=== PATIENT | male | born 1955 | race Caucasian/White ===

== ENCOUNTER → 2016-04-10 | Outpatient (CLI) | payer BC ==
[~2016-04-10] MED LIST: ASP81CT PO; ATN25T; ATN50T PO; ATOR20TA66 PO; B-12 PO; BTH25T1 PO; CEFD300C3 PO; CITA10SO PO; CITA20TA4 PO; CITA20TA7 PO; CYAN10007 PO; CYCL10TA45 PO; CYCL10TA9 PO; DXZS4T PO; ESCT10T PO; HCT25T PO; HYDR-3812 PO; HYDR25TA4 PO; KETO75CA PO; LEVO500T2 PO; LEVO500T80 PO; LISI20TA PO; LISI40TA PO; LOSA50TA36 PO; LOSA50TA6 PO; LSRT50T PO; METR500T PO; METR500T21 PO; MGX400T; MGX400T PO; MOVE FREE PO; MTF500T; MTF500T PO; MULT1TAB63; MULT1TAB63 PO; NAPR220T76 PO; NYST1000 PO; OMEP-10 PO; OMG1KC PO; OXYC-471 PO; PHEN-826 PO; PRD20T PO; PRILOSEC PO; SIMV40TA4 PO; TADA2.5T PO; TEST75GE3 TD; TRAM50TA2 PO; VARD20TA30 PO; [UNRECOGNIZED DRUG - OTHER]
--- OUTSIDE RECORDS SUMMARY | 2016-04-10 12:42 | XMS REPORT | Continuity of Care Document ---
Author Author [facility] Organization [facility] Address Unknown Phone Unavailable Care Team Providers Care Elevator Conductor Name Role Phone [facility] PCP Insurance Providers Payer Name Policy Number Subscriber Name Relationship [facility] [id number] Karey Niño Jr 20 Self / Same As Patient Advance Directives Directive Response Recorded Date/Time Advance Directives Yes 07/17/14 10:56pm Health Care Power of Online Retailer No 07/17/14 10:56pm Organ Donor No 07/17/14 10:56pm Resuscitation Status Full Code 07/17/14 10:56pm Problems No known problems or medical conditions. Medications Medication Dose Route Sig Days/Qty Instructions Order Date Discontinued Date Status Aspirin 81 Mg PO DAILY 10/31/06 Active Escitalopram Oxalate 10 Mg PO BEDTIME 10/31/06 10/05/12 Discontinued Fish Oil 1,200 Mg PO TWICE A DAY 10/31/06 Active Atenolol 50 Mg PO DAILY 03/02/07 10/04/12 Discontinued Metformin HCl (Glucophage) 500 Mg PO TWICE A DAY 03/02/07 10/06/12 Discontinued Multivitamins 1 Tab PO DAILY 03/02/07 Active [Prilosec] 20 Mg PO DAILY 03/02/07 10/05/12 Discontinued [B-12] 1,000 Mg PO DAILY 06/13/10 10/05/12 Discontinued Lisinopril 40 Mg PO DAILY 10/05/12 10/05/12 Discontinued [Simuatin] 40 Mg BEDTIME 10/05/12 10/05/12 Discontinued Citalopram Hydrobromide 20 Mg PO DAILY 10/05/12 10/05/12 Discontinued Testosterone 2 Appful TD DAILY APPLY 2 PUMPS TO EACH SHOULDER EVERY MORNING 10/05/12 07/17/14 Discontinued [Move free] 1 Tab PO TWICE A DAY 10/05/12 07/17/14 Discontinued Omeprazole 20 Mg PO DAILY PRN 10/05/12 07/17/14 Discontinued Cyanocobalamin 1,000 Mcg PO DAILY 10/05/12 07/17/14 Discontinued Lisinopril 40 Mg PO DAILY TAKES 2 (20MG) TABLETS DAILY 10/05/12 Discontinued Simvastatin 40 Mg PO BEDTIME 10/05/12 Active Citalopram Hydrobromide 10 Mg PO BEDTIME 10/05/12 Active Cyclobenzaprine Hcl 10 Mg PO Q8 h PRN spasm PRN 14 Qty 10/06/12 Discontinued Naproxen Sodium 220 Mg PO TWICE A DAY PRN NEEDED FOR PAIN 10/25/12 07/17/14 Discontinued Cyclobenzaprine Hcl 10 Mg PO EVERY 8HRS PRN 10/25/12 07/17/14 Discontinued Losartan Potassium 50 Mg PO DAILY 30 Qty 10/25/12 07/17/14 Discontinued Losartan Potassium 50 Mg PO TWICE A DAY 07/17/14 Active Hydrochlorothiazide 25 Mg PO DAILY 07/17/14 Active Tramadol Hcl 50 Mg PO NEEDED PRN PAIN 07/17/14 Active Vardenafil Hcl 20 Mg PO NEEDED 07/17/14 Active Ketoprofen 1 Each PO EVERY 8HRS PRN knee pain 30 Qty 07/18/14 Active Social History Social History Problem Response Recorded Date/Time Alcohol Use Occasionally Uses 07/17/2014 10:56pm Recreational Drug Use No 07/17/2014 10:56pm Recent Foreign Travel No 10/24/2012 10:30pm Recent Infectious Disease Exposure No 10/24/2012 10:30pm Hospitalization with Isolation Denies 10/25/2012 4:31pm Smoking Status Never a Smoker 07/17/2014 10:56pm Query Response Start Date Stop Date Smoking Status Never a Smoker Hospital Discharge Instructions No hospital discharge instructions. Plan of Care No plan of care. Functional Status No functional status results. Allergies, Adverse Reactions, Alerts Allergen Type Severity Reaction Status Last Updated Penicillins ([id number]) Allergy Mild Active 11/01/06 Immunizations Name Given Type Date of Pneumonia Vaccine 10/06/12 Historical Date of Influenza Vaccine 12/07/11 Historical Hepatitis A No Historical Hepatitis B No Historical Tetanus Booster (TDap) More than 5yrs Historical Vital Signs Acute Vital Signs Vital Response Date/Time Temperature (Fahrenheit) 98.6 degrees F (97.6 - 99.5) Temperature (Calculated Celsius) 37.56483 degrees C (36.4 - 37.5) Temperature Source Temporal Pulse Rate (adult) 84 bpm (60 - 90) Respiratory Rate 18 bpm (12 - 24) O2 Sat by Pulse Oximetry 99 % (88 - 100) Blood Pressure 140/86 mm Hg Pain Pain Intensity 10 Height (Feet) 6 feet Height (Inches) 0 inches Height (Calculated Centimeters) 182.627801 cm Weight (Pounds) 205 pounds Weight (Calculated Kilograms) 92.899693 kilograms Calculated BMI 27.80 Results Laboratory Results Test Name Result Units Flags Reference Collection Date/Time Result Date/ Time Comments White Blood Count 7.3 10^3/uL 4.3-11.0 07/17/2014 11:45pm 07/17/2014 11 :53pm Red Blood Count 4.09 10^6/uL L 4.35-5.85 07/17/2014 11:45pm 07/17/2014 11 :53pm Hemoglobin 14.5 G/DL 13.3-17.7 07/17/2014 11:45pm 07/17/2014 11:53pm Hematocrit 41 % 40-54 07/17/2014 11:45pm 07/17/2014 11:53pm Mean Corpuscular Volume 100 FL H 80-99 07/17/2014 11:45pm 07/17/2014 11: 53pm Mean Corpuscular Hemoglobin 36 PG H 25-34 07/17/2014 11:45pm 07/17/2014 11:53pm Mean Corpuscular Hemoglobin Concent 36 G/DL 32-36 07/17/2014 11:45pm 11:53pm Red Cell Distribution Width 12.8 % 10.0-14.5 07/17/2014 11:45pm 2014 11:53pm Platelet Count 236 10^3/uL 130-400 07/17/2014 11:45pm 07/17/2014 11: 53pm Mean Platelet Volume 9.4 FL 7.4-10.4 07/17/2014 11:45pm 07/17/2014 11: 53pm Neutrophils (%) (Auto) 60 % 42-75 07/17/2014 11:45pm 07/17/2014 11: 53pm Lymphocytes (%) (Auto) 28 % 12-44 07/17/2014 11:45pm 07/17/2014 11: 53pm Monocytes (%) (Auto) 10 % 0-12 07/17/2014 11:45pm 07/17/2014 11:53pm Eosinophils (%) (Auto) 2 % 0-10 07/17/2014 11:45pm 07/17/2014 11:53pm Basophils (%) (Auto) 1 % 0-10 07/17/2014 11:45pm 07/17/2014 11:53pm Neutrophils # (Auto) 4.3 X 10^3 1.8-7.8 07/17/2014 11:45pm 07/17/2014 11:53pm Lymphocytes # (Auto) 2.0 X 10^3 1.0-4.0 07/17/2014 11:45pm 07/17/2014 11:53pm Monocytes # (Auto) 0.7 X 10^3 0.0-1.0 07/17/2014 11:45pm 07/17/2014 11: 53pm Eosinophils # (Auto) 0.2 10^3/uL 0.0-0.3 07/17/2014 11:45pm 07/17/2014 11:53pm Basophils # (Auto) 0.1 10^3/uL 0.0-0.1 07/17/2014 11:45pm 07/17/2014 11 :53pm Erythrocyte Sedimentation Rate 8 MM/HR 0-30 07/17/2014 11:45pm 2014 12:18am Sodium Level 137 MMOL/L 135-145 07/17/2014 11:45pm 07/18/2014 12:18am Potassium Level 3.9 MMOL/L 3.6-5.0 07/17/2014 11:45pm 07/18/2014 12: 18am Chloride Level 103 MMOL/L 98-107 07/17/2014 11:45pm 07/18/2014 12:18am Carbon Dioxide Level 20 MMOL/L L 21-32 07/17/2014 11:45pm 07/18/2014 12: 18am Blood Urea Nitrogen 18 MG/DL 7-18 07/17/2014 11:07/18/2014 12: 18am Creatinine 0.90 MG/DL 0.60-1.30 07/17/2014 11:45pm 07/18/2014 12:18am BUN/Creatinine Ratio 20 07/17/2014 11:45pm 07/18/2014 12:18am Estimat Glomerular Filtration Rate > 60 07/17/2014 11:452014 12:18am GFR INTERPRETIVE DATA UNITS FOR ESTIMATED GFR (eGFR): mL/min/1.73 M2 REFERENCE RANGE FOR ESTIMATED GFR (eGFR) eGFR NORMAL eGFR >60 MODERATELY DECREASED eGFR 30-59 SEVERLY DECREASED eGFR 15-29 KIDNEY FAILURE <15 (OR DIALYSIS) Glucose Level 93 MG/DL 70-105 07/17/2014 11:45pm 07/18/2014 12:18am Calcium Level 9.2 MG/DL 8.5-10.1 07/17/2014 11:4507/18/2014 12:18am Total Bilirubin 0.6 MG/DL 0.1-1.0 07/17/2014 11:45pm 07/18/2014 12: 18am Alkaline Phosphatase 36 U/L L 40-136 07/17/2014 11:45pm 07/18/2014 12: 18am Aspartate Amino Transf (AST/SGOT) 15 U/L 5-34 07/17/2014 11:45pm 2014 12:18am Alanine Aminotransferase (ALT/SGPT) 16 U/L 0-55 07/17/2014 11:45 12:18am Total Protein 7.3 G/DL 6.4-8.2 07/17/2014 11:4507/18/2014 12:18am Albumin 4.2 G/DL 3.2-4.5 07/17/2014 11:4507/18/2014 12:18am C-Reactive Protein High Sensitivity 0.02 MG/DL 0.00-0.50 07/17/2014 11: 45pm 07/18/2014 12:18am Procedures No known history of procedures. Encounters Encounter Location Date/Time Departed Emergency Room Via [facility] 07/17/14 10:33pm Recent Diagnosis
== END ==
LOC: LAB 12:38
PROVIDERS: ATTEND Emergency Medicine
DX: R22.0 Localized swelling, mass and lump, head (principal)
CPT/HCPCS: 87205; 87798

== ENCOUNTER 2017-03-03 10:20 | Emergency (ER) | payer BC ==
[~2017-03-03] VITALS: Ht 182.9 cm; Wt 100.7 kg
[~2017-03-03 10:20] MED LIST changes: +ACHD5005 PO; -HYDR-3812 PO
[2017-03-03] MEDS ORDERED: LACTATED RINGERS 1,000 ML IV ONE (10:30)
[2017-03-03 10:37] LABS: BASOPHILS # (AUTO) 0.1 10^3/uL (0.0-0.1); BASOPHILS % (AUTO) 1 % (0-10); EOSINOPHILS # (AUTO) 0.3 10^3/uL (0.0-0.3); EOSINOPHILS % (AUTO) 4 % (0-10); HEMATOCRIT 40 % (40-54); HEMOGLOBIN 14.3 G/DL (13.3-17.7); LYMPHOCYTES # (AUTO) 2.5 X 10^3 (1.0-4.0); LYMPHOCYTES % (AUTO) 42 % (12-44); MEAN CORPUSCULAR HEMOGLOBIN 35 PG (25-34); MEAN CORPUSCULAR HGB CONC 36 G/DL (32-36); MEAN CORPUSCULAR VOLUME 97 FL (80-99); MEAN PLATELET VOLUME 9.5 FL (7.4-10.4); MONOCYTES # (AUTO) 0.6 X 10^3 (0.0-1.0); MONOCYTES % (AUTO) 10 % (0-12); NEUTROPHILS # (AUTO) 2.5 X 10^3 (1.8-7.8); NEUTROPHILS % (AUTO) 42 % (42-75); PLATELET COUNT 235 10^3/uL (130-400); RED BLOOD COUNT 4.15 10^6/uL (4.35-5.85); RED CELL DISTRIBUTION WIDTH 12.9 % (10.0-14.5)
[2017-03-03 10:48] LABS: INR 0.9 (0.8-1.4); PROTHROMBIN TIME PATIENT 12.5 SEC (12.2-14.7)
--- NOTE | 2017-03-03 10:50 | Diagnostic Imaging Report ---
INDICATION: Altered level of consciousness and weakness. FINDINGS: The lungs are clear. The heart and vessels normal. There is no effusion or pneumothorax. IMPRESSION: No acute appearing abnormality. Dictated by: Dictated on workstation # [id number]
--- NOTE | 2017-03-03 10:53 | Diagnostic Imaging Report ---
PROCEDURE: CT head without contrast. TECHNIQUE: Multiple contiguous axial images were obtained through the brain without the use of intravenous contrast. INDICATION: Weakness, lethargy and dizziness. Exam compared to 10/04/2012. There is no intracranial hemorrhage. No sulcal effacement. No convincing evidence for cortical edema. Periventricular white matter disease likely small vessel sequelae stable. There is focal hypodensity left paramedian rosa seen best on image 12 of about 5-6 mm. This is probably an old pontine lacunar infarct however its precise acuity is unclear. No convincing evidence for an acute abnormality. No mass or mass effect. IMPRESSION: No hemorrhage or cortical edema. No hydrocephalus. 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 Chronic appearing periventricular white matter disease, no definite acute finding. Dictated by: Dictated on workstation # [id number]
[2017-03-03 10:54] LABS: ALANINE AMINOTRANSFERASE 18 U/L (0-55); ALKALINE PHOSPHATASE 47 U/L (40-136); BILIRUBIN,TOTAL 0.9 MG/DL (0.1-1.0); BUN/CREATININE RATIO 17; CALCIUM 8.8 MG/DL (8.5-10.1); CARBON DIOXIDE 23 MMOL/L (21-32); CHLORIDE 103 MMOL/L (98-107); GFR ESTIMATED > 60; GLUCOSE 111 MG/DL (70-105); MAGNESIUM 1.9 MG/DL (1.8-2.4); POTASSIUM 3.4 MMOL/L (3.6-5.0); SODIUM 139 MMOL/L (135-145)
--- NOTE | 2017-03-03 11:05 | ED General ---
General Chief Complaint: General Problems/Pain Stated Complaint: LETHARGIC Nursing Triage Note: ARRIVED VIA EMS FROM WORK. STATES HE WAS GOING IN AND OUT OF CONCIOUSNESS AT WORK. STATES WHEN HE WOKE UP THIS AM HE FELT LIKE HE WAS COMING DOWN WITH THE FLU AND HAS HAD GENEARLIZED WEAKNESS SINCE. Nursing Sepsis Screen: No Definite Risk Source of Information: Patient, EMS History of Present Illness Time Seen by Provider: 10:19 Initial Comments PT ARRIVES VIA EMS FROM WORK PT WITH ALTERED MENTAL STATUS--WAS "GOING IN AND OUT OF CONSCIOUSNESS" AT WORK EMS REPORT THAT PT WAS ESSENTIALLY UNRESPONSIVE AT THE SCENE, BUT MENTATION HAS IMPROVED SOME ENROUTE--PT NOW AWAKE AND TALKING BUT HAS GENERALIZED WEAKNESS EMS GAVE DUONEB ENROUTE FOR SOME SCATTERED RHONCHI ON THEIR EXAM--O2 SATS 99% ON ROOM AIR AT SCENE. ACCUCHECK 144 BY EMS PT STATES HIS WHOLE BODY FEELS VERY HEAVY AND CAN'T LIFT HIS ARMS OR LEGS, AND BOTH OF HIS LEGS FEEL TINGLY NO HEADACHE C/O BLURRY VISION NO CHEST PAIN OR SHORTNESS OF BREATH NO PAIN ANYWHERE NO NAUSEA/VOMITING NO COUGH OR FEVER PT STATES WHEN HE GOT UP THIS MORNING HE "DIDN'T FEEL QUITE RIGHT" AND "THOUGHT HE MIGHT BE GETTING THE FLU" --BUT HAS NO SPECIFIC SYMPTOMS. HAS BEEN AT WORK SINCE 0645 THIS AM. PCP: DR. ZAMARRIPA Allergies and Home Medications Allergies Coded Allergies: ciprofloxacin (Unverified Allergy, Mild, 10/02/15) Penicillins (Verified Adverse Reaction, Mild, UNCOORDINATED, 05/20/15) Home Medications Aspirin 81 Mg Tablet, 81 MG PO DAILY, (Reported) Atorvastatin Calcium 20 Mg Tablet, 20 MG PO HS, (Reported) Cefdinir 300 Mg Capsule, 300 MG PO BID, #10 Prescribed by: LUIS ANTONIO MADERA on 10/05/15 1327 Citalopram Hydrobromide 20 Mg Tablet, 10 MG PO Q48H, (Reported) TAKES 1/2 (20MG) TABLET Hydrochlorothiazide 25 Mg Tablet, 25 MG PO DAILY, (Reported) Losartan Potassium 50 Mg Tablet, 50 MG PO BID, (Reported) Phenazopyridine HCl 100 Mg Tablet, 200 MG PO Q8HR for 3 Days Prescribed by: LUIS ANTONIO MADERA on 10/05/15 1327 Constitutional: see HPI, No chills, No diaphoresis, No fever, malaise, weakness EENTM: blurred vision Respiratory: see HPI, No cough, No short of breath, No wheezing Cardiovascular: No chest pain, No edema, No palpitations, other (NEAR-SYNCOPE) Gastrointestinal: no symptoms reported, No abdominal pain, No nausea, No vomiting Genitourinary: no symptoms reported Musculoskeletal: see HPI, No back pain, No joint pain, No muscle pain, No muscle cramps, No neck pain Skin: no symptoms reported, No rash Psychiatric/Neurological: See HPI, Denies Headache, Paresthesia, Tingling, Weakness (GENERALIZED) Hematologic/Lymphatic: No Symptoms Reported Immunological/Allergic: no symptoms reported Past Psxdfvn-Bsieyw-Orqzpa Hx Patient Social History Alcohol Use: Regular Use (DRINKS DAILY--"2 OR 3" MIXED DRINKS EVERY DAY-- [place]) Alcohol Beverage of Choice: [place] Recreational Drug Use: No Smoking Status: Never a Smoker Recent Foreign Travel: No Contact w/Someone Who Travel: No Recent Infectious Disease Expo: No Recent Hopitalizations: Yes Immunizations Up To Date Tetanus Booster (TDap): More than 5yrs PED Vaccines UTD: No Date of Pneumonia Vaccine: Oct 06, 2012 Date of Influenza Vaccine: May 12, 2015 Seasonal Allergies Seasonal Allergies: Yes Surgeries History of Surgeries: Yes (BICEP SURGERY;URETHRA ENLARGEMENT;L KNEE;L SHOULDER; R SHOULDER X3, TURP) Surgeries: Abdominal, Orthopedic, Transurethral Resection Respiratory History of Respiratory Disorde: Yes Respiratory Disorders: Pneumonia Currently Using CPAP: No Currently Using BIPAP: No Cardiovascular History of Cardiac Disorders: Yes Cardiac Disorders: High Cholesterol, Hypertension Neurological History of Neurological Disord: No Reproductive System Hx Reproductive Disorders: No Genitourinary History of Genitourinary Disor: Yes Genitourinary Disorders: Benign Prostatic Hyperpl, Bladder Infection, Neurogenic Bladder Gastrointestinal History of Gastrointestinal Di: Yes Gastrointestinal Disorders: Gastroesophageal Reflux, Diverticulosis, Polyps Musculoskeletal History of Musculoskeletal Dis: Yes (MULTIPLE ORTHOPEDIC SURGERGIES) Endocrine History of Endocrine Disorders: No HEENT Loss of Vision: Denies Hearing Impairment: Hard of Hearing Cancer History of Cancer: No Psychosocial History of Psychiatric Problem: No Integumentary History of Skin or Integumenta: No Blood Transfusions History of Blood Disorders: No Adverse Reaction to a Blood Tr: No Family Medical History Family Medial History: Patient reports no known family medical history. Physical Exam Vital Signs Vital Sign - Last 12Hours 03/03/17 10:20 Temp 98.2 Pulse 72 Resp 18 B/P (MAP) 151/102 (118) Pulse Ox 97 Capillary Refill : Less Than 3 Seconds General Appearance: Other (ON ARRIVAL, PT APPEARS VERY LETHARGIC BUT AWAKE-- REQUIRES FULL ASSISTANCE TO TRANSFER FROM EMS CART TO ER CART. ) HEENT: PERRL/EOMI, Pharynx Normal Neck: Full Range of Motion, Normal Inspection, Non Tender, Supple, No Carotid Bruit, No JVD Respiratory: Normal Breath Sounds, No Accessory Muscle Use, No Respiratory Distress Cardiovascular: Regular Rate, Rhythm, No Edema, No JVD, No Murmur, Normal Peripheral Pulses Gastrointestinal: Normal Bowel Sounds, No Organomegaly, No Pulsatile Mass, Non Tender, Soft Back: No CVA Tenderness Extremity: Normal Capillary Refill, Normal Inspection, Normal Range of Motion, Non Tender, No Calf Tenderness, No Pedal Edema Neurologic/Psychiatric: No Aphasia, Other (MENTATION NOTED ABOVE. PT WITH GENERALIZED WEAKNESS, BUT CAN HOLD BOTH ARMS AND BOTH LEGS UP A FEW INCHES OFF THE BED AND NO DRIFT. NO APPARENT CONFUSION. ) Skin: Normal Color, Warm/Dry Focused Exam Evaluation Lactate Level Laboratory Tests 03/03/17 10:50: Lactic Acid Level 1.79 Lactic Acid Level Progress/Results/Core Measures Suspected Sepsis Recent Fever Within 48 Hours: No Infection Criteria Present: None New/Unexplained Altered Menta: No Sepsis Screen: No Definite Risk Sepsis Diagnosis: SIRS Temperature:98.2 Pulse: 72 Respiratory Rate: 18 Laboratory Tests 03/03/17 10:20: White Blood Count 6.0 Blood Pressure 151 /102 Mean: 118 Laboratory Tests 03/03/17 10:50: Lactic Acid Level 1.79 Laboratory Tests 03/03/17 10:20: Creatinine 1.10, INR Comment 0.9, Platelet Count 235, Total Bilirubin 0.9 Results/Orders Lab Results Laboratory Tests Test 03/03/17 10:20 03/03/17 10:50 03/03/17 12:00 Range/Units White Blood Count 6.0 4.3-11.0 10^3/uL Red Blood Count 4.15 L 4.35-5.85 10^6/uL Hemoglobin 14.3 13.3-17.7 G/DL Hematocrit 40 40-54 % Mean Corpuscular Volume 97 80-99 FL Mean Corpuscular Hemoglobin 35 H 25-34 PG Mean Corpuscular Hemoglobin Concent 36 32-36 G/DL Red Cell Distribution Width 12.9 10.0-14.5 % Platelet Count 235 130-400 10^3/uL Mean Platelet Volume 9.5 7.4-10.4 FL Neutrophils (%) (Auto) 42 42-75 % Lymphocytes (%) (Auto) 42 12-44 % Monocytes (%) (Auto) 10 0-12 % Eosinophils (%) (Auto) 4 0-10 % Basophils (%) (Auto) 1 0-10 % Neutrophils # (Auto) 2.5 1.8-7.8 X 10^3 Lymphocytes # (Auto) 2.5 1.0-4.0 X 10^3 Monocytes # (Auto) 0.6 0.0-1.0 X 10^3 Eosinophils # (Auto) 0.3 0.0-0.3 10^3/uL Basophils # (Auto) 0.1 0.0-0.1 10^3/uL Prothrombin Time 12.5 12.2-14.7 SEC INR Comment 0.9 0.8-1.4 Activated Partial Thromboplast Time 26 24-35 SEC Sodium Level 139 135-145 MMOL/L Potassium Level 3.4 L 3.6-5.0 MMOL/L Chloride Level 103 98-107 MMOL/L Carbon Dioxide Level 23 21-32 MMOL/L Anion Gap 13 5-14 MMOL/L Blood Urea Nitrogen 19 H 7-18 MG/DL Creatinine 1.10 0.60-1.30 MG/DL Estimat Glomerular Filtration Rate > 60 BUN/Creatinine Ratio 17 Glucose Level 111 H 70-105 MG/DL Calcium Level 8.8 8.5-10.1 MG/DL Magnesium Level 1.9 1.8-2.4 MG/DL Total Bilirubin 0.9 0.1-1.0 MG/DL Aspartate Amino Transf (AST/SGOT) 17 5-34 U/L Alanine Aminotransferase (ALT/SGPT) 18 0-55 U/L Alkaline Phosphatase 47 40-136 U/L Troponin I < 0.30 <0.30 NG/ML Total Protein 7.0 6.4-8.2 GM/DL Albumin 4.0 3.2-4.5 GM/DL TSH [place] Testing 0.93 0.35-4.94 UIU/ML Serum Alcohol < 10 <10 MG/DL Lactic Acid Level 1.79 0.50-2.00 MMOL/L Urine Color YELLOW Urine Clarity CLEAR Urine pH 5 5-9 Urine Specific [place] 1.010 L 1.016-1.022 Urine Protein NEGATIVE NEGATIVE Urine Glucose (UA) NEGATIVE NEGATIVE Urine Ketones NEGATIVE NEGATIVE Urine Nitrite NEGATIVE NEGATIVE Urine Bilirubin NEGATIVE NEGATIVE Urine Urobilinogen NORMAL NORMAL MG/DL Urine Leukocyte Esterase NEGATIVE NEGATIVE Urine RBC (Auto) NEGATIVE NEGATIVE Urine RBC RARE /HPF Urine WBC RARE /HPF Urine Squamous Epithelial Cells 5-10 /HPF Urine Crystals NONE /LPF Urine Bacteria NEGATIVE /HPF Urine Casts NONE /LPF Urine Mucus SMALL H /LPF Urine Culture Indicated NO Urine Opiates Screen NEGATIVE NEGATIVE Urine Oxycodone Screen NEGATIVE NEGATIVE Urine Methadone Screen NEGATIVE NEGATIVE Urine Propoxyphene Screen NEGATIVE NEGATIVE Urine Barbiturates Screen NEGATIVE NEGATIVE Ur Tricyclic Antidepressants Screen NEGATIVE NEGATIVE Urine Phencyclidine Screen NEGATIVE NEGATIVE Urine Amphetamines Screen NEGATIVE NEGATIVE Urine Methamphetamines Screen POSITIVE H NEGATIVE Urine Benzodiazepines Screen NEGATIVE NEGATIVE Urine Cocaine Screen NEGATIVE NEGATIVE Urine Cannabinoids Screen NEGATIVE NEGATIVE Micro Results Microbiology 03/03/17 Influenza Types A,B Antigen (LAYLA) - Final, Complete My Orders Orders - CORIN DONOVAN DO Saline Lock/Iv-Start (03/03/17 10:30) Ekg Tracing (03/03/17 10:30) Monitor-Rhythm Ecg Trace Only (03/03/17 10:30) Ct Head Wo (03/03/17 10:30) Alcohol (03/03/17 10:30) Cbc With Automated Diff (03/03/17 10:30) Comprehensive Metabolic Panel (03/03/17 10:30) Drug Screen Stat (Urine) (03/03/17 10:30) Lactic Acid Analyzer (03/03/17 10:30) Magnesium (03/03/17 10:30) Protime With Inr (03/03/17 10:30) Partial Thromboplastin Time (03/03/17 10:30) Thyroid Analyzer (03/03/17 10:30) Troponin I (03/03/17 10:30) Ua Culture If Indicated (03/03/17 10:30) Blood Culture (03/03/17 10:30) Influenza A And B Antigens (03/03/17 10:30) Chest 1 View, Ap/Pa Only (03/03/17 10:30) Saline Lock/Iv-Start (03/03/17 10:30) Lactated Ringers (Lr 1000 Ml Iv Solution (03/03/17 10:30) Ct Angio Abdomen/Pelv W (03/03/17 12:36) Ct Angio Head/Neck (03/03/17 12:36) Iohexol Injection (Omnipaque 350 Mg/Ml 1 (03/03/17 12:45) Ns (Ivpb) (Sodium Chloride 0.9% Ivpb Bag (03/03/17 12:45) Medications Given in ED Current Medications Medications Dose Ordered Sig/Mikey Route Start Time Stop Time Status Last Admin Dose Admin Iohexol 175 ml ONCE ONCE IV 03/03/17 12:45 03/03/17 12:46 DC 03/03/17 12:56 150 ML Lactated Ringer's 1,000 ml @ 0 mls/hr Q0M ONCE IV 03/03/17 10:30 03/03/17 10:32 DC 03/03/17 11:10 1,000 MLS/HR Sodium Chloride 100 ml ONCE ONCE IV 03/03/17 12:45 03/03/17 12:46 DC 03/03/17 12:56 100 ML Vital Signs/I&O Vital Sign - Last 12Hours 03/03/17 03/03/17 10:20 14:34 Temp 98.2 Pulse 72 84 Resp 18 18 B/P (MAP) 151/102 (118) Pulse Ox 97 99 Capillary Refill : Less Than 3 Seconds Blood Pressure Mean: 118 Progress Note : Progress Note SHORTLY AFTER ARRIVAL, VITALS ARE BEING TAKEN AND GETTING CONNECTED TO MONITOR, PT APPEARED TO QUICKLY BECOME MORE ALERT, AGITATED, ANXIOUS, VERY DRAMATIC AND NOW MOVING ALL EXTREMITIES WITHOUT DIFFICULTY-FLAILING ARMS AND LEGS AT TIMES. EASILY DISTRACTED/DIFFICULT TO KEEP ON SUBJECT PT STATES HE HAS NO RECOLLECTION OF EVENTS AT WORK ARRIVES A SHORT TIME LATER, AND PT NOW C/O RIGHT SIDE OF FACE FEELING "TIGHT" AND "MAYBE A LITTLE TINGLY" AND HIS EYE IS TWITCHING. NO VISION CHANGES. PT WITH CONTINUOUS BLINKING/SQUINTING OF RIGHT EYE AND MOVEMENTS/ CONTORTIONS OF RIGHT SIDE OF FACE AND CONSTANT MOUTH AND TONGUE MOVEMENTS AND SOMEWHAT BIZARRE BEHAVIOR, AND ANXIOUS INSISTS ON CT TO CHECK FOR ANEURYSMS PT'S FATHER OF AAA OR THORACIC ANEURYSM PT ALL SYMPTOMS RESOLVED AT DISMISSAL PT AND COMFORTABLE WITH PT GOING HOME. REVIEWED RESULTS OF ALL TESTS, INCLUDING UDS + FOR METHAMPHETAMINES, ACCURACY OF TEST AND THAT PT'S SYMPTOMS COULD BE RELATED TO METHAMPHETAMINE. PT DENIES USING METH OR ANY DRUGS, AND THINKS SOMEONE MUST HAVE PUT SOMETHING IN HIS COFFEE AT WORK ECG Initial ECG Impression Time: 10:54 Initial ECG Rate: 70 Initial ECG Rhythm: Normal Sinus Initial ECG Impression: Normal Initial ECG Comparisson: Unchanged Diagnostic Imaging Comments CXR--NO ACUTE PROCESS CT HEAD--NO ACUTE PROCESS, CHRONIC APPEARING MICROVASCULAR CHANGES, CHRONIC APPEARING LEFT LACUNAR INFARCT PER RADIOLOGIST REPORTS @ 1104 Reviewed: Reviewed by Me Departure Communication (Admissions) Progress Notes 1230--SPOKE WITH DR. SALAZAR-ADVISES CT OR MR ANGIOGRAM OF HEAD, AND WILL CALL HER BACK, PT DOES NOT MEET ADMISSION CRITERIA AT THIS POINT 1405--SPOKE WITH DR. ZAMARRIPA, HE AGREES WITH PLAN OF CARE AND AGREES THAT PT DOES NOT MEET ADMIT CRITERIA. HE WILL SEE IN FOLLOW UP Impression Impression: Primary Impression: Generalized weakness Additional Impressions: Altered mental status UDS POSITIVE FOR METHAMPHETAMINES Disposition: HOME, SELF-CARE Condition: Improved Departure-Patient Inst. Referrals: DREA ZAMARRIPA DO (PCP/Family) Primary Care Physician Patient Instructions: Altered Mental Status (DC) Add. Discharge Instructions: FOLLOW UP WITH DR. ZAMARRIPA THIS WEEK FOR FURTHER CARE All discharge instructions reviewed with patient and/or family. Voiced understanding. CORIN DONOVAN DO Mar 03, 2017 11:05
[2017-03-03 11:18] LABS: TSH (THYROID ANALYZER) 0.93 UIU/ML (0.35-4.94)
[2017-03-03 12:10] LABS: BILIRUBIN,URINE NEGATIVE (NEGATIVE); CLARITY,URINE CLEAR; COLOR,URINE YELLOW; GLUCOSE, URINE (UA) NEGATIVE (NEGATIVE); KETONES,URINE NEGATIVE (NEGATIVE); LEUKOCYTE ESTERASE ,URINE NEGATIVE (NEGATIVE); NITRITE,URINE NEGATIVE (NEGATIVE); PH,URINE 5 (5-9); PROTEIN,URINE NEGATIVE (NEGATIVE); UROBILINOGEN,URINE NORMAL (NORMAL)
[2017-03-03 12:27] LABS: AMPHETAMINE SCREEN, URINE NEGATIVE (NEGATIVE); BARBITURATE SCREEN URINE NEGATIVE (NEGATIVE); BENZODIAZEPINES SCREEN URINE NEGATIVE (NEGATIVE); CANNABINOID SCREEN, URINE NEGATIVE (NEGATIVE); COCAINE SCREEN URINE NEGATIVE (NEGATIVE); METHADONE STAT NEGATIVE (NEGATIVE); METHAMPHETAMINE SCREEN URINE S POSITIVE (NEGATIVE); OPIATE SCREEN URINE NEGATIVE (NEGATIVE); OXYCODONE STAT NEGATIVE (NEGATIVE); PROPOXYPHENE STAT NEGATIVE (NEGATIVE); TRICYCLIC ANTIDEPRESSANTS SCRE NEGATIVE (NEGATIVE)
[2017-03-03 12:32] LABS: RBC,URINE RARE /HPF
[2017-03-03 12:33] LABS: BACTERIA,URINE NEGATIVE /HPF; WBC,URINE RARE /HPF
[2017-03-03] MEDS ORDERED: NS 100 ML (IVPB) BAG IV ONE (12:45)
[2017-03-03] MEDS ORDERED: IOHEXOL 350 MG/ML 150 ML (OMNIPAQUE 350) VIAL IV ONE (12:45)
--- NOTE | 2017-03-03 13:39 | Diagnostic Imaging Report ---
CT ANGIO ABDOMEN/PELV W TECHNIQUE: Postcontrast angiographic imaging of the abdomen and pelvis was performed. MIP reformates were created and submitted for interpretation. INDICATION: 62-year-old male with strong family history of abdominal aortic aneurysm. Back pain. COMPARISON: CT abdomen and pelvis from 10/04/2015. FINDINGS: Normal caliber abdominal aorta without dissection or rupture. The celiac, superior mesenteric, bilateral renal and inferior mesenteric arteries are all widely patent. Bilateral common and external iliac arteries are patent. A small amount of atherosclerotic plaquing is present within the abdominal aorta. Lung bases are clear. No pericardial or pleural effusion. Borderline cardiomegaly is unchanged. No free intraperitoneal air or fluid. Diffuse hypoattenuation of liver suggests hepatic steatosis. No focal enhancing hepatic lesion. The gallbladder, spleen, and pancreas are normal. No adrenal mass. Kidneys enhance normally without mass lesions. Ureters are normal. Large exophytic diverticulum along the left posterolateral aspect of the urinary bladder has a narrow neck defect and is unchanged. No abdominal or pelvic lymphadenopathy. No concerning focal osseous lesions. IMPRESSION: 1. No abdominal aortic aneurysm or acute aortic syndrome. 2. 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 Dictated by: Dictated on workstation # [id number]
--- NOTE | 2017-03-03 13:44 | Diagnostic Imaging Report ---
PROCEDURE: CT angiography of the head and CT angiography of the neck with and without contrast. TECHNIQUE: Contiguous noncontrast images were obtained from the skull base through the vertex. After intravenous contrast administration, helical CT angiography of the neck was performed. Source data was reformatted into multiple MIP projections. Delayed post contrast acquisition was also obtained. INDICATION: Syncope, weakness in arms and legs. COMPARISON: CT of the head from the same day. FINDINGS: There is marked streak artifact in the lower neck and chest. The bilateral common carotid arteries are patent. There is mild atherosclerosis at the carotid bulbs, right more than left, without significant stenosis. The internal carotid arteries demonstrate no focal stenosis as well. The anterior cerebral arteries are patent. The middle cerebral arteries appear patent. The anterior communicating artery is faintly seen but appears patent. The posterior communicating arteries are not well seen. The posterior cerebral arteries appear normal. The superior cerebellar arteries are unremarkable. The basilar artery is mildly diminutive but no focal stenosis is seen. The right vertebral artery is dominant. No focal stenosis or aneurysm is seen. No enhancing lesions are seen in the brain. There is generalized volume loss. No acute hemorrhage or CT evidence of acute territorial ischemia is seen. The hypoattenuating focus in the left rosa is less conspicuous on these images. There is a fluid level in the left maxillary sinus with postsurgical changes in the maxillary sinuses. No masses or fluid collections are seen in the soft tissues of the neck. The lung apices are clear. IMPRESSION: 1. Mild atherosclerosis in the carotid bulbs with no significant stenosis, aneurysm, or dissection seen in the bilateral carotid and vertebral arteries. 2. No intracranial stenosis, aneurysm, or thrombus. Dictated by: Dictated on workstation # [id number]
[2017-03-03 14:34] VITALS: BP 174/102
--- OUTSIDE RECORDS SUMMARY | 2017-03-04 18:42 | XMS REPORT | Continuity of Care Document ---
Author Author [facility] Organization [facility] Address Unknown Phone Unavailable Allergies Active Description Code Type Severity Reaction Onset Reported/Identified Relationship to Patient Clinical Status Yes Penicillins [id number] Drug Allergy Mild N/A 11/01/2006 Yes Penicillins [id number] Drug Allergy Mild UNCOORDINATED 05/20/2015 Yes ciprofloxacin [id number] Drug Allergy Mild N/A 10/02/2015 Medications There is no data. Problems Date Dx Coded Attending Type Code Diagnosis Diagnosed By 10/06/2012 SKYLER NEWBERRY, GENEVA Cochran Ot 272.4 10/06/2012 SKYLER NEWBERRY, GENEVA Cochran Ot 311 10/06/2012 SKYLER NEWBERRY, GENEVA Sammie Ot 401.9 10/06/2012 SKYLER NEWBERRY, GENEVA Cochran Ot 530.81 10/06/2012 SKYLER NEWBERRY, GENEVA Sammie Ot 584.9 10/06/2012 SKYLER NEWBERRY, GENEVA Cochran Ot 728.87 10/25/2012 HEIDI NEWBERRY, JIMMIE Gama Ot 272.4 10/25/2012 HEIDI NEWBERRY, JIMMIE Gama Ot 305.00 10/25/2012 HEIDI NEWBERRY, JIMMIE Gama Ot 311 10/25/2012 HEIDI NEWBERRY, JIMMIE Gama Ot 401.9 10/25/2012 HEIDI NEWBERRY, JIMMIE Gama Ot 530.81 10/25/2012 HEIDI NEWBERRY, JIMMIE Gama Ot 607.84 10/25/2012 HEIDI NEWBERRY, JIMMIE Gama Ot 780.93 10/25/2012 HEIDI NEWBERRY, JIMMIE Gama Ot 786.09 10/25/2012 HEIDI NEWBERRY, JIMMIE Gama Ot 786.2 07/18/2014 DREA DINERO DO Ot 715.96 07/18/2014 DREA DINERO DO Ot 719.46 12/19/2014 NEW SIMS Ot M51.16 05/07/2015 CHYNA NEWBERRY, GLEN T Ot K57.32 05/07/2015 CHYNA NEWBERRY, GLEN T Ot N32.3 05/08/2015 CHYNA NEWBERRY, GLEN T Ot K57.32 05/08/2015 CHYNA NEWBERRY, GLEN T Ot N32.3 05/12/2015 TRISTAN NEWBERRY, MARTA M Ot E78.0 05/12/2015 TRISTAN NEWBERRY, MARTA M Ot I10 05/12/2015 TRISTAN NEWBERRY, MARTA M Ot K21.9 05/12/2015 TRISTAN NEWBERRY, MARTA M Ot K57.32 05/12/2015 TRISTAN NEWBERRY, MARTA M Ot N31.9 05/12/2015 TRISTAN NEWBERRY, MARTA M Ot Z23 05/17/2015 TRISTAN NEWBERRY, MARTA M Ot K57.30 05/17/2015 TRISTAN NEWBERRY, MARTA M Ot Z01.818 05/17/2015 TRISTAN NEWBERRY, MARTA M Ot Z12.11 05/17/2015 TRISTAN NEWBERRY, MARTA M Ot K57.30 05/17/2015 TRISTAN NEWBERRY, MARTA M Ot Z01.818 05/17/2015 TRISTAN NEWBERRY, MARTA M Ot Z12.11 05/20/2015 TRISTAN NEWBERRY, MARTA Gama Ot K57.90 DVRTCLOS OF INTEST, PART UNSP, W/O PERF 05/20/2015 TRISTAN NEWBERRY, MARTA Gama Ot Z09 ENCNTR FOR F/U EXAM AFT TRTMT FOR COND O 05/20/2015 TRISTAN NEWBERRY, MARTA Gama Ot Z12.11 ENCOUNTER FOR SCREENING FOR MALIGNANT NE 05/21/2015 TRISTAN NEWBERRY, MARTA Gama Ot K57.90 05/21/2015 TRISTAN NEWBERRY, MARTA Gama Ot Z09 05/21/2015 TRISTAN NEWBERRY, MARTA Gama Ot Z12.11 10/04/2015 REAL DOIRMAI Ot E78.5 HYPERLIPIDEMIA, UNSPECIFIED 10/04/2015 IRMA NOBLE DOI Ot E87.6 HYPOKALEMIA 10/04/2015 REAL ALVAREZ BRONWYN Ot I10 ESSENTIAL (PRIMARY) HYPERTENSION 10/04/2015 IRMA NOBLE DOI Ot K21.9 GASTRO-ESOPHAGEAL REFLUX DISEASE WITHOUT 10/04/2015 IRMA NOBLE DOI Ot N32.3 DIVERTICULUM OF BLADDER 10/05/2015 BRONWYN NOBLE DO Ot E78.5 HYPERLIPIDEMIA, UNSPECIFIED 10/05/2015 BRONWYN NOBLE DO Ot E87.6 HYPOKALEMIA 10/05/2015 BRONWYN NOBLE DO Ot I10 ESSENTIAL (PRIMARY) HYPERTENSION 10/05/2015 BRONWYN NOBLE DO Ot K21.9 GASTRO-ESOPHAGEAL REFLUX DISEASE WITHOUT 10/05/2015 BRONWYN NOBLE DO Ot K59.00 CONSTIPATION, UNSPECIFIED 10/05/2015 BRONWYN NOBLE DO Ot N32.3 DIVERTICULUM OF BLADDER 10/05/2015 BRONWYN NOBLE DO Ot N32.89 OTHER SPECIFIED DISORDERS OF BLADDER 10/15/2015 DREA ZAMARRIPA DO Ot R10.30 LOWER ABDOMINAL PAIN, UNSPECIFIED 11/12/2015 DREA ZAMARRIPA DO Ot R10.30 LOWER ABDOMINAL PAIN, UNSPECIFIED 04/10/2016 DREA ZAMARRIPA DO Ot R10.30 LOWER ABDOMINAL PAIN, UNSPECIFIED 05/07/2016 EULA NEWBERRY, MAYNOR Butcher Ot R22.0 LOCALIZED SWELLING, MASS AND LUMP, HEAD Procedures Code Description Performed By Performed On [id number] INSPECTION OF BLADDER, ENDO 10/04/2015 Results Test Result Range Complete blood count (CBC) with automated white blood cell (WBC) differential - 10/02/15 16:00 Blood leukocytes automated count (number/volume) 6.3 10*3/uL 4.3-11.0 Blood erythrocytes automated count (number/volume) 4.34 10*6/uL 4.35-5.85 Venous blood hemoglobin measurement (mass/volume) 14.9 g/dL 13.3-17.7 Blood hematocrit (volume fraction) 43 % 40-54 Automated erythrocyte mean corpuscular volume 98 [foz_us] 80-99 Automated erythrocyte mean corpuscular hemoglobin (mass per erythrocyte) 34 pg 25-34 Automated erythrocyte mean corpuscular hemoglobin concentration measurement ( mass/volume) 35 g/dL 32-36 Automated erythrocyte distribution width ratio 12.9 % 10.0-14.5 Automated blood platelet count (count/volume) 255 10*3/uL 130-400 Automated blood platelet mean volume measurement 9.4 [foz_us] 7.4-10.4 Automated blood neutrophils/100 leukocytes 41 % 42-75 Automated blood lymphocytes/100 leukocytes 38 % 12-44 Blood monocytes/100 leukocytes 12 % 0-12 Automated blood eosinophils/100 leukocytes 9 % 0-10 Automated blood basophils/100 leukocytes 1 % 0-10 Blood neutrophils automated count (number/volume) 2.6 10*3 1.8-7.8 Blood lymphocytes automated count (number/volume) 2.4 10*3 1.0-4.0 Blood monocytes automated count (number/volume) 0.7 10*3 0.0-1.0 Automated eosinophil count 0.5 10*3/uL 0.0-0.3 Automated blood basophil count (count/volume) 0.1 10*3/uL 0.0-0.1 Erythrocyte sedimentation rate by westergren method - 10/02/15 16:00 Erythrocyte sedimentation rate by westergren method 18 mm 0-30 Comprehensive metabolic panel - 10/02/15 16:00 Serum or plasma sodium measurement (moles/volume) 139 mmol/L 135-145 Serum or plasma potassium measurement (moles/volume) 3.6 mmol/L 3.6-5.0 Serum or plasma chloride measurement (moles/volume) 104 mmol/L 98-107 Carbon dioxide 25 mmol/L 21-32 Serum or plasma anion gap determination (moles/volume) 10 mmol/L 5-14 Serum or plasma urea nitrogen measurement (mass/volume) 20 mg/dL 7-18 Serum or plasma creatinine measurement (mass/volume) 1.11 mg/dL 0.60-1.30 Serum or plasma urea nitrogen/creatinine mass ratio 18 NRG Serum or plasma creatinine measurement with calculation of estimated glomerular filtration rate > NRG Serum or plasma glucose measurement (mass/volume) 101 mg/dL 70-105 Serum or plasma calcium measurement (mass/volume) 9.2 mg/dL 8.5-10.1 Serum or plasma total bilirubin measurement (mass/volume) 0.6 mg/dL 0.1-1.0 Serum or plasma alkaline phosphatase measurement (enzymatic activity/volume) 52 U/L 40-136 Serum or plasma aspartate aminotransferase measurement (enzymatic activity/ volume) 15 U/L 5-34 Serum or plasma alanine aminotransferase measurement (enzymatic activity/volume ) 21 U/L 0-55 Serum or plasma protein measurement (mass/volume) 7.3 g/dL 6.4-8.2 Serum or plasma albumin measurement (mass/volume) 4.3 g/dL 3.2-4.5 Bacterial blood culture - 10/02/15 20:40 Bacterial blood culture NG NR Complete blood count (CBC) with automated white blood cell (WBC) differential - 10/02/15 20:50 Blood leukocytes automated count (number/volume) 5.9 10*3/uL 4.3-11.0 Blood erythrocytes automated count (number/volume) 4.11 10*6/uL 4.35-5.85 Venous blood hemoglobin measurement (mass/volume) 14.1 g/dL 13.3-17.7 Blood hematocrit (volume fraction) 40 % 40-54 Automated erythrocyte mean corpuscular volume 97 [foz_us] 80-99 Automated erythrocyte mean corpuscular hemoglobin (mass per erythrocyte) 34 pg 25-34 Automated erythrocyte mean corpuscular hemoglobin concentration measurement ( mass/volume) 35 g/dL 32-36 Automated erythrocyte distribution width ratio 12.7 % 10.0-14.5 Automated blood platelet count (count/volume) 252 10*3/uL 130-400 Automated blood platelet mean volume measurement 9.7 [foz_us] 7.4-10.4 Automated blood neutrophils/100 leukocytes 41 % 42-75 Automated blood lymphocytes/100 leukocytes 38 % 12-44 Blood monocytes/100 leukocytes 12 % 0-12 Automated blood eosinophils/100 leukocytes 7 % 0-10 Automated blood basophils/100 leukocytes 1 % 0-10 Blood neutrophils automated count (number/volume) 2.4 10*3 1.8-7.8 Blood lymphocytes automated count (number/volume) 2.2 10*3 1.0-4.0 Blood monocytes automated count (number/volume) 0.7 10*3 0.0-1.0 Automated eosinophil count 0.4 10*3/uL 0.0-0.3 Automated blood basophil count (count/volume) 0.1 10*3/uL 0.0-0.1 Blood lactic acid measurement (moles/volume) - 10/02/15 20:50 Blood lactic acid measurement (moles/volume) 2.0 mmol/L 0.5-2.0 Comprehensive metabolic panel - 10/02/15 20:50 Serum or plasma sodium measurement (moles/volume) 137 mmol/L 135-145 Serum or plasma potassium measurement (moles/volume) 3.5 mmol/L 3.6-5.0 Serum or plasma chloride measurement (moles/volume) 103 mmol/L 98-107 Carbon dioxide 20 mmol/L 21-32 Serum or plasma anion gap determination (moles/volume) 14 mmol/L 5-14 Serum or plasma urea nitrogen measurement (mass/volume) 19 mg/dL 7-18 Serum or plasma creatinine measurement (mass/volume) 1.09 mg/dL 0.60-1.30 Serum or plasma urea nitrogen/creatinine mass ratio 17 NRG Serum or plasma creatinine measurement with calculation of estimated glomerular filtration rate > NRG Serum or plasma glucose measurement (mass/volume) 94 mg/dL 70-105 Serum or plasma calcium measurement (mass/volume) 8.9 mg/dL 8.5-10.1 Serum or plasma total bilirubin measurement (mass/volume) 0.6 mg/dL 0.1-1.0 Serum or plasma alkaline phosphatase measurement (enzymatic activity/volume) 46 U/L 40-136 Serum or plasma aspartate aminotransferase measurement (enzymatic activity/ volume) 18 U/L 5-34 Serum or plasma alanine aminotransferase measurement (enzymatic activity/volume ) 23 U/L 0-55 Serum or plasma protein measurement (mass/volume) 6.8 g/dL 6.4-8.2 Serum or plasma albumin measurement (mass/volume) 4.1 g/dL 3.2-4.5 Bacterial blood culture - 10/02/15 20:50 Bacterial blood culture NG NRG Complete urinalysis with reflex to culture - 10/02/15 21:00 Urine color determination YELLOW NRG Urine clarity determination CLEAR NRG Urine pH measurement by test strip 5 5-9 Specific gravity of urine by test strip 1.020 1.016- 1.022 Urine protein assay by test strip, semi-quantitative NEGATIVE NEGATIVE Urine glucose detection by automated test strip NEGATIVE NEGATIVE Erythrocytes detection in urine sediment by light microscopy NEGATIVE NEGATIVE Urine ketones detection by automated test strip NEGATIVE NEGATIVE Urine nitrite detection by test strip NEGATIVE NEGATIVE Urine total bilirubin detection by test strip NEGATIVE NEGATIVE Urine urobilinogen measurement by automated test strip (mass/volume) NORMAL NORMAL Urine leukocyte esterase detection by dipstick NEGATIVE NEGATIVE Automated urine sediment erythrocyte count by microscopy (number/high power field) NONE NRG Automated urine sediment leukocyte count by microscopy (number/high power field ) RARE NRG Bacteria detection in urine sediment by light microscopy NONE NRG Crystals detection in urine sediment by light microscopy NONE NRG Casts detection in urine sediment by light microscopy NONE NRG Mucus detection in urine sediment by light microscopy NEGATIVE NRG Complete urinalysis with reflex to culture NO NRG Complete blood count (CBC) with automated white blood cell (WBC) differential - 10/03/15 06:11 Blood leukocytes automated count (number/volume) 5.8 10*3/uL 4.3-11.0 Blood erythrocytes automated count (number/volume) 3.93 10*6/uL 4.35-5.85 Venous blood hemoglobin measurement (mass/volume) 13.4 g/dL 13.3-17.7 Blood hematocrit (volume fraction) 39 % 40-54 Automated erythrocyte mean corpuscular volume 99 [foz_us] 80-99 Automated erythrocyte mean corpuscular hemoglobin (mass per erythrocyte) 34 pg 25-34 Automated erythrocyte mean corpuscular hemoglobin concentration measurement ( mass/volume) 35 g/dL 32-36 Automated erythrocyte distribution width ratio 12.9 % 10.0-14.5 Automated blood platelet count (count/volume) 232 10*3/uL 130-400 Automated blood platelet mean volume measurement 9.4 [foz_us] 7.4-10.4 Automated blood neutrophils/100 leukocytes 40 % 42-75 Automated blood lymphocytes/100 leukocytes 39 % 12-44 Blood monocytes/100 leukocytes 12 % 0-12 Automated blood eosinophils/100 leukocytes 7 % 0-10 Automated blood basophils/100 leukocytes 1 % 0-10 Blood neutrophils automated count (number/volume) 2.4 10*3 1.8-7.8 Blood lymphocytes automated count (number/volume) 2.3 10*3 1.0-4.0 Blood monocytes automated count (number/volume) 0.7 10*3 0.0-1.0 Automated eosinophil count 0.4 10*3/uL 0.0-0.3 Automated blood basophil count (count/volume) 0.1 10*3/uL 0.0-0.1 Whole blood basic metabolic panel - 10/03/15 06:11 Serum or plasma sodium measurement (moles/volume) 137 mmol/L 135-145 Serum or plasma potassium measurement (moles/volume) 3.6 mmol/L 3.6-5.0 Serum or plasma chloride measurement (moles/volume) 103 mmol/L 98-107 Carbon dioxide 25 mmol/L 21-32 Serum or plasma anion gap determination (moles/volume) 9 mmol/L 5-14 Serum or plasma urea nitrogen measurement (mass/volume) 24 mg/dL 7-18 Serum or plasma creatinine measurement (mass/volume) 1.01 mg/dL 0.60-1.30 Serum or plasma urea nitrogen/creatinine mass ratio 24 NRG Serum or plasma creatinine measurement with calculation of estimated glomerular filtration rate > NRG Serum or plasma glucose measurement (mass/volume) 94 mg/dL 70-105 Serum or plasma calcium measurement (mass/volume) 8.8 mg/dL 8.5-10.1 Complete blood count (CBC) with automated white blood cell (WBC) differential - 10/05/15 05:36 Blood leukocytes automated count (number/volume) 8.4 10*3/uL 4.3-11.0 Blood erythrocytes automated count (number/volume) 3.77 10*6/uL 4.35-5.85 Venous blood hemoglobin measurement (mass/volume) 12.9 g/dL 13.3-17.7 Blood hematocrit (volume fraction) 37 % 40-54 Automated erythrocyte mean corpuscular volume 99 [foz_us] 80-99 Automated erythrocyte mean corpuscular hemoglobin (mass per erythrocyte) 34 pg 25-34 Automated erythrocyte mean corpuscular hemoglobin concentration measurement ( mass/volume) 35 g/dL 32-36 Automated erythrocyte distribution width ratio 12.5 % 10.0-14.5 Automated blood platelet count (count/volume) 215 10*3/uL 130-400 Automated blood platelet mean volume measurement 9.5 [foz_us] 7.4-10.4 Automated blood neutrophils/100 leukocytes 72 % 42-75 Automated blood lymphocytes/100 leukocytes 15 % 12-44 Blood monocytes/100 leukocytes 8 % 0-12 Automated blood eosinophils/100 leukocytes 5 % 0-10 Automated blood basophils/100 leukocytes 1 % 0-10 Blood neutrophils automated count (number/volume) 6.1 10*3 1.8-7.8 Blood lymphocytes automated count (number/volume) 1.2 10*3 1.0-4.0 Blood monocytes automated count (number/volume) 0.7 10*3 0.0-1.0 Automated eosinophil count 0.4 10*3/uL 0.0-0.3 Automated blood basophil count (count/volume) 0.1 10*3/uL 0.0-0.1 Comprehensive metabolic panel - 10/05/15 05:36 Serum or plasma sodium measurement (moles/volume) 139 mmol/L 135-145 Serum or plasma potassium measurement (moles/volume) 3.9 mmol/L 3.6-5.0 Serum or plasma chloride measurement (moles/volume) 105 mmol/L 98-107 Carbon dioxide 24 mmol/L 21-32 Serum or plasma anion gap determination (moles/volume) 10 mmol/L 5-14 Serum or plasma urea nitrogen measurement (mass/volume) 17 mg/dL 7-18 Serum or plasma creatinine measurement (mass/volume) 0.96 mg/dL 0.60-1.30 Serum or plasma urea nitrogen/creatinine mass ratio 18 NRG Serum or plasma creatinine measurement with calculation of estimated glomerular filtration rate > NRG Serum or plasma glucose measurement (mass/volume) 100 mg/dL 70-105 Serum or plasma calcium measurement (mass/volume) 8.5 mg/dL 8.5-10.1 Serum or plasma total bilirubin measurement (mass/volume) 0.8 mg/dL 0.1-1.0 Serum or plasma alkaline phosphatase measurement (enzymatic activity/volume) 43 U/L 40-136 Serum or plasma aspartate aminotransferase measurement (enzymatic activity/ volume) 16 U/L 5-34 Serum or plasma alanine aminotransferase measurement (enzymatic activity/volume ) 18 U/L 0-55 Serum or plasma protein measurement (mass/volume) 5.9 g/dL 6.4-8.2 Serum or plasma albumin measurement (mass/volume) 3.6 g/dL 3.2-4.5 Gram stain microscopy - 04/10/16 12:50 Gram stain microscopy [facility] Bacteria identified - 04/10/16 12:50 Complete blood count (CBC) with automated white blood cell (WBC) differential - 03/03/17 10:20 Blood leukocytes automated count (number/volume) 6.0 10*3/uL 4.3-11.0 Blood erythrocytes automated count (number/volume) 4.15 10*6/uL 4.35-5.85 Venous blood hemoglobin measurement (mass/volume) 14.3 g/dL 13.3-17.7 Blood hematocrit (volume fraction) 40 % 40-54 Automated erythrocyte mean corpuscular volume 97 [foz_us] 80-99 Automated erythrocyte mean corpuscular hemoglobin (mass per erythrocyte) 35 pg 25-34 Automated erythrocyte mean corpuscular hemoglobin concentration measurement ( mass/volume) 36 g/dL 32-36 Automated erythrocyte distribution width ratio 12.9 % 10.0-14.5 Automated blood platelet count (count/volume) 235 10*3/uL 130-400 Automated blood platelet mean volume measurement 9.5 [foz_us] 7.4-10.4 Automated blood neutrophils/100 leukocytes 42 % 42-75 Automated blood lymphocytes/100 leukocytes 42 % 12-44 Blood monocytes/100 leukocytes 10 % 0-12 Automated blood eosinophils/100 leukocytes 4 % 0-10 Automated blood basophils/100 leukocytes 1 % 0-10 Blood neutrophils automated count (number/volume) 2.5 10*3 1.8-7.8 Blood lymphocytes automated count (number/volume) 2.5 10*3 1.0-4.0 Blood monocytes automated count (number/volume) 0.6 10*3 0.0-1.0 Automated eosinophil count 0.3 10*3/uL 0.0-0.3 Automated blood basophil count (count/volume) 0.1 10*3/uL 0.0-0.1 PT panel in platelet poor plasma by coagulation assay - 03/03/17 10:20 Prothrombin time (PT) in platelet poor plasma by coagulation assay 12.5 s 12.2-14.7 INR in platelet poor plasma or blood by coagulation assay 0.9 0.8-1.4 Activated partial thromboplastin time (aPTT) in platelet poor plasma bycoagulation assay - 03/03/17 10:20 Activated partial thromboplastin time (aPTT) in platelet poor plasma bycoagulation assay 26 s 24-35 Comprehensive metabolic panel - 03/03/17 10:20 Serum or plasma sodium measurement (moles/volume) 139 mmol/L 135-145 Serum or plasma potassium measurement (moles/volume) 3.4 mmol/L 3.6-5.0 Serum or plasma chloride measurement (moles/volume) 103 mmol/L 98-107 Carbon dioxide 23 mmol/L 21-32 Serum or plasma anion gap determination (moles/volume) 13 mmol/L 5-14 Serum or plasma urea nitrogen measurement (mass/volume) 19 mg/dL 7-18 Serum or plasma creatinine measurement (mass/volume) 1.10 mg/dL 0.60-1.30 Serum or plasma urea nitrogen/creatinine mass ratio 17 NRG Serum or plasma creatinine measurement with calculation of estimated glomerular filtration rate > NRG Serum or plasma glucose measurement (mass/volume) 111 mg/dL 70-105 Serum or plasma calcium measurement (mass/volume) 8.8 mg/dL 8.5-10.1 Serum or plasma total bilirubin measurement (mass/volume) 0.9 mg/dL 0.1-1.0 Serum or plasma alkaline phosphatase measurement (enzymatic activity/volume) 47 U/L 40-136 Serum or plasma aspartate aminotransferase measurement (enzymatic activity/ volume) 17 U/L 5-34 Serum or plasma alanine aminotransferase measurement (enzymatic activity/volume ) 18 U/L 0-55 Serum or plasma protein measurement (mass/volume) 7.0 g/dL 6.4-8.2 Serum or plasma albumin measurement (mass/volume) 4.0 g/dL 3.2-4.5 Magnesium - 03/03/17 10:20 Magnesium 1.9 mg/dL 1.8-2.4 Influenza virus A and B antigen detection - 03/03/17 10:20 FLU RESULT NEGATIVE FOR INFLUENZA A AND B ANTIGENS BY [facility] Serum or plasma troponin i.cardiac measurement (mass/volume) - 03/03/17 10:20 Serum or plasma troponin i.cardiac measurement (mass/volume) < ng/ mL <0.30 Serum or plasma thyrotropin measurement by detection limit <=0.05 miu/l (units/ volume) - 03/03/17 10:20 Serum or plasma thyrotropin measurement by detection limit <=0.05 miu/l (units/ volume) 0.93 u[iU]/mL 0.35-4.94 Serum or plasma ethanol measurement (mass/volume) - 03/03/17 10:20 Serum or plasma ethanol measurement (mass/volume) < mg/dL <10 Blood lactic acid measurement (moles/volume) - 03/03/17 10:50 Blood lactic acid measurement (moles/volume) 1.79 mmol/L 0.50-2.00 Bacterial blood culture - 03/03/17 10:50 FREE TEXT EXTERNAL SEE COMMENT NR QUANTITY OF GROWTH Isolated [facility] [place] Bacterial blood culture [id number] [facility] Bacterial blood culture - 03/03/17 11:01 Bacterial blood culture NG NRG Urine drug screening test - 03/03/17 12:00 Urine phencyclidine detection by screening method NEGATIVE NEGATIVE Urine benzodiazepines detection by screening method NEGATIVE NEGATIVE Urine cocaine detection NEGATIVE NEGATIVE Urine amphetamines detection by screening method NEGATIVE NEGATIVE Urine methamphetamine detection by screening method POSITIVE NEGATIVE Urine cannabinoids detection by screening method NEGATIVE NEGATIVE Urine opiates detection by screening method NEGATIVE NEGATIVE Urine barbiturates detection NEGATIVE NEGATIVE Screening urine tricyclic antidepressants detection NEGATIVE NEGATIVE Urine methadone detection by screening method NEGATIVE NEGATIVE Urine oxycodone detection NEGATIVE NEGATIVE Urine propoxyphene detection NEGATIVE NEGATIVE Complete urinalysis with reflex to culture - 03/03/17 12:00 Urine color determination YELLOW NRG Urine clarity determination CLEAR NRG Urine pH measurement by test strip 5 5-9 Specific gravity of urine by test strip 1.010 1.016- 1.022 Urine protein assay by test strip, semi-quantitative NEGATIVE NEGATIVE Urine glucose detection by automated test strip NEGATIVE NEGATIVE Erythrocytes detection in urine sediment by light microscopy NEGATIVE NEGATIVE Urine ketones detection by automated test strip NEGATIVE NEGATIVE Urine nitrite detection by test strip NEGATIVE NEGATIVE Urine total bilirubin detection by test strip NEGATIVE NEGATIVE Urine urobilinogen measurement by automated test strip (mass/volume) NORMAL NORMAL Urine leukocyte esterase detection by dipstick NEGATIVE NEGATIVE Automated urine sediment erythrocyte count by microscopy (number/high power field) RARE NRG Automated urine sediment leukocyte count by microscopy (number/high power field ) RARE NRG Bacteria detection in urine sediment by light microscopy NEGATIVE NRG Squamous epithelial cells detection in urine sediment by light microscopy 5-10 NRG Crystals detection in urine sediment by light microscopy NONE NRG Casts detection in urine sediment by light microscopy NONE NRG Mucus detection in urine sediment by light microscopy SMALL NRG Complete urinalysis with reflex to culture NO NRG Encounters ACCT No. Visit Date/Time Discharge Status Pt. Type Provider Facility Loc./Unit Complaint [id number] 04/10/2016 12:38:00 04/10/2016 23:59:59 CLS Outpatient MAYNOR FORDE MD [facility] LAB SALIVARY GL[place] SWELLING [id number] 10/03/2015 00:40:00 10/05/2015 14:22:00 DIS Inpatient BRONWYN NOBLE DO [facility] 4TH INTRACTABLE BLADDER PAIN; BLADDER DIVERTICULUM [id number] 10/02/2015 15:45:00 10/02/2015 23:59:59 CLS Outpatient DREA ZAMARRIPA DO [facility] RAD ABD PAIN,HEMATURIA, FEVER [id number] 05/20/2015 08:54:00 05/20/2015 12:10:00 DIS Outpatient TRISTAN NEWBERRY, MARTA Gama [facility] [id number] 05/16/2015 06:06:00 05/16/2015 15:12:00 DIS Outpatient TRISTAN NEWBERRY, MARTA Gama [facility] PREOP [id number] 05/09/2015 05:30:00 05/12/2015 12:12:00 DIS Inpatient TRISTAN NEWBERRY, MARTA Gama [facility] [address] [id number] 05/07/2015 08:47:00 05/07/2015 11:28:00 DIS Emergency CHYNA NEWBERRY, GLEN Breen [facility] ER [id number] 12/19/2014 14:43:00 12/19/2014 17:09:00 DIS Emergency NEW SIMS [facility] ER [id number] 07/17/2014 22:33:00 07/18/2014 01:36:00 DIS Emergency DREA DINERO DO [facility] ER [id number] 10/24/2012 21:30:00 10/25/2012 15:35:00 DIS Inpatient JIMMIE GORDON MD [facility] [address] [id number] 10/04/2012 22:21:00 10/06/2012 12:45:00 DIS Inpatient SKYLER NEWBERRY, GENEVA Cochran [facility] ICU [id number] 03/03/2017 10:21:00 ACT Emergency CORIN DONOVAN DO [facility] ER LETHARGIC [id number] 07/18/2014 01:37:00 Document Registration
== END 2017-03-03 14:34 | disposition home or self-care (01) ==
LOC: EDUNIT# 10:20 → ER 10:21
DX: R53.1 Weakness (principal); R41.82 Altered mental status, unspecified; F15.10 Other stimulant abuse, uncomplicated; E78.00 Pure hypercholesterolemia, unspecified; I10 Essential (primary) hypertension; N40.0 Benign prostatic hyperplasia without lower urinary tract symptoms; K21.9 Gastro-esophageal reflux disease without esophagitis; Z86.010 Personal history of colon polyps; Z87.19 Personal history of other diseases of the digestive system; Z79.82 Long term (current) use of aspirin; Z98.890 Other specified postprocedural states; Z87.01 Personal history of pneumonia (recurrent)
CPT/HCPCS: 36415; 70450; 70496; 70498; 71045; 74174; 80053; 80306; 80320; 81000; 83605; 83735; 84443; 84484; 85025; 85610; 85730; 87040; 87804; 93005; 93041; 96360

== ENCOUNTER 2017-03-23 13:17 | Emergency (ER) | payer BC ==
[~2017-03-23] VITALS: Ht 182.9 cm; Wt 99.8 kg
[2017-03-23] MEDS ORDERED: AMMONIA INHALATION 0.33 ML AMP ONE (13:21)
--- OUTSIDE RECORDS SUMMARY | 2017-03-23 13:24 | XMS REPORT | Continuity of Care Document ---
Author Author [facility] Organization [facility] Address Unknown Phone Unavailable Allergies Active Description Code Type Severity Reaction Onset Reported/Identified Relationship to Patient Clinical Status Yes Penicillins [id number] Drug Allergy Mild N/A 11/01/2006 Yes Penicillins [id number] Drug Allergy Mild UNCOORDINATED 05/20/2015 Yes ciprofloxacin [id number] Drug Allergy Mild N/A 10/02/2015 Medications There [...] DOI Ot N32.3 DIVERTICULUM OF BLADDER 10/05/2015 NOBLE DO, BRONWYN Ot E78.5 HYPERLIPIDEMIA, UNSPECIFIED 10/05/2015 NOBLE DO, BRONWYN Ot E87.6 HYPOKALEMIA 10/05/2015 NOBLE DO, BRONWYN Ot I10 ESSENTIAL (PRIMARY) HYPERTENSION 10/05/2015 NOBLE DO, BRONWYN Ot K21.9 GASTRO-ESOPHAGEAL REFLUX DISEASE WITHOUT 10/05/2015 NOBLE DO, BRONWYN Ot K59.00 CONSTIPATION, UNSPECIFIED 10/05/2015 NOBLE DO, BRONWYN Ot N32.3 DIVERTICULUM OF BLADDER 10/05/2015 NOBLE DO, BRONWYN Ot N32.89 OTHER SPECIFIED DISORDERS OF BLADDER 10/15/2015 ZAMARRIPADREA KNOX DO Ot R10.30 LOWER ABDOMINAL PAIN, UNSPECIFIED 11/12/2015 ZAMARRIPADREA KNOX DO Ot R10.30 LOWER ABDOMINAL PAIN, UNSPECIFIED 04/10/2016 ZAMARRIPADREA KNOX DO Ot R10.30 LOWER ABDOMINAL PAIN, UNSPECIFIED 05/07/2016 EULA NEWBERRY, MAYNOR Butcher Ot R22.0 LOCALIZED SWELLING, MASS AND LUMP, HEAD 03/05/2017 VENUS ALVAREZ CORIN K Ot E78.00 PURE HYPERCHOLESTEROLEMIA, UNSPECIFIED 03/05/2017 VENUS ALVAREZ CORIN K Ot F15.10 OTHER STIMULANT ABUSE, UNCOMPLICATED 03/05/2017 VENUS ALVAREZ CORIN K Ot H57.8 OTHER SPECIFIED DISORDERS OF EYE AND ADN 03/05/2017 VENUS ALVAREZ CORIN K Ot I10 ESSENTIAL (PRIMARY) HYPERTENSION 03/05/2017 VENUS ALVAREZ CORIN K Ot K21.9 GASTRO-ESOPHAGEAL REFLUX DISEASE WITHOUT 03/05/2017 VENUS DO CORIN K Ot N40.0 BENIGN PROSTATIC HYPERPLASIA WITHOUT LOW 03/05/2017 VENUS ALVAREZ CORIN K Ot R41.82 ALTERED MENTAL STATUS, UNSPECIFIED 03/05/2017 VENUS DO CORIN K Ot R53.1 WEAKNESS 03/05/2017 LIBERTY DONOVAN DOA K Ot 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 03/05/2017 LIBERTY DONOVAN DOA K Ot Z86.010 PERSONAL HISTORY OF COLONIC POLYPS 03/05/2017 LIBERTY DONOVAN DOA K Ot Z87.01 PERSONAL HISTORY OF PNEUMONIA (RECURRENT 03/05/2017 CORIN DONOVAN DO Ot Z87.19 PERSONAL HISTORY OF OTHER DISEASES OF 03/05/2017 CORIN DONOVAN DO Ot Z98.890 OTHER SPECIFIED POSTPROCEDURAL STATES Procedures Code Description Performed By Performed On [id number] INSPECTION OF BLADDER, ENDO 10/04/2015 Results Test [...] - 10/02/15 20:40 Bacterial blood culture NG NRG Complete blood count (CBC) with automated [...] microscopy - 04/10/16 12:50 Gram stain microscopy TNP NRG Bacteria identified - 04/10/16 12:50 Complete blood [...] INFLUENZA A AND B ANTIGENS BY IA NR Serum or plasma troponin i.cardiac measurement (mass/volume) [...] 03/03/17 10:50 FREE TEXT EXTERNAL SEE COMMENT NRG QUANTITY OF GROWTH Isolated NRG Bacterial blood culture [id number] NRG Bacterial blood culture - 03/03/17 11:01 Bacterial [...] Status Pt. Type Provider Facility Loc./Unit Complaint [id number] 03/03/2017 10:21:00 03/03/2017 14:34:00 DIS Outpatient CORIN DONOVAN DO [facility] ER LETHARGIC [id number] 04/10/2016 12:38:00 04/10/2016 23:59:59 CLS Outpatient MAYNOR FORDE MD [facility] LAB SALIVARY GLAND SWELLING [id number] 10/03/2015 00:40:00 10/05/2015 14:22:00 DIS Inpatient BRONWYN NOBLE DO [facility] 4TH INTRACTABLE BLADDER PAIN; BLADDER DIVERTICULUM [id number] 10/02/2015 15:45:00 10/02/2015 23:59:59 CLS Outpatient DREA ZAMARRIPA DO [facility] RAD ABD PAIN,HEMATURIA, FEVER [id number] 05/20/2015 08:54:00 05/20/2015 12:10:00 DIS Outpatient MARTA HUDSON MD [facility] [id number] 05/16/2015 06:06:00 05/16/2015 15:12:00 DIS Outpatient MARTA HUDSON MD [facility] PREOP [id number] 05/09/2015 05:30:00 05/12/2015 12:12:00 DIS Inpatient MARTA HUDSON MD [facility] 4TH [id number] 05/07/2015 08:47:00 05/07/2015 11:28:00 DIS Emergency CHYNA NEWBERRY, GLEN Breen [facility] ER [id number] 12/19/2014 14:43:00 12/19/2014 17:09:00 DIS Emergency NEW SIMS [facility] ER [id number] 07/17/2014 22:33:00 07/18/2014 01:36:00 DIS Emergency DREA DINERO DO [facility] ER [id number] 10/24/2012 21:30:00 10/25/2012 15:35:00 DIS Inpatient HEIDI NEWBERRY, JIMMIE Gama [facility] 4TH [id number] 10/04/2012 22:21:00 10/06/2012 12:45:00 DIS Inpatient SKYLER NEWBERRY, GENEVA Cochran [facility] ICU [id number] 07/18/2014 01:37:00 Document Registration
[2017-03-23 13:34] LABS: BASOPHILS % (AUTO) 1 % (0-10); EOSINOPHILS # (AUTO) 0.3 10^3/uL (0.0-0.3); EOSINOPHILS % (AUTO) 5 % (0-10); HEMATOCRIT 45 % (40-54); HEMOGLOBIN 16.1 G/DL (13.3-17.7); LYMPHOCYTES # (AUTO) 2.1 X 10^3 (1.0-4.0); LYMPHOCYTES % (AUTO) 35 % (12-44); MEAN CORPUSCULAR HEMOGLOBIN 34 PG (25-34); MEAN CORPUSCULAR HGB CONC 36 G/DL (32-36); MEAN CORPUSCULAR VOLUME 95 FL (80-99); MEAN PLATELET VOLUME 9.4 FL (7.4-10.4); MONOCYTES # (AUTO) 0.5 X 10^3 (0.0-1.0); MONOCYTES % (AUTO) 8 % (0-12); NEUTROPHILS # (AUTO) 3.1 X 10^3 (1.8-7.8); NEUTROPHILS % (AUTO) 52 % (42-75); PLATELET COUNT 233 10^3/uL (130-400); RED BLOOD COUNT 4.75 10^6/uL (4.35-5.85); RED CELL DISTRIBUTION WIDTH 12.8 % (10.0-14.5); WHITE BLOOD COUNT 6.1 10^3/uL (4.3-11.0)
--- NOTE | 2017-03-23 13:34 | ED Neurological Problem ---
General Stated Complaint: MULTIPLE SYNCOPAL EPISODES Source: patient, EMS Exam Limitations: no limitations History of Present Illness Date Seen by Provider: Mar 23, 2017 Time Seen by Provider: 13:29 Initial Comments To ER per EMS from Dr. Ying's office where he was out for an ER follow-up visit as he was recently at [facility] emergency room. He was here in the emergency room on March 03 for syncopal episodes with unremarkable exam, did test positive for methamphetamine. He reported at that time that no one likes him at work and he believes that they had placed his food with methamphetamine to get him fired. He was evaluated at [facility] on 03/22/17 for syncope and did not have any findings. He was scheduled to follow-up with cardiology Dr. Garrido from [place] in the outpatient setting and for a Holter monitor. Follow-up the office today, he had 3 syncopal episodes with normal EKG during these episodes. He was able to be awakened by sternal rub each time. However, his oxygen saturation would drop to the low 80% range. Upon arrival to ER he has again multiple syncopal episodes but awakens with sternal rub and when he is otherwise unresponsive, I am able to take his arm up, hold it over his head, and drop it. He awakens before the arm hits his face and does not let it his his face. He also awakens with smelling salts. I asked how things at home were and he states "good". We asked how things at work work and he states "I'm not going to talk about that because we are not getting the police involved so I know when this conversation needs to stop". Timing/Duration: 1 week Severity: moderate Allergies and Home Medications Allergies Coded Allergies: ciprofloxacin (Unverified Allergy, Mild, 10/02/15) Penicillins (Verified Adverse Reaction, Mild, UNCOORDINATED, 05/20/15) Home Medications Alprazolam 0.25 Mg Tablet, 1-2 TAB PO Q8H PRN for ANXIETY, #14 Prescribed by: GEOVANNY SILVERIO on 03/23/17 1638 Aspirin 81 Mg Tablet, 81 MG PO DAILY, (Reported) Atorvastatin Calcium 20 Mg Tablet, 20 MG PO HS, (Reported) Cefdinir 300 Mg Capsule, 300 MG PO BID, #10 Prescribed by: LUIS ANTONIO MADERA on 10/05/15 1327 Citalopram Hydrobromide 20 Mg Tablet, 10 MG PO Q48H, (Reported) TAKES 1/2 (20MG) TABLET Hydrochlorothiazide 25 Mg Tablet, 25 MG PO DAILY, (Reported) Losartan Potassium 50 Mg Tablet, 50 MG PO BID, (Reported) Phenazopyridine HCl 100 Mg Tablet, 200 MG PO Q8HR for 3 Days Prescribed by: LUIS ANTONIO MADERA on 10/05/157 Constitutional: see HPI Eyes: No Symptoms Reported Ears, Nose, Mouth, Throat: no symptoms reported Respiratory: no symptoms reported Cardiovascular: no symptoms reported Genitourinary: no symptoms reported Musculoskeletal: no symptoms reported Skin: no symptoms reported Psychiatric/Neurological: No Symptoms Reported Endocrine: No Symptoms Reported Past Vgbqmnh-Vkgfwn-Jxazyh Hx Patient Social History Alcohol Beverage of Choice: [place] Recent Hopitalizations: Yes Immunizations Up To Date Tetanus Booster (TDap): More than 5yrs PED Vaccines UTD: No Date of Pneumonia Vaccine: Oct 06, 2012 Date of Influenza Vaccine: May 12, 2015 Seasonal Allergies Seasonal Allergies: Yes Surgeries History of Surgeries: Yes (BICEP SURGERY;URETHRA ENLARGEMENT;L KNEE;L SHOULDER; R SHOULDER X3, TURP) Surgeries: Abdominal, Orthopedic, Transurethral Resection Respiratory History of Respiratory Disorde: Yes Respiratory Disorders: Pneumonia Currently Using CPAP: No Currently Using BIPAP: No Cardiovascular History of Cardiac Disorders: Yes Cardiac Disorders: High Cholesterol, Hypertension Neurological History of Neurological Disord: No Reproductive System Hx Reproductive Disorders: No Genitourinary History of Genitourinary Disor: Yes Genitourinary Disorders: Benign Prostatic Hyperpl, Bladder Infection, Neurogenic Bladder Gastrointestinal History of Gastrointestinal Di: Yes Gastrointestinal Disorders: Gastroesophageal Reflux, Diverticulosis, Polyps Musculoskeletal History of Musculoskeletal Dis: Yes (MULTIPLE ORTHOPEDIC SURGERGIES) Endocrine History of Endocrine Disorders: No HEENT Loss of Vision: Denies Hearing Impairment: Hard of Hearing Cancer History of Cancer: No Psychosocial History of Psychiatric Problem: No Integumentary History of Skin or Integumenta: No Blood Transfusions History of Blood Disorders: No Adverse Reaction to a Blood Tr: No Family Medical History Family Medial History: Patient reports no known family medical history. Physical Exam Vital Signs Vital Sign - Last 12Hours 03/23/17 13:25 Pulse 81 Resp 18 B/P (MAP) 140/94 (109) Pulse Ox 98 O2 Delivery Room Air Capillary Refill : General Appearance: WD/WN, no apparent distress HEENT: PERRL/EOMI, normal ENT inspection Neck: non-tender, full range of motion Respiratory: normal breath sounds, no respiratory distress, no accessory muscle use Cardiovascular: regular rate, rhythm, no murmur Gastrointestinal: normal bowel sounds, non tender, soft Extremities: normal range of motion, non-tender Neurologic/Psychiatric: alert, normal mood/affect, oriented x 3 Crainal Nerves: normal hearing, normal speech Skin: normal color, warm/dry Comments He is not incontinent of bowel or bladder during these episodes and as mentioned he awakens immediately with a sternal rub, gas for breath and immediately has GCS of 15 and can resume conversation. He is not postictal. When he has these episodes there is no mild clonus, rather, he is entirely flaccid. Progress/Results/Core Measures Results/Orders Lab Results Laboratory Tests Test 03/23/17 13:25 03/23/17 14:25 Range/Units White Blood Count 6.1 4.3-11.0 10^3/uL Red Blood Count 4.75 4.35-5.85 10^6/uL Hemoglobin 16.1 13.3-17.7 G/DL Hematocrit 45 40-54 % Mean Corpuscular Volume 95 80-99 FL Mean Corpuscular Hemoglobin 34 25-34 PG Mean Corpuscular Hemoglobin Concent 36 32-36 G/DL Red Cell Distribution Width 12.8 10.0-14.5 % Platelet Count 233 130-400 10^3/uL Mean Platelet Volume 9.4 7.4-10.4 FL Neutrophils (%) (Auto) 52 42-75 % Lymphocytes (%) (Auto) 35 12-44 % Monocytes (%) (Auto) 8 0-12 % Eosinophils (%) (Auto) 5 0-10 % Basophils (%) (Auto) 1 0-10 % Neutrophils # (Auto) 3.1 1.8-7.8 X 10^3 Lymphocytes # (Auto) 2.1 1.0-4.0 X 10^3 Monocytes # (Auto) 0.5 0.0-1.0 X 10^3 Eosinophils # (Auto) 0.3 0.0-0.3 10^3/uL Basophils # (Auto) 0.0 0.0-0.1 10^3/uL Sodium Level 138 135-145 MMOL/L Potassium Level 3.6 3.6-5.0 MMOL/L Chloride Level 103 98-107 MMOL/L Carbon Dioxide Level 21 21-32 MMOL/L Anion Gap 14 5-14 MMOL/L Blood Urea Nitrogen 19 H 7-18 MG/DL Creatinine 0.99 0.60-1.30 MG/DL Estimat Glomerular Filtration Rate > 60 BUN/Creatinine Ratio 19 Glucose Level 103 70-105 MG/DL Calcium Level 9.6 8.5-10.1 MG/DL Total Bilirubin 1.3 H 0.1-1.0 MG/DL Aspartate Amino Transf (AST/SGOT) 16 5-34 U/L Alanine Aminotransferase (ALT/SGPT) 19 0-55 U/L Alkaline Phosphatase 57 40-136 U/L Troponin I < 0.30 <0.30 NG/ML Total Protein 7.7 6.4-8.2 GM/DL Albumin 4.4 3.2-4.5 GM/DL Serum Alcohol < 10 <10 MG/DL Urine Color YELLOW Urine Clarity CLEAR Urine pH 6 5-9 Urine Specific [place] 1.010 L 1.016-1.022 Urine Protein NEGATIVE NEGATIVE Urine Glucose (UA) NEGATIVE NEGATIVE Urine Ketones NEGATIVE NEGATIVE Urine Nitrite NEGATIVE NEGATIVE Urine Bilirubin NEGATIVE NEGATIVE Urine Urobilinogen NORMAL NORMAL MG/DL Urine Leukocyte Esterase NEGATIVE NEGATIVE Urine RBC (Auto) NEGATIVE NEGATIVE Urine RBC NONE /HPF Urine WBC 2-5 /HPF Urine Squamous Epithelial Cells 2-5 /HPF Urine Crystals NONE /LPF Urine Bacteria NEGATIVE /HPF Urine Casts NONE /LPF Urine Mucus NEGATIVE /LPF Urine Culture Indicated NO Urine Opiates Screen NEGATIVE NEGATIVE Urine Oxycodone Screen NEGATIVE NEGATIVE Urine Methadone Screen NEGATIVE NEGATIVE Urine Propoxyphene Screen NEGATIVE NEGATIVE Urine Barbiturates Screen NEGATIVE NEGATIVE Ur Tricyclic Antidepressants Screen NEGATIVE NEGATIVE Urine Phencyclidine Screen NEGATIVE NEGATIVE Urine Amphetamines Screen NEGATIVE NEGATIVE Urine Methamphetamines Screen NEGATIVE NEGATIVE Urine Benzodiazepines Screen NEGATIVE NEGATIVE Urine Cocaine Screen NEGATIVE NEGATIVE Urine Cannabinoids Screen NEGATIVE NEGATIVE My Orders Orders - GEOVANNY SILVERIO APRN Alcohol (03/23/17 13:20) Ua Culture If Indicated (03/23/17 13:20) Drug Screen Stat (Urine) (03/23/17 13:20) Cbc With Automated Diff (03/23/17 13:20) Comprehensive Metabolic Panel (03/23/17 13:20) Saline Lock/Iv-Start (03/23/17 13:20) Ekg Tracing (03/23/17 13:20) Troponin I (03/23/17 13:20) Ct Angio Neck W (03/23/17 13:56) Iohexol Injection (Omnipaque 350 Mg/Ml 1 (03/23/17 14:30) Sodium Chloride Flush (Catheter Flush Sy (03/23/17 14:30) Mri Brain W/Wo Contrast (03/23/17 14:59) Gadobutrol Inj (Radiology) (Gadavist Inj (03/23/17 16:00) Ns Iv 1000 Ml (Sodium Chloride 0.9%) (03/23/17 16:15) Ketorolac Injection (Toradol Injection) (03/23/17 16:30) Orphenadrine Injection (Norflex Injectio (03/23/17 16:30) Medications Given in ED Current Medications Medications Dose Ordered Sig/Mikey Route Start Time Stop Time Status Last Admin Dose Admin Ammonia (Aromatic Spirit) 0.33 ml CHROMAom-DigiPath ONCE .ROUTE 03/23/17 13:21 03/23/17 13:23 DC 03/23/17 13:25 0.33 ML Gadobutrol 10 mmol ONCE ONCE IV 03/23/17 16:00 03/23/17 16:04 DC 03/23/17 16:02 10 MMOL Iohexol 70 ml ONCE ONCE IV 03/23/17 14:30 03/23/17 14:31 DC 03/23/17 15:15 70 ML Ketorolac Tromethamine 30 mg ONCE ONCE IVP 03/23/17 16:30 03/23/17 16:31 DC 03/23/17 16:42 30 MG Orphenadrine Citrate 30 mg ONCE ONCE IV 03/23/17 16:30 03/23/17 16:31 DC 03/23/17 16:42 30 MG Sodium Chloride 10 ml NEEDED PRN IV 03/23/17 14:30 03/23/17 17:40 DC 03/23/17 15:15 10 ML Vital Signs/I&O Vital Sign - Last 12Hours 03/23/17 03/23/17 13:25 17:38 Pulse 81 74 Resp 18 18 B/P (MAP) 140/94 (109) Pulse Ox 98 97 O2 Delivery Room Air Room Air Diagnostic Imaging Diagonstic Imaging: CT Comments NAME: KAREY NIÑO [facility] REC#: [id number] PT STATUS: REG ER : 1955 PHYSICIAN: GEOVANNY SILVERIO APRN ADMIT DATE: 03/23/17/ER Draft Date of Exam:03/23/17 CT ANGIO NECK W INDICATION: Recent history of slurred speech and tingling in the arms and hands. CTA NECK: Bolus IV contrast injection shows good opacification of the cervical vessels. 3D MIP imaging shows no evidence of dissection or occlusion. Soft tissues are normal throughout. COMPARISON is made with recent CT angio of the head and neck from 03/03/2017. FINDINGS: There is a three-vessel branching pattern to the aortic arch. Both common carotid arteries are widely patent. There is minimal calcified plaque at the right carotid bifurcation. The right and left internal carotid arteries are patent. The distal internal carotid arteries are not well opacified. No definite stenosis is detected. Both vertebral arteries are patent. The right vertebral artery is dominant. The visualized basilar artery is patent. IMPRESSION: No evidence of carotid artery stenosis. Dictated on workstation # [id number] Dict: 03/23/17 1536 Trans: 03/23/17 1603 [facility] [id number] Interpreted by: OSIRIS AMAYA MD Electronically signed by: NAME: KAREY NIÑO [facility] REC#: [id number] PT STATUS: REG ER : 1955 PHYSICIAN: GEOVANNY SILVERIO APRN ADMIT DATE: 03/23/17/ER Draft Date of Exam:03/23/17 MRI BRAIN W/WO CONTRAST PROCEDURE: MR imaging of the brain with and without contrast. TECHNIQUE: Multiplanar, multisequence MR imaging of the brain was performed with and without contrast. INDICATION: Dizziness. Slurred speech. Bilateral foot numbness. COMPARISON: CT head dated 03/03/2017. FINDINGS: The ventricles and cortical sulci are slightly prominent, compatible with age related volume loss. There are a few scattered areas of abnormal T2 bright signal in the periventricular and subcortical white matter, compatible with early small vessel ischemic change. There is no acute infarction. There is no midline shift or mass effect identified. No intraparenchymal or extraaxial hemorrhage or fluid collection is identified. There is no other focal parenchymal abnormality seen. There is no abnormal enhancement seen after the administration of gadolinium. The midline craniocervical anatomy is unremarkable. The major expected intracranial flow voids are seen. There are no focal calvarial lesions. The visualized paranasal sinuses show mild scattered mucosal thickening. The mastoid air cells are clear. IMPRESSION: 1. No acute intracranial abnormalities. No acute infarction, acute intra-axial hemorrhage, or focal intra-axial mass. 2. Early minimal small vessel ischemic changes in the periventricular and subcortical white matter. Dictated on workstation # [id number] Dict: 03/23/17 1612 Trans: 03/23/17 1617 [facility] [id number] Interpreted by: KETTY COE MD Electronically signed by: Departure Communication (Admissions) Progress Notes 1410-patient has been asymptomatic since his arrived. In speaking with both of them they state they work at [employer]. and patient states this is a very high stress job. Patient does take medication for anxiety and depression and occasionally has panic attacks. states that one of her friends suggested patient might be having a panic attack causing the symptoms. I did discuss with her this and my own inclination that this is a conversion disorder. She agrees with ruling out medical causes of this such as an MRI of the brain but is open to the idea that this may be psychiatric in nature. I will only order an angiogram of the neck (instead of head and neck) because when he was here on 03 of March he had a CT angiogram of the head which showed no abnormalities. I did discuss the case with hospitalist regarding possibility of admission for observation and he feels that would be unnecessary if ER workup is unremarkable. 1632-his labs are unremarkable. I again discussed the case with the patient and his that we have ruled out any organic cause of this that I can think of. Patient states he took one of his 's Xanax last week and did feel some improvement. He is only taking citalopram 10 mg every other day and he states that there has been quite a bit of stress and anxiety at work at [employer] recently. The agrees with this. They are agreeable with discharge to home and increasing his dose of citalopram to 20 mg every day and when necessary dose of Xanax when he feels one of these episodes coming on as he does have some warning that one of these is coming on. I discussed my findings and plan with Dr. Ying and he is in agreement with following up with the patient in the clinic. Impression Impression: Primary Impression: recurrent syncope Additional Impression: Panic disorder [episodic paroxysmal anxiety] Disposition: ADMITTED INPATIENT Condition: Stable Departure-Patient Inst. Decision time for Depature: 16:36 Referrals: DREA YING DO (PCP/Family) Primary Care Physician Patient Instructions: Anxiety, Adult (DC) Add. Discharge Instructions: 1. Make an appointment to follow-up with Dr. Ying either later this week or next week for recheck. I suspect that most of your symptoms are due to anxiety as we have ruled out any other cause of passing out that I can think of. All of your scans including the MRI of her brain with and without contrast are normal. 2. You should increase your dose of citalopram from 10 mg every other day to 20 mg daily. Also, use Xanax on an as-needed basis up to 3 times a day when you feel one of these episodes coming on. Return to the emergency room for any concerns. Scripts Alprazolam (Alprazolam) 0.25 Mg Tablet 1-2 TAB PO Q8H Y for ANXIETY, #14 TAB Prov: GEOVANNY SILVERIO APRN 03/23/17 Work/School Note: Work Release Form Date Seen in the Emergency Department: Mar 25, 2017 Return to Work: Mar 23, 2017 Copy Copies To 1: DREA YING PETER J APRN Mar 23, 2017 13:33
[2017-03-23 13:51] LABS: ALANINE AMINOTRANSFERASE 19 U/L (0-55); ALBUMIN 4.4 GM/DL (3.2-4.5); ALKALINE PHOSPHATASE 57 U/L (40-136); BILIRUBIN,TOTAL 1.3 MG/DL (0.1-1.0); BUN/CREATININE RATIO 19; CALCIUM 9.6 MG/DL (8.5-10.1); CARBON DIOXIDE 21 MMOL/L (21-32); CHLORIDE 103 MMOL/L (98-107); CREATININE SERUM 0.99 MG/DL (0.60-1.30); GFR ESTIMATED > 60; GLUCOSE 103 MG/DL (70-105); POTASSIUM 3.6 MMOL/L (3.6-5.0); SODIUM 138 MMOL/L (135-145); TOTAL PROTEIN 7.7 GM/DL (6.4-8.2)
[2017-03-23] MEDS ORDERED: CATHETER FLUSH 10 ML SYR IV PRN (14:30)
[2017-03-23] MEDS ORDERED: IOHEXOL 350 MG/ML 100 ML (OMNIPAQUE 350) VIAL IV ONE (14:30)
[2017-03-23 14:38] LABS: BILIRUBIN,URINE NEGATIVE (NEGATIVE); CLARITY,URINE CLEAR; COLOR,URINE YELLOW; GLUCOSE, URINE (UA) NEGATIVE (NEGATIVE); KETONES,URINE NEGATIVE (NEGATIVE); LEUKOCYTE ESTERASE ,URINE NEGATIVE (NEGATIVE); NITRITE,URINE NEGATIVE (NEGATIVE); PH,URINE 6 (5-9); PROTEIN,URINE NEGATIVE (NEGATIVE); UROBILINOGEN,URINE NORMAL (NORMAL)
[2017-03-23 14:49] LABS: BACTERIA,URINE NEGATIVE /HPF
[2017-03-23 14:57] LABS: AMPHETAMINE SCREEN, URINE NEGATIVE (NEGATIVE); BARBITURATE SCREEN URINE NEGATIVE (NEGATIVE); BENZODIAZEPINES SCREEN URINE NEGATIVE (NEGATIVE); CANNABINOID SCREEN, URINE NEGATIVE (NEGATIVE); COCAINE SCREEN URINE NEGATIVE (NEGATIVE); METHADONE STAT NEGATIVE (NEGATIVE); METHAMPHETAMINE SCREEN URINE S NEGATIVE (NEGATIVE); OPIATE SCREEN URINE NEGATIVE (NEGATIVE); OXYCODONE STAT NEGATIVE (NEGATIVE); PROPOXYPHENE STAT NEGATIVE (NEGATIVE); TRICYCLIC ANTIDEPRESSANTS SCRE NEGATIVE (NEGATIVE)
[2017-03-23] MEDS ORDERED: GADOBUTROL 10 MMOL/10 ML (GADAVIST) VIAL IV ONE (16:00)
--- NOTE | 2017-03-23 16:04 | Diagnostic Imaging Report ---
INDICATION: Recent history of slurred speech and tingling in the arms and hands. CTA NECK: Bolus IV contrast injection shows good opacification of the cervical vessels. 3D MIP imaging shows no evidence of dissection or occlusion. Soft tissues are normal throughout. COMPARISON is made with recent CT angio of the head and neck from 03/03/2017. FINDINGS: There is a three-vessel branching pattern to the aortic arch. Both common carotid arteries are widely patent. There is minimal calcified plaque at the right carotid bifurcation. The right and left internal carotid arteries are patent. The distal internal carotid arteries are not well opacified. No definite stenosis is detected. Both vertebral arteries are patent. The right vertebral artery is dominant. The visualized basilar artery is patent. IMPRESSION: No evidence of carotid artery stenosis. Dictated by: Dictated on workstation # [id number]
[2017-03-23] MEDS ORDERED: NS IV 1000 ML 1,000 ML IV SCH (16:15)
--- NOTE | 2017-03-23 16:18 | Diagnostic Imaging Report ---
PROCEDURE: MR imaging of the brain with and without contrast. TECHNIQUE: Multiplanar, multisequence MR imaging of the brain was performed with and without contrast. INDICATION: Dizziness. Slurred speech. Bilateral foot numbness. COMPARISON: CT head dated 03/03/2017. FINDINGS: The ventricles and cortical sulci are slightly prominent, compatible with age related volume loss. There are a few scattered areas of abnormal T2 bright signal in the periventricular and subcortical white matter, compatible with early small vessel ischemic change. There is no acute infarction. There is no midline shift or mass effect identified. No intraparenchymal or extraaxial hemorrhage or fluid collection is identified. There is no other focal parenchymal abnormality seen. There is no abnormal enhancement seen after the administration of gadolinium. The midline craniocervical anatomy is unremarkable. The major expected intracranial flow voids are seen. There are no focal calvarial lesions. The visualized paranasal sinuses show mild scattered mucosal thickening. The mastoid air cells are clear. IMPRESSION: 1. No acute intracranial abnormalities. No acute infarction, acute intra-axial hemorrhage, or focal intra-axial mass. 2. Early minimal small vessel ischemic changes in the periventricular and subcortical white matter. Dictated by: Dictated on workstation # [id number]
[2017-03-23] MEDS ORDERED: KETOROLAC 30 MG/ML VIAL IVP ONE (16:30)
[2017-03-23] MEDS ORDERED: ORPHENADRINE 60 MG/2 ML (NORFLEX) AMP IV ONE (16:30)
[2017-03-23] MEDS ORDERED: ALPR0.254 PO (16:38)
[2017-03-23 17:38] VITALS: BP 116/77
== END 2017-03-23 17:40 | disposition other institution (70) ==
LOC: EDUNIT# 13:17 → ER 13:18
DX: F41.0 Panic disorder [episodic paroxysmal anxiety] (principal); R55 Syncope and collapse; E78.00 Pure hypercholesterolemia, unspecified; I10 Essential (primary) hypertension; N40.0 Benign prostatic hyperplasia without lower urinary tract symptoms; K21.9 Gastro-esophageal reflux disease without esophagitis; Z86.010 Personal history of colon polyps; Z87.19 Personal history of other diseases of the digestive system; Z87.448 Personal history of other diseases of urinary system; Z88.0 Allergy status to penicillin; Z88.1 Allergy status to other antibiotic agents; Z79.82 Long term (current) use of aspirin; Z87.01 Personal history of pneumonia (recurrent)
CPT/HCPCS: 36415; 70498; 70553; 80053; 80306; 80320; 81000; 84484; 85025; 96361; 96374

== ENCOUNTER 2017-04-12 05:34 | Outpatient (CLI) | payer BC ==
[~2017-04-12] VITALS: Ht 182.9 cm; Wt 100.9 kg
[~2017-04-12 05:34] MED LIST changes: +ALPR0.254 PO
[2017-04-12] MEDS ORDERED: ASPI-999 PO (13:19)
[2017-04-12] MEDS ORDERED: TRAM50TA2 PO (13:21)
[2017-04-12] MEDS ORDERED: TAMS0.4C2 PO (13:21)
[2017-04-12] MEDS ORDERED: OMEP20TA7 PO (13:21)
[2017-04-12] MEDS ORDERED: FINA5TAB6 PO (13:21)
== END 2017-04-12 13:24 ==
LOC: PREOP 05:34
PROVIDERS: ATTEND Specialist
DX: Z01.818 Encounter for other preprocedural examination (principal); H25.11 Age-related nuclear cataract, right eye

== ENCOUNTER 2017-04-16 06:38 | Day surgery (SDC) | payer BC ==
[~2017-04-16] VITALS: Ht 182.9 cm; Wt 100.9 kg
[~2017-04-16 06:38] MED LIST changes: +ASPI-999 PO; +FINA5TAB6 PO; +OMEP20TA7 PO; +TAMS0.4C2 PO
[2017-04-16 06:40] VITALS: BP 132/79
[2017-04-16] MEDS ORDERED: LIDOCAINE PF 1% 2 ML AMP IR PRN (06:45)
[2017-04-16] MEDS ORDERED: EPINEPHrine INJECTION 1 MG/ML AMP INJ ONE (06:45)
[2017-04-16] MEDS ORDERED: VANCOMYCIN/BSS (COMPOUNDED) 10 MG/ML SYR OP ONE (06:45)
[2017-04-16] MEDS ORDERED: POVIDONE (BETADINE) OPHTH SOLN 5% 30 ML OP ONE (06:45)
[2017-04-16] MEDS ORDERED: TIMOLOL MALEATE 0.5% 5 ML (TIMOPTIC) BTL OU PRN (06:45)
[2017-04-16] MEDS: TETRACAINE 0.5% OPHTH SOLN 4 ML BTL (SINGLE DOSE ONLY) OU PRN ×4 (06:56→07:11)
[2017-04-16] MEDS: CYCLOPENTOLATE 1% (CYCLOGYL) 2 ML DROPS OP SCH ×3 (07:06→07:20)
[2017-04-16] MEDS: PHENYLEPHRINE 10% OPHTH (NEO-SYN) 5 ML BTL OU SCH ×3 (07:06→07:21)
[2017-04-16] MEDS ORDERED: MIDAZOLAM 2 MG/2 ML (VERSED) VIAL ONE (07:22)
--- NOTE | 2017-04-16 08:02 | Ophthalmology Operative Report ---
Cataract removal/placement IOL PREOPERATIVE DIAGNOSIS: Cataract Right Eye POSTOPERATIVE DIAGNOSIS: Cataract Right Eye PROCEDURE: Cataract removal and placement of posterior chamber implant, right eye SURGEON: Ricardo Rajput ANESTHESIA: Topical with sedation COMPLICATIONS: None ESTIMATED BLOOD LOSS: Minimal DESCRIPTION OF PROCEDURE: After proper informed consent was obtained, the patient, a 62 male, was taken to the Operating Room and the right eye was anesthetized with tetracaine. They right eye was then prepped and draped in the usual manner. A wire lid speculum was placed. A paracentesis was made at the left hand position. Preservative free lidocaine was injected into the anterior chamber followed by viscoelastic. A clear corneal incision was made in the temporal position. A capsulorrhexis was preformed and the central nuclear and cortical material were removed. The posterior capsule was polished and an [id number] 22.5 IOL was placed into the capsular bag. The residual viscoelastic was aspirated and balanced saline solution was injected into the anterior chamber. 1.0 ml of Vancomycin (10mg/ 1.0ml) was injected into the anterior chamber. The would was checked and found to be water tight. The patient tolerated the procedure well without complications. RICARDO RAJPUT MD Apr 16, 2017 08:02
--- NOTE | 2017-04-16 08:04 | Anesthesia-General Post-Op ---
MAC Patient Condition Mental Status/LOC: Same as Preop Cardiovascular: Satisfactory Nausea/Vomiting: Absent Respiratory: Satisfactory Pain: Controlled Complications: Absent Post Op Complications Complications None Follow Up Care/Instructions Patient Instructions None needed. Anesthesiology Discharge Order Discharge Order Patient is doing well, no complaints, stable vital signs, no apparent adverse anesthesia problems. No complications reported per nursing. EMILY HODGSON CRNA Apr 16, 2017 08:03
[2017-04-16 08:15] VITALS: BP 135/81
--- NOTE | 2017-04-16 08:34 | Ophthalmology Operative Report ---
Cataract removal/placement IOL PREOPERATIVE DIAGNOSIS: Cataract Right Eye POSTOPERATIVE DIAGNOSIS: Cataract Right Eye PROCEDURE: Cataract removal and placement of posterior chamber implant, right eye SURGEON: Ricardo Rajput ANESTHESIA: Topical with sedation COMPLICATIONS: None ESTIMATED BLOOD LOSS: Minimal DESCRIPTION OF PROCEDURE: After proper informed consent was obtained, the patient, a 62 male, was taken to the Operating Room and the right eye was anesthetized with tetracaine. They right eye was then prepped and draped in the usual manner. A wire lid speculum was placed. A paracentesis was made at the left hand position. Preservative free lidocaine was injected into the anterior chamber followed by viscoelastic. A clear corneal incision was made in the temporal position. A capsulorrhexis was preformed and the central nuclear and cortical material were removed. The posterior capsule was polished and an Bal [id number] 28.0 IOL was placed into the capsular bag. The residual viscoelastic was aspirated and balanced saline solution was injected into the anterior chamber. 1.0 ml of Vancomycin (10mg/ 1.0ml) was injected into the anterior chamber. The would was checked and found to be water tight. The patient tolerated the procedure well without complications. RICARDO RAJPUT MD Apr 16, 2017 08:34
== END 2017-04-16 08:15 | disposition home or self-care (01) ==
LOC: SDC 06:38
PROVIDERS: ATTEND Specialist
DX: H26.9 Unspecified cataract (principal); I10 Essential (primary) hypertension; F32.9 Major depressive disorder, single episode, unspecified; Z79.82 Long term (current) use of aspirin; Z79.899 Other long term (current) drug therapy

== ENCOUNTER 2017-04-23 13:00 | Outpatient (CLI) | payer BC ==
[~2017-04-23] VITALS: Ht 182.9 cm; Wt 100.9 kg
== END 2017-04-23 14:59 ==
LOC: PREOP 13:00
PROVIDERS: ATTEND Specialist
DX: Z01.818 Encounter for other preprocedural examination (principal); H25.89 Other age-related cataract

== ENCOUNTER 2017-04-30 06:35 | Day surgery (SDC) | payer BC ==
[~2017-04-30] VITALS: Ht 182.9 cm; Wt 100.9 kg
[2017-04-30] MEDS ORDERED: POVIDONE (BETADINE) OPHTH SOLN 5% 30 ML OP ONE (07:00)
[2017-04-30] MEDS ORDERED: VANCOMYCIN/BSS (COMPOUNDED) 10 MG/ML SYR OP ONE (07:00)
[2017-04-30] MEDS ORDERED: EPINEPHrine INJECTION 1 MG/ML AMP INJ ONE (07:00)
[2017-04-30] MEDS ORDERED: TIMOLOL MALEATE 0.5% 5 ML (TIMOPTIC) BTL OU PRN (07:00)
[2017-04-30] MEDS ORDERED: LIDOCAINE PF 1% 2 ML AMP IR PRN (07:00)
[2017-04-30 07:05] VITALS: BP 142/76
[2017-04-30] MEDS: TETRACAINE 0.5% OPHTH SOLN 4 ML BTL (SINGLE DOSE ONLY) OU PRN ×4 (07:08→07:32)
[2017-04-30] MEDS: CYCLOPENTOLATE 1% (CYCLOGYL) 2 ML DROPS OP SCH ×3 (07:18→07:32)
[2017-04-30] MEDS: PHENYLEPHRINE 10% OPHTH (NEO-SYN) 5 ML BTL OU SCH ×3 (07:18→07:32)
[2017-04-30] MEDS ORDERED: MIDAZOLAM 2 MG/2 ML (VERSED) VIAL ONE (07:50)
[2017-04-30 08:20] VITALS: BP 143/81
--- NOTE | 2017-04-30 14:57 | Anesthesia-General Post-Op ---
MAC Patient Condition Mental Status/LOC: Same as Preop Cardiovascular: Satisfactory Nausea/Vomiting: Absent Respiratory: Satisfactory Pain: Controlled Complications: Absent Post Op Complications Complications None Follow Up Care/Instructions Patient Instructions None needed. Anesthesiology Discharge Order Discharge Order Patient is doing well, no complaints, stable vital signs, no apparent adverse anesthesia problems. No complications reported per nursing. SANFORD CASH CRNA Apr 30, 2017 14:57
--- OUTSIDE RECORDS SUMMARY | 2017-05-02 03:44 | XMS REPORT | Continuity of Care Document ---
Author Author [facility] Organization [facility] Address Unknown Phone Unavailable Allergies Active Description Code Type Severity Reaction Onset Reported/Identified Relationship to Patient Clinical Status Yes Penicillins [id number] Drug Allergy Mild N/A 11/01/2006 Yes Penicillins [id number] Drug Allergy Mild UNCOORDINATED 05/20/2015 Yes ciprofloxacin [id number] Drug Allergy Mild N/A 10/02/2015 Medications There [...] R22.0 LOCALIZED SWELLING, MASS AND LUMP, HEAD 03/03/2017 VENUS ALVAREZ CORIN K Ot E78.00 PURE HYPERCHOLESTEROLEMIA, UNSPECIFIED 03/03/2017 VENUS DO CORIN K Ot F15.10 OTHER STIMULANT ABUSE, UNCOMPLICATED 03/03/2017 VENUS ALVAREZ CORIN K Ot H57.8 OTHER SPECIFIED DISORDERS OF EYE AND ADN 03/03/2017 VENUS ALVAREZ CORIN K Ot I10 ESSENTIAL (PRIMARY) HYPERTENSION 03/03/2017 VENUS ALVAREZ CORIN K Ot K21.9 GASTRO-ESOPHAGEAL REFLUX DISEASE WITHOUT 03/03/2017 VENUS DO CORIN K Ot N40.0 BENIGN PROSTATIC HYPERPLASIA WITHOUT LOW 03/03/2017 VENUS DO CORIN K Ot R41.82 ALTERED MENTAL STATUS, UNSPECIFIED 03/03/2017 VENUS DO CORIN K Ot R53.1 WEAKNESS 03/03/2017 VENUS ALVAREZ CORIN K Ot Z79.82 SENIOR MOBILE APPLICATION DEVELOPER (CURRENT) USE OF ASPIRIN 03/03/2017 LIBERTY DONOVAN DOA K Ot Z86.010 PERSONAL HISTORY OF COLONIC POLYPS 03/03/2017 LIBERTY DONOVAN DOA K Ot Z87.01 PERSONAL HISTORY OF PNEUMONIA (RECURRENT 03/03/2017 VENUS DO, CORIN K Ot Z87.19 PERSONAL HISTORY OF OTHER DISEASES OF TH 03/03/2017 LIBERTY DONOVAN DOA K Ot Z98.890 OTHER SPECIFIED POSTPROCEDURAL STATES 03/05/2017 LIBERTY DONOVAN DOA K Ot E78.00 PURE HYPERCHOLESTEROLEMIA, UNSPECIFIED 03/05/2017 LIBERTY DONOVAN DOA K Ot F15.10 OTHER STIMULANT ABUSE, UNCOMPLICATED 03/05/2017 LIBERTY DONOVAN DOA K Ot H57.8 OTHER SPECIFIED DISORDERS OF EYE AND ADN 03/05/2017 VENUS ALVAREZ, CORIN K Ot I10 ESSENTIAL (PRIMARY) HYPERTENSION 03/05/2017 VENUS , OCRIN K Ot K21.9 GASTRO-ESOPHAGEAL REFLUX DISEASE WITHOUT 03/05/2017 VENUS , CORIN K Ot N40.0 BENIGN PROSTATIC HYPERPLASIA WITHOUT LOW 03/05/2017 VENUS , CORIN K Ot R41.82 ALTERED MENTAL STATUS, UNSPECIFIED 03/05/2017 LIBERTY DONOVAN DOA K Ot R53.1 WEAKNESS 03/05/2017 VENUS ALVAREZ, CORIN K Ot Z79.82 SKILLED NURSING (CURRENT) USE OF ASPIRIN 03/05/2017 VENUS , CORIN K Ot Z86.010 PERSONAL HISTORY OF COLONIC POLYPS 03/05/2017 VENUS ALVAREZ, CORIN K Ot Z87.01 PERSONAL HISTORY OF PNEUMONIA (RECURRENT 03/05/2017 LIBERTY DONOVAN DOA K Ot Z87.19 PERSONAL HISTORY OF OTHER DISEASES OF TH 03/05/2017 LIBERTY DONOVAN DOA K Ot Z98.890 OTHER SPECIFIED POSTPROCEDURAL STATES 03/23/2017 GEOVANNY SILVERIO APRN Ot E78.00 PURE HYPERCHOLESTEROLEMIA, UNSPECIFIED 03/23/2017 GEOVANNY SILVERIO APRN Ot F41.0 PANIC DISORDER [EPISODIC PAROXYSMAL ANXI 03/23/2017 GEOVANNY SILVERIO APRN Ot I10 ESSENTIAL (PRIMARY) HYPERTENSION 03/23/2017 GEOVANNY SILVERIO APRN Ot K21.9 GASTRO-ESOPHAGEAL REFLUX DISEASE WITHOUT 03/23/2017 GEOVANNY SILVERIO APRN Ot N40.0 BENIGN PROSTATIC HYPERPLASIA WITHOUT LOW 03/23/2017 GEOVANNY SILVERIO APRN Ot R55 SYNCOPE AND COLLAPSE 03/23/2017 GEOVANNY SILVERIO APRN Ot Z79.82 SKILLED NURSING (CURRENT) USE OF ASPIRIN 03/23/2017 GEOVANNY SILVERIO APRN Ot Z86.010 PERSONAL HISTORY OF COLONIC POLYPS 03/23/2017 GEOVANNY SILVERIO BARBER TOOL SHARPENER Ot Z87.01 PERSONAL HISTORY OF PNEUMONIA (RECURRENT 03/23/2017 GEOVANNY SILVERIO BARBER TOOL SHARPENER Ot Z87.19 PERSONAL HISTORY OF OTHER DISEASES OF TH 03/23/2017 GEOVANNY SILVERIO BARBER TOOL SHARPENER Ot Z87.448 PERSONAL HISTORY OF OTHER DISEASES OF UR 03/23/2017 GEOVANNY SILVERIO BARBER TOOL SHARPENER Ot Z88.0 ALLERGY STATUS TO PENICILLIN 03/23/2017 GEOVANNY SILVERIO BARBER TOOL SHARPENER Ot Z88.1 ALLERGY STATUS TO OTHER ANTIBIOTIC AGENT 04/12/2017 SUZY RAJPUT MD Ot H25.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, RIGHT EYE 04/12/2017 SUZY RAJPUT MD Ot Z01.818 ENCOUNTER FOR OTHER PREPROCEDURAL EXAMIN 04/14/2017 SUZY RAJPUT MD Ot H25.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, RIGHT EYE 04/14/2017 SUZY RAJPUT MD Ot Z01.818 ENCOUNTER FOR OTHER PREPROCEDURAL EXAMIN 04/14/2017 DREA ZAMARRIPA DO Ot R10.30 LOWER ABDOMINAL PAIN, UNSPECIFIED 04/14/2017 EULA NEWBERRY, MAYNOR Butcher Ot R22.0 LOCALIZED SWELLING, MASS AND LUMP, HEAD 04/16/2017 SUZY RAJPUT MD Ot F32.9 MAJOR DEPRESSIVE DISORDER, SINGLE EPISOD 04/16/2017 SUZY RAJPUT MD Ot H26.9 UNSPECIFIED CATARACT 04/16/2017 SUZY RAJPUT MD Ot I10 ESSENTIAL (PRIMARY) HYPERTENSION 04/16/2017 SUZY RAJPUT MD Ot Z79.82 SENIOR MOBILE APPLICATION DEVELOPER (CURRENT) USE OF ASPIRIN 04/16/2017 SUZY RAJPUT MD Ot Z79.899 OTHER SENIOR MOBILE APPLICATION DEVELOPER (CURRENT) DRUG THERAPY 04/20/2017 SUZY RAJPUT MD Ot F32.9 MAJOR DEPRESSIVE DISORDER, SINGLE EPISOD 04/20/2017 SUZY RAJPUT MD Ot H26.9 UNSPECIFIED CATARACT 04/20/2017 SUZY RAJPUT MD Ot I10 ESSENTIAL (PRIMARY) HYPERTENSION 04/20/2017 SUZY RAJPUT MD Ot Z79.82 SKILLED NURSING (CURRENT) USE OF ASPIRIN 04/20/2017 SUZY RAJPUT MD Ot Z79.899 OTHER SENIOR MOBILE APPLICATION DEVELOPER (CURRENT) DRUG THERAPY 04/26/2017 SUZY RAJPUT MD Ot 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 04/26/2017 SUZY RAJPUT MD Ot Z01.818 ENCOUNTER FOR OTHER PREPROCEDURAL EXAMIN Procedures Code Description Performed By Performed On [id number] INSPECTION OF BLADDER, ENDO 10/04/2015 Results Test [...] INFLUENZA A AND B ANTIGENS BY IA NRG Serum or plasma troponin i.cardiac measurement (mass/volume) [...] OF GROWTH Isolated NRG Bacterial blood culture [id number] NRG Bacterial blood culture - 03/03/17 11:01 [...] automated white blood cell (WBC) differential - 03/23/17 13:25 Blood leukocytes automated count (number/volume) 6.1 10*3/uL 4.3-11.0 Blood erythrocytes automated count (number/volume) 4.75 10*6/uL 4.35-5.85 Venous blood hemoglobin measurement (mass/volume) 16.1 g/dL 13.3-17.7 Blood hematocrit (volume fraction) 45 % 40-54 Automated erythrocyte mean corpuscular volume 95 [foz_us] 80-99 Automated erythrocyte mean corpuscular hemoglobin (mass per erythrocyte) 34 pg 25-34 Automated erythrocyte mean corpuscular hemoglobin concentration measurement ( mass/volume) 36 g/dL 32-36 Automated erythrocyte distribution width ratio 12.8 % 10.0-14.5 Automated blood platelet count (count/volume) 233 10*3/uL 130-400 Automated blood platelet mean volume measurement 9.4 [foz_us] 7.4-10.4 Automated blood neutrophils/100 leukocytes 52 % 42-75 Automated blood lymphocytes/100 leukocytes 35 % 12-44 Blood monocytes/100 leukocytes 8 % 0-12 Automated blood eosinophils/100 leukocytes 5 % 0-10 Automated blood basophils/100 leukocytes 1 % 0-10 Blood neutrophils automated count (number/volume) 3.1 10*3 1.8-7.8 Blood lymphocytes automated count (number/volume) 2.1 10*3 1.0-4.0 Blood monocytes automated count (number/volume) 0.5 10*3 0.0-1.0 Automated eosinophil count 0.3 10*3/uL 0.0-0.3 Automated blood basophil count (count/volume) 0.0 10*3/uL 0.0-0.1 Comprehensive metabolic panel - 03/23/17 13:25 Serum or plasma sodium measurement (moles/volume) 138 mmol/L 135-145 Serum or plasma potassium measurement (moles/volume) 3.6 mmol/L 3.6-5.0 Serum or plasma chloride measurement (moles/volume) 103 mmol/L 98-107 Carbon dioxide 21 mmol/L 21-32 Serum or plasma anion gap determination (moles/volume) 14 mmol/L 5-14 Serum or plasma urea nitrogen measurement (mass/volume) 19 mg/dL 7-18 Serum or plasma creatinine measurement (mass/volume) 0.99 mg/dL 0.60-1.30 Serum or plasma urea nitrogen/creatinine mass ratio 19 NRG Serum or plasma creatinine measurement with calculation of estimated glomerular filtration rate > NRG Serum or plasma glucose measurement (mass/volume) 103 mg/dL 70-105 Serum or plasma calcium measurement (mass/volume) 9.6 mg/dL 8.5-10.1 Serum or plasma total bilirubin measurement (mass/volume) 1.3 mg/dL 0.1-1.0 Serum or plasma alkaline phosphatase measurement (enzymatic activity/volume) 57 U/L 40-136 Serum or plasma aspartate aminotransferase measurement (enzymatic activity/ volume) 16 U/L 5-34 Serum or plasma alanine aminotransferase measurement (enzymatic activity/volume ) 19 U/L 0-55 Serum or plasma protein measurement (mass/volume) 7.7 g/dL 6.4-8.2 Serum or plasma albumin measurement (mass/volume) 4.4 g/dL 3.2-4.5 Serum or plasma troponin i.cardiac measurement (mass/volume) - 03/23/17 13:25 Serum or plasma troponin i.cardiac measurement (mass/volume) < ng/ mL <0.30 Serum or plasma ethanol measurement (mass/volume) - 03/23/17 13:25 Serum or plasma ethanol measurement (mass/volume) < mg/dL <10 Complete urinalysis with reflex to culture - 03/23/17 14:25 Urine color determination YELLOW NRG Urine clarity determination CLEAR NRG Urine pH measurement by test strip 6 5-9 Specific gravity of urine by test [...] count by microscopy (number/high power field ) [HPF] NRG Bacteria detection in urine sediment by light microscopy NEGATIVE NRG Squamous epithelial cells detection in urine sediment by light microscopy 2-5 NRG Crystals detection in urine sediment by light microscopy NONE NRG Casts detection in urine sediment by light microscopy NONE NRG Mucus detection in urine sediment by light microscopy NEGATIVE NRG Complete urinalysis with reflex to culture NO NRG Urine drug screening test - 03/23/17 14:25 Urine phencyclidine detection by screening method NEGATIVE NEGATIVE Urine benzodiazepines detection by screening method NEGATIVE NEGATIVE Urine cocaine detection NEGATIVE NEGATIVE Urine amphetamines detection by screening method NEGATIVE NEGATIVE Urine methamphetamine detection by screening method NEGATIVE NEGATIVE Urine cannabinoids detection by screening method NEGATIVE NEGATIVE Urine opiates detection by screening method NEGATIVE NEGATIVE Urine barbiturates detection NEGATIVE NEGATIVE Screening urine tricyclic antidepressants detection NEGATIVE NEGATIVE Urine methadone detection by screening method NEGATIVE NEGATIVE Urine oxycodone detection NEGATIVE NEGATIVE Urine propoxyphene detection NEGATIVE NEGATIVE Encounters ACCT No. Visit Date/Time Discharge Status Pt. Type Provider Facility Loc./Unit Complaint [id number] 04/23/2017 13:00:00 04/23/2017 14:59:00 DIS Outpatient SUZY RAJPUT MD [facility] PREOP CATARACT LEFT EYE [id number] 04/16/2017 06:38:00 04/16/2017 08:15:00 DIS Outpatient SUZY RAJPUT MD [facility] SDC CATARACT RIGHT EYE [id number] 04/12/2017 05:34:00 04/12/2017 13:24:00 DIS Outpatient SUZY RAJPUT MD [facility] PREOP CATARACT RIGHT EYE [id number] 03/23/2017 13:18:00 03/23/2017 17:40:00 DIS Emergency GEOVANNY SILVERIO APRN [facility] ER MULTIPLE SYNCOPAL EPISODES [id number] 03/03/2017 10:21:00 03/03/2017 14:34:00 DIS Emergency CORIN DONOVAN DO [facility] ER LETHARGIC [id number] 04/10/2016 12:38:00 04/10/2016 23:59:59 CLS Outpatient MAYNOR FORDE MD [facility] LAB SALIVARY GLAND SWELLING [id number] 10/03/2015 00:40:00 10/05/2015 14:22:00 DIS Inpatient BRONWYN NOBLE DO [facility] 4TH INTRACTABLE BLADDER PAIN; BLADDER DIVERTICULUM [id number] 10/02/2015 15:45:00 10/02/2015 23:59:59 CLS Outpatient DREA ZAMARRIPA DO [facility] RAD ABD PAIN,HEMATURIA, FEVER [id number] 05/20/2015 08:54:00 05/20/2015 12:10:00 DIS Outpatient MARTA HUDSON MD [facility] [id number] 05/16/2015 06:06:00 05/16/2015 15:12:00 DIS Outpatient MARTA HUDSON MD [facility] PREOP [id number] 05/09/2015 05:30:00 05/12/2015 12:12:00 DIS Inpatient MARTA HUDSON MD [facility] 4TH [id number] 05/07/2015 08:47:00 05/07/2015 11:28:00 DIS Emergency GLEN CLEMENTE MD [facility] ER [id number] 12/19/2014 14:43:00 12/19/2014 17:09:00 DIS Emergency NEW SIMS [facility] ER [id number] 07/17/2014 22:33:00 07/18/2014 01:36:00 DIS Emergency DREA DINERO DO [facility] ER [id number] 10/24/2012 21:30:00 10/25/2012 15:35:00 DIS Inpatient HEIDI NEWBERRY, JIMMIE Gama [facility] 4TH [id number] 10/04/2012 22:21:00 10/06/2012 12:45:00 DIS Inpatient SKYLER NEWBERRY, GENEVA Cochran [facility] ICU [id number] 04/30/2017 08:00:00 PEN Preadmit SUZY RAJPUT MD [facility] SDC CATARACT LEFT EYE [id number] 07/18/2014 01:37:00 Document Registration
--- NOTE | 2017-05-14 13:04 | Ophthalmology Operative Report ---
Cataract removal/placement IOL PREOPERATIVE DIAGNOSIS: Cataract Left Eye POSTOPERATIVE DIAGNOSIS: Cataract Left Eye PROCEDURE: Cataract removal and placement of posterior chamber implant, left eye SURGEON: Ricardo Rajput ANESTHESIA: Topical with sedation COMPLICATIONS: None ESTIMATED BLOOD LOSS: Minimal DESCRIPTION OF PROCEDURE: After proper informed consent was obtained, the patient, a 62 male, was taken to the Operating Room and the left eye was anesthetized with tetracaine. They left eye was then prepped and draped in the usual manner. A wire lid speculum was placed. A paracentesis was made at the left hand position. Preservative free lidocaine was injected into the anterior chamber followed by viscoelastic. A clear corneal incision was made in the temporal position. A capsulorrhexis was preformed and the central nuclear and cortical material were removed. The posterior capsule was polished and Bal 22.0 [id number] IOL was placed into the capsular bag. The residual viscoelastic was aspirated and balanced saline solution was injected into the anterior chamber. 1.0 mg of Vancomycin (10mg/ 1.0ml) was injected into the anterior chamber. The wound was checked and found to be water tight. The patient tolerated the procedure well without complications. RICARDO RAJPUT MD May 14, 2017 13:04
== END 2017-04-30 08:25 | disposition home or self-care (01) ==
LOC: SDC 06:35
PROVIDERS: ATTEND Specialist
DX: H25.9 Unspecified age-related cataract (principal); I10 Essential (primary) hypertension; F32.9 Major depressive disorder, single episode, unspecified; M19.91 Primary osteoarthritis, unspecified site; Z72.89 Other problems related to lifestyle; Z79.899 Other long term (current) drug therapy

== ENCOUNTER 2017-12-22 06:03 | Inpatient (IN) | payer BC ==
[~2017-12-22] VITALS: Ht 182.9 cm; Wt 99.5 kg
[~2017-12-22 06:03] MED LIST changes: -CITA20TA7 PO; +CITA20TA9 PO; -LOSA50TA36 PO; +LOSA50TA7 PO; +METR-197 PO; -METR500T21 PO; +SILD20TA14 PO
--- OUTSIDE RECORDS SUMMARY | 2017-12-22 06:11 | XMS REPORT | Continuity of Care Document ---
Author Author [facility] Organization [facility] Address Unknown Phone Unavailable Allergies Active Description Code Type Severity Reaction Onset Reported/Identified Relationship to Patient Clinical Status Yes Penicillins [id number] Drug Allergy Mild N/A 11/01/2006 Yes Penicillins [id number] Drug Allergy Mild UNCOORDINATED 05/20/2015 Yes ciprofloxacin [id number] Drug Allergy Mild N/A 10/02/2015 Medications There [...] K Ot E78.00 PURE HYPERCHOLESTEROLEMIA, UNSPECIFIED 03/03/2017 VNEUS DO CORIN K Ot F15.10 OTHER STIMULANT [...] 03/03/2017 VENUS ALVAREZ CORIN K Ot Z79.82 BUSINESS ANALYTICS INTERN (CURRENT) USE OF ASPIRIN 03/03/2017 LIBERTY DONOVAN [...] I10 ESSENTIAL (PRIMARY) HYPERTENSION 03/05/2017 VENUS , CORIN K Ot K21.9 GASTRO-ESOPHAGEAL REFLUX DISEASE WITHOUT 03/05/2017 VENUS , CORIN K Ot N40.0 BENIGN PROSTATIC HYPERPLASIA WITHOUT LOW 03/05/2017 VENUS , CORIN K Ot R41.82 ALTERED MENTAL STATUS, UNSPECIFIED 03/05/2017 LIBERTY DONOVAN DOA K Ot R53.1 WEAKNESS 03/05/2017 VENUS ALVAREZ, CORIN K Ot Z79.82 MCC (CURRENT) USE OF ASPIRIN 03/05/2017 VENUS , [...] COLLAPSE 03/23/2017 GEOVANNY SILVERIO APRN Ot Z79.82 MCC (CURRENT) USE OF ASPIRIN 03/23/2017 GEOVANNY SILVERIO APRN Ot Z86.010 PERSONAL HISTORY OF COLONIC POLYPS 03/23/2017 GEOVANNY SILVERIO COGNOS BI ADMINISTRATOR Ot Z87.01 PERSONAL HISTORY OF PNEUMONIA (RECURRENT 03/23/2017 GEOVANNY SILVERIO COGNOS BI ADMINISTRATOR Ot Z87.19 PERSONAL HISTORY OF OTHER DISEASES OF TH 03/23/2017 GEOVANNY SILVERIO COGNOS BI ADMINISTRATOR Ot Z87.448 PERSONAL HISTORY OF OTHER DISEASES OF UR 03/23/2017 GEOVANNY SILVERIO COGNOS BI ADMINISTRATOR Ot Z88.0 ALLERGY STATUS TO PENICILLIN 03/23/2017 GEOVANNY SILVERIO COGNOS BI ADMINISTRATOR Ot Z88.1 ALLERGY STATUS TO OTHER ANTIBIOTIC [...] HYPERTENSION 04/16/2017 SUZY RAJPUT MD Ot Z79.82 BUSINESS ANALYTICS INTERN (CURRENT) USE OF ASPIRIN 04/16/2017 SUZY RAJPUT MD Ot Z79.899 OTHER BUSINESS ANALYTICS INTERN (CURRENT) DRUG THERAPY 04/20/2017 SUZY RAJPUT MD Ot F32.9 MAJOR DEPRESSIVE DISORDER, SINGLE EPISOD 04/20/2017 SUZY RAJPUT MD Ot H26.9 UNSPECIFIED CATARACT 04/20/2017 SUZY RAJPUT MD Ot I10 ESSENTIAL (PRIMARY) HYPERTENSION 04/20/2017 SUZY RAJPUT MD Ot Z79.82 MCC (CURRENT) USE OF ASPIRIN 04/20/2017 SUZY RAJPUT MD Ot Z79.899 OTHER BUSINESS ANALYTICS INTERN (CURRENT) DRUG THERAPY 04/26/2017 SUZY RAJPUT MD Ot 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 04/26/2017 SUZY RAJPUT MD Ot Z01.818 ENCOUNTER FOR OTHER PREPROCEDURAL EXAMIN 04/30/2017 SUZY RAJPUT MD Ot F32.9 MAJOR DEPRESSIVE DISORDER, SINGLE EPISOD 04/30/2017 SUZY RAJPUT MD Ot H25.9 UNSPECIFIED AGE-RELATED CATARACT 04/30/2017 SUZY RAJPUT MD Ot I10 ESSENTIAL (PRIMARY) HYPERTENSION 04/30/2017 SUZY RAJPUT MD Ot M19.91 PRIMARY OSTEOARTHRITIS, UNSPECIFIED SITE 04/30/2017 SUZY RAJPUT MD Ot Z72.89 OTHER PROBLEMS RELATED TO LIFESTYLE 04/30/2017 SUZY RAJPUT MD Ot Z79.899 OTHER MCC (CURRENT) DRUG THERAPY 05/18/2017 SUZY RAJPUT MD Ot F32.9 MAJOR DEPRESSIVE DISORDER, SINGLE EPISOD 05/18/2017 SUZY RAJPUT MD Ot H25.9 UNSPECIFIED AGE-RELATED CATARACT 05/18/2017 SUZY RAJPUT MD Ot I10 ESSENTIAL (PRIMARY) HYPERTENSION 05/18/2017 SUZY RAJPUT MD Ot M19.91 PRIMARY OSTEOARTHRITIS, UNSPECIFIED SITE 05/18/2017 SUZY RAJPUT MD Ot Z72.89 OTHER PROBLEMS RELATED TO LIFESTYLE 05/18/2017 SUZY RAJPUT MD Ot Z79.899 OTHER BUSINESS ANALYTICS INTERN (CURRENT) DRUG THERAPY 05/20/2017 SUZY RAJPUT MD Ot F32.9 MAJOR DEPRESSIVE DISORDER, SINGLE EPISOD 05/20/2017 SUZY RAJPUT MD Ot H25.9 UNSPECIFIED AGE-RELATED CATARACT 05/20/2017 SUZY RAJPUT MD Ot I10 ESSENTIAL (PRIMARY) HYPERTENSION 05/20/2017 SUZY RAJPUT MD Ot M19.91 PRIMARY OSTEOARTHRITIS, UNSPECIFIED SITE 05/20/2017 SUZY RAJPUT MD Ot Z72.89 OTHER PROBLEMS RELATED TO LIFESTYLE 05/20/2017 SUZY RAJPUT MD Ot Z79.899 OTHER BUSINESS ANALYTICS INTERN (CURRENT) DRUG THERAPY Procedures Code Description Performed By Performed On [id number] INSPECTION OF BLADDER, ENDO 10/04/2015 Results Test [...] OF GROWTH Isolated NRG Bacterial blood culture [id number] NRG Bacterial blood culture - 03/03/17 11:01 [...] NEGATIVE Urine propoxyphene detection NEGATIVE NEGATIVE Complete blood count (CBC) with automated white blood cell (WBC) differential - 12/20/17 14:15 Blood leukocytes automated count (number/volume) 6.2 10*3/uL 4.3-11.0 Blood erythrocytes automated count (number/volume) 4.52 10*6/uL 4.35-5.85 Venous blood hemoglobin measurement (mass/volume) 15.2 g/dL 13.3-17.7 Blood hematocrit (volume fraction) 44 % 40-54 Automated erythrocyte mean corpuscular volume 97 [foz_us] 80-99 Automated erythrocyte mean corpuscular hemoglobin (mass per erythrocyte) 34 pg 25-34 Automated erythrocyte mean corpuscular hemoglobin concentration measurement ( mass/volume) 35 g/dL 32-36 Automated erythrocyte distribution width ratio 12.5 % 10.0-14.5 Automated blood platelet count (count/volume) 237 10*3/uL 130-400 Automated blood platelet mean volume measurement 9.5 [foz_us] 7.4-10.4 Automated blood neutrophils/100 leukocytes 56 % 42-75 Automated blood lymphocytes/100 leukocytes 26 % 12-44 Blood monocytes/100 leukocytes 10 % 0-12 Automated blood eosinophils/100 leukocytes 7 % 0-10 Automated blood basophils/100 leukocytes 1 % 0-10 Blood neutrophils automated count (number/volume) 3.5 10*3 1.8-7.8 Blood lymphocytes automated count (number/volume) 1.7 10*3 1.0-4.0 Blood monocytes automated count (number/volume) 0.6 10*3 0.0-1.0 Automated eosinophil count 0.4 10*3/uL 0.0-0.3 Automated blood basophil count (count/volume) 0.1 10*3/uL 0.0-0.1 PT panel in platelet poor plasma by coagulation assay - 12/20/17 14:15 Prothrombin time (PT) in platelet poor plasma by coagulation assay 12.1 s 12.2-14.7 INR in platelet poor plasma or blood by coagulation assay 0.9 0.8-1.4 Comprehensive metabolic panel - 12/20/17 14:15 Serum or plasma sodium measurement (moles/volume) 137 mmol/L 135-145 Serum or plasma potassium measurement (moles/volume) 4.1 mmol/L 3.6-5.0 Serum or plasma chloride measurement (moles/volume) 104 mmol/L 98-107 Carbon dioxide 21 mmol/L 21-32 Serum or plasma anion gap determination (moles/volume) 12 mmol/L 5-14 Serum or plasma urea nitrogen [...] plasma aspartate aminotransferase measurement (enzymatic activity/ volume) 19 U/L 5-34 Serum or plasma alanine aminotransferase measurement (enzymatic activity/volume ) 22 U/L 0-55 Serum or plasma protein measurement (mass/volume) 7.7 g/dL 6.4-8.2 Serum or plasma albumin measurement (mass/volume) 4.2 g/dL 3.2-4.5 CALCIUM CORRECTED 9.0 mg/dL 8.5-10.1 Erythrocyte sedimentation rate by westergren method - 12/20/17 14:15 Erythrocyte sedimentation rate by westergren method 6 mm 0-30 Blood type T Indirect antibody screen panel - 12/20/17 14:15 ABO+Rh group ON NRG Transfusion band number TNP NRG Blood group antibody screen NEGATIVE NRG Methicillin resistant Staphylococcus aureus (MRSA) screening culture - 14:15 Methicillin resistant Staphylococcus aureus (MRSA) screening culture NEG NRG Complete urinalysis with reflex to culture - 12/21/17 08:30 Urine color determination YELLOW NRG Urine clarity [...] NORMAL Urine leukocyte esterase detection by dipstick 1+ NEGATIVE Automated urine sediment erythrocyte count by microscopy (number/high power field) NONE NRG Automated urine sediment leukocyte count by microscopy (number/high power field ) [HPF] NRG Bacteria detection in urine sediment by light microscopy FEW NRG Squamous epithelial cells detection in urine [...] Status Pt. Type Provider Facility Loc./Unit Complaint [id number] 04/30/2017 06:35:00 04/30/2017 08:25:00 DIS Outpatient SUZY RAJPUT MD [facility] SDC CATARACT LEFT EYE [id number] 04/23/2017 13:00:00 04/23/2017 14:59:00 DIS Outpatient SUZY RAJPUT MD [facility] PREOP CATARACT LEFT EYE [id number] 04/16/2017 06:38:00 04/16/2017 08:15:00 DIS Outpatient SUZY RAJPUT MD [facility] CATARACT RIGHT EYE [id number] 04/12/2017 05:34:00 04/12/2017 13:24:00 DIS Outpatient SUZY RAJPUT MD [facility] PREOP CATARACT RIGHT EYE [id number] 03/23/2017 13:18:00 03/23/2017 17:40:00 DIS Emergency GEOVANNY SILVERIO APRN [facility] ER MULTIPLE SYNCOPAL EPISODES [id number] 03/03/2017 10:21:00 03/03/2017 14:34:00 DIS Emergency CORIN DONOVAN DO [facility] ER LETHARGIC [id number] 04/10/2016 12:38:00 04/10/2016 23:59:59 CLS Outpatient MAYNOR FORDE MD [facility] LAB SALIVARY GLAND SWELLING [id number] 10/03/2015 00:40:00 10/05/2015 14:22:00 DIS Inpatient BRONWYN NOBLE DO [facility] 4TH INTRACTABLE BLADDER PAIN; BLADDER DIVERTICULUM [id number] 10/02/2015 15:45:00 10/02/2015 23:59:59 CLS Outpatient DREA ZAMARRIPA DO [facility] RAD ABD PAIN,HEMATURIA, FEVER [id number] 05/20/2015 08:54:00 05/20/2015 12:10:00 DIS Outpatient MARTA HUDSON MD [facility] [id number] 05/16/2015 06:06:00 05/16/2015 15:12:00 DIS Outpatient MARTA HUDSON MD [facility] PREOP [id number] 05/09/2015 05:30:00 05/12/2015 12:12:00 DIS Inpatient MARTA HUDSON MD [facility] 4TH [id number] 05/07/2015 08:47:00 05/07/2015 11:28:00 DIS Emergency CHYNA NEWBERRY, GLEN Breen [facility] ER [id number] 12/19/2014 14:43:00 12/19/2014 17:09:00 DIS Emergency NEW SIMS [facility] ER [id number] 07/17/2014 22:33:00 07/18/2014 01:36:00 DIS Emergency DREA DINERO DO [facility] ER [id number] 10/24/2012 21:30:00 10/25/2012 15:35:00 DIS Inpatient HEIDI NEWBERRY, JIMMIE Gama [address] [id number] 10/04/2012 22:21:00 10/06/2012 12:45:00 DIS Inpatient SKYLER NEWBERRY, GENEVA Cochran [facility] ICU [id number] 12/22/2017 08:00:00 PEN Preadmit POONAM CHISHOLM MD OSTEOARTHRITIS LEFT KNEE [id number] 12/20/2017 14:00:00 PEN Preadmit POONAM CHISHOLM MD [facility] PREOP OSTEOARTHRITIS LEFT KNEE [id number] 07/18/2014 01:37:00 Document Registration [email or web address] 07/18/2014 07:00:01 ACT Document Registration
[2017-12-22 06:15] VITALS: BP 126/82
[2017-12-22] MEDS: LACTATED RINGERS 1,000 ML IV PRN ×2 (06:25→07:50)
[2017-12-22] MEDS ORDERED: CEFUROXIME INJECTION 1,500 MG in NS (IVPB) 50 ML IV ONE (06:30)
[2017-12-22] MEDS ORDERED: ROPIVACAINE 5MG/ML 30ML VIAL ONE (06:36)
[2017-12-22] MEDS ORDERED: MIDAZOLAM 2 MG/2 ML (VERSED) VIAL ONE ×2 (06:37→07:21)
[2017-12-22] MEDS ORDERED: FAMOTIDINE 20MG/2ML IV (PEPCID) ONE (07:03)
[2017-12-22] MEDS ORDERED: fentaNYL INJECTION 100 MCG/2 ML AMP ONE ×2 (07:08→08:05)
[2017-12-22] MEDS ORDERED: ONDANSETRON 4 MG/2 ML (SDV) Z0FRAN ONE (07:13)
[2017-12-22] MEDS ORDERED: proPOfol 200 MG/20 ML (DIPRIVAN) VIAL IV ONE ×2 (07:13→07:53)
[2017-12-22] MEDS ORDERED: LIDOCAINE PF 2% 5 ML (XYLOCAINE) VIAL ONE (07:13)
[2017-12-22] MEDS ORDERED: SEVOFLURANE (ULTANE) 15 ML INHAL SOLN ONE ×8 (07:13→09:00)
[2017-12-22] MEDS ORDERED: DEXAMETHASONE 10 MG/ML (DECADRON) 1 ML VIAL ONE (07:13)
--- NOTE | 2017-12-22 07:26 | Progress Note-Pre Operative ---
Pre-Operative Progress Note H&P Reviewed The H&P was reviewed, patient examined and no changes noted. Date Seen by Provider: Dec 22, 2017 Time Seen by Provider: 07:11 Date H&P Reviewed: Dec 22, 2017 Time H&P Reviewed: 07:11 Pre-Operative Diagnosis: left knee primray osteoarthritis POONAM CHISHOLM MD Dec 22, 2017 07:26
--- NOTE | 2017-12-22 07:27 | Progress Note-Post Operative ---
Post-Operative Progess Note Surgeon (s)/Information Security Manager (s) Surgeon POONAM CHISHOLM MD Information Security Manager: Mamadou Son Pre-Operative Diagnosis left knee primray osteoarthritis Post-Operative Diagnosis left knee primary osteoarthritis Procedure & Operative Findings Date of Procedure 12/22/17 Procedure Performed/Findings left total knee arthroplasty Anesthesia Type GETA Estimated Blood Loss Estimated blood loss (mL): minimal Specimens/Packing Specimens Removed none Packing: none POONAM CHISHOLM MD Dec 22, 2017 07:27
[2017-12-22] MEDS ORDERED: OXYC1TAB87 PO (07:29)
[2017-12-22] MEDS ORDERED: ONDANSETRON 4 MG/2 ML (SDV) Z0FRAN IVP PRN ×2 (07:30→09:30)
[2017-12-22] MEDS ORDERED: morphine PCA 100 MG/100 ML BAG IV PRN (07:30)
[2017-12-22] MEDS ORDERED: INTRA-ARTICULAR IU ONE ×5 (07:30)
[2017-12-22] MEDS ORDERED: ACETAMINOPHEN 325 MG TABLET PO PRN (07:30)
[2017-12-22] MEDS ORDERED: FAMOTIDINE 20MG/2ML IV (PEPCID) IV ONE (07:30)
[2017-12-22] MEDS ORDERED: diphenhydrAMINE 50 MG/ML INJ (BENADRYL) IVP PRN (07:30)
--- NOTE | 2017-12-22 07:31 | D/C HH Face to Face Order ---
D/C Face to Face Orders Instructions for Patient [facility] [employer], Patient Instructions/FollowUp: three weeks Physician to follow Patient: three weeks Discharge Diet for Home: Regular Diet Patient Data-Allergies,Ht & Wt Patient Allergies: Coded Allergies: ciprofloxacin (Unverified Allergy, Mild, 12/20/17) Penicillins (Verified Adverse Reaction, Mild, UNCOORDINATED, 12/20/17) Height (Feet): 6 Height (Inches): 0.00 Weight (Pounds): 219 Weight (Ounces): 5.0 Home Health Need/Face to Face Date of Face to Face: Dec 22, 2017 Clinical Findings: Instability, Muscle weakness, Pain with ambulation, Unsteady gait I have seen Pt [id number]: Yes Discharged To: Home Diagnosis/Conditions: left total knee arthroplasty Patient is Homebound due to: Gisele fall risk due to instabilty, Muscle weakness , Pain w/ambulation Homebound Status Due to the above stated illness, injury or surgical procedure (medical condition or diagnosis) and associated clinical findings, the patient is homebound because of his/her inability to leave home except with aid of a supportive device and/or person AND leaving the home requires a considerable and taxing effort or is medically contraindicated. Pt req the following assistanc: Walker Home Health Nursing Orders Home Health Services Order: Physical Therapy-Evaluate & Treat Home Health Infusion Therapy Line Start Date: Dec 22, 2017 Line Start Time: 619 Line Type: Peripheral IV Site Location: Forearm Therapy Orders Therapy Orders: Physical Therapy, PT to assess for OT Therapy Specific Orders: Eval assistive deivces, Teach enviro modifications/ safety, Gait training, Increase strength/endurance, Restore ROM (DC left knee romero and apply steri strips 01/05/18) Certify Stmt I certify that this patient is under my care and that I, a nurse practitioner or a physician; a seed laboratory assistant working with me, had a face to face encounter that - meets the physician face to face encounter requirements with this patient as dated. POONAM CHISHOLM MD Dec 22, 2017 07:31
[2017-12-22] MEDS ORDERED: CEFUROXIME 1.5 GM/NS 50 ML IVPB IV ONE ×2 (07:45)
[2017-12-22] MEDS ORDERED: ROCURONIUM 10 MG/ML 5 ML SYRINGE IV ONE (07:53)
[2017-12-22] MEDS ORDERED: TRANEXAMIC ACID 100 MG/ML 10 ML INJECTION IV ONE (09:00)
[2017-12-22] MEDS ORDERED: HYDROmorphone 2 MG/ML VIAL (DILAUDID) IV ONE (09:30)
[2017-12-22] MEDS ORDERED: MEPERIDINE (DEMEROL) INJ 50 MG/ML IVP ONE (09:30)
[2017-12-22] MEDS ORDERED: PROMETHAZINE INJ 25 MG/ML (PHENERGAN) AMP IVP ONE (09:30)
[2017-12-22] MEDS ORDERED: morphine INJ 10 MG/ML 1ML (SYR OR VIAL) IVP ONE (09:30)
[2017-12-22 11:00] VITALS: BP 120/62
--- NOTE | 2017-12-22 11:02 | Progress Note-Standard ---
Standard Progress Note Progress Notes/Assess & Plan Date Seen by a Provider: Dec 22, 2017 Time Seen by a Provider: 11:00 Progress/Assessment & Plan post op check no complaints radiographs--HW well positioned without fracture LLE-- 2plus DP pulse with brisk cap refill. Intact DF and PF of toes and ankle. sensation intact throughout s/p LTKA mobilize as able POONAM CHISHOLM MD Dec 22, 2017 11:02
--- NOTE | 2017-12-22 11:32 | Diagnostic Imaging Report ---
INDICATION: Postop left knee. TIME OF EXAMINATION: 10:20 AM. FINDINGS: Two views of the left knee demonstrate postop changes of total knee arthroplasty. The prosthetic elements are in good position. No fracture or loosening is seen. Overlying skin romero are noted. IMPRESSION: Satisfactory postop left knee. Dictated by: Dictated on workstation # [id number]
[2017-12-22] MEDS ORDERED: oxyCODONE/APAP 5/325MG (PERCOCET 5) TABLET ONE (11:33)
[2017-12-22] MEDS: oxyCODONE/APAP 5/325MG (PERCOCET 5) TABLET PO PRN ×3 (11:36→21:09)
[2017-12-22] MEDS: NS IV 1000 ML 1,000 ML IV SCH ×2 (11:59→23:28)
--- NOTE | 2017-12-22 13:35 | Consultation-Hospitalist ---
HPI History of Present Illness: HPI/Chief Complaint CC: Left total knee replacement uncomplicated by Dr. Santos POD # 0 HPI: This is a 62-year-old white male clinic patient of Dr. Ying with a past medical history of hypertension and BPH who presented to room 428 after an uncomplicated left total knee replacement. He had failed conservative treatment and was unable to work full-time due to the severity of his left knee pain. He had no complications in the operating room and currently his vitals remained stable. I checked his home medication list and restarted most. Source: patient Exam Limitations: no limitations Date Seen 12/22/17 Attending Physician Matthew Santos MD PCP Jas Ying DO Referring Physician Date of Admission Dec 22, 2017 at 06:03 Home Medications & Allergies Home Medications Reviewed patient Home Medication Reconciliation performed by pharmacy medication reconciliations machine maintenance technician and/or nursing. Patients Allergies have been reviewed. Allergies Allergies Coded Allergies ciprofloxacin (Unverified Allergy, Mild, 12/20/17) Penicillins (Verified Adverse Reaction, Mild, UNCOORDINATED, 12/20/17) Past Xsxwtjg-Bgpeeb-Zilcic Hx Past Med/Social Hx: Reviewed Nursing Past Med/Soc Hx, Reviewed and Corrections made Patient Social History Marrital Status: Employed/Student: employed ([employer]) Alcohol Use: Occasionally Uses Number of Drinks Today: GG Alcohol Beverage of Choice: Whiskey, [place] Recreational Drug Use: No Smoking Status: Never a Smoker 2nd Hand Smoke Exposure: No Physical Abuse Screen: No Sexual Abuse: No Recent Foreign Travel: No Contact w/other who traveled: No Recent Hopitalizations: No Recent Infectious Disease Expo: No Immunizations Up To Date Tetanus Booster (TDap): More than 5yrs Pediatric: No Date of Pneumonia Vaccine: Oct 06, 2012 Date of Influenza Vaccine: May 12, 2015 Seasonal Allergies Seasonal Allergies: Yes Past Medical History Surgeries: Abdominal, Orthopedic, Transurethral Resection Currently Using CPAP: No Currently Using BIPAP: No Cardiac: High Cholesterol, Hypertension Reproductive: No Sexually Transmitted Disease: No HIV/AIDS: No Genitourinary: Benign Prostatic Hyperpl, Bladder Infection, Neurogenic Bladder Gastrointestinal: Gastroesophageal Reflux, Diverticulosis, Polyps Musculoskeletal: Arthritis Loss of Vision: Denies Hearing Impairment: Hard of Hearing Psychosocial: Anxiety, Depression History of Blood Disorders: No Adverse Reaction to Blood Rose: No Family History Patient reports no known family medical history. Review of Systems Constitutional: see HPI EENTM: no symptoms reported Respiratory: no symptoms reported Cardiovascular: no symptoms reported Gastrointestinal: no symptoms reported Genitourinary: no symptoms reported Musculoskeletal: joint pain Skin: no symptoms reported Psychiatric/Neurological: No Symptoms Reported All Other Systems Reviewed Negative Unless Noted: Yes Physical Exam Physical Exam Vital Signs Vital Signs - First Documented 12/22/17 06:15 Temp 97.5 Pulse 86 Resp 16 B/P (MAP) 126/82 (97) Pulse Ox 96 O2 Delivery Room Air Capillary Refill : Height, Weight, BMI Height: 6'0.00" Weight: 219lbs. 5.0oz. 99.349942tz; 29.7 BMI Method:Stated General Appearance: No Apparent Distress, WD/WN Eyes: Bilateral Eye Normal Inspection, Bilateral Eye PERRL HEENT: PERRL/EOMI, TMs Normal, Normal ENT Inspection, Pharynx Normal Neck: Full Range of Motion, Normal Inspection, Non Tender, Supple, Carotid Bruit Respiratory: Chest Non Tender, Lungs Clear, Normal Breath Sounds, No Accessory Muscle Use, No Respiratory Distress Cardiovascular: Regular Rate, Rhythm, No Edema, No Gallop, No JVD, No Murmur, Normal Peripheral Pulses Gastrointestinal: Normal Bowel Sounds, No Organomegaly, No Pulsatile Mass, Non Tender, Soft Back: Normal Inspection, No CVA Tenderness, No Vertebral Tenderness Extremity: Normal Capillary Refill, Normal Inspection, Normal Range of Motion ( Left leg in CPM machine), Non Tender, No Calf Tenderness, No Pedal Edema Neurologic/Psychiatric: Alert, Oriented x3, No Motor/Sensory Deficits, Normal Mood/Affect Skin: Normal Color, Warm/Dry Lymphatic: No Adenopathy Results Results/Procedures Labs Laboratory Tests 12/23/17 05:45 Patient resulted labs reviewed. Assessment/Plan Assessment and Plan Assess & Plan/Chief Complaint Assessment: Status post left total knee replacement uncomplicated Hypertension BPH Neurogenic bladder GERD Plan: Restart most home meds Monitor labs Pain control Monitor blood pressure Diagnosis/Problems Diagnosis/Problems (1) LEFT KNEE OSTEOARTHRITIS Status: Acute (2) BPH (benign prostatic hyperplasia) Status: Chronic Qualifiers: Lower urinary tract symptom presence: symptoms absent Qualified Codes: N40.0 - Benign prostatic hyperplasia without lower urinary tract symptoms (3) Hypertension Status: Chronic Qualifiers: Hypertension type: essential hypertension Qualified Codes: I10 - Essential (primary) hypertension (4) GERD (gastroesophageal reflux disease) Status: Chronic Qualifiers: Esophagitis presence: without esophagitis Qualified Codes: K21.9 - Gastro- esophageal reflux disease without esophagitis BRONWYN NOBLE DO Dec 22, 2017 13:35
[2017-12-22] MEDS ORDERED: ALPRAZolam 0.25 MG (XANAX) TAB PO SCH (13:45)
[2017-12-22] MEDS ORDERED: PANTOPRAZOLE 20 MG TABLET (PROTONIX) PO PRN (14:00)
--- NOTE | 2017-12-22 14:48 | Physical Therapy Evaluation ---
PT Evaluation-General Medical Diagnosis Admission Date Dec 22, 2017 at 06:03 Medical Diagnosis: Total knee replacement Onset Date: Dec 22, 2017 Therapy Diagnosis Therapy Diagnosis: impaired mobility, strength, endurance, ROM Height/Weight Height (Feet): 6 Height (Inches): 0.00 Weight (Pounds): 219 Weight (Ounces): 5.0 Precautions Precautions/Isolations: Fall Prevention, Standard Precautions Weight Bear Status Right Lower Extremity: Right Full Weight Bearing Left Lower Extremity: Left Weight Bearing/Tolerated Referral Physician: Matthew Santos MD Reason for Referral: Evaluation/Treatment Medical History Additional Medical History Surgeries: Abdominal, Orthopedic, Transurethral Resection Currently Using CPAP: No Currently Using BIPAP: No Cardiac: High Cholesterol, Hypertension Reproductive: No Sexually Transmitted Disease: No HIV/AIDS: No Genitourinary: Benign Prostatic Hyperpl, Bladder Infection, Neurogenic Bladder Gastrointestinal: Gastroesophageal Reflux, Diverticulosis, Polyps Musculoskeletal: Arthritis Loss of Vision: Denies Hearing Impairment: Hard of Hearing Psychosocial: Anxiety, Depression History of Blood Disorders: No Adverse Reaction to Blood Rose: No Current History Total knee replacement on 12-22-17. Patient will return to single level home with assistance from a family friend who lives down the [address]. Patient has 4-5 stairs entering home with a railing. Social History Home: Single Level Current Living Status: Other Family Entry Into Home: Stairs With Railing PT Steps Into Home: 4 PT Steps Inside Home: 0 Prior/Core FIM Prior Level of Function Functional [place] Measure 0=Not Assessed/NA 4=Minimal Assistance 1=Total Assistance 5=Supervision or Setup 2=Maximal Assistance 6=Modified [place] 3=Moderate Assistance 7=Complete IndependenceIRFPAI Quality Coding Scale 6 Independent with activity with or without an assistive device 5 Patient requires set up or clean up by helper. Patient completes activity by themselves 4 Supervision or touching assist (CGA). [place] provide cues , steadying assist 3 The helper provides less than half the effort to complete the activity 2 The helper provides more than half the effort to complete the activity 1 Dependent. The helper does all the effort to complete an activity 7 Patient refused to complete or attempt activity 9 The patient did not perform the activity before the current illness or injury 88 Not attempted due to Medical conditions or safety concerns Bed Mobility: 7 Transfers (B,C,W/C) (FIM): 7 Gait: 6 Stairs: 7 Prior Equipment Used: single crutch prior to surgery PT Evaluation-Current Subjective Patient awake in bed when PT arrived. Pt agreed to evaluation. Pain Numeric Pain Scale: 0-No Pain Location: No Pain Reported, Left Location Body Site: Knee Pt/Family Goals to be independent at home Objective Patient Orientation: Normal For Age Attachments: IV ROM/Strength ROM Upper Extremities WNL ROM Lower Extremities left knee flexion 90 degrees, extension +5 Strength Upper Extremities WNL Strength Lower Extremities 4/5 RLE strength Integumentary/Posture Bowel Incontinence: No Bladder Incontinence: No Neuromuscular (Tone, Coordination, Reflexes) NT Sensory Vision: Functional Hearing: Impaired Sensation Right Upper Extremit: Intact Sensation Left Upper Extremity: Intact Sensation Right Lower Extremit: Intact Sensation Left Lower Extremity: Intact Transfers Functional [place] Measure 0=Not Assessed/NA 4=Minimal Assistance 1=Total Assistance 5=Supervision or Setup 2=Maximal Assistance 6=Modified [place] 3=Moderate Assistance 7=Complete [place] Transfers (B, C, W/C) (FIM): 5 Scootin Rollin Supine to/from Sit: 5 Sit to/from Stand: 5 Gait Mode of Locomotion: Walk Anticipated Mode of Locomotion: Walk Gait (FIM): 4 Distance (FIM): 3=150 ft Distance: 150' Gait Level of Assist: 4 Gait Persons Needed: 1 Gait Assistive Device: FWW Balance Sitting Static: Normal Sitting Dynamic: Normal Standing Static: Normal Standing Dynamic: Normal Treatment Supine TKA exercises x10 (AP, QS, HS, SAQ, SLR), CPM donned and fit to his leg and set to -2/70 degrees, polar care on and SCD's. Patient in bed post tx with nurse call, phone, tray, all needs met. Visitor in room. Assessment/Needs Patient was able to ambulate for 150'ft with a FWW requiring CGA. Patient reported that walking felt good and that he was glad to be out of bed. Patient was informed to continue heel slides and SLRs on his own. Rehab Potential: Good PT Associate Account Manager Goals Shelter Goals PT Shelter Goals Time Frame: Dec 29, 2017 Transfers (B,C,W/C) (FIM): 7 Gait (FIM): 6 Gait distance (FIM): 3=150 ft Distance: >200' Gait Level of Assist: 6 Gait Assistive Device: FWW PT Plan Problem List Problem List: Activity Tolerance, Functional Strength, Safety, Balance, Gait, Transfer, Bed Mobility, ROM Treatment/Plan Treatment Plan: Continue Plan of Care Treatment Plan: Bed Mobility, Education, Functional Strength, Gait, Safety, Therapeutic Exercise, Transfers Treatment Duration: Dec 29, 2017 Frequency: 11 times per week Estimated Hrs Per Day: .25 hour per day Patient and/or Family Agrees t: Yes Safety Risks/Education Patient Education: Gait Training, Transfer Techniques, Reviewed Use of Ice, Correct Positioning, Safety Issues Teaching Recipient: Patient Teaching Methods: Demonstration, Discussion Response to Teaching: Reinforcement Needed Discharge Recommendations Plan Patient will perform bed mobility and transfer training, balance and endurance training, functional strengthening, stair training, gait training, and education , to improve functional mobility and independence at home. Therapy D/C Recommendations: Home w/ Family Support Time/GCodes Time In: 1411 Time Out: 1440 Total Billed Treatment Time: 29 Total Billed Treatment 1 visit SOWMYA 15' GT 14' JEANNIE LICONA PT Dec 22, 2017 14:47
[2017-12-22] MEDS ORDERED: FLU QUADRIvalent (5+ YOA) 2018-2019 (AFLURIA) 0.5 ML IM ONE (15:00)
[2017-12-22] MEDS: CEFUROXIME INJECTION 750 MG in NS (IVPB) 50 ML IV SCH ×2 (15:10→23:28)
[2017-12-22] MEDS ORDERED: PATIENT MAY USE OWN MEDS, ALL MC SCH (15:15)
[2017-12-22] MEDS ORDERED: CEFUROXIME INJECTION 750 MG in NS (IVPB) 50 ML IV SCH (15:30)
--- NOTE | 2017-12-22 15:33 | OPERATIVE REPORT ---
DATE OF SERVICE: 12/22/2017 PREOPERATIVE DIAGNOSIS: Left knee primary osteoarthritis. POSTOPERATIVE DIAGNOSIS: Left knee primary osteoarthritis. PROCEDURE PERFORMED: Left total knee arthroplasty. SURGEON: Matthew Santos MD. WINDOWS SOFTWARE DEVELOPER: MANUEL Lynch, who assisted throughout the procedure and closed the incision. ANESTHESIA: General endotracheal plus peripheral nerve block by Adama Stubbs CRNA. TOURNIQUET TIME: 70 minutes at 300 mmHg. ESTIMATED BLOOD LOSS: Minimal. DRAINS: None. COMPLICATIONS: None. POSTOPERATIVE PLAN: Routine protocol. MATERIALS: MicroPort cemented size 6 femur, cemented size 6 tibia with a 10 mm insert and a cemented size 35 patellar button. The patient was transferred to the recovery room in awake and in stable condition. STATEMENT OF MEDICAL NECESSITY: The patient is a 62-year-old gentleman with a longstanding progressive left knee pain and limitations of activities. His pain has progressed to the point where he had to ambulate with a crutch. He has undergone treatment with injections, arthroscopy and physical therapy, but due to functional impairment and failure to improve with conservative measures, the patient elected to proceed with surgical intervention. Radiographs reveal severe medial and patellofemoral arthritis with moderate lateral joint space narrowing. DESCRIPTION OF PROCEDURE: After risks and benefits of the procedure were discussed and questions were answered, then informed consent was signed and placed on chart. The operative site was confirmed appropriately initialed by the surgeon. The patient was then transferred to the operating room and after adequate levels of general endotracheal anesthetic were obtained, a timeout was called confirming the operative site. The left lower extremity was prepped and draped in the usual sterile fashion with the leg elevated and the knee flexed, tourniquet was inflated to 300 mmHg. A standard anterior approach was utilized. Hemostasis was obtained with cautery. A medial parapatellar arthrotomy was performed leaving 1 cm cuff on the patella for later reattachment. A portion of the fat pad was resected. The ACL was resected. A subperiosteal release was performed of the proximal medial tibia being careful to stay on the bony surface. The intramedullary guide was passed into the femur and the distal cutting block was placed. The distal cut was made and the femur was sized to a size 6. The 6 cutting block was placed parallel to the epicondylar axis and cuts were made from posterior to anterior. Subperiosteal release was then carefully performed on the posterior distal femur, being careful to stay on the bony surface. The intramedullary guide was then passed into the tibia and the cutting block was placed and the drop damien transected the mid intermalleolar axis and the cut was made. The six baseplate was positioned and again the drop damien transected the intermalleolar axis. This was then prepared with the drill and keel punch. The femoral trial was placed and the trochlear cut was made. The 10 mm insert was placed and that the patella was prepared using freehand technique by resecting 10 mm off the undersurface. The peg guide was placed and the peg holes were drilled. The 35 trial was placed and the knee was taken through range of motion. Full extension was easily obtained, 130 degrees of flexion with gravity was easily obtained. The patella tracked well. There was no anterior/posterior or medial/lateral laxity in flexion or extension. The trials were removed. The joint was irrigated with pulse lavage. The periarticular block was placed in the posterior capsule, medial and lateral retinaculum and extensor mechanism. The bone ends were irrigated and dried and the tibial baseplate was cemented into position. Excessive cement was removed and superior surface was irrigated and dried and the polyethylene insert was placed. The distal femur was irrigated and dried and the femoral prosthesis was cemented in position. Excessive cement was removed. The knee was brought out into full extension until the cement had cured. The undersurface of the patella was irrigated and dried and the patellar button was cemented in position. Once the cement had cured, the knee was taken through range of motion. Full extension was easily obtained and 130 degrees of flexion with gravity was easily obtained. The patella tracked well. There was no anterior/posterior or medial/lateral laxity in flexion or extension. The joint was further irrigated with pulse lavage. The arthrotomy was closed with #2 Tevdek in [id number] interrupted fashion. The knee was then flexed and the repair was found to be stable. Subcutaneous tissues were irrigated with pulse lavage using a total of 6 liters throughout the procedure. A #0 Vicryl was used for the deep subcutaneous tissue, 2-0 Vicryl for the superficial subcutaneous tissue, romero used on the skin. A soft dressing was applied. The tourniquet was deflated and the patient was transferred to the recovery room awake and stable condition supple. Job ID: [id number] DocumentID: [id number] Dictated Date: 12/22/2017 09:18:38 [place] Date: 12/22/2017 15:32:44 Dictated By: MATTHEW SANTOS MD
[2017-12-22] MEDS: SENNA W/DOCUSATE (SENOKOT S) TABLET PO SCH ×2 (15:47→21:09)
[2017-12-22] MEDS ORDERED: ALPRAZolam 0.25 MG (XANAX) TAB PO PRN (16:00)
[2017-12-22 16:15] VITALS: BP 116/67
[2017-12-22] MEDS ORDERED: OMEPRAZOLE 20 MG (PriLOSEC) CAP NON-FORMULARY PO PRN (16:15)
[2017-12-22] MEDS: TAMSULOSIN 0.4 MG (FLOMAX) CAP PO SCH (18:05)
[2017-12-22] MEDS: FINASTERIDE (PROSCAR) 5 MG TAB PO SCH (18:05)
[2017-12-22] MEDS ORDERED: TAMSULOSIN 0.4 MG (FLOMAX) CAP PO SCH (19:00)
[2017-12-22] MEDS ORDERED: FINASTERIDE (PROSCAR) 5 MG TAB PO SCH (19:00)
[2017-12-22 19:30] VITALS: BP 129/78
[2017-12-22] MEDS ORDERED: NON-FORMULARY MEDICATION 1 EA EA (Losartan Potassium 50 MG) PO SCH (21:00)
[2017-12-22] MEDS ORDERED: LOSARTAN 50 MG (COZAAR) TAB PO SCH (21:00)
[2017-12-22] MEDS: LOSARTAN 50 MG (COZAAR) TAB PO SCH (21:10)
[2017-12-23 00:06] VITALS: BP 113/64
[2017-12-23 04:10] VITALS: BP 112/66
[2017-12-23 06:06] LABS: BASOPHILS % (AUTO) 0 % (0-10); EOSINOPHILS % (AUTO) 0 % (0-10); HEMATOCRIT 38 % (40-54); HEMOGLOBIN 12.9 G/DL (13.3-17.7); LYMPHOCYTES # (AUTO) 0.8 X 10^3 (1.0-4.0); LYMPHOCYTES % (AUTO) 8 % (12-44); MEAN CORPUSCULAR HEMOGLOBIN 34 PG (25-34); MEAN CORPUSCULAR HGB CONC 34 G/DL (32-36); MEAN CORPUSCULAR VOLUME 100 FL (80-99); MEAN PLATELET VOLUME 9.1 FL (7.4-10.4); MONOCYTES # (AUTO) 1.1 X 10^3 (0.0-1.0); MONOCYTES % (AUTO) 10 % (0-12); NEUTROPHILS # (AUTO) 8.9 X 10^3 (1.8-7.8); NEUTROPHILS % (AUTO) 82 % (42-75); PLATELET COUNT 224 10^3/uL (130-400); RED BLOOD COUNT 3.78 10^6/uL (4.35-5.85); RED CELL DISTRIBUTION WIDTH 12.7 % (10.0-14.5); WHITE BLOOD COUNT 10.9 10^3/uL (4.3-11.0)
[2017-12-23 06:24] LABS: ALANINE AMINOTRANSFERASE 19 U/L (0-55); ALBUMIN 3.7 GM/DL (3.2-4.5); ALKALINE PHOSPHATASE 43 U/L (40-136); BILIRUBIN,TOTAL 0.8 MG/DL (0.1-1.0); BUN/CREATININE RATIO 19; CALCIUM 8.1 MG/DL (8.5-10.1); CARBON DIOXIDE 23 MMOL/L (21-32); CHLORIDE 104 MMOL/L (98-107); CREATININE SERUM 1.08 MG/DL (0.60-1.30); GFR ESTIMATED > 60; GLUCOSE 122 MG/DL (70-105); SODIUM 137 MMOL/L (135-145); TOTAL PROTEIN 6.2 GM/DL (6.4-8.2)
[2017-12-23] MEDS: MULTIVIT W/MINERALS TAB (THERAGRAN M) PO SCH (06:30)
--- NOTE | 2017-12-23 07:32 | Anesthesia-General Post-Op ---
General Patient Condition Mental Status/LOC: Same as Preop Cardiovascular: Satisfactory Nausea/Vomiting: Absent Respiratory: Satisfactory Pain: Controlled Complications: Absent Post Op Complications Complications None Follow Up Care/Instructions Patient Instructions None needed. Anesthesia/Patient Condition Patient Condition Patient is doing well, no complaints, stable vital signs, no apparent adverse anesthesia problems. No complications reported per nursing. D/C home per [facility] [place] Criteria: No EMILY HODGSON CRNA Dec 23, 2017 07:32
--- NOTE | 2017-12-23 07:57 | Progress Note-Standard ---
Standard Progress Note Progress Notes/Assess & Plan Date Seen by a Provider: Dec 23, 2017 Time Seen by a Provider: 07:56 Progress/Assessment & Plan post op check no complaints radiographs--HW well positioned without fracture LLE-- 2plus DP pulse with brisk cap refill. Intact DF and PF of toes and ankle. sensation intact throughout s/p LTKA mobilize as able Final Diagnosis pain well controlled currently Vital Signs Date Time Temp Pulse Resp B/P (MAP) Pulse Ox O2 Delivery O2 Flow Rate FiO2 12/23/17 06:00 20 12/23/17 04:10 97.9 79 17 112/66 (81) 97 Room Air 12/23/17 00:06 97.8 84 18 113/64 (80) 95 Room Air 12/22/17 21:00 95 Room Air 12/22/17 19:30 98.1 107 18 129/78 (95) 96 Room Air 12/22/17 18:28 20 12/22/17 16:15 98.3 99 20 116/67 (83) 95 Room Air 12/22/17 11:10 Room Air 12/22/17 11:00 99.0 96 18 120/62 (81) 95 Room Air I & O 12/23/17 07:00 Intake Total 5640 ml Output Total 1450 ml Balance 4190 ml Laboratory Tests Test 12/23/17 05:45 Range/Units White Blood Count 10.9 4.3-11.0 10^3/uL Red Blood Count 3.78 L 4.35-5.85 10^6/uL Hemoglobin 12.9 L 13.3-17.7 G/DL Hematocrit 38 L 40-54 % Mean Corpuscular Volume 100 H 80-99 FL Mean Corpuscular Hemoglobin 34 25-34 PG Mean Corpuscular Hemoglobin Concent 34 32-36 G/DL Red Cell Distribution Width 12.7 10.0-14.5 % Platelet Count 224 130-400 10^3/uL Mean Platelet Volume 9.1 7.4-10.4 FL Neutrophils (%) (Auto) 82 H 42-75 % Lymphocytes (%) (Auto) 8 L 12-44 % Monocytes (%) (Auto) 10 0-12 % Eosinophils (%) (Auto) 0 0-10 % Basophils (%) (Auto) 0 0-10 % Neutrophils # (Auto) 8.9 H 1.8-7.8 X 10^3 Lymphocytes # (Auto) 0.8 L 1.0-4.0 X 10^3 Monocytes # (Auto) 1.1 H 0.0-1.0 X 10^3 Eosinophils # (Auto) 0.0 0.0-0.3 10^3/uL Basophils # (Auto) 0.0 0.0-0.1 10^3/uL Sodium Level 137 135-145 MMOL/L Potassium Level 4.0 3.6-5.0 MMOL/L Chloride Level 104 98-107 MMOL/L Carbon Dioxide Level 23 21-32 MMOL/L Anion Gap 10 5-14 MMOL/L Blood Urea Nitrogen 20 H 7-18 MG/DL Creatinine 1.08 0.60-1.30 MG/DL Estimat Glomerular Filtration Rate > 60 BUN/Creatinine Ratio 19 Glucose Level 122 H 70-105 MG/DL Calcium Level 8.1 L 8.5-10.1 MG/DL Corrected Calcium 8.3 L 8.5-10.1 MG/DL Total Bilirubin 0.8 0.1-1.0 MG/DL Aspartate Amino Transf (AST/SGOT) 13 5-34 U/L Alanine Aminotransferase (ALT/SGPT) 19 0-55 U/L Alkaline Phosphatase 43 40-136 U/L Total Protein 6.2 L 6.4-8.2 GM/DL Albumin 3.7 3.2-4.5 GM/DL LLE--dressing intact. No calf tenderness. NVI distally s/p LTKA doing well PT/OT POONAM CHISHOLM MD Dec 23, 2017 07:57
[2017-12-23 08:00] VITALS: BP 151/73
[2017-12-23] MEDS ORDERED: diphenhydrAMINE 25 MG TAB (BENADRYL) PO PRN (08:30)
[2017-12-23] MEDS ORDERED: ASPIRIN E.C. 81 MG (ECOTRIN) TAB PO SCH (09:00)
[2017-12-23] MEDS: ENOXAPARIN 30 MG/0.3 ML (LOVENOX) SYR SC SCH ×2 (09:03→20:16)
[2017-12-23] MEDS: SENNA W/DOCUSATE (SENOKOT S) TABLET PO SCH ×2 (09:03→18:19)
[2017-12-23] MEDS: oxyCODONE/APAP 5/325MG (PERCOCET 5) TABLET PO PRN ×7 (09:04→22:07)
[2017-12-23] MEDS: LOSARTAN 50 MG (COZAAR) TAB PO SCH ×2 (09:05→18:17)
[2017-12-23] MEDS: ASPIRIN 81 MG CHEW (CHILDREN'S ASA) PO SCH (09:06)
--- NOTE | 2017-12-23 10:09 | Occupational Therapy Eval ---
OT Evaluation-General/PLF Medical Diagnosis Admission Date Dec 22, 2017 at 06:03 Medical Diagnosis: Total knee replacement Onset Date: Dec 22, 2017 Therapy Diagnosis Therapy Diagnosis: decr self care, decr funct mobility Height/Weight Height (Feet): 6 Height (Inches): 0.00 Weight (Pounds): 219 Weight (Ounces): 5.0 Precautions Precautions/Isolations: Standard Precautions Weight Bear Status Weight Bearing Restriction: Weight Bearing/Tolerated Location Restriction: L LE Referral Physician: Matthew Santos MD Referral Reason: Evaluation/Treatment Medical History Pertinent Medical History: Arthritis, GERD, HTN Additional Medical History BPH. Neurogenic bladder. Bladder infection. Diverticulosis. Hard of hearing. Anxiety, depression. Bilat cataract surgery. pt reported R biceps rupture repair , L rotator cuff repair and three surgeries on R rotator cuff Current History Elective total knee Reviewed History: Yes Social History Home: Single Level Current Living Status: Spouse Entry Into Home: Stairs With Railing Steps Into Home: 4 Steps Inside Home: 0 ADL-Prior Level of Function Functional [place] Measure 0=Not Assessed/NA 4=Minimal Assistance 1=Total Assistance 5=Supervision or Setup 2=Maximal Assistance 6=Modified [place] 3=Moderate Assistance 7=Complete [place] ADL PLOF Comments Pt reported that he has been able to manage his basic ADLs except that sometimes he needed help with putting on his socks and shoes due to knee pain. He managed his medications without help. He is employed by [employer] and has many responsibilities and still drives. 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 Pain reported 6/10 in L knee and received meds from nursing. Appearance Alert, cooperative Mental Status/Objective Attachments: IV Current Glasses/Contacts: Yes (readers) Hearing Aids: No Dentures/Partials: No Hand Dominance: Right Upper Extremity ROM Grossly WFL bilat Upper Extremity Strength 5/5 bilat ADL-Treatment ADL-Current Pt walked 150' with FWW and CGA yesterday. Said he has been to the bathroom and didn't have any problems with toilet transfer except needing help managing IV pole. Pt education on modified techniques for ADLs including dressing, use of adapted equipment, with verbal understanding. Functional [place] Measure 0=Not Assessed/NA 4=Minimal Assistance 1=Total Assistance 5=Supervision or Setup 2=Maximal Assistance 6=Modified [place] 3=Moderate Assistance 7=Complete IndependenceIRFPAI Quality Coding Scale 6 Independent with activity with or without an assistive device 5 Patient requires set up or clean up by helper. Patient completes activity by themselves 4 Supervision or touching assist (CGA). [place] provide cues , steadying assist 3 The helper provides less than half the effort to complete the activity 2 The helper provides more than half the effort to complete the activity 1 Dependent. The helper does all the effort to complete an activity 7 Patient refused to complete or attempt activity 9 The patient did not perform the activity before the current illness or injury 88 Not attempted due to Medical conditions or safety concerns Eating (FIM): 7 (no difficulties per pt report) Education OT Patient Education: Modified ADL techniques, Purpose of tx/functional activities, Rehab process, Use of adapted equipment Teaching Recipient: Patient Teaching Methods: Discussion Response to Teaching: Verbalize Understanding OT Director Labor Standards Goals Retirement Goals Time Frame: Dec 25, 2017 Grooming(FIM): 6 Bathing(FIM): 5 Upper Body Dressing(FIM): 5 Lower Body Dressing(FIM): 5 Toileting(FIM): 6 Toilet/Commode Transfer(FIM): 6 Shower Transfer(FIM): 5 Additional Goals: 1-Demonstrate ADL Tasks, 2-Verbalize Understanding, 3- ImproveStrength/[place] 1=Demonstrate adherence to instructed precautions during ADL tasks. 2=Patient will verbalize/demonstrate understanding of assistive devices/ modifications for ADL. 3=Patient will improve strength/tolerance for activity to enable patient to perform ADL's. OT Education/Plan Problem List/Assessment Assessment: Dependent Transfers, Impaired Self-Care Skills Pt would benefit from skilled OT to increase his independence in basic self care to allow him to safely return home with family Discharge Recommendations Plan/Recommendations: Continue POC Treatment Plan/Plan of Care Treatment,Training & Education: Yes Patient would benefit from OT for education, treatment and training to promote independence in ADL's, mobility, safety and/or upper extremity function for ADL' s. Plan of Care: ADL Retraining, Functional Mobility Treatment Duration: Dec 25, 2017 Frequency: 3 times per week Estimated Hrs Per Day: .5 hour per day Agreement: Yes Rehab Potential: Good Time/GCodes Start Time: 08:54 Stop Time: 09:22 Total Time Billed (hr/min): 28 Billed Treatment Time visit, 15 minutes evaluation low intensity, 13 minutes ADL ELLA MARTINEZ OT Dec 23, 2017 10:09
--- NOTE | 2017-12-23 10:10 | Physical Therapy Daily Note ---
PT Daily Note-Current Subjective Patient was awake in bed when PT arrived. Pt agreed to get up and walk for PT. Pain Numeric Pain Scale: 0-No Pain Location: No Pain Reported Mental Status Patient Orientation: Normal For Age Attachments: IV Transfers Functional [place] Measure 0=Not Assessed/NA 4=Minimal Assistance 1=Total Assistance 5=Supervision or Setup 2=Maximal Assistance 6=Modified [place] 3=Moderate Assistance 7=Complete IndependenceIRFPAI Quality Coding Scale 6 Independent with activity with or without an assistive device 5 Patient requires set up or clean up by helper. Patient completes activity by themselves 4 Supervision or touching assist (CGA). [place] provide cues , steadying assist 3 The helper provides less than half the effort to complete the activity 2 The helper provides more than half the effort to complete the activity 1 Dependent. The helper does all the effort to complete an activity 7 Patient refused to complete or attempt activity 9 The patient did not perform the activity before the current illness or injury 88 Not attempted due to Medical conditions or safety concerns Transfers (B, C, W/C) (FIM): 5 Scootin Rollin Supine to/from Sit: 5 Sit to/from Stand: 5 Weight Bearing Right Lower Extremity: Right Full Weight Bearing Left Lower Extremity: Left Weight Bearing/Tolerated Gait Training Gait (FIM): 5 Distance (FIM): 3=150 ft Distance: 200' Gait Level of Assist: 5 Gait Persons Needed: 1 Gait Assistive Device: FWW Exercises Supine Ex: Quad Set, Heel Slides, Short Arc Quads, Straight leg raise Supine Reps: 10 Assessment Current Status: Good Progress Patient was able to perform exercises with minimal discomfort. Patient stated that he has been performing them on his own. Pt was able to ambulate with SBA for 200ft without showing signs of fatigue with a FWW. PT Nursing Home Goals Nursing Home Goals PT Bark Press Operator Goals Time Frame: Dec 29, 2017 Transfers (B,C,W/C) (FIM): 7 Gait (FIM): 6 Gait distance (FIM): 3=150 ft Distance: >200' Gait Level of Assist: 6 Gait Assistive Device: FWW PT Plan Problem List Problem List: Activity Tolerance, Functional Strength, Balance, Gait Treatment/Plan Treatment Plan: Continue Plan of Care Treatment Plan: Bed Mobility, Education, Functional Strength, Gait, Safety, Therapeutic Exercise, Transfers Treatment Duration: Dec 29, 2017 Frequency: 11 times per week Estimated Hrs Per Day: .25 hour per day Patient and/or Family Agrees t: Yes Time/GCodes Time In: 827 Time Out: 851 Total Billed Treatment Time: 24 Total Billed Treatment 1 visit GT 14' EX 10' ELVIA NAJERA PT Dec 23, 2017 10:10
--- NOTE | 2017-12-23 11:24 | Progress Note-Hospitalist ---
Subjective HPI/CC On Admission Date Seen by Provider: Dec 23, 2017 Time Seen by Provider: 10:30 Subjective/Events-last exam Patient doing much better but the pain is an issue Urinating well No chest pain or shortness of breath Using IS No bowel movement yet Review of Systems General: Malaise Musculoskeletal: leg pain Objective Exam Vital Signs Vital Signs Date Time Temp Pulse Resp B/P (MAP) Pulse Ox O2 Delivery O2 Flow Rate FiO2 12/23/17 08:00 96.8 88 22 151/73 (99) 97 Room Air Capillary Refill : General Appearance: No Apparent Distress, WD/WN Respiratory: Chest Non Tender, Lungs Clear, Normal Breath Sounds, No Accessory Muscle Use, No Respiratory Distress Cardiovascular: Regular Rate, Rhythm, No Edema, No Gallop, No JVD, No Murmur, Normal Peripheral Pulses Neurologic/Psychiatric: Alert, Oriented x3, No Motor/Sensory Deficits, Normal Mood/Affect Results/Procedures Lab Laboratory Tests 12/23/17 05:45 Patient resulted labs reviewed. Assessment/Plan Assessment and Plan Assess & Plan/Chief Complaint Assessment: Uncomplicated left total knee replacement by Dr. Santos POD # 1 BPH Hypertension GERD Plan: Monitor labs Pain control DVT prophylaxis per orthopedic protocol Diagnosis/Problems Diagnosis/Problems (1) LEFT KNEE OSTEOARTHRITIS Status: Acute (2) BPH (benign prostatic hyperplasia) Status: Chronic Qualifiers: Lower urinary tract symptom presence: symptoms absent Qualified Codes: N40.0 - Benign prostatic hyperplasia without lower urinary tract symptoms (3) Hypertension Status: Chronic Qualifiers: Hypertension type: essential hypertension Qualified Codes: I10 - Essential (primary) hypertension (4) GERD (gastroesophageal reflux disease) Status: Chronic Qualifiers: Esophagitis presence: without esophagitis Qualified Codes: K21.9 - Gastro- esophageal reflux disease without esophagitis Clinical Quality Measures DVT/VTE Risk/Contraindication: Risk Factor Score Per Nursin RFS Level Per Nursing on Admit: 4+=Very High BRONWYN NOBLE DO Dec 23, 2017 11:24
[2017-12-23 12:00] VITALS: BP 145/67
[2017-12-23] MEDS: NS IV 1000 ML 1,000 ML IV SCH ×2 (12:06→22:08)
--- NOTE | 2017-12-23 14:28 | Physical Therapy Daily Note ---
PT Daily Note-Current Subjective Patient was up in bed and agreed to get up for therapy. Pain Numeric Pain Scale: 0-No Pain Location: No Pain Reported, Left Location Body Site: Knee Mental Status Patient Orientation: Normal For Age Attachments: Polar Pack, IV Transfers Functional [place] Measure 0=Not Assessed/NA 4=Minimal Assistance 1=Total Assistance 5=Supervision or Setup 2=Maximal Assistance 6=Modified [place] 3=Moderate Assistance 7=Complete IndependenceIRFPAI Quality Coding Scale 6 Independent with activity with or without an assistive device 5 Patient requires set up or clean up by helper. Patient completes activity by themselves 4 Supervision or touching assist (CGA). [place] provide cues , steadying assist 3 The helper provides less than half the effort to complete the activity 2 The helper provides more than half the effort to complete the activity 1 Dependent. The helper does all the effort to complete an activity 7 Patient refused to complete or attempt activity 9 The patient did not perform the activity before the current illness or injury 88 Not attempted due to Medical conditions or safety concerns Transfers (B, C, W/C) (FIM): 6 Scootin Rollin Supine to/from Sit: 6 Sit to/from Stand: 6 Weight Bearing Right Lower Extremity: Right Full Weight Bearing Left Lower Extremity: Left Weight Bearing/Tolerated Gait Training Gait (FIM): 6 Distance (FIM): 3=150 ft Distance: >600 Gait Level of Assist: 6 Gait Persons Needed: 1 Gait Assistive Device: FWW Exercises Supine Ex: Ankle pumps, Quad Set, Heel Slides, Short Arc Quads, Straight leg raise Seated Therapy Exercises: Long arc quads, Hamstring Curls Cinthya Tello performed LE exercises in bed and sitting bedside prior to walking. Pt was able to ambulate for >600ft with SBA. Patient reports no fatigue and minimal pain when he is ambulating. PT Custodial Goals [employer] Goals PT [employer] Principal Goals Time Frame: Dec 29, 2017 Transfers (B,C,W/C) (FIM): 7 Gait (FIM): 6 Gait distance (FIM): 3=150 ft Distance: >200' Gait Level of Assist: 6 Gait Assistive Device: FWW PT Plan Problem List Problem List: Activity Tolerance, Functional Strength, Safety, Balance, Gait Treatment/Plan Treatment Plan: Continue Plan of Care Treatment Plan: Bed Mobility, Education, Functional Strength, Gait, Safety, Therapeutic Exercise, Transfers Treatment Duration: Dec 29, 2017 Frequency: 11 times per week Estimated Hrs Per Day: .25 hour per day Patient and/or Family Agrees t: Yes Time/GCodes Time In: 130 Time Out: 153 Total Billed Treatment Time: 23 Total Billed Treatment 1 visit GT 13' EX 10' ELVIA NAJERA PT Dec 23, 2017 14:28
[2017-12-23 15:40] VITALS: BP 137/65
[2017-12-23] MEDS ORDERED: CYCLOBENZAPRINE 10 MG (FLEXERIL) TAB PO PRN (16:00)
[2017-12-23] MEDS ORDERED: MILK OF MAGNESIA 400 MG/5 ML 30 ML UDC PO PRN (16:00)
[2017-12-23] MEDS: TAMSULOSIN 0.4 MG (FLOMAX) CAP PO SCH (18:14)
[2017-12-23] MEDS: FINASTERIDE (PROSCAR) 5 MG TAB PO SCH (18:14)
[2017-12-23 20:20] VITALS: BP 127/61
[2017-12-24 00:16] VITALS: BP 141/71
[2017-12-24] MEDS: oxyCODONE/APAP 5/325MG (PERCOCET 5) TABLET PO PRN ×8 (00:35→17:18)
[2017-12-24 04:05] VITALS: BP 153/71
[2017-12-24] MEDS: MULTIVIT W/MINERALS TAB (THERAGRAN M) PO SCH (06:35)
[2017-12-24 06:49] LABS: BASOPHILS % (AUTO) 0 % (0-10); EOSINOPHILS # (AUTO) 0.1 10^3/uL (0.0-0.3); EOSINOPHILS % (AUTO) 2 % (0-10); HEMATOCRIT 36 % (40-54); HEMOGLOBIN 12.1 G/DL (13.3-17.7); LYMPHOCYTES % (AUTO) 15 % (12-44); MEAN CORPUSCULAR HEMOGLOBIN 33 PG (25-34); MEAN CORPUSCULAR HGB CONC 33 G/DL (32-36); MEAN CORPUSCULAR VOLUME 101 FL (80-99); MEAN PLATELET VOLUME 9.5 FL (7.4-10.4); MONOCYTES # (AUTO) 0.8 X 10^3 (0.0-1.0); MONOCYTES % (AUTO) 12 % (0-12); NEUTROPHILS % (AUTO) 72 % (42-75); PLATELET COUNT 176 10^3/uL (130-400); RED BLOOD COUNT 3.62 10^6/uL (4.35-5.85); RED CELL DISTRIBUTION WIDTH 12.8 % (10.0-14.5)
[2017-12-24 07:11] LABS: ALANINE AMINOTRANSFERASE 14 U/L (0-55); ALBUMIN 3.7 GM/DL (3.2-4.5); ALKALINE PHOSPHATASE 45 U/L (40-136); BILIRUBIN,TOTAL 1.1 MG/DL (0.1-1.0); BUN/CREATININE RATIO 15; CALCIUM 8.3 MG/DL (8.5-10.1); CARBON DIOXIDE 21 MMOL/L (21-32); CHLORIDE 104 MMOL/L (98-107); CREATININE SERUM 0.88 MG/DL (0.60-1.30); GFR ESTIMATED > 60; GLUCOSE 104 MG/DL (70-105); POTASSIUM 3.7 MMOL/L (3.6-5.0); SODIUM 137 MMOL/L (135-145); TOTAL PROTEIN 6.2 GM/DL (6.4-8.2)
--- NOTE | 2017-12-24 07:12 | Progress Note-Standard ---
Standard Progress Note Progress Notes/Assess & Plan Date Seen by a Provider: Dec 24, 2017 Time Seen by a Provider: 07:11 Progress/Assessment & Plan post op check no complaints radiographs--HW well positioned without fracture LLE-- 2plus DP pulse with brisk cap refill. Intact DF and PF of toes and ankle. sensation intact throughout s/p LTKA mobilize as able Final Diagnosis no complaints Vital Signs Date Time Temp Pulse Resp B/P (MAP) Pulse Ox O2 Delivery O2 Flow Rate FiO2 12/24/17 04:05 99.1 94 18 153/71 (98) 97 Room Air 12/24/17 00:16 98.3 87 19 141/71 (94) 96 Room Air 12/23/17 20:20 99.1 80 18 127/61 (83) 97 Room Air 12/23/17 18:00 20 12/23/17 15:40 98.6 83 18 137/65 (89) 97 Room Air 12/23/17 12:00 98.2 79 20 145/67 (93) 98 Room Air 12/23/17 08:00 96.8 88 22 151/73 (99) 97 Room Air I & O 12/24/17 07:00 Intake Total 3060 ml Output Total 1475 ml Balance 1585 ml Laboratory Tests Test 12/24/17 06:10 Range/Units White Blood Count 7.0 4.3-11.0 10^3/uL Red Blood Count 3.62 L 4.35-5.85 10^6/uL Hemoglobin 12.1 L 13.3-17.7 G/DL Hematocrit 36 L 40-54 % Mean Corpuscular Volume 101 H 80-99 FL Mean Corpuscular Hemoglobin 33 25-34 PG Mean Corpuscular Hemoglobin Concent 33 32-36 G/DL Red Cell Distribution Width 12.8 10.0-14.5 % Platelet Count 176 130-400 10^3/uL Mean Platelet Volume 9.5 7.4-10.4 FL Neutrophils (%) (Auto) 72 42-75 % Lymphocytes (%) (Auto) 15 12-44 % Monocytes (%) (Auto) 12 0-12 % Eosinophils (%) (Auto) 2 0-10 % Basophils (%) (Auto) 0 0-10 % Neutrophils # (Auto) 5.0 1.8-7.8 X 10^3 Lymphocytes # (Auto) 1.0 1.0-4.0 X 10^3 Monocytes # (Auto) 0.8 0.0-1.0 X 10^3 Eosinophils # (Auto) 0.1 0.0-0.3 10^3/uL Basophils # (Auto) 0.0 0.0-0.1 10^3/uL Sodium Level 137 135-145 MMOL/L Potassium Level 3.7 3.6-5.0 MMOL/L Chloride Level 104 98-107 MMOL/L Carbon Dioxide Level 21 21-32 MMOL/L Anion Gap 12 5-14 MMOL/L Blood Urea Nitrogen 13 7-18 MG/DL Creatinine 0.88 0.60-1.30 MG/DL Estimat Glomerular Filtration Rate > 60 BUN/Creatinine Ratio 15 Glucose Level 104 70-105 MG/DL Calcium Level 8.3 L 8.5-10.1 MG/DL Corrected Calcium 8.5 8.5-10.1 MG/DL Total Bilirubin 1.1 H 0.1-1.0 MG/DL Aspartate Amino Transf (AST/SGOT) 14 5-34 U/L Alanine Aminotransferase (ALT/SGPT) 14 0-55 U/L Alkaline Phosphatase 45 40-136 U/L Total Protein 6.2 L 6.4-8.2 GM/DL Albumin 3.7 3.2-4.5 GM/DL LLE-incision clean and dry. No calf tenderness. Neg Shannan's s/p LTKA doing well DC home this PM PT/OT today POONAM CHISHOLM MD Dec 24, 2017 07:12
[2017-12-24] MEDS ORDERED: morphine INJ 4 MG/ML 1 ML (VIAL/SYRINGE) IVP PRN (07:15)
[2017-12-24 08:00] VITALS: BP 154/76
[2017-12-24] MEDS: SENNA W/DOCUSATE (SENOKOT S) TABLET PO SCH (08:18)
[2017-12-24] MEDS: ENOXAPARIN 30 MG/0.3 ML (LOVENOX) SYR SC SCH (08:19)
[2017-12-24] MEDS: ASPIRIN 81 MG CHEW (CHILDREN'S ASA) PO SCH (08:20)
[2017-12-24] MEDS: LOSARTAN 50 MG (COZAAR) TAB PO SCH (08:21)
--- NOTE | 2017-12-24 09:41 | Physical Therapy Daily Note ---
PT Daily Note-Current Subjective Patient was awake in bed and reported he was having more pain this morning. Pt agreed to exercise with PT. Pain Numeric Pain Scale: 8 Location: Left Location Body Site: Knee Mental Status Patient Orientation: Normal For Age Transfers Functional [place] Measure 0=Not Assessed/NA 4=Minimal Assistance 1=Total Assistance 5=Supervision or Setup 2=Maximal Assistance 6=Modified [place] 3=Moderate Assistance 7=Complete IndependenceIRFPAI Quality Coding Scale 6 Independent with activity with or without an assistive device 5 Patient requires set up or clean up by helper. Patient completes activity by themselves 4 Supervision or touching assist (CGA). [place] provide cues , steadying assist 3 The helper provides less than half the effort to complete the activity 2 The helper provides more than half the effort to complete the activity 1 Dependent. The helper does all the effort to complete an activity 7 Patient refused to complete or attempt activity 9 The patient did not perform the activity before the current illness or injury 88 Not attempted due to Medical conditions or safety concerns Transfers (B, C, W/C) (FIM): 7 Scootin Rollin Supine to/from Sit: 7 Sit to/from Stand: 7 Weight Bearing Right Lower Extremity: Right Full Weight Bearing Left Lower Extremity: Left Weight Bearing/Tolerated Gait Training Gait (FIM): 6 Distance (FIM): 3=150 ft Distance: >300 Gait Level of Assist: 6 Gait Persons Needed: 1 Gait Assistive Device: FWW Exercises Seated Therapy Exercises: Ankle pumps, Long arc quads, Hip flexion Seated Reps: 10 Assessment Patient reported more pain with activity this morning. Patient able to perform seated exercises and stated that his leg felt stiff. Patient ambulated to stairwell and learned how to ascend and descend stairs with a walker. Physician has ordered D/C and Pt will be going home in PM. PT Custodial Goals [employer] Printer Goals PT Custodial Goals Time Frame: Dec 29, 2017 Transfers (B,C,W/C) (FIM): 7 Gait (FIM): 6 Gait distance (FIM): 3=150 ft Distance: >200' Gait Level of Assist: 6 Gait Assistive Device: FWW PT Plan Treatment/Plan Treatment Plan: Discontinue PT, goals met Treatment Plan: Bed Mobility, Education, Functional Strength, Gait, Safety, Therapeutic Exercise, Transfers Treatment Duration: Dec 29, 2017 Frequency: 11 times per week Estimated Hrs Per Day: .25 hour per day Patient and/or Family Agrees t: Yes Time/GCodes Time In: 840 Time Out: 900 Total Billed Treatment Time: 20 Total Billed Treatment 1 visit FA - 20' ELVIA NAJERA PT Dec 24, 2017 09:41
--- NOTE | 2017-12-24 09:43 | Occupational Ther Daily Note ---
OT Current Status-Daily Note Subjective Pt alert and oriented upon therapist arrival. Pt willing to participate with OT therapy, however he states that he if feeling tired. Pain Numeric Pain Scale: 8 Location Body Site: Knee Mental Status/Objective Patient Orientation: Normal For Age Functional [place] Measure 0=Not Assessed/NA 4=Minimal Assistance 1=Total Assistance 5=Supervision or Setup 2=Maximal Assistance 6=Modified [place] 3=Moderate Assistance 7=Complete [place] Other Treatment Pt participated in bed mobility and unsupported sitting at EOB. Pt required Alley for bed mobility, and maintained unsupported sitting at EOB with Good dynamic sitting balance. The pt participated in BUE ther ex with yellow theraband, 1x20 reps through gross UE planes of motion. Pt presented with weakness and muscle fatigue with ther ex, and required frequent rest breaks. Following treatment session, the pt was assisted to laying supine with Alley, and knee was positioned in neutral, straight line. Call light and ice pack in place. Education OT Patient Education: Transfer techniques Teaching Recipient: Patient Teaching Methods: Discussion Response to Teaching: Verbalize Understanding, Return Demonstration OT Short Term Goals Short Term Goals 1=Demonstrate adherence to instructed precautions during ADL tasks. 2=Patient will verbalize/demonstrate understanding of assistive devices/ modifications for ADL. 3=Patient will improve strength/tolerance for activity to enable patient to perform ADL's. OT Fpc Goals Fpc Goals Time Frame: Dec 25, 2017 Grooming(FIM): 6 Bathing(FIM): 5 Upper Body Dressing(FIM): 5 Lower Body Dressing(FIM): 5 Toileting(FIM): 6 Toilet/Commode Transfer(FIM): 6 Shower Transfer(FIM): 5 Additional Goals: 1-Demonstrate ADL Tasks, 2-Verbalize Understanding, 3- ImproveStrength/[place] 1=Demonstrate adherence to instructed precautions during ADL tasks. 2=Patient will verbalize/demonstrate understanding of assistive devices/ modifications for ADL. 3=Patient will improve strength/tolerance for activity to enable patient to perform ADL's. OT Education/Plan Problem List/Assessment Pt would benefit from skilled OT to increase his independence in basic self care to allow him to safely return home with family Discharge Recommendations Plan/Recommendations: Continue POC Treatment Plan/Plan of Care Patient would benefit from OT for education, treatment and training to promote independence in ADL's, mobility, safety and/or upper extremity function for ADL' s. Plan of Care: ADL Retraining, Functional Mobility Treatment Duration: Dec 25, 2017 Frequency: 3 times per week Estimated Hrs Per Day: .5 hour per day Agreement: Yes Rehab Potential: Good Time/GCodes Start Time: 09:15 Stop Time: 09:42 Total Time Billed (hr/min): 27 Billed Treatment Time TE2 AMINA HEAD OT Dec 24, 2017 09:43
--- NOTE | 2017-12-24 11:38 | Progress Note-Hospitalist ---
BRONWYN NOBLE DO 12/24/17 1138: Subjective HPI/CC On Admission Date Seen by Provider: Dec 24, 2017 Time Seen by Provider: 11:00 CC: Left total knee replacement uncomplicated by Dr. Santos POD # 0 HPI: This is a 62-year-old white male clinic patient of Dr. Ying with a past medical history of hypertension and BPH who presented to room 428 after an uncomplicated left total knee replacement. He had failed conservative treatment and was unable to work full-time due to the severity of his left knee pain. He had no complications in the operating room and currently his vitals remained stable. I checked his home medication list and restarted most. Subjective/Events-last exam Patient doing well Discharge is planned Reviewed labs and meds Objective Exam Vital Signs Vital Signs Date Time Temp Pulse Resp B/P (MAP) Pulse Ox O2 Delivery O2 Flow Rate FiO2 12/24/17 08:30 16 12/24/17 08:00 97.5 86 154/76 (102) 95 Room Air Capillary Refill : General Appearance: No Apparent Distress, WD/WN, Chronically ill Respiratory: Chest Non Tender, Lungs Clear, Normal Breath Sounds, No Accessory Muscle Use, No Respiratory Distress Cardiovascular: Regular Rate, Rhythm, No Edema, No Gallop, No JVD, No Murmur, Normal Peripheral Pulses Results/Procedures Lab Laboratory Tests 12/24/17 06:10 Patient resulted labs reviewed. Assessment/Plan Assessment and Plan Assess & Plan/Chief Complaint Assessment: Status post left total knee replacement uncomplicated Hypertension BPH Neurogenic bladder GERD Plan: MD home Diagnosis/Problems Diagnosis/Problems (1) LEFT KNEE OSTEOARTHRITIS Status: Acute (2) BPH (benign prostatic hyperplasia) Status: Chronic Qualifiers: Lower urinary tract symptom presence: symptoms absent Qualified Codes: N40.0 - Benign prostatic hyperplasia without lower urinary tract symptoms (3) Hypertension Status: Chronic Qualifiers: Hypertension type: essential hypertension Qualified Codes: I10 - Essential (primary) hypertension (4) GERD (gastroesophageal reflux disease) Status: Chronic Qualifiers: Esophagitis presence: without esophagitis Qualified Codes: K21.9 - Gastro- esophageal reflux disease without esophagitis Clinical Quality Measures DVT/VTE Risk/Contraindication: Risk Factor Score Per Nursin RFS Level Per Nursing on Admit: 4+=Very High GLEN JEWELL MED STUDENT 12/24/17 1206: Subjective Subjective/Events-last exam Pt. looks well and claims to be feeling good today He states that his knee is very stiff and painful He reports that his bowels are moving He is eating and using his inspirometer regularly Objective Exam General Appearance: No Apparent Distress, WD/WN Respiratory: Chest Non Tender, Lungs Clear, Normal Breath Sounds, No Accessory Muscle Use, No Respiratory Distress Cardiovascular: Regular Rate, Rhythm, No Edema, No Gallop, No JVD, No Murmur, Normal Peripheral Pulses Neurologic/Psychiatric: Alert, Oriented x3, No Motor/Sensory Deficits, Normal Mood/Affect Skin: Normal Color, Warm/Dry Lymphatic: No Adenopathy Assessment/Plan Assessment and Plan Assess & Plan/Chief Complaint Assessment: 1) Post operative total knee replacement 2) Hypertension 3) GERD Plan: 1) Monitor vitals and labs 2) Pain control BRONWYN NOBLE DO Dec 24, 2017 11:38 GLEN JEWELL MED STUDENT Dec 24, 2017 12:06
[2017-12-24 12:00] VITALS: BP 160/79
[2017-12-24 15:40] VITALS: BP 136/67
[2017-12-24 17:36] VITALS: BP 136/67
--- NOTE | 2017-12-25 00:31 | DISCHARGE SUMMARY ---
DATE OF SERVICE: DIAGNOSES: 1. Left knee primary osteoarthritis. 2. Hypertension. PROCEDURE: Left total knee arthroplasty. SUMMARY: The patient is a 62-year-old gentleman who underwent a left total knee arthroplasty on the day of admission. Postoperatively, he did very well. At the time of discharge, his wound was clean and dry. He had no calf tenderness. Negative Homans sign. He had cleared physical therapy. He was tolerating his diet well and tolerating pain with oral pain medication. CONDITION ON DISCHARGE: Good. DISCHARGE DIET: Regular. FOLLOWUP: In 3 weeks. ACTIVITIES: Weightbearing as tolerated left lower extremity with assistive devices as needed. Job ID: [id number] DocumentID: [id number] Dictated Date: 12/24/2017 07:06:20 Shafting Worker Date: 12/25/2017 00:31:24 Dictated By: POONAM CHISHOLM MD
--- NOTE | 2018-01-04 09:35 | HISTORY AND PHYSICAL ---
DATE OF SERVICE: ADMISSION HISTORY AND PHYSICAL REASON FOR ADMISSION: Left total knee arthroplasty. HISTORY OF PRESENT ILLNESS: The patient is a 62-year-old gentleman with progressively worsening left knee pain, stiffness, swelling and catching. He has previously undergone treatment with arthroscopy as well as multiple injections. He reports he has been unable to ambulate without assistance due to his knee pain. Radiographs reveal severe medial and patellofemoral arthrosis and due to functional impairment and failure to improve with conservative measures, the patient elected to proceed with surgical intervention. The patient will require inpatient admission due to comorbidities, pain management issues, gait abnormalities and weakness. REVIEW OF SYSTEMS: No chest pain, no shortness of breath, no dysuria. PAST MEDICAL HISTORY: Hypertension, depression, hyperlipidemia. PAST SURGICAL HISTORY: Right distal biceps repair, left rotator cuff repair, left knee arthroscopy, right shoulder rotator cuff repair, ureterostomy. FAMILY HISTORY: Significant for hypertension and diabetes. PRIMARY CARE PROVIDER: Dr. Ying. MEDICATIONS: Are: 1. Losartan. 2. Hydrochlorothiazide. 3. Citalopram. 4. Atorvastatin. 5. Aspirin. 6. Fish oil. 7. Finasteride. 8. Tamsulosin. 9. Omeprazole. 10. Sildenafil. 11. Alprazolam. ALLERGIES: PENICILLIN. SOCIAL HISTORY: The patient drinks alcohol socially. Denies tobacco use. PHYSICAL EXAMINATION: GENERAL: The patient is a well-developed and well-nourished, in no acute distress. HEENT: Normocephalic and atraumatic. Pupils are equal, round and reactive to light. Oropharynx is clear. NECK: Supple. No lymphadenopathy. LUNGS: Clear to auscultation bilaterally. HEART: Regular rate and rhythm. ABDOMEN: Soft, nontender and nondistended. EXTREMITIES EXAM: Left knee demonstrates varus alignment. He has a moderate effusion. There is no erythema or warmth. No skin lesions are noted. He ambulates with an antalgic gait. Range of motion is 0/3/125, no varus or valgus laxity. Negative anterior and posterior drawer. He is tender along his medial joint line. He has pain medially with Sofy's as well as patellofemoral crepitus noted. IMPRESSION: Left knee severe osteoarthritis, unresponsive to conservative measures. PLAN: Left total knee arthroplasty. The risks, benefits, options, ramifications and recovery were discussed at length with the patient, he understands and wishes to proceed. Job ID: [id number] DocumentID: [id number] Dictated Date: 01/04/2018 09:21:13 3D Artist Date: 01/04/2018 09:35:17 Dictated By: POONAM CHISHOLM MD
== END 2017-12-24 17:38 | disposition home health service (06) | DRG 470 ==
LOC: 4TH 06:03 → SURG 06:04 → 4TH 11:00
PROVIDERS: ADMIT Orthopaedic Surgery; ATTEND Orthopaedic Surgery
PROC: 0SRD0J9 Replacement of Left Knee Joint with Synthetic Substitute, Cemented, Open Approach (ICD-10-PCS; principal; 2017-12-22 07:29)
DX: M17.12 Unilateral primary osteoarthritis, left knee (principal); I10 Essential (primary) hypertension; N40.0 Benign prostatic hyperplasia without lower urinary tract symptoms; E78.00 Pure hypercholesterolemia, unspecified; J30.2 Other seasonal allergic rhinitis; N31.9 Neuromuscular dysfunction of bladder, unspecified; K21.9 Gastro-esophageal reflux disease without esophagitis; K57.90 Diverticulosis of intestine, part unspecified, without perforation or abscess without bleeding; Z23 Encounter for immunization; F41.9 Anxiety disorder, unspecified; F32.9 Major depressive disorder, single episode, unspecified; Z86.010 Personal history of colon polyps
CPT/HCPCS: 36415; 73560; 80053; 85025; 86850; 86900; 86901; 90471; 90686; 94664

== ENCOUNTER → 2018-01-31 | Outpatient (CLI) | payer BC ==
[~2018-01-31] MED LIST changes: +OXYC1TAB87 PO
--- NOTE | 2018-01-31 11:51 | Diagnostic Imaging Report ---
PROCEDURE: MRI lumbar spine. TECHNIQUE: Multiplanar, multisequence MRI of the lumbar spine was performed without contrast. INDICATION: Bilateral leg pain, knee replacement. COMPARISON: While I have no previous for direct comparison, the study interpreted in correlation with a CT abdomen and pelvis performed 03/03/2017 which also includes multiplanar reconstructions. FINDINGS: Grade 1 retrolisthesis of L4 on L5 is unchanged from prior CT of about 3-4 mm. Remaining levels overlying within normal limits. Lumbar body heights are maintained. No acute or suspicious marrow signal abnormality. The conus appears normal. There is no paravertebral mass, hemorrhage, or fluid collection. T12-L1: This level and disc are normal. L1-L2: There is disc space narrowing, endplate sclerosis, and osteophytes with mild canal stenosis and mild left greater than right foraminal narrowing. L2-L3: Bulging disc material, ligamenta flava thickening, and facet arthrosis conspire to result in a [id number] degree of spinal canal stenosis with mild right greater than left neural foraminal narrowing. L3-L4: Ligamenta flava thickening, facet arthrosis, disc bulge, and endplate osteophytes conspire to result in a relatively mild degree of spinal canal stenosis with mild biforaminal narrowing. L4-L5: Bulging disc material and endplate osteophytes did not result in a significant degree of canal stenosis. There is mild biforaminal narrowing. L5-S1: There is hypertrophic facet arthrosis, disc bulge, and endplate osteophytes. The findings result in at least moderate severity of bilateral foraminal narrowing and at least mild narrowing of the left S1 lateral recess. Spinal canal is not significantly narrowed. Chronic L5 spondylolysis defects noted without listhesis, unchanged. IMPRESSION: Nuno-lumbar degenerative changes and grade 1 degenerative listhesis with multilevel canal, foraminal, and recess stenoses of varying severities, listed level by level above. When the differing modalities taken into account, no appreciable change from prior. Dictated by: Dictated on workstation # [id number]
== END ==
LOC: RAD 09:58
PROVIDERS: ATTEND Nurse Practitioner
DX: M48.061 Spinal stenosis, lumbar region without neurogenic claudication (principal); M99.73 Connective tissue and disc stenosis of intervertebral foramina of lumbar region; M51.26 Other intervertebral disc displacement, lumbar region; M47.816 Spondylosis without myelopathy or radiculopathy, lumbar region; M43.16 Spondylolisthesis, lumbar region
CPT/HCPCS: 72148

== ENCOUNTER 2018-02-16 08:36 | Outpatient (RCR) | payer BC ==
[~2018-02-16 08:36] MED LIST changes: +LOSA50TA63 PO; -LOSA50TA7 PO; +METR-145 PO; -METR-197 PO
== END 2018-03-23 13:29 | disposition home or self-care (01) ==
PROVIDERS: ATTEND Orthopaedic Surgery
DX: Z47.1 Aftercare following joint replacement surgery (principal); Z96.652 Presence of left artificial knee joint; M54.42 Lumbago with sciatica, left side

== ENCOUNTER → 2018-02-24 | Outpatient (CLI) | payer BC ==
[~2018-02-24] MED LIST changes: -LOSA50TA63 PO; +LOSA50TA7 PO; -METR-145 PO; +METR-197 PO
--- NOTE | 2018-02-24 13:17 | Diagnostic Imaging Report ---
EXAMINATION: Bilateral hands. INDICATION: Arthritis. Three views were obtained. There are no prior studies available for comparison. FINDINGS: There is no fracture, dislocation, or acute bony abnormality evident. There is degenerative disease involving both hands. Specifically, there is narrowing of the second and third DIP joints of both hands as well as narrowing of the second and fourth metacarpophalangeal joints of the left hand and second and third metacarpophalangeal joints of the right hand. These findings are probably secondary to osteoarthritis. There is no other significant degenerative disease evident. The radiocarpal joints are fairly well maintained. However, the scapholunate space on the left is widened compared to the right. This appearance does raise the question of an injury to the scapholunate ligament. If further imaging is desired, then MRI would be recommended. There is also a small calcific density in the soft tissues overlying the triangular fibrocartilage on the left. This may be a sequela of prior trauma. The soft tissues are otherwise unremarkable. IMPRESSION: 1. There is no evidence for an acute bony abnormality of either hand. 2. There are degenerative changes involving the hands as described above. These are most likely secondary to osteoarthritis. 3. The widened appearance of the scapholunate space on the left compared to the right does raise the question of an injury to the scapholunate ligament. If further study is desired, then MRI would be recommended. Dictated by: Dictated on workstation # [id number]
== END ==
LOC: RAD 12:46
PROVIDERS: ATTEND Internal Medicine
DX: M19.042 Primary osteoarthritis, left hand (principal); M19.041 Primary osteoarthritis, right hand; M79.9 Soft tissue disorder, unspecified

== ENCOUNTER 2018-12-18 09:46 | Emergency (ER) | payer BC ==
[~2018-12-18] VITALS: Ht 182 cm; Wt 112.0 kg
[~2018-12-18 09:46] MED LIST changes: +LOSA50TA63 PO; -LOSA50TA7 PO; +METR-145 PO; -METR-197 PO
[2018-12-18] MEDS ORDERED: NS IV 1000 ML 1,000 ML IV ONE (09:58)
[2018-12-18] MEDS ORDERED: MECLIZINE 25 MG (ANTIVERT) TAB PO ONE (10:00)
--- NOTE | 2018-12-18 10:07 | ED Neurological Problem ---
General Chief Complaint: Dizziness/Syncope Stated Complaint: WEAK/DIZZY Nursing Triage Note: PT TO ROOM 06 VIA EMS WITH C/O DIZZYNESS STARTING TODAY. Nursing Sepsis Screen: No Definite Risk Source: patient (IAM CERON STUDENT) History of Present Illness Date Seen by Provider: Dec 18, 2018 Time Seen by Provider: 09:45 Initial Comments Patient presents to the ED today with a two hour history of dizziness, weakness, and pressure in his neck and at the base of his skull. He woke up feeling fine, had a cup of coffee, and then had a sudden onset of previously mentioned symptoms. He states that anytime he is standing or moving the dizziness becomes worse and sitting/laying down improves the symptoms, however he states the dizziness is still present. The patient has existing problems with his spine an d has a spinal stimulator. Location Injury Occurred: home Timing/Duration: 1-3 hours Severity: moderate Associated Symptoms: other (dizziness) (IAM CERON STUDENT) Associated Symptoms: No confusion, No fever/chills, No muscle spasms, No slurred speech, No vision changes; other (dizziness) (MAYNOR FORDE MD) Allergies and Home Medications Allergies Coded Allergies: ciprofloxacin (Unverified Allergy, Mild, 12/20/17) Penicillins (Verified Adverse Reaction, Mild, UNCOORDINATED, 12/20/17) Home Medications Alprazolam 0.25 Mg Tablet, 0.25 MG PO PRN, (Reported) Aspirin 81 Mg Tab.chew, 81 MG PO DAILY, (Reported) Atorvastatin Calcium 20 Mg Tablet, 20 MG PO HS, (Reported) Citalopram Hydrobromide 20 Mg Tablet, 20 MG PO DAILY, (Reported) Finasteride 5 Mg Tablet, 5 MG PO DAILY@1900, (Reported) Hydrochlorothiazide 25 Mg Tablet, 25 MG PO DAILY, (Reported) Losartan Potassium 50 Mg Tablet, 50 MG PO BID, (Reported) Omeprazole 20 Mg Tablet.dr, 20 MG PO DAILY PRN for HEARTBURN, (Reported) Oxycodone HCl/Acetaminophen 1 Each Tablet, 1 EACH PO Q4H PRN for PAIN-MODERATE Prescribed by: POONAM CHISHOLM on 12/22/17 0729 Sildenafil Citrate 20 Mg Tablet, 20 MG PO PRN, (Reported) Tamsulosin HCl 0.4 Mg Cap.er.24h, 0.4 MG PO DAILY@1900, (Reported) Patient Home Medication List Home Medication List Reviewed: Yes (MAYNOR FORDE MD) Review of Systems Review of Systems Constitutional: see HPI Eyes: No Symptoms Reported Ears, Nose, Mouth, Throat: no symptoms reported Respiratory: no symptoms reported Cardiovascular: no symptoms reported Gastrointestinal: no symptoms reported Genitourinary: no symptoms reported Musculoskeletal: no symptoms reported Skin: no symptoms reported Psychiatric/Neurological: See HPI Endocrine: No Symptoms Reported Hematologic/Lymphatic: No Symptoms Reported (IAM CERON) Constitutional: No weakness Eyes: Denies Blurred Vision, Denies Decreased Acuity Respiratory: No cough, No short of breath Cardiovascular: No chest pain, No edema Musculoskeletal: back pain (chronic), neck pain (MAYNOR FORDE MD) All Other Systems Reviewed Negative Unless Noted: Yes (MAYNOR FORDE MD) Past Wiqqykq-Jcxjkx-Rorwtx Hx Past Med/Social Hx: Reviewed Nursing Past Med/Soc Hx (MAYNOR FORDE MD) Patient Social History Alcohol Beverage of Choice: Whiskey, [place] 2nd Hand Smoke Exposure: No Recent Foreign Travel: No Contact w/Someone Who Travel: No Recent Infectious Disease Expo: No Recent Hopitalizations: No Physical Abuse: No Sexual Abuse: No Mistreated: No Fear: No (IAM CERON) Immunizations Up To Date Tetanus Booster (TDap): More than 5yrs PED Vaccines UTD: No Date of Pneumonia Vaccine: Oct 06, 2012 Date of Influenza Vaccine: May 12, 2015 (IAM CERON) Seasonal Allergies Seasonal Allergies: Yes (IAM CERON) Past Medical History Surgeries: Yes (BICEP SURGERY;URETHRA ENLARGEMENT;L KNEE;L SHOULDER;R SHOULDER X3, TURP) Abdominal, Orthopedic, Transurethral Resection Respiratory: No Pneumonia Currently Using CPAP: No Currently Using BIPAP: No Cardiac: Yes High Cholesterol, Hypertension Neurological: No Reproductive Disorders: No Sexually Transmitted Disease: No HIV/AIDS: No Genitourinary: Yes Benign Prostatic Hyperpl, Bladder Infection, Neurogenic Bladder Gastrointestinal: Yes Gastroesophageal Reflux, Diverticulosis, Polyps Musculoskeletal: Yes (MULTIPLE ORTHOPEDIC SURGERGIES) Arthritis Endocrine: No HEENT: No Loss of Vision: Denies Hearing Impairment: Hard of Hearing Cancer: No Psychosocial: Yes Anxiety, Depression Integumentary: No Blood Disorders: No Adverse Reaction/Blood Tranf: No (IAM CERON STUDENT) Family Medical History Reviewed Nursing Family Hx (MAYNOR FORDE MD) Patient reports no known family medical history. Physical Exam Vital Signs Vital Signs - First Documented 12/18/18 12/18/18 09:51 10:08 Temp 36.5 Pulse 80 Resp 19 B/P (MAP) 153/89 (110) Pulse Ox 98 O2 Delivery Room Air (MAYNOR FORDE MD) Vital Signs Capillary Refill : Less Than 3 Seconds (IAM CERON STUDENT) Height, Weight, BMI Height: 6'0.00" Weight: 219lbs. 5.0oz. [id number]; 33.00 BMI Method:Stated General Appearance: no apparent distress HEENT: PERRL/EOMI, pharynx normal Respiratory: chest non-tender, lungs clear, normal breath sounds, no respirato ry distress, no accessory muscle use Cardiovascular: normal peripheral pulses, regular rate, rhythm, no edema, no gallop, no JVD, no murmur Peripheral Pulses: 2+ Dorsalis Pedis (R), 2+ Left Dors-Pedis (L), 2+ Radial Pulses (R), 2+ Radial Pulses (L) Gastrointestinal: normal bowel sounds, non tender, soft, no organomegaly, no pulsatile mass Back: normal inspection, no CVA tenderness, no vertebral tenderness Extremities: non-tender, no pedal edema, no calf tenderness Neurologic/Psychiatric: alert, normal mood/affect, oriented x 3 [place] Nerves: normal hearing, normal speech, PERRL Coordination/Gait: normal finger to nose Motor/Sensory: no motor deficit, no sensory deficit, no pronator drift Skin: normal color, warm/dry Lymphatic: no adenopathy (IAM CERON STUDENT) General Appearance: WD/WN, mild distress (dizziness) HEENT: PERRL/EOMI, pharynx normal Neck: full range of motion, supple Respiratory: lungs clear, normal breath sounds Cardiovascular: normal peripheral pulses, regular rate, rhythm, no murmur Gastrointestinal: non tender, soft Back: normal inspection, no CVA tenderness, no vertebral tenderness Extremities: normal range of motion, non-tender, no pedal edema, no calf tenderness Neurologic/Psychiatric: alert, normal mood/affect, oriented x 3 [place] Nerves: normal hearing, normal speech, PERRL Coordination/Gait: normal finger to nose Motor/Sensory: no motor deficit, no sensory deficit, no pronator drift Skin: normal color, warm/dry (MAYNOR FORDE MD) Progress/Results/Core Measures Results/Orders Lab Results Laboratory Tests Test 12/18/18 10:11 12/18/18 10:18 12/18/18 10:30 12/18/18 11:14 Range/Units Glucometer 128 H 70-110 MG/DL White Blood Count 4.4 4.3-11.0 10^3/uL Red Blood Count 4.14 L 4.35-5.85 10^6/uL Hemoglobin 14.1 13.3-17.7 G/DL Hematocrit 41 40-54 % Mean Corpuscular Volume 98 80-99 FL Mean Corpuscular Hemoglobin 34 25-34 PG Mean Corpuscular Hemoglobin Concent 35 32-36 G/DL Red Cell Distribution Width 12.8 10.0-14.5 % Platelet Count 260 130-400 10^3/uL Mean Platelet Volume 10.0 7.4-10.4 FL Neutrophils (%) (Auto) 48 42-75 % Lymphocytes (%) (Auto) 32 12-44 % Monocytes (%) (Auto) 12 0-12 % Eosinophils (%) (Auto) 7 0-10 % Basophils (%) (Auto) 2 0-10 % Neutrophils # (Auto) 2.1 1.8-7.8 X 10^3 Lymphocytes # (Auto) 1.4 1.0-4.0 X 10^3 Monocytes # (Auto) 0.5 0.0-1.0 X 10^3 Eosinophils # (Auto) 0.3 0.0-0.3 10^3/uL Basophils # (Auto) 0.1 0.0-0.1 10^3/uL Prothrombin Time 12.8 12.2-14.7 SEC INR Comment 0.9 0.8-1.4 Activated Partial Thromboplast Time 26 24-35 SEC D-Dimer 0.50 H 0.00-0.49 UG/ML Sodium Level 137 135-145 MMOL/L Potassium Level 3.6 3.6-5.0 MMOL/L Chloride Level 103 98-107 MMOL/L Carbon Dioxide Level 21 21-32 MMOL/L Anion Gap 13 5-14 MMOL/L Blood Urea Nitrogen 12 7-18 MG/DL Creatinine 0.97 0.60-1.30 MG/DL Estimat Glomerular Filtration Rate > 60 BUN/Creatinine Ratio 12 Glucose Level 132 H 70-105 MG/DL Calcium Level 8.7 8.5-10.1 MG/DL Corrected Calcium 8.9 8.5-10.1 MG/DL Total Bilirubin 0.7 0.1-1.0 MG/DL Aspartate Amino Transf (AST/SGOT) 28 5-34 U/L Alanine Aminotransferase (ALT/SGPT) 40 0-55 U/L Alkaline Phosphatase 47 40-136 U/L Troponin I < 0.028 <0.028 NG/ML Total Protein 6.5 6.4-8.2 GM/DL Albumin 3.8 3.2-4.5 GM/DL Urine Color YELLOW Urine Clarity CLEAR Urine pH 5 5-9 Urine Specific [place] 1.015 L 1.016-1.022 Urine Protein NEGATIVE NEGATIVE Urine Glucose (UA) NEGATIVE NEGATIVE Urine Ketones NEGATIVE NEGATIVE Urine Nitrite NEGATIVE NEGATIVE Urine Bilirubin NEGATIVE NEGATIVE Urine Urobilinogen NORMAL NORMAL MG/DL Urine Leukocyte Esterase NEGATIVE NEGATIVE Urine RBC (Auto) NEGATIVE NEGATIVE Urine RBC NONE /HPF Urine WBC RARE /HPF Urine Squamous Epithelial Cells RARE /HPF Urine Crystals NONE /LPF Urine Bacteria TRACE /HPF Urine Casts NONE /LPF Urine Mucus NEGATIVE /LPF Urine Culture Indicated NO (MAYNOR FORDE MD) My Orders Orders - MAYNOR FORDE MD Cbc With Automated Diff (12/18/18:58) Protime With Inr (12/18/18:58) Partial Thromboplastin Time (12/18/18 09:58) Comprehensive Metabolic Panel (12/18/18 09:58) Fibrin Degradation Products (12/18/18:58) Troponin I (12/18/18:58) Ua Culture If Indicated (12/18/18 09:58) Chest 1 View, Ap/Pa Only (12/18/18 09:58) Ekg Tracing (12/18/18 09:58) Nothing By Mouth (12/18/18 Lunch) Accucheck Stat ONCE (12/18/18:58) Ed Iv/Invasive Line Start (12/18/18 09:58) Ed Iv/Invasive Line Start (12/18/18 09:58) Vital Signs Stroke Patient Q15M (12/18/18 09:58) O2 (12/18/18 09:58) Intake & Output 06,14,22 (12/18/18 09:58) Monitor-Rhythm Ecg Trace Only (12/18/18 09:58) Dysphagia Screening Tool (12/18/18 09:58) Lipid Panel (12/19/18 06:00) Ct Angio Head/Neck (12/18/18 09:58) Ed Iv/Invasive Line Start (12/18/18 09:58) Ns Iv 1000 Ml (Sodium Chloride 0.9%) (12/18/18 09:58) Meclizine Tablet (Antivert Tablet) (12/18/18 10:00) Iohexol Injection (Omnipaque 350 Mg/Ml 1 (12/18/18 11:15) Received Contrast (Hold Metformin- Contr (12/18/18 11:15) Sodium Chloride Flush (Catheter Flush Sy (12/18/18 11:15) Ns (Ivpb) (Sodium Chloride 0.9% Ivpb Bag (12/18/18 11:15) Ketorolac Injection (Toradol Injection) (12/18/18 12:55) Dexamethasone Injection (Decadron Inject (12/18/18 13:00) (MAYNOR FORDE MD) Medications Given in ED Current Medications Medications Dose Ordered Sig/Mikey Route Start Time Stop Time Status Last Admin Dose Admin Dexamethasone Sodium Phosphate 10 mg ONCE ONCE IV 12/18/18 13:00 12/18/18 13:01 DC 12/18/18 13:04 10 MG Iohexol 100 ml ONCE ONCE IV 12/18/18 11:15 12/18/18 11:16 DC 12/18/18 11:54 75 ML Meclizine HCl 25 mg ONCE ONCE PO 12/18/18 10:00 12/18/18 10:01 DC 12/18/18 10:33 25 MG Sodium Chloride 10 ml NEEDED PRN IV 12/18/18 11:15 12/18/18 11:54 10 ML Sodium Chloride 100 ml ONCE ONCE IV 12/18/18 11:15 12/18/18 11:16 DC 12/18/18 11:54 80 ML Sodium Chloride 1,000 ml @ 0 mls/hr Q0M ONCE IV 12/18/18 09:58 12/18/18 10:01 DC 12/18/18 10:33 999 MLS/HR (MAYNOR FORDE MD) Vital Signs/I&O 12/18/18 12/18/18 09:51 10:08 Temp 36.5 Pulse 80 76 Resp 19 17 B/P (MAP) 153/89 (110) 153/89 Pulse Ox 98 O2 Delivery Room Air (MAYNOR FORDE MD) Blood Pressure Mean: 110 Progress Progress Note : Progress Note I have seen and evaluated patient and agree with above except as indicated. Have directed the plan of care. Patient is here with acute onset dizziness after waking up normal this morning. Describes pressure in the back of his head at the base of the skull as well. Does have history of significant spinal problems with lack of disc space and has had implanted spinal stimulator. Denies recent injury, falls, long car rides or plane trips. Denies shortness of breath. Exam as above. Plan is to do stroke protocol workup including CT angiogram of the head and neck to evaluate for posterior circulation stroke. Normal saline 1 L bolus. Meclizine 25 mg by mouth after dysphagia screen. Stroke scale 0. No indication of TPA at this point although still evaluating posterior circulation. Monitor patient. 1255: CT angiogram is negative. Patient is actually doing better after meclizine. No concerns for posterior circulation stroke currently. We will give Toradol 30 mg IV and Decadron 10 mg IV and evaluate for improvement. He is able to sit up and transfer without significant dizziness now. Headache continues. Monitor patient. 1415: Overall completely resolved now. He has been able to walk without difficulty and states he feels great. Discharged home with return precautions. Patient family verbalized understanding instructions and agreement with plan. (MAYNOR FORDE MD) Initial ECG Impression Date: Dec 18, 2018 Initial ECG Impression Time: 09:59 Initial ECG Rate: 74 Initial ECG Comparisson: Unchanged Comment Sinus rhythm with normal axis. No evidence of ST elevation DC. Similar to previous of 12/20/17. Interpreted by me. (MAYNOR FORDE MD) Diagnostic Imaging Diagonstic Imaging: Xray Plain Films/CT/US/NM/MRI: chest Comments NAME: KAREY NIÑO JR MED REC#: [id number] PT STATUS: REG ER : 1955 PHYSICIAN: MAYNOR FORDE MD ADMIT DATE: 12/18/18/ER Signed Date of Exam: 12/18/18 CHEST 1 VIEW, AP/PA ONLY INDICATION: Dizziness starting today. EXAMINATION: Chest 12/18/2018 COMPARISON: 03/03/2017 FINDINGS: The heart is prominent. The pulmonary vasculature is unremarkable. The lungs are clear. No infiltrates or effusions. No pneumothorax. Linear density along the nonmidline of the chest, likely a stimulator device in the thoracic region. IMPRESSION: 1. Chronic findings. No acute process. Dictated by: Dictated on workstation # [id number] Dict: 12/18/18 1050 Trans: 12/18/18 1118 Interpreted by: RIC DUMONT MD Electronically signed by: RIC DUMONT MD 12/18/18 1118 Diagonstic Imaging: CT Plain Films/CT/US/NM/MRI: head, other Comments NAME: KAREY NIÑO [facility] REC#: [id number] PT STATUS: REG ER : 1955 PHYSICIAN: MAYNOR FORDE MD ADMIT DATE: 12/18/18/ER Draft Date of Exam:12/18/18 CT ANGIO HEAD/NECK PROCEDURE: CT angiography of the head and CT angiography of the neck with and without contrast. TECHNIQUE: Contiguous noncontrast images were obtained from the skull base through the vertex. After intravenous contrast administration, helical CT angiography of the neck was performed. Source data was reformatted into 3D MIP projections. Delayed post contrast acquisition was also obtained. Auto Exposure Controls were utilized during the CT exam to meet ALARA standards for radiation dose reduction. INDICATION: Dizziness. COMPARISON: CTA neck from 03/23/2017. FINDINGS: NONCONTRAST HEAD: No hyperdense hemorrhage or space-occupying mass. No hydrocephalus or midline shift. Jaffe-white matter differentiation is well-preserved. Paranasal sinuses and mastoid air cells are clear. No skull fracture. CTA HEAD: The basilar artery is predominantly supplied by the right vertebral artery, unchanged since prior exam. The intracranial segment of the left vertebral artery remains diminutive but patent, also unchanged. Basilar artery is widely patent. No saccular aneurysm at the tip of the basilar artery. Posterior cerebral arteries are patent. Due to small size, the superior cerebellar, posterior inferior cerebellar and anterior inferior cerebral arteries are poorly assessed on this exam. The distal internal carotid arteries remain patent. Bilateral middle cerebral arteries are patent within the M1, M2 and proximal M3 divisions. The bilateral anterior cerebral arteries are patent. No pathologic enhancement on delayed phase images. CTA NECK: Two-vessel branching pattern of the aortic arch with a common origin of the right innominate and left common carotid arteries. Both common carotid arteries are widely patent throughout the neck. There is no significant stenosis of the internal carotid arteries per NASCET criteria. Cervical segments of the bilateral vertebral arteries are patent. The right vertebral artery is dominant. However, both vertebral arteries opacify throughout the neck without areas of occlusion or high-grade stenosis. Lung apices are clear. No cervical lymphadenopathy. IMPRESSION: 1. No intracranial large vessel occlusion. 2. Hypoplastic left vertebral artery remains patent. Vertebrobasilar system is stable in appearance since CTA neck of 03/23/2017. 3. No intracranial hemorrhage or features of territorial infarct. 4. No significant stenosis in the internal carotid arteries on either side. Dictated on workstation # [id number] Dict: 12/18/18 1210 Trans: 12/18/18 1221 [facility] [id number] Interpreted by: KRISHNA BRADLEY MD Electronically signed by: (MAYNOR FORDE MD) Departure Impression Primary Impression: Headache Qualified Codes: R51 - Headache Additional Impression: Dizziness Disposition: 01 HOME, SELF-CARE Condition: Improved Departure-Patient Inst. Decision time for Depature: 13:11 (MAYNOR FORDE MD) Referrals: DREA ZAMARRIPA DO (PCP/Family) Primary Care Physician Patient Instructions: Vertigo (a Type of Dizziness) (DC), Headache, Adult (DC) Add. Discharge Instructions: All discharge instructions reviewed with patient and/or family. Voiced understanding. You may take meclizine 25 mg 1 tablet every 8 hours as needed for dizziness. Drink plenty of fluids and eat a normal diet. Continue home meds as previously prescribed. Follow-up with your DrAdam in one to 2 days for recheck. Return for worse pain, vomiting, fever, weakness, breathing problems, increasing headache or other concerns as needed. Copy Copies To 1: DREA ZAMARRIPA BRODIE PA STUDENT Dec 18, 2018 10:06 MAYNOR FORDE MD Dec 18, 2018 10:26
[2018-12-18 10:08] VITALS: BP 153/89
[2018-12-18 10:22] LABS: BASOPHILS # (AUTO) 0.1 10^3/uL (0.0-0.1); BASOPHILS % (AUTO) 2 % (0-10); EOSINOPHILS # (AUTO) 0.3 10^3/uL (0.0-0.3); EOSINOPHILS % (AUTO) 7 % (0-10); HEMATOCRIT 41 % (40-54); HEMOGLOBIN 14.1 G/DL (13.3-17.7); LYMPHOCYTES # (AUTO) 1.4 X 10^3 (1.0-4.0); LYMPHOCYTES % (AUTO) 32 % (12-44); MEAN CORPUSCULAR HEMOGLOBIN 34 PG (25-34); MEAN CORPUSCULAR HGB CONC 35 G/DL (32-36); MEAN CORPUSCULAR VOLUME 98 FL (80-99); MONOCYTES # (AUTO) 0.5 X 10^3 (0.0-1.0); MONOCYTES % (AUTO) 12 % (0-12); NEUTROPHILS # (AUTO) 2.1 X 10^3 (1.8-7.8); NEUTROPHILS % (AUTO) 48 % (42-75); PLATELET COUNT 260 10^3/uL (130-400); RED CELL DISTRIBUTION WIDTH 12.8 % (10.0-14.5); WHITE BLOOD COUNT 4.4 10^3/uL (4.3-11.0)
--- NOTE | 2018-12-18 10:55 | Diagnostic Imaging Report ---
INDICATION: Dizziness starting today. EXAMINATION: Chest 12/18/2018 COMPARISON: 03/03/2017 FINDINGS: The heart is prominent. The pulmonary vasculature is unremarkable. The lungs are clear. No infiltrates or effusions. No pneumothorax. Linear density along the nonmidline of the chest, likely a stimulator device in the thoracic region. IMPRESSION: 1. Chronic findings. No acute process. Dictated by: Dictated on workstation # [id number]
[2018-12-18 11:00] LABS: ALANINE AMINOTRANSFERASE 40 U/L (0-55); ALBUMIN 3.8 GM/DL (3.2-4.5); ALKALINE PHOSPHATASE 47 U/L (40-136); BILIRUBIN,TOTAL 0.7 MG/DL (0.1-1.0); BUN/CREATININE RATIO 12; CALCIUM 8.7 MG/DL (8.5-10.1); CARBON DIOXIDE 21 MMOL/L (21-32); CHLORIDE 103 MMOL/L (98-107); CREATININE SERUM 0.97 MG/DL (0.60-1.30); GFR ESTIMATED > 60; GLUCOSE 132 MG/DL (70-105); POTASSIUM 3.6 MMOL/L (3.6-5.0); SODIUM 137 MMOL/L (135-145); TOTAL PROTEIN 6.5 GM/DL (6.4-8.2)
--- NOTE | 2018-12-18 11:01 | NUR ---
PT RESTING IN BED. PT STATES HE CONTINUES TO FEEL DIZZY IF HE MOVES HIS HEAD TOO FAST OR SITS UP TO QUICKLY.
[2018-12-18 11:04] LABS: FIBRIN DEGRADATION PRODUCTS 0.5 UG/ML (0.00-0.49); INR 0.9 (0.8-1.4); PROTHROMBIN TIME PATIENT 12.8 SEC (12.2-14.7)
[2018-12-18] MEDS ORDERED: NS 100 ML (IVPB) BAG IV ONE (11:15)
[2018-12-18] MEDS ORDERED: IOHEXOL 350 MG/ML 100 ML (OMNIPAQUE 350) VIAL IV ONE (11:15)
[2018-12-18] MEDS ORDERED: HOLD METFORMIN - RECEIVED CONTRAST 20 ML VIAL IV SCH (11:15)
[2018-12-18] MEDS ORDERED: CATHETER FLUSH 10 ML SYR IV PRN (11:15)
[2018-12-18 11:36] LABS: BILIRUBIN,URINE NEGATIVE (NEGATIVE); CLARITY,URINE CLEAR; COLOR,URINE YELLOW; GLUCOSE, URINE (UA) NEGATIVE (NEGATIVE); KETONES,URINE NEGATIVE (NEGATIVE); LEUKOCYTE ESTERASE ,URINE NEGATIVE (NEGATIVE); NITRITE,URINE NEGATIVE (NEGATIVE); PH,URINE 5 (5-9); PROTEIN,URINE NEGATIVE (NEGATIVE)
[2018-12-18 11:59] LABS: BACTERIA,URINE TRACE /HPF; SQUAMOUS EPITHELIAL CELL,UR RARE /HPF; WBC,URINE RARE /HPF
--- NOTE | 2018-12-18 12:11 | NUR ---
PT RESTING IN BED. PT STATES THERE IS NOTHING HE NEEDS AT THIS TIME. PT GIVEN CALL LIGHT AND INSTRUCTED TO USE IT IF HE NEEDS ANYTHING.
--- NOTE | 2018-12-18 12:23 | Diagnostic Imaging Report ---
PROCEDURE: CT angiography of the head and CT angiography of the neck with and without contrast. TECHNIQUE: Contiguous noncontrast images were obtained from the skull base through the vertex. After intravenous contrast administration, helical CT angiography of the neck was performed. Source data was reformatted into 3D MIP projections. Delayed post contrast acquisition was also obtained. Auto Exposure Controls were utilized during the CT exam to meet ALARA standards for radiation dose reduction. INDICATION: Dizziness. COMPARISON: CTA neck from 03/23/2017. FINDINGS: NONCONTRAST HEAD: No hyperdense hemorrhage or space-occupying mass. No hydrocephalus or midline shift. Jaffe-white matter differentiation is well-preserved. Paranasal sinuses and mastoid air cells are clear. No skull fracture. CTA HEAD: The basilar artery is predominantly supplied by the right vertebral artery, unchanged since prior exam. The intracranial segment of the left vertebral artery remains diminutive but patent, also unchanged. Basilar artery is widely patent. No saccular aneurysm at the tip of the basilar artery. Posterior cerebral arteries are patent. Due to small size, the superior cerebellar, posterior inferior cerebellar and anterior inferior cerebral arteries are poorly assessed on this exam. The distal internal carotid arteries remain patent. Bilateral middle cerebral arteries are patent within the M1, M2 and proximal M3 divisions. The bilateral anterior cerebral arteries are patent. No pathologic enhancement on delayed phase images. CTA NECK: Two-vessel branching pattern of the aortic arch with a common origin of the right innominate and left common carotid arteries. Both common carotid arteries are widely patent throughout the neck. There is no significant stenosis of the internal carotid arteries per NASCET criteria. Cervical segments of the bilateral vertebral arteries are patent. The right vertebral artery is dominant. However, both vertebral arteries opacify throughout the neck without areas of occlusion or high-grade stenosis. Lung apices are clear. No cervical lymphadenopathy. IMPRESSION: 1. No intracranial large vessel occlusion. 2. Hypoplastic left vertebral artery remains patent. Vertebrobasilar system is stable in appearance since CTA neck of 03/23/2017. 3. No intracranial hemorrhage or features of territorial infarct. 4. No significant stenosis in the internal carotid arteries on either side. Dictated by: Dictated on workstation # [id number]
[2018-12-18] MEDS ORDERED: KETOROLAC 30 MG/ML VIAL IVP STA (12:55)
[2018-12-18] MEDS ORDERED: DEXAMETHASONE 10 MG/ML (DECADRON) 1 ML VIAL IV ONE (13:00)
--- NOTE | 2018-12-18 13:47 | NUR ---
Pt reports symptoms have completely resolved at this time. Walked pt up and down [place]. Pt tolerated movement well. Pt reports being ready to go home.
[2018-12-18 14:25] VITALS: BP 137/88
== END 2018-12-18 14:25 | disposition home or self-care (01) ==
LOC: EDUNIT# 09:46 → ER 09:47
DX: R51 Headache (principal); R42 Dizziness and giddiness; I10 Essential (primary) hypertension; E78.00 Pure hypercholesterolemia, unspecified; K21.9 Gastro-esophageal reflux disease without esophagitis; F41.9 Anxiety disorder, unspecified; F32.9 Major depressive disorder, single episode, unspecified; Z88.1 Allergy status to other antibiotic agents; Z88.0 Allergy status to penicillin; Z79.82 Long term (current) use of aspirin
CPT/HCPCS: 36415; 70496; 70498; 71045; 80053; 81000; 82962; 84484; 85025; 85379; 85610; 85730; 93005; 93041; 96361; 96374; 96375

== ENCOUNTER 2019-03-16 05:40 | Outpatient (CLI) | payer BC ==
[~2019-03-16] VITALS: Ht 182 cm; Wt 114.0 kg
[~2019-03-16 05:40] MED LIST changes: +TRM50T PO
[2019-03-16] MEDS ORDERED: TMSL.4C PO (10:57)
== END 2019-03-16 11:01 | disposition home or self-care (01) ==
LOC: PREOP 05:40
PROVIDERS: ATTEND Internal Medicine
DX: Z01.818 Encounter for other preprocedural examination (principal)

== ENCOUNTER → 2019-04-21 | Outpatient (CLI) | payer BC ==
[~2019-04-21] MED LIST changes: +TMSL.4C PO
--- NOTE | 2019-04-21 09:11 | Diagnostic Imaging Report ---
PROCEDURE: US Gallbladder. TECHNIQUE: Multiple real-time grayscale images were obtained over the right upper quadrant in various projections. INDICATION: Gastroesophageal reflux disease. FINDINGS: The liver is enlarged at 19 cm. No discrete liver mass is detected. The portal vein is patent and shows normal direction of flow. Gallbladder is without stones or sludge. No wall thickening or biliary ductal dilatation is seen. Pancreas is obscured by bowel gas. Aorta appears nonaneurysmal. IVC is patent. Right kidney is without calculi or hydronephrosis. There is no ascites. IMPRESSION: 1. Hepatomegaly. 2. No evidence of cholelithiasis or acute cholecystitis. Dictated by: Dictated on workstation # [id number]
== END ==
LOC: RAD 08:00
PROVIDERS: ATTEND Internal Medicine
DX: K21.9 Gastro-esophageal reflux disease without esophagitis (principal); R16.0 Hepatomegaly, not elsewhere classified
CPT/HCPCS: 76705

== ENCOUNTER → 2019-05-04 | Outpatient (CLI) | payer BC ==
[~2019-05-04] MED LIST changes: +CATHETER FLUSH 10 ML SYR IV PRN; +POTASSIUM CL 10 MEQ/50 ML IVPB (PRE-MIX) IV SCH
--- NOTE | 2019-05-04 12:32 | Diagnostic Imaging Report ---
INDICATION: Gastroesophageal reflux disease. TECHNIQUE: Patient was administered 5.4 mCi technetium 99m Choletec intravenously and imaging over the abdomen was performed. At 60 minutes, patient ingested 1 can of Ensure and the gallbladder ejection fraction was calculated. FINDINGS: There is homogeneous uptake of activity by the liver with prompt excretion of activity into the gallbladder and common duct. There is normal passage of activity into the small bowel. Gallbladder ejection fraction is low at 20%. Normal values are 33% or greater. IMPRESSION: 1. Patent cystic duct and common bile duct. 2. Low gallbladder ejection fraction of 20%. Dictated by: Dictated on workstation # [id number]
== END ==
LOC: CARD 09:45
PROVIDERS: ATTEND Internal Medicine
DX: K21.9 Gastro-esophageal reflux disease without esophagitis (principal)
CPT/HCPCS: 78227

== ENCOUNTER 2019-08-01 09:58 | Emergency (ER) | payer BC, OTHER ==
[~2019-08-01] VITALS: Ht 182 cm; Wt 110.0 kg
[~2019-08-01 09:58] MED LIST changes: -CATHETER FLUSH 10 ML SYR IV PRN; -POTASSIUM CL 10 MEQ/50 ML IVPB (PRE-MIX) IV SCH
--- NOTE | 2019-08-01 10:48 | ED Cardiac General ---
History of Present Illness General Chief Complaint: Chest Pain Stated Complaint: SOA;COUGH;CHEST TIGHTNESS;DIARRHEA Nursing Triage Note: Pt reports headache, CP, SOA, and cough x3 days. Pt reports SOA is increasing today. CP is worse when taking a deep breath. Pt is scheduled to have stress test on Wednesday (08/06). Source: patient Exam Limitations: no limitations History of Present Illness Date Seen by Provider: Aug 01, 2019 Time Seen by Provider: 10:45 Initial Comments to ER with reports of chest pain, shortness of breath especially on exertion, nonproductive cough for 3 days. Chest pain is worse with taking a deep breath. He also has headache, pain at the base of the left thumb. He states that he is retired and not around anybody however he did go to [employer] to buy a shovel last week Timing/Duration: changing over time Severity: moderate Activities at Onset: activity Prior CP/Workup: no prior chest pain Modifying Factors: improves with rest [facility]: No ASA po [facility] DIRECTOR: No Associated Systoms: Chest Pain, Cough; No Fever/Chills; Headaches, Malaise Allergies and Home Medications Allergies Coded Allergies: ciprofloxacin (Unverified Allergy, Mild, 12/20/17) Penicillins (Verified Adverse Reaction, Mild, UNCOORDINATED, 12/20/17) Home Medications Alprazolam 0.25 Mg Tablet, 0.25 MG PO PRN, (Reported) Atorvastatin Calcium 20 Mg Tablet, 20 MG PO HS, (Reported) Citalopram Hydrobromide 20 Mg Tablet, 20 MG PO DAILY, (Reported) Finasteride 5 Mg Tablet, 5 MG PO DAILY@1900, (Reported) Hydrochlorothiazide 25 Mg Tablet, 25 MG PO DAILY, (Reported) Losartan Potassium 50 Mg Tablet, 50 MG PO BID, (Reported) Omeprazole 20 Mg Tablet.dr, 20 MG PO DAILY PRN for HEARTBURN, (Reported) Sildenafil Citrate 20 Mg Tablet, 20 MG PO PRN, (Reported) Tamsulosin HCl 0.4 Mg Cap, 0.4 MG PO HS, (Reported) Patient Home Medication List Home Medication List Reviewed: Yes Review of Systems Review of Systems Constitutional: see HPI, malaise EENTM: No Symptoms Reported Respiratory: See HPI, Cough, Shortness of Air, SOA With Exertion Cardiovascular: See HPI, Chest Pain, Palpitations Gastrointestinal: No Symptoms Reported, Diarrhea Genitourinary: No Symptoms Reported Musculoskeletal: no symptoms reported Skin: no symptoms reported Psychiatric/Neurological: No Symptoms Reported Endocrine: No Symptoms Reported Hematologic/Lymphatic: No Symptoms Reported Past Jjihixw-Bpgffy-Igxkiw Hx Patient Social History Alcohol Use: Denies Use Number of Drinks Today: GG Alcohol Beverage of Choice: Whiskey Recreational Drug Use: No Smoking Status: Never a Smoker 2nd Hand Smoke Exposure: No Recent Foreign Travel: No Contact w/Someone Who Travel: No Recent Infectious Disease Expo: No Recent Hopitalizations: No Immunizations Up To Date Tetanus Booster (TDap): More than 5yrs PED Vaccines UTD: No Date of Pneumonia Vaccine: Oct 06, 2012 Date of Influenza Vaccine: Nov 28, 2018 Seasonal Allergies Seasonal Allergies: Yes Past Medical History Surgeries: Yes (BICEP SURGERY;MEATOTAMY;L KNEE;L SHOULDER;R SHOULDER X3, TURP) Abdominal, Eye Surgery, Gallbladder, Orthopedic, Transurethral Resection Respiratory: No Pneumonia Currently Using CPAP: No Currently Using BIPAP: No Cardiac: Yes High Cholesterol, Hypertension Neurological: Yes (SPINAL STIMULATOR PLACE 10/2018) Reproductive Disorders: No Sexually Transmitted Disease: No HIV/AIDS: No Genitourinary: Yes Benign Prostatic Hyperpl Gastrointestinal: Yes Gastroesophageal Reflux, Diverticulosis, Polyps Musculoskeletal: Yes (MULTIPLE ORTHOPEDIC SURGERGIES) Degenerate Disk Disease, Arthritis Endocrine: No HEENT: Yes (READING GLASSES) Cataract Loss of Vision: Denies Hearing Impairment: Denies Cancer: No Psychosocial: Yes Anxiety, Depression Integumentary: No Blood Disorders: No Adverse Reaction/Blood Tranf: No (N/A) Family Medical History Patient reports no known family medical history. Physical Exam Vital Signs Vital Signs - First Documented Capillary Refill : Less Than 3 Seconds Height, Weight, BMI Height: 6'0.00" Weight: 219lbs. 5.0oz. 99.937849my; 33.00 BMI Method:Stated General Appearance: No Apparent Distress, WD/WN, Other (oxygen 98% room air, vitals all normal) HEENT: PERRL/EOMI, TMs Normal Neck: Full Range of Motion, Normal Inspection Respiratory: Normal Breath Sounds, No Accessory Muscle Use, No Respiratory Distress; No Wheezing Cardiovascular: Regular Rate, Rhythm, Normal Peripheral Pulses Gastrointestinal: Non Tender, Soft Extremity: Normal Capillary Refill, Normal Inspection Neurologic/Psychiatric: Alert, Oriented x3 Skin: Normal Color, Warm/Dry Progress/Results/Core Measures Results/Orders Lab Results Laboratory Tests Test 08/01/19 10:26 08/01/19 10:53 Range/Units White Blood Count 5.7 4.3-11.0 10^3/uL Red Blood Count 4.40 4.35-5.85 10^6/uL Hemoglobin 15.0 13.3-17.7 G/DL Hematocrit 44 40-54 % Mean Corpuscular Volume 99 80-99 FL Mean Corpuscular Hemoglobin 34 25-34 PG Mean Corpuscular Hemoglobin Concent 34 32-36 G/DL Red Cell Distribution Width 13.2 10.0-14.5 % Platelet Count 216 130-400 10^3/uL Mean Platelet Volume 9.9 7.4-10.4 FL Neutrophils (%) (Auto) 50 42-75 % Lymphocytes (%) (Auto) 35 12-44 % Monocytes (%) (Auto) 9 0-12 % Eosinophils (%) (Auto) 5 0-10 % Basophils (%) (Auto) 1 0-10 % Neutrophils # (Auto) 2.9 1.8-7.8 X 10^3 Lymphocytes # (Auto) 2.0 1.0-4.0 X 10^3 Monocytes # (Auto) 0.5 0.0-1.0 X 10^3 Eosinophils # (Auto) 0.3 0.0-0.3 10^3/uL Basophils # (Auto) 0.0 0.0-0.1 10^3/uL Prothrombin Time 12.6 12.2-14.7 SEC INR Comment 0.9 0.8-1.4 Activated Partial Thromboplast Time 28 24-35 SEC D-Dimer 0.27 0.00-0.49 UG/ML Sodium Level 137 135-145 MMOL/L Potassium Level 4.2 3.6-5.0 MMOL/L Chloride Level 103 98-107 MMOL/L Carbon Dioxide Level 22 21-32 MMOL/L Anion Gap 12 5-14 MMOL/L Blood Urea Nitrogen 18 7-18 MG/DL Creatinine 1.07 0.60-1.30 MG/DL Estimat Glomerular Filtration Rate > 60 BUN/Creatinine Ratio 17 Glucose Level 117 H 70-105 MG/DL Calcium Level 8.9 8.5-10.1 MG/DL Corrected Calcium 8.7 8.5-10.1 MG/DL Magnesium Level 1.7 1.6-2.4 MG/DL Total Bilirubin 0.8 0.1-1.0 MG/DL Aspartate Amino Transf (AST/SGOT) 28 5-34 U/L Alanine Aminotransferase (ALT/SGPT) 38 0-55 U/L Alkaline Phosphatase 48 40-136 U/L Myoglobin 27.2 10.0-92.0 NG/ML Troponin I < 0.028 <0.028 NG/ML C-Reactive Protein High Sensitivity 0.22 0.00-0.50 MG/DL B-Type Natriuretic Peptide 62.9 <100.0 PG/ML Total Protein 7.3 6.4-8.2 GM/DL Albumin 4.2 3.2-4.5 GM/DL Procalcitonin 0.09 <0.10 NG/ML My Orders Orders - GEOVANNY SILVERIO APRN Cbc With Automated Diff (08/01/19 10:43) Magnesium (08/01/19 10:43) Chest 1 View, Ap/Pa Only (08/01/19 10:43) Ekg Tracing (08/01/19 10:43) Comprehensive Metabolic Panel (08/01/19 10:43) Myoglobin Serum (08/01/19 10:43) Protime With Inr (08/01/19 10:43) Partial Thromboplastin Time (08/01/19 10:43) O2 (08/01/19 10:43) Monitor-Rhythm Ecg Trace Only (08/01/19 10:43) Lipid Panel (08/02/19 06:00) Ed Iv/Invasive Line Start (08/01/19 10:43) BNP (08/01/19 10:43) Fibrin Degradation Products (08/01/19 10:43) Troponin I (08/01/19 10:43) Procalcitonin (Pct) (08/01/19 10:43) Hs C Reactive Protein (08/01/19 10:43) Coronavirus Sars-Cov-2 So 2018 (08/01/19 10:48) Vital Signs/I&O 08/01/19 08/01/19 10:10 10:10 Temp 36.9 Pulse 80 Resp 16 B/P (MAP) 146/96 (113) Pulse Ox 97 O2 Delivery Room Air Room Air Blood Pressure Mean: 113 Departure Communication (Admissions) 1153-spoke with Dr. Gunter, agrees that outpatient follow-upis appropriate Impression Primary Impression: COVID PUI Additional Impression: Dyspnea on exertion Disposition: 01 HOME, SELF-CARE Condition: Stable Departure-Patient Inst. Decision time for Depature: 11:53 Referrals: DREA YING DO (PCP/Family) Primary Care Physician Patient Instructions: Chest Pain (DC) Add. Discharge Instructions: 1. Keep your appointment for the stress test. The COVID results should be back within the next 24 hours. your results were faxed to Dr. Ying. All discharge instructions reviewed with patient and/or family. Voiced understanding. Copy Copies To 1: DREA YING PETER J LYFT DRIVER Aug 01, 2019 10:48
[2019-08-01 11:06] LABS: BASOPHILS % (AUTO) 1 % (0-10); EOSINOPHILS # (AUTO) 0.3 10^3/uL (0.0-0.3); EOSINOPHILS % (AUTO) 5 % (0-10); HEMATOCRIT 44 % (40-54); LYMPHOCYTES % (AUTO) 35 % (12-44); MEAN CORPUSCULAR HEMOGLOBIN 34 PG (25-34); MEAN CORPUSCULAR HGB CONC 34 G/DL (32-36); MEAN CORPUSCULAR VOLUME 99 FL (80-99); MEAN PLATELET VOLUME 9.9 FL (7.4-10.4); MONOCYTES # (AUTO) 0.5 X 10^3 (0.0-1.0); MONOCYTES % (AUTO) 9 % (0-12); NEUTROPHILS # (AUTO) 2.9 X 10^3 (1.8-7.8); NEUTROPHILS % (AUTO) 50 % (42-75); PLATELET COUNT 216 10^3/uL (130-400); RED CELL DISTRIBUTION WIDTH 13.2 % (10.0-14.5); WHITE BLOOD COUNT 5.7 10^3/uL (4.3-11.0)
[2019-08-01 11:23] LABS: ALBUMIN 4.2 GM/DL (3.2-4.5); CHLORIDE 103 MMOL/L (98-107); POTASSIUM 4.2 MMOL/L (3.6-5.0); SODIUM 137 MMOL/L (135-145)
[2019-08-01 11:24] LABS: CALCIUM 8.9 MG/DL (8.5-10.1)
[2019-08-01 11:25] LABS: GLUCOSE 117 MG/DL (70-105); TOTAL PROTEIN 7.3 GM/DL (6.4-8.2)
[2019-08-01 11:26] LABS: CARBON DIOXIDE 22 MMOL/L (21-32)
[2019-08-01 11:27] LABS: BILIRUBIN,TOTAL 0.8 MG/DL (0.1-1.0)
[2019-08-01 11:29] LABS: ALKALINE PHOSPHATASE 48 U/L (40-136); CREATININE SERUM 1.07 MG/DL (0.60-1.30); GFR ESTIMATED > 60
[2019-08-01 11:30] LABS: BUN/CREATININE RATIO 17
[2019-08-01 11:31] LABS: MAGNESIUM 1.7 MG/DL (1.6-2.4)
[2019-08-01 11:32] LABS: ALANINE AMINOTRANSFERASE 38 U/L (0-55)
[2019-08-01 11:39] LABS: INR 0.9 (0.8-1.4); PROTHROMBIN TIME PATIENT 12.6 SEC (12.2-14.7)
[2019-08-01 12:06] VITALS: BP 132/75
--- NOTE | 2019-08-01 12:16 | Diagnostic Imaging Report ---
INDICATION: Shortness of air, cough COMPARISON: 12/18/2018 TECHNIQUE: Single radiograph chest dated 08/01/2019. FINDINGS: The cardiac silhouette is at upper limits of normal in size. This is stable from the prior exam. No significant pulmonary vascular congestion. The lungs are clear of focal pulmonary opacity. No pleural effusion. No pneumothorax. Stimulator leads are seen extending overlying the lower thoracic spinal canal. No acute osseous abnormality. IMPRESSION: Similar-appearing examination demonstrating borderline cardiomegaly without superimposed acute cardiopulmonary abnormality. Dictated by: Dictated on workstation # [id number]
== END 2019-08-01 12:06 | disposition home or self-care (01) ==
LOC: EDUNIT# 09:58 → ER 09:59
DX: R06.09 Other forms of dyspnea (principal); I10 Essential (primary) hypertension; E78.00 Pure hypercholesterolemia, unspecified; K21.9 Gastro-esophageal reflux disease without esophagitis; F41.9 Anxiety disorder, unspecified; F32.9 Major depressive disorder, single episode, unspecified; Z20.828 Contact with and (suspected) exposure to other viral communicable diseases; Z88.0 Allergy status to penicillin; Z88.1 Allergy status to other antibiotic agents
CPT/HCPCS: 36415; 71045; 80053; 82607; 83735; 83874; 83880; 84145; 84484; 85025; 85379; 85610; 85730; 86141; 87635; 93041

== ENCOUNTER → 2019-08-07 | Outpatient (CLI) | payer BC, OTHER ==
[~2019-08-07] VITALS: Ht 183 cm; Wt 111.0 kg
[~2019-08-07] MED LIST changes: +REGADENOSON 0.4 MG/5 ML SYR (LEXISCAN) IV ONE
[2019-08-07] MEDS: CATHETER FLUSH 10 ML SYR IV PRN ×2 (07:15→08:10)
[2019-08-07 08:07] VITALS: BP 148/80
--- NOTE | 2019-08-09 14:55 | Cardiology Stress Test Report ---
Stress Test Report Type of NM Stress Test: Test Type: LEXISCAN 0.4MG/5ML Date of Procedure/Referring: Date of Procedure: Aug 07, 2019 PCP Jas Ying DO Admitting Physician Jas Ying DO Indications: Shortness of breath Baseline Heart Rate: 71 Baseline Blood Pressure: Blood Pressure Systolic: 148 Blood Pressure Diastolic: 80 Baseline EKG: Baseline EKG: sinus rhythm Summary & Conclusion: Summary: The patient was brought to the stress lab after informed consent was taken. Stress test was performed according to the Lexiscan protocol. 0.4 mg of IV Lexiscan was given. Please review Dr. Ying's note for the stress test. 10.59 mCi of Myoview were given for rest imaging and 32.3 mCi of Myoview given for stress imaging. Transient ischemic dilatation score 0.88, EF 67 percent. Normal wall motion. Normal myocardial perfusion imaging during rest and stress. Conclusion: Normal LV function with no wall motion abnormalities. Normal myocardial perfusion imaging during rest and stress. Lanette MILLIGAN MD Aug 09, 2019 14:55
== END ==
LOC: CARD 06:52
PROVIDERS: ATTEND Internal Medicine
DX: R06.00 Dyspnea, unspecified (principal)
CPT/HCPCS: 78452; 93017; A9502

== ENCOUNTER → 2019-08-28 | Outpatient (CLI) | payer OTHER ==
[~2019-08-28] MED LIST changes: -REGADENOSON 0.4 MG/5 ML SYR (LEXISCAN) IV ONE
== END ==
LOC: CARD 12:51
PROVIDERS: ATTEND Internal Medicine
DX: I35.1 Nonrheumatic aortic (valve) insufficiency (principal); I51.7 Cardiomegaly
CPT/HCPCS: 93306

== ENCOUNTER 2019-09-24 12:38 | Emergency (ER) | payer OTHER ==
[~2019-09-24] VITALS: Ht 182.9 cm; Wt 113.4 kg
[2019-09-24] MEDS ORDERED: TETANUS,DIPTH,PERTUSS P/F (BOOSTRIX) 0.5 ML VIAL IM ONE ×2 (12:43→13:00)
--- OUTSIDE RECORDS SUMMARY | 2019-09-24 12:46 | XMS REPORT ---
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 Active 65776 006 Problem Altered mental status 780.97 Active 219326905 Problem Pain in joint, shoulder region 719.41 Active 628771626 Problem Complete rupture of rotator cuff 727.61 Active 256856019 Problem Acute upper respiratory infections of unspecified site 465.9 Active 88229027 Problem Other testicular hypofunction 257.2 Active 703555607 Problem Pain in joint, lower leg 719.46 Activ e 138481025 Problem Osteoarthritis of right knee 715.96 A ctive 222038041 Problem Unspecified myalgia and myositis 729.1 Active 853437847 Problem Acute sinusitis, unspecified 461.9 A ctive 83451192 Problem Essential hypertension, benign 401.1 Active 9478967 Problem Other and unspecified hyperlipidemia 272.4 Active 04769115 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 73194362 ALLERGIES No Information ENCOUNTERS Encounter Location Date Diagnosis [facility] [address] [facility] [id number] [address] [place] [phone] Aug, [facility] [address] [facility] [id number] [address] [place] [phone] Jul, Osteoarthritis of right knee 715.96 [facility] [address] [facility] [id number] [address] [place] [phone] Jul, [facility] [address] [facility] [id number] [address] [place] [phone] June, Osteoarthritis of right knee 715.96 [facility] [address] [id number] [address] [place] [phone] June, Osteoarthritis of right knee 715.96 [facility] [address] [id number] [address] [place] [phone] May, [facility] [address] [id number] [address] [place] [phone] May, [facility] [address] [id number] [address] [place] [phone] Mar, [facility] [address] [id number] [address] [place] [phone] Mar, [facility] [address] [id number] [address] [place] [phone] Mar, [facility] [address] [id number] [address] [place] [phone] Mar, [facility] [address] [id number] [address] [place] [phone] Feb, [facility] [address] [id number] [address] [place] [phone] Feb, [facility] [address] [id number] [address] [place] [phone] Jan, [facility] [address] [id number] [address] [place] [phone] Jan, [facility] [address] [id number] [address] [place] [phone] Oct, [facility] [address] [id number] [address] [place] [phone] Sep, [facility] [address] [id number] [address] [place] [phone] Sep, [facility] [address] [id number] [address] [place] [phone] Aug, [facility] [address] [id number] [address] [place] [address], [place] [address] Aug, [facility] [address] [id number] [address] [place] [address], [place] [address] June, [facility] [address] [id number] [address] [place] [address], [place] [address] June, [facility] [address] [id number] [address] [place] [address], [place] [address] June, [facility] [address] [id number] [address] [place] [address], [place] [address] June, [facility] [address] [id number] [address] [place] [address], [place] [address] May, [facility] [address] [id number] [address] [place] [address], [place] [address] May, [facility] [address] [id number] [address] [place] [address], [place] [address] May, [facility] [address] [id number] [address] [place] [address], [place] [address] May, [facility] [address] [id number] [address] [place] [address], [place] [address] Apr, [facility] [address] [id number] [address] [place] [address], [place] [address] Apr, [facility] [address] [id number] [address] [place] [address], [place] [address] Mar, [facility] [address] [id number] [address] [place] [address], [place] [address] Mar, [facility] [address] [id number] [address] [place] [address], [place] [address] Feb, [facility] [address] [id number] [address] [place] [address], [place] [address] Feb, [facility] [address] [id number] [address] [place] [phone] Feb, [facility] [address] [id number] [address] [place] [address], [place] [address] Feb, [facility] [address] [id number] [address] [place] [address], [place] [address] Jan, [facility] [address] [id number] [address] [place] [address], [place] [address] Jan, [facility] [address] [id number] [address] [place] [address], [place] [address] Jan, [facility] [address] [id number] [address] [place] [address], [place] [address] Jan, [facility] [address] [id number] [address] [place] [address], [place] [address] Jan, [facility] [address] [id number] [address] [place] [address], [place] [address] Jan, [facility] [address] [id number] [address] [place] [address], [place] [address] Jan, [facility] [address] [id number] [address] [place] [address], [place] [address] Jan, [facility] [address] [id number] [address] [place] [address], [place] [address] Dec, [facility] [address] [id number] [address] [place] [address], [place] [address] Dec, [facility] [address] [id number] [address] [place] [address], [place] [address] Dec, [facility] [address] [id number] [address] [place] [address], [place] [address] Dec, [facility] [address] [id number] [address] [place] [address], [place] [address] Dec, [facility] [address] [id number] [address] [place] [address], [place] [address] Dec, [facility] [address] [id number] [address] [place] [address], [place] [address] Dec, [facility] [address] [id number] [address] [place] [address], [place] [address] Dec, [facility] [address] [id number] [address] [place] [address], [place] [address] Dec, [facility] [address] [id number] [address] [place] [address], [place] [address] Nov, [facility] [address] [id number] [address] [place] [address], [place] [address] Nov, [facility] [address] [id number] [address] [place] [address], [place] [address] Nov, [facility] [address] [id number] [address] [place] [address], [place] [address] Nov, [facility] [address] [id number] [address] [place] [address], [place] [address] Nov, [facility] [address] [id number] [address] [place] [address], [place] [address] Nov, [facility] [address] [id number] [address] [place] [address], [place] [address] Nov, [facility] [address] [id number] [address] [place] [address], [place] [address] Oct, [facility] [address] [id number] [address] [place] [address], [place] [address] Oct, [facility] [address] [id number] [address] [place] [address], [place] [address] Oct, [facility] [address] [id number] [address] [place] [address], [place] [address] Sep, [facility] [address] [id number] [address] [place] [address], [place] [address] Sep, [facility] [address] [id number] [address] [place] [address], [place] [address] Sep, [facility] [address] [id number] [address] [place] [address], [place] [address] Sep, [facility] [address] [id number] [address] [place] [address], [place] [address] Sep, [facility] [address] [id number] [address] [place] [address], [place] [address] Sep, [facility] [address] [id number] [address] [place] [address], [place] [address] Sep, [facility] [address] [id number] [address] [place] [address], [place] [address] Sep, [facility] [address] [id number] [address] [place] [address], [place] [address] Sep, [facility] [address] [id number] [address] [place] [address], [place] [address] Sep, [facility] [address] [id number] [address] [place] [address], [place] [address] Aug, [facility] [address] [id number] [address] [place] [address], [place] [address] Aug, [facility] [address] [id number] [address] [place] [address], [place] [address] Aug, [facility] [address] [id number] [address] [place] [address], [place] [address] Jul, [facility] [address] [id number] [address] [place] [address], [place] [address] June, [facility] [address] [id number] [address] [place] [address], [place] [address] May, [facility] [address] [id number] [address] [place] [address], [place] [address] May, [facility] [address] [id number] [address] [place] [address], [place] [address] Apr, [facility] [address] [id number] [address] [place] [phone] 07 Apr, 2012 [facility] [address] [facility] [id number] [address] [place] [phone] Apr, [facility] [address] [facility] [id number] [address] [place] [phone] Mar, [facility] [address] [facility] [id number] [address] [place] [phone] 14 Mar, 2012 [facility] [address] [facility] [id number] [address] [place] [phone] Mar, [facility] [address] [facility] [id number] [address] [place] [phone] 05 Mar, 2012 [facility] [address] [facility] [id number] [address] [place] [phone] 04 Mar, 2012 [facility] [address] [place] [id number] [address] [place] [phone] Mar, IMMUNIZATIONS No Known Immunizations SOCIAL HISTORY Never Assessed REASON FOR VISIT PLAN OF CARE VITAL SIGNS MEDICATIONS Unknown Medications RESULTS No Results PROCEDURES Procedure Date Ordered Result Body Site COMPLETE CBC W/AUTO DIFF WBC Sep 30, 2012 ASSAY OF TESTOSTERONE Sep 30, 2012 ASSAY OF PSA, TOTAL Sep 30, 2012 VENIPUNCT, ROUTINE* Sep 30, 2012 INSTRUCTIONS MEDICATIONS ADMINISTERED No Known Medications
--- OUTSIDE RECORDS SUMMARY | 2019-09-24 12:46 | XMS REPORT ---
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 Active 47513 006 Problem Altered mental status 780.97 Active 798348977 Problem Pain in joint, shoulder region 719.41 Active 713131781 Problem Complete rupture of rotator cuff 727.61 Active 264513513 Problem Acute upper respiratory infections of unspecified site 465.9 Active 25731425 Problem Other testicular hypofunction 257.2 Active 823630640 Problem Pain in joint, lower leg 719.46 Activ e 769802182 Problem Osteoarthritis of right knee 715.96 A ctive 992079426 Problem Unspecified myalgia and myositis 729.1 Active 492213700 Problem Acute sinusitis, unspecified 461.9 A ctive 71913946 Problem Essential hypertension, benign 401.1 Active 5926307 Problem Other and unspecified hyperlipidemia 272.4 Active 63186051 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 08736093 ALLERGIES No Information ENCOUNTERS Encounter Location Date Diagnosis [facility] [address] [facility] [id number] [address] [place] [address] Aug, [facility] [address] [facility] [id number] [address] [place] [address] Jul, Osteoarthritis of right knee 715.96 [facility] [address] [facility] [id number] [address] [place] [address] Jul, [facility] [address] [id number] [address] [place] [address] June, Osteoarthritis of right knee 715.96 [facility] [address] [id number] [address] [place] [address] June, Osteoarthritis of right knee 715.96 [facility] [address] [id number] [address] [place] [address] May, [facility] [address] [id number] [address] [place] [address] May, [facility] [address] [id number] [address] [place] [address] Mar, [facility] [address] [id number] [address] [place] [address] Mar, [facility] [address] [id number] [address] [place] [address] Mar, [facility] [address] [id number] [address] [place] [address] Mar, [facility] [address] [id number] [address] [place] [phone] Feb, [facility] [address] [id number] [address] [place] [phone] Feb, [facility] [address] [id number] [address] [place] [address] Jan, [facility] [address] [id number] [address] [place] [address] Jan, [facility] [address] [id number] [address] [place] [address] Oct, [facility] [address] [id number] [address] [place] [address] Sep, [facility] [address] [id number] [address] [place] [phone] Sep, [facility] [address] [id number] [address] [place] [address], [place] [address] Aug, [facility] [address] [id number] [address] [place] [address], [place] [address] Aug, [facility] [address] [id number] [address] [place] [address], [place] [address] June, [facility] [address] [id number] [address] [place] [address], [place] [address] June, [facility] [address] [id number] [address] [place] [address], [place] [address] June, [facility] [address] [id number] [address] [place] [address], [place] [address] June, [facility] [address] [id number] [address] [place] [address], [place] [address] May, [facility] [address] [id number] [address] [place] [address], [place] [address] May, [facility] [address] [id number] [address] [place] [address], [place] [address] May, [facility] [address] [id number] [address] [place] [address], [place] [address] May, [facility] [address] [id number] [address] [place] [address], [place] [address] Apr, [facility] [address] [id number] [address] [place] [address], [place] [address] Apr, [facility] [address] [id number] [address] [place] [address], [place] [address] Mar, [facility] [address] [id number] [address] [place] [address], [place] [address] Mar, [facility] [address] [id number] [address] [place] [address], [place] [address] Feb, [facility] [address] [id number] [address] [place] [address], [place] [address] Feb, [facility] [address] [id number] [address] [place] [address], [place] [address] Feb, [facility] [address] [id number] [address] [place] [address], [place] [address] Feb, [facility] [address] [id number] [address] [place] [address], [place] [address] Jan, [facility] [address] [id number] [address] [place] [address], [place] [address] Jan, [facility] [address] [id number] [address] [place] [address], [place] [address] Jan, [facility] [address] [id number] [address] [place] [address], [place] [address] Jan, [facility] [address] [id number] [address] [place] [address], [place] [address] Jan, [facility] [address] [id number] [address] [place] [address], [place] [address] Jan, [facility] [address] [id number] [address] [place] [address], [place] [address] Jan, [facility] [address] [id number] [address] [place] [address], [place] [address] Jan, [facility] [address] [id number] [address] [place] [address] Dec, [facility] [address] [id number] [address] [place] [address] Dec, [facility] [address] [id number] [address] [place] [address], [place] [address] Dec, [facility] [address] [id number] [address] [place] [address], [place] [address] Dec, [facility] [address] [id number] [address] [place] [address], [place] [address] Dec, [facility] [address] [id number] [address] [place] [address] Dec, [facility] [address] [id number] [address] [place] [address], [place] [address] Dec, [facility] [address] [id number] [address] [place] [address] Dec, [facility] [address] [id number] [address] [place] [address], [place] [address] Dec, [facility] [address] [id number] [address] [place] [address], [place] [address] Nov, [facility] [address] [id number] [address] [place] [address], [place] [address] Nov, [facility] [address] [id number] [address] [place] [address], [place] [address] Nov, [facility] [address] [id number] [address] [place] [address] Nov, [facility] [address] [id number] [address] [place] [address], [place] [address] Nov, [facility] [address] [id number] [address] [place] [address], [place] [address] Nov, [facility] [address] [id number] [address] [place] [address] Nov, [facility] [address] [id number] [address] [place] [address], [place] [address] Oct, [facility] [address] [id number] [address] [place] [address] Oct, [facility] [address] [id number] [address] [place] [address] Oct, [facility] [address] [id number] [address] [place] [address] Sep, [facility] [address] [id number] [address] [place] [address] Sep, [facility] [address] [id number] [address] [place] [address], [place] [address] 18 Sep, 2012 [facility] [address] [id number] [address] [place] [address], [place] [address] Sep, [facility] [address] [id number] [address] [place] [address], [place] [address] Sep, [facility] [address] [id number] [address] [place] [address], [place] [address] Sep, [facility] [address] [id number] [address] [place] [address], [place] [address] Sep, [facility] [address] [id number] [address] [place] [address], [place] [address] Sep, [facility] [address] [id number] [address] [place] [address], [place] [address] Sep, [facility] [address] [id number] [address] [place] [address], [place] [address] Sep, [facility] [address] [id number] [address] [place] [address], [place] [address] Aug, [facility] [address] [id number] [address] [place] [address], [place] [address] Aug, [facility] [address] [id number] [address] [place] [address], [place] [address] Aug, [facility] [address] [id number] [address] [place] [address], [place] [address] Jul, [facility] [address] [id number] [address] [place] [address], [place] [address] June, [facility] [address] [id number] [address] [place] [address], [place] [address] 17 May, 2012 [facility] [address] [id number] [address] [place] [address], [place] [address] May, [facility] [address] [id number] [address] [place] [address] [address] Apr, [facility] [address] [facility] [id number] [address] [place] [address] Apr, [facility] [address] [facility] [id number] [address] [place] [address] Apr, [facility] [address] [facility] [id number] [address] [place] [address] Mar, [facility] [address] [facility] [id number] [address] [place] [address] Mar, [facility] [address] [facility] [id number] [address] [place] [address] Mar, [facility] [address] [facility] [id number] [address] [place] [id number] 05 Mar, 2012 [facility] [address] [facility] [id number] [address] [place] [address] Mar, [facility] [address] [facility] [id number] [address] [place] [address] Mar, IMMUNIZATIONS No Known Immunizations SOCIAL HISTORY Never Assessed REASON FOR VISIT PLAN OF CARE VITAL SIGNS MEDICATIONS Unknown Medications RESULTS No Results PROCEDURES No Known procedures INSTRUCTIONS MEDICATIONS ADMINISTERED No Known Medications
--- OUTSIDE RECORDS SUMMARY | 2019-09-24 12:46 | XMS REPORT ---
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 Active 09066 006 Problem Altered mental status 780.97 Active 467709084 Problem Pain in joint, shoulder region 719.41 Active 385633636 Problem Complete rupture of rotator cuff 727.61 Active 891192865 Problem Acute upper respiratory infections of unspecified site 465.9 Active 86151418 Problem Other testicular hypofunction 257.2 Active 262544073 Problem Pain in joint, lower leg 719.46 Activ e 970309357 Problem Osteoarthritis of right knee 715.96 A ctive 807318225 Problem Unspecified myalgia and myositis 729.1 Active 034691952 Problem Acute sinusitis, unspecified 461.9 A ctive 04995923 Problem Essential hypertension, benign 401.1 Active 4990714 Problem Other and unspecified hyperlipidemia 272.4 Active 91778593 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 [id number] [address] [place] [address] Aug, [facility] [place] [address] [facility] [id number] [address] [place] [address] Jul, Osteoarthritis of right knee 715.96 [facility] [place] [address] [facility] [id number] [address] [place] [address] Jul, [facility] [place] [address] [facility] [id number] [address] [place] [address] June, Osteoarthritis of right knee 715.96 [facility] [address] [id number] [address] [place] [address] June, Osteoarthritis of right knee 715.96 [facility] [address] [id number] [address] [place] [address] May, [facility] [address] [id number] [address] [place] [address] May, [facility] [address] [id number] [address] [place] [address] Mar, [facility] [address] [id number] [address] [place] [address] Mar, [facility] [address] [id number] [address] [place] [address] Mar, [facility] [address] [id number] [address] [place] [address] Mar, [facility] [address] [id number] [address] [place] [address] Feb, [facility] [address] [id number] [address] [place] [address] Feb, [facility] [address] [id number] [address] [place] [address] Jan, [facility] [address] [id number] [address] [place] [address] Jan, [facility] [address] [id number] [address] [place] [address] Oct, [facility] [address] [id number] [address] [place] [address] Sep, [facility] [address] [id number] [address] [place] [address] Sep, [facility] [address] [id number] [address] [place] [address] Aug, [facility] [address] [id number] [address] [place] [address], [place] [address] Aug, [facility] [address] [id number] [address] [place] [address], [place] [address] June, [facility] [address] [id number] [address] [place] [address], [place] [address] June, [facility] [address] [id number] [address] [place] [address], [place] [address] June, [facility] [address] [id number] [address] [place] [address], [place] [address] June, [facility] [address] [id number] [address] [place] [address], [place] [address] May, [facility] [address] [id number] [address] [place] [address], [place] [address] May, [facility] [address] [id number] [address] [place] [address], [place] [address] May, [facility] [address] [id number] [address] [place] [address], [place] [address] May, [facility] [address] [id number] [address] [place] [address], [place] [address] Apr, [facility] [address] [id number] [address] [place] [address], [place] [address] Apr, [facility] [address] [id number] [address] [place] [address], [place] [address] Mar, [facility] [address] [id number] [address] [place] [address], [place] [address] Mar, [facility] [address] [id number] [address] [place] [address], [place] [address] Feb, [facility] [address] [id number] [address] [place] [address], [place] [address] Feb, [facility] [address] [id number] [address] [place] [address] Feb, [facility] [address] [id number] [address] [place] [address], [place] [address] Feb, [facility] [address] [id number] [address] [place] [address], [place] [address] Jan, [facility] [address] [id number] [address] [place] [address], [place] [address] Jan, [facility] [address] [id number] [address] [place] [address], [place] [address] Jan, [facility] [address] [id number] [address] [place] [address], [place] [address] Jan, [facility] [address] [id number] [address] [place] [address], [place] [address] Jan, [facility] [address] [id number] [address] [place] [address], [place] [address] Jan, [facility] [address] [id number] [address] [place] [address], [place] [address] Jan, [facility] [address] [id number] [address] [place] [address], [place] [address] Jan, [facility] [address] [id number] [address] [place] [address], [place] [address] Dec, [facility] [address] [id number] [address] [place] [address], [place] [address] Dec, [facility] [address] [id number] [address] [place] [address], [place] [address] Dec, [facility] [address] [id number] [address] [place] [address], [place] [address] Dec, [facility] [address] [id number] [address] [place] [address], [place] [address] Dec, [facility] [address] [id number] [address] [place] [address], [place] [address] Dec, [facility] [address] [id number] [address] [place] [address], [place] [address] Dec, [facility] [address] [id number] [address] [place] [address], [place] [address] Dec, [facility] [address] [id number] [address] [place] [address], [place] [address] Dec, [facility] [address] [id number] [address] [place] [address], [place] [address] Nov, [facility] [address] [id number] [address] [place] [address], [place] [address] Nov, [facility] [address] [id number] [address] [place] [address], [place] [address] Nov, [facility] [address] [id number] [address] [place] [address], [place] [address] Nov, [facility] [address] [id number] [address] [place] [address], [place] [address] Nov, [facility] [address] [id number] [address] [place] [address], [place] [address] Nov, [facility] [address] [id number] [address] [place] [address], [place] [address] Nov, [facility] [address] [id number] [address] [place] [address], [place] [address] Oct, [facility] [address] [id number] [address] [place] [address], [place] [address] Oct, [facility] [address] [id number] [address] [place] [address], [place] [address] Oct, [facility] [address] [id number] [address] [place] [address], [place] [address] Sep, [facility] [address] [id number] [address] [place] [address], [place] [address] Sep, [facility] [address] [id number] [address] [place] [address], [place] [address] Sep, [facility] [address] [id number] [address] [place] [address], [place] [address] Sep, [facility] [address] [id number] [address] [place] [address], [place] [address] Sep, [facility] [address] [id number] [address] [place] [address], [place] [address] Sep, [facility] [address] [id number] [address] [place] [address], [place] [address] Sep, [facility] [address] [id number] [address] [place] [address], [place] [address] Sep, [facility] [address] [id number] [address] [place] [address], [place] [address] Sep, [facility] [address] [id number] [address] [place] [address], [place] [address] Sep, [facility] [address] [id number] [address] [place] [address], [place] [address] Aug, [facility] [address] [id number] [address] [place] [address], [place] [address] Aug, [facility] [address] [id number] [address] [place] [address], [place] [address] Aug, [facility] [address] [id number] [address] [place] [address], [place] [address] Jul, [facility] [address] [id number] [address] [place] [address], [place] [address] June, [facility] [address] [id number] [address] [place] [address], [place] [address] May, [facility] [address] [id number] [address] [place] [address], [place] [address] May, [facility] [address] [id number] [address] [place] [address], [place] [address] Apr, [facility] [address] [id number] [address] [place] [address] Apr, [facility] [place] [address] [facility] [id number] [address] [place] [address] Apr, [facility] [place] [address] [facility] [id number] [address] [place] [address] Mar, [facility] [place] [address] [facility] [id number] [address] [place] [address] Mar, [facility] [place] [address] [facility] [id number] [address] [place] [id number] Mar, [facility] [place] [address] [facility] [id number] [address] [place] [id number] 05 Mar, 2012 [facility] [place] [address] [facility] [id number] [address] [place] [id number] 04 Mar, 2012 [facility] [place] [address] [facility] [id number] [address] [place] [address] Mar, IMMUNIZATIONS No Known Immunizations SOCIAL HISTORY Never Assessed REASON FOR VISIT PLAN OF CARE VITAL SIGNS MEDICATIONS Unknown Medications RESULTS No Results PROCEDURES No Known procedures INSTRUCTIONS MEDICATIONS ADMINISTERED No Known Medications
--- OUTSIDE RECORDS SUMMARY | 2019-09-24 12:46 | XMS REPORT ---
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 Active 57423 006 Problem Altered mental status 780.97 Active 477267814 Problem Pain in joint, shoulder region 719.41 Active 382085517 Problem Complete rupture of rotator cuff 727.61 Active 417202930 Problem Acute upper respiratory infections of unspecified site 465.9 Active 47771725 Problem Other testicular hypofunction 257.2 Active 423675421 Problem Pain in joint, lower leg 719.46 Activ e 600308858 Problem Osteoarthritis of right knee 715.96 A ctive 089904676 Problem Unspecified myalgia and myositis 729.1 Active 345570760 Problem Acute sinusitis, unspecified 461.9 A ctive 89585320 Problem Essential hypertension, benign 401.1 Active 9704867 Problem Other and unspecified hyperlipidemia 272.4 Active 89761027 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 48606338 ALLERGIES No Information ENCOUNTERS Encounter Location Date Diagnosis [facility] [address] [facility] [id number] [address] [place] [address] Aug, [facility] [address] [facility] [id number] [address] [place] [address] Jul, Osteoarthritis of right knee 715.96 [facility] [address] [facility] [id number] [address] [place] [address] Jul, [facility] [address] [facility] [id number] [address] [place] [address] June, Osteoarthritis of right knee 715.96 [facility] [address] [id number] [address] [place] [address] June, Osteoarthritis of right knee 715.96 [facility] [address] [id number] [address] [place] [address] May, [facility] [address] [id number] [address] [place] [address] May, [facility] [address] [id number] [address] [place] [address] Mar, [facility] [address] [id number] [address] [place] [address] Mar, [facility] [address] [id number] [address] [place] [address] Mar, [facility] [address] [id number] [address] [place] [address] Mar, [facility] [address] [id number] [address] [place] [address] Feb, [facility] [address] [id number] [address] [place] [address] Feb, [facility] [address] [id number] [address] [place] [address] Jan, [facility] [address] [id number] [address] [place] [address] Jan, [facility] [address] [id number] [address] [place] [address] Oct, [facility] [address] [id number] [address] [place] [address] Sep, [facility] [address] [id number] [address] [place] [address] Sep, [facility] [address] [id number] [address] [place] [address] Aug, [facility] [address] [id number] [address] [place] [address], [place] [address] Aug, [facility] [address] [id number] [address] [place] [address], [place] [address] June, [facility] [address] [id number] [address] [place] [address], [place] [address] June, [facility] [address] [id number] [address] [place] [address], [place] [address] June, [facility] [address] [id number] [address] [place] [address], [place] [address] June, [facility] [address] [id number] [address] [place] [address], [place] [address] May, [facility] [address] [id number] [address] [place] [address], [place] [address] May, [facility] [address] [id number] [address] [place] [address], [place] [address] May, [facility] [address] [id number] [address] [place] [address], [place] [address] May, [facility] [address] [id number] [address] [place] [address], [place] [address] Apr, [facility] [address] [id number] [address] [place] [address], [place] [address] Apr, [facility] [address] [id number] [address] [place] [address], [place] [address] Mar, [facility] [address] [id number] [address] [place] [address], [place] [address] Mar, [facility] [address] [id number] [address] [place] [address], [place] [address] Feb, [facility] [address] [id number] [address] [place] [address], [place] [address] Feb, [facility] [address] [id number] [address] [place] [address] Feb, [facility] [address] [id number] [address] [place] [address], [place] [address] Feb, [facility] [address] [id number] [address] [place] [address], [place] [address] Jan, [facility] [address] [id number] [address] [place] [address], [place] [address] Jan, [facility] [address] [id number] [address] [place] [address], [place] [address] Jan, [facility] [address] [id number] [address] [place] [address], [place] [address] Jan, [facility] [address] [id number] [address] [place] [address], [place] [address] Jan, [facility] [address] [id number] [address] [place] [address], [place] [address] Jan, [facility] [address] [id number] [address] [place] [address], [place] [address] Jan, [facility] [address] [id number] [address] [place] [address], [place] [address] Jan, [facility] [address] [id number] [address] [place] [address], [place] [address] Dec, [facility] [address] [id number] [address] [place] [address], [place] [address] Dec, [facility] [address] [id number] [address] [place] [address], [place] [address] Dec, [facility] [address] [id number] [address] [place] [address], [place] [address] Dec, [facility] [address] [id number] [address] [place] [address], [place] [address] Dec, [facility] [address] [id number] [address] [place] [address], [place] [address] Dec, [facility] [address] [id number] [address] [place] [address], [place] [address] Dec, [facility] [address] [id number] [address] [place] [address], [place] [address] Dec, [facility] [address] [id number] [address] [place] [address], [place] [address] Dec, [facility] [address] [id number] [address] [place] [address], [place] [address] Nov, [facility] [address] [id number] [address] [place] [address], [place] [address] Nov, [facility] [address] [id number] [address] [place] [address], [place] [address] Nov, [facility] [address] [id number] [address] [place] [address], [place] [address] Nov, [facility] [address] [id number] [address] [place] [address], [place] [address] Nov, [facility] [address] [id number] [address] [place] [address], [place] [address] Nov, [facility] [address] [id number] [address] [place] [address], [place] [address] Nov, [facility] [address] [id number] [address] [place] [address], [place] [address] Oct, [facility] [address] [id number] [address] [place] [address], [place] [address] Oct, [facility] [address] [id number] [address] [place] [address], [place] [address] Oct, [facility] [address] [id number] [address] [place] [address], [place] [address] Sep, [facility] [address] [id number] [address] [place] [address], [place] [address] Sep, [facility] [address] [id number] [address] [place] [address], [place] [address] Sep, [facility] [address] [id number] [address] [place] [address], [place] [address] Sep, [facility] [address] [id number] [address] [place] [address], [place] [address] Sep, [facility] [address] [id number] [address] [place] [address], [place] [address] Sep, [facility] [address] [id number] [address] [place] [address], [place] [address] Sep, [facility] [address] [id number] [address] [place] [address], [place] [address] Sep, [facility] [address] [id number] [address] [place] [address], [place] [address] Sep, [facility] [address] [id number] [address] [place] [address], [place] [address] Sep, [facility] [address] [id number] [address] [place] [address], [place] [address] Aug, [facility] [address] [id number] [address] [place] [address], [place] [address] Aug, [facility] [address] [id number] [address] [place] [address], [place] [address] Aug, [facility] [address] [id number] [address] [place] [address], [place] [address] Jul, [facility] [address] [id number] [address] [place] [address], [place] [address] June, [facility] [address] [id number] [address] [place] [address], [place] [address] May, [facility] [address] [id number] [address] [place] [address], [place] [address] May, [facility] [address] [id number] [address] [place] [address], [place] [address] Apr, [facility] [address] [id number] [address] [place] [address] Apr, [facility] [address] [facility] [id number] [address] [place] [address] Apr, [facility] [address] [facility] [id number] [address] [place] [address] Mar, [facility] [address] [facility] [id number] [address] [place] [address] Mar, [facility] [address] [facility] [id number] [address] [place] [address] Mar, [facility] [address] [facility] [id number] [address] [place] [address] 05 Mar, 2012 [facility] [address] [facility] [id number] [address] [place] [address] 04 Mar, 2012 [facility] [address] [facility] [id number] [address] [place] [address] Mar, IMMUNIZATIONS No Known Immunizations SOCIAL HISTORY Never Assessed REASON FOR VISIT PLAN OF CARE VITAL SIGNS MEDICATIONS Unknown Medications RESULTS No Results PROCEDURES No Known procedures INSTRUCTIONS MEDICATIONS ADMINISTERED No Known Medications
--- OUTSIDE RECORDS SUMMARY | 2019-09-24 12:46 | XMS REPORT ---
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 Active 15764 006 Problem Altered mental status 780.97 Active 950204691 Problem Pain in joint, shoulder region 719.41 Active 469002692 Problem Complete rupture of rotator cuff 727.61 Active 281433172 Problem Acute upper respiratory infections of unspecified site 465.9 Active 39212916 Problem Other testicular hypofunction 257.2 Active 178900221 Problem Pain in joint, lower leg 719.46 Activ e 446850098 Problem Osteoarthritis of right knee 715.96 A ctive 412455061 Problem Unspecified myalgia and myositis 729.1 Active 037451788 Problem Acute sinusitis, unspecified 461.9 A ctive 79910391 Problem Essential hypertension, benign 401.1 Active 6777478 Problem Other and unspecified hyperlipidemia 272.4 Active 14635771 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 42299170 ALLERGIES No Information ENCOUNTERS Encounter Location Date Diagnosis [facility] [address] [id number] [address] [place] [address] Aug, [facility] [address] [id number] [address] [place] [address] Jul, Osteoarthritis of right knee 715.96 [facility] [address] [id number] [address] [place] [address] Jul, [facility] [address] [id number] [address] [place] [address] June, Osteoarthritis of right knee 715.96 [facility] [address] [id number] [address] [place] [address] June, Osteoarthritis of right knee 715.96 [facility] [address] [id number] [address] [place] [address] May, [facility] [address] [id number] [address] [place] [address] May, [facility] [address] [id number] [address] [place] [address] Mar, [facility] [address] [id number] [address] [place] [address] Mar, [facility] [address] [id number] [address] [place] [address] Mar, [facility] [address] [id number] [address] [place] [address] Mar, [facility] [address] [id number] [address] [place] [address] Feb, [facility] [address] [id number] [address] [place] [address] Feb, [facility] [address] [id number] [address] [place] [address] Jan, [facility] [address] [id number] [address] [place] [address] Jan, [facility] [address] [id number] [address] [place] [address] Oct, [facility] [address] [id number] [address] [place] [address] Sep, [facility] [address] [id number] [address] [place] [address] Sep, [facility] [address] [id number] [address] [place] [address] Aug, [facility] [address] [id number] [address] [place] [address], [place] [address] Aug, [facility] [address] [id number] [address] [place] [address], [place] [address] June, [facility] [address] [id number] [address] [place] [address], [place] [address] June, [facility] [address] [id number] [address] [place] [address], [place] [address] June, [facility] [address] [id number] [address] [place] [address], [place] [address] June, [facility] [address] [id number] [address] [place] [address], [place] [address] May, [facility] [address] [id number] [address] [place] [address], [place] [address] May, [facility] [address] [id number] [address] [place] [address], [place] [address] May, [facility] [address] [id number] [address] [place] [address], [place] [address] May, [facility] [address] [id number] [address] [place] [address], [place] [address] Apr, [facility] [address] [id number] [address] [place] [address], [place] [address] Apr, [facility] [address] [id number] [address] [place] [address], [place] [address] Mar, [facility] [address] [id number] [address] [place] [address], [place] [address] Mar, [facility] [address] [id number] [address] [place] [address], [place] [address] Feb, [facility] [address] [id number] [address] [place] [address], [place] [address] Feb, [facility] [address] [id number] [address] [place] [address] Feb, [facility] [address] [id number] [address] [place] [address], [place] [address] Feb, [facility] [address] [id number] [address] [place] [address], [place] [address] Jan, [facility] [address] [id number] [address] [place] [address], [place] [address] Jan, [facility] [address] [id number] [address] [place] [address], [place] [address] Jan, [facility] [address] [id number] [address] [place] [address], [place] [address] Jan, [facility] [address] [id number] [address] [place] [address], [place] [address] Jan, [facility] [address] [id number] [address] [place] [address], [place] [address] Jan, [facility] [address] [id number] [address] [place] [address], [place] [address] Jan, [facility] [address] [id number] [address] [place] [address], [place] [address] Jan, [facility] [address] [id number] [address] [place] [address], [place] [address] Dec, [facility] [address] [id number] [address] [place] [address], [place] [address] Dec, [facility] [address] [id number] [address] [place] [address], [place] [address] Dec, [facility] [address] [id number] [address] [place] [address], [place] [address] Dec, [facility] [address] [id number] [address] [place] [address], [place] [address] Dec, [facility] [address] [id number] [address] [place] [address], [place] [address] Dec, [facility] [address] [id number] [address] [place] [address], [place] [address] Dec, [facility] [address] [id number] [address] [place] [address], [place] [address] Dec, [facility] [address] [id number] [address] [place] [address], [place] [address] Dec, [facility] [address] [id number] [address] [place] [address], [place] [address] Nov, [facility] [address] [id number] [address] [place] [address], [place] [address] Nov, [facility] [address] [id number] [address] [place] [address], [place] [address] Nov, [facility] [address] [id number] [address] [place] [address], [place] [address] Nov, [facility] [address] [id number] [address] [place] [address], [place] [address] Nov, [facility] [address] [id number] [address] [place] [address], [place] [address] Nov, [facility] [address] [id number] [address] [place] [address], [place] [address] Nov, [facility] [address] [id number] [address] [place] [address], [place] [address] Oct, [facility] [address] [id number] [address] [place] [address], [place] [address] Oct, [facility] [address] [id number] [address] [place] [address], [place] [address] Oct, [facility] [address] [id number] [address] [place] [address], [place] [address] Sep, [facility] [address] [id number] [address] [place] [address], [place] [address] Sep, [facility] [address] [id number] [address] [place] [address], [place] [address] Sep, [facility] [address] [id number] [address] [place] [address], [place] [address] Sep, [facility] [address] [id number] [address] [place] [address], [place] [address] Sep, [facility] [address] [id number] [address] [place] [address], [place] [address] Sep, [facility] [address] [id number] [address] [place] [address], [place] [address] Sep, [facility] [address] [id number] [address] [place] [address], [place] [address] Sep, [facility] [address] [id number] [address] [place] [address], [place] [address] Sep, [facility] [address] [id number] [address] [place] [address], [place] [address] Sep, [facility] [address] [id number] [address] [place] [address], [place] [address] Aug, [facility] [address] [id number] [address] [place] [address], [place] [address] Aug, [facility] [address] [id number] [address] [place] [address], [place] [address] Aug, [facility] [address] [id number] [address] [place] [address], [place] [address] Jul, [facility] [address] [id number] [address] [place] [address], [place] [address] June, [facility] [address] [id number] [address] [place] [address], [place] [address] May, [facility] [address] [id number] [address] [place] [address], [place] [address] May, [facility] [address] [id number] [address] [place] [address], [place] [address] Apr, [facility] [address] [id number] [address] [place] [address] Apr, [facility] [address] [id number] [address] [place] [address] Apr, [facility] [address] [id number] [address] [place] [address] Mar, [facility] [address] [id number] [address] [place] [address] Mar, [facility] [address] [id number] [address] [place] [address] Mar, [facility] [address] [id number] [address] [place] [address] 05 Mar, 2012 [facility] [address] [id number] [address] [place] [address] 04 Mar, 2012 [facility] [address] [id number] [address] [place] [address] Mar, IMMUNIZATIONS No Known Immunizations SOCIAL HISTORY Never Assessed REASON FOR VISIT PLAN OF CARE VITAL SIGNS MEDICATIONS Unknown Medications RESULTS No Results PROCEDURES No Known procedures INSTRUCTIONS MEDICATIONS ADMINISTERED No Known Medications
--- OUTSIDE RECORDS SUMMARY | 2019-09-24 12:46 | XMS REPORT ---
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 Active 95651 006 Problem Altered mental status 780.97 Active 567386744 Problem Pain in joint, shoulder region 719.41 Active 016635864 Problem Complete rupture of rotator cuff 727.61 Active 054329667 Problem Acute upper respiratory infections of unspecified site 465.9 Active 66891882 Problem Other testicular hypofunction 257.2 Active 343611073 Problem Pain in joint, lower leg 719.46 Activ e 605393983 Problem Osteoarthritis of right knee 715.96 A ctive 874825320 Problem Unspecified myalgia and myositis 729.1 Active 560352460 Problem Acute sinusitis, unspecified 461.9 A ctive 48491130 Problem Essential hypertension, benign 401.1 Active 4259237 Problem Other and unspecified hyperlipidemia 272.4 Active 33218264 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 76610070 ALLERGIES No Information ENCOUNTERS Encounter Location Date Diagnosis [facility] [address] [facility] [id number] [address] [place] [phone] Aug, [facility] [address] [facility] [id number] [address] [place] [address] Jul, Osteoarthritis of right knee 715.96 [facility] [address] [facility] [id number] [address] [place] [address] Jul, [facility] [address] [id number] [address] [place] [address] June, Osteoarthritis of right knee 715.96 [facility] [address] [id number] [address] [place] [address] June, Osteoarthritis of right knee 715.96 [facility] [address] [id number] [address] [place] [address] May, [facility] [address] [id number] [address] [place] [address] May, [facility] [address] [id number] [address] [place] [address] Mar, [facility] [address] [id number] [address] [place] [address] Mar, [facility] [address] [id number] [address] [place] [address] Mar, [facility] [address] [id number] [address] [place] [address] Mar, [facility] [address] [id number] [address] [place] [phone] Feb, [facility] [address] [id number] [address] [place] [address] Feb, [facility] [address] [id number] [address] [place] [address] Jan, [facility] [address] [id number] [address] [place] [phone] Jan, [facility] [address] [id number] [address] [place] [id number] Oct, [facility] [address] [id number] [address] [place] [address] Sep, [facility] [address] [id number] [address] [place] [address] Sep, [facility] [address] [id number] [address] [place] [address], [place] [address] Aug, [facility] [address] [id number] [address] [place] [address], [place] [address] Aug, [facility] [address] [id number] [address] [place] [address], [place] [address] June, [facility] [address] [id number] [address] [place] [address], [place] [address] June, [facility] [address] [id number] [address] [place] [address], [place] [address] June, [facility] [address] [id number] [address] [place] [address], [place] [address] June, [facility] [address] [id number] [address] [place] [address], [place] [address] May, [facility] [address] [id number] [address] [place] [address], [place] [address] May, [facility] [address] [id number] [address] [place] [address], [place] [address] May, [facility] [address] [id number] [address] [place] [address], [place] [address] May, [facility] [address] [id number] [address] [place] [address], [place] [address] Apr, [facility] [address] [id number] [address] [place] [address], [place] [address] Apr, [facility] [address] [id number] [address] [place] [address], [place] [address] Mar, [facility] [address] [id number] [address] [place] [address], [place] [address] Mar, [facility] [address] [id number] [address] [place] [address], [place] [address] Feb, [facility] [address] [id number] [address] [place] [address], [place] [address] Feb, [facility] [address] [id number] [address] [place] [address], [place] [address] Feb, [facility] [address] [id number] [address] [place] [address], [place] [address] Feb, [facility] [address] [id number] [address] [place] [address], [place] [address] Jan, [facility] [address] [id number] [address] [place] [address], [place] [address] Jan, [facility] [address] [id number] [address] [place] [address], [place] [address] Jan, [facility] [address] [id number] [address] [place] [address], [place] [address] Jan, [facility] [address] [id number] [address] [place] [address], [place] [address] Jan, [facility] [address] [id number] [address] [place] [address], [place] [address] Jan, [facility] [address] [id number] [address] [place] [address], [place] [address] Jan, [facility] [address] [id number] [address] [place] [address], [place] [address] Jan, [facility] [address] [id number] [address] [place] [address] Dec, [facility] [address] [id number] [address] [place] [address] Dec, [facility] [address] [id number] [address] [place] [address], [place] [address] Dec, [facility] [address] [id number] [address] [place] [address], [place] [address] Dec, [facility] [address] [id number] [address] [place] [address], [place] [address] Dec, [facility] [address] [id number] [address] [place] [address] Dec, [facility] [address] [id number] [address] [place] [address], [place] [address] Dec, [facility] [address] [id number] [address] [place] [address] Dec, [facility] [address] [id number] [address] [place] [address], [place] [address] Dec, [facility] [address] [id number] [address] [place] [address], [place] [address] Nov, [facility] [address] [id number] [address] [place] [address], [place] [address] Nov, [facility] [address] [id number] [address] [place] [address], [place] [address] Nov, [facility] [address] [id number] [address] [place] [address] Nov, [facility] [address] [id number] [address] [place] [address], [place] [address] Nov, [facility] [address] [id number] [address] [place] [address], [place] [address] Nov, [facility] [address] [id number] [address] [place] [address] Nov, [facility] [address] [id number] [address] [place] [address], [place] [address] Oct, [facility] [address] [id number] [address] [place] [address] Oct, [facility] [address] [id number] [address] [place] [address] Oct, [facility] [address] [id number] [address] [place] [address] Sep, [facility] [address] [id number] [address] [place] [address] Sep, [facility] [address] [id number] [address] [place] [address], [place] [address] 18 Sep, 2012 [facility] [address] [id number] [address] [place] [address], [place] [address] Sep, [facility] [address] [id number] [address] [place] [address], [place] [address] Sep, [facility] [address] [id number] [address] [place] [address], [place] [address] Sep, [facility] [address] [id number] [address] [place] [address], [place] [address] Sep, [facility] [address] [id number] [address] [place] [address], [place] [address] Sep, [facility] [address] [id number] [address] [place] [address], [place] [address] Sep, [facility] [address] [id number] [address] [place] [address], [place] [address] Sep, [facility] [address] [id number] [address] [place] [address], [place] [address] Aug, [facility] [address] [id number] [address] [place] [address], [place] [address] Aug, [facility] [address] [id number] [address] [place] [address], [place] [address] Aug, [facility] [address] [id number] [address] [place] [address], [place] [address] Jul, [facility] [address] [id number] [address] [place] [address], [place] [address] June, [facility] [address] [id number] [address] [place] [address], [place] [address] 17 May, 2012 [facility] [address] [id number] [address] [place] [address], [place] [address] May, [facility] [address] [id number] [address] [place] [address] [address] 07 Apr, 2012 [facility] [address] [facility] [id number] [address] [place] [address] 07 Apr, 2012 [facility] [address] [facility] [id number] [address] [place] [address] Apr, [facility] [address] [facility] [id number] [address] [place] [address] Mar, [facility] [address] [facility] [id number] [address] [place] [address] 14 Mar, 2012 [facility] [address] [facility] [id number] [address] [place] [address] Mar, [facility] [address] [facility] [id number] [address] [place] [id number] 05 Mar, 2012 [facility] [address] [facility] [id number] [address] [place] [address] Mar, [facility] [address] [facility] [id number] [address] [place] [address] Mar, IMMUNIZATIONS No Known Immunizations SOCIAL HISTORY Never Assessed REASON FOR VISIT PLAN OF CARE VITAL SIGNS Height 72 in 2013-01-17 Weight 232.3 lbs 2013-01-17 Temperature 97.1 degrees Fahrenheit 2013-01-17 Heart Rate 90 bpm 2013-01-17 Respiratory Rate 18 2013-01-17 Blood pressure systolic 144 mmHg 2013-01-17 Blood pressure diastolic 90 mmHg 2013-01-17 MEDICATIONS Unknown Medications RESULTS No Results PROCEDURES No Known procedures INSTRUCTIONS MEDICATIONS ADMINISTERED No Known Medications
--- OUTSIDE RECORDS SUMMARY | 2019-09-24 12:46 | XMS REPORT ---
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 Active 09923 006 Problem Altered mental status 780.97 Active 468292913 Problem Pain in joint, shoulder region 719.41 Active 574237722 Problem Complete rupture of rotator cuff 727.61 Active 751180949 Problem Acute upper respiratory infections of unspecified site 465.9 Active 60484686 Problem Other testicular hypofunction 257.2 Active 406633906 Problem Pain in joint, lower leg 719.46 Activ e 622809364 Problem Osteoarthritis of right knee 715.96 A ctive 632178250 Problem Unspecified myalgia and myositis 729.1 Active 118867494 Problem Acute sinusitis, unspecified 461.9 A ctive 89940086 Problem Essential hypertension, benign 401.1 Active 4044556 Problem Other and unspecified hyperlipidemia 272.4 Active 22306201 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 74829599 ALLERGIES No Information ENCOUNTERS Encounter Location Date Diagnosis [facility] [address] [facility] [place] [id number] [address] [place] [phone] Aug, [facility] [address] [facility] [place] [id number] [address] [place] [address] Jul, Osteoarthritis of right knee 715.96 [facility] [address] [facility] [place] [id number] [address] [place] [address] Jul, [facility] [address] [facility] [place] [id number] [address] [place] [address] June, Osteoarthritis of right knee 715.96 [facility] [address] [id number] [address] [place] [address] June, Osteoarthritis of right knee 715.96 [facility] [address] [id number] [address] [place] [address] May, [facility] [address] [id number] [address] [place] [address] May, [facility] [address] [id number] [address] [place] [address] Mar, [facility] [address] [id number] [address] [place] [phone] Mar, [facility] [address] [id number] [address] [place] [address] Mar, [facility] [address] [id number] [address] [place] [phone] Mar, [facility] [address] [id number] [address] [place] [phone] Feb, [facility] [address] [id number] [address] [place] [address] Feb, [facility] [address] [id number] [address] [place] [address] Jan, [facility] [address] [id number] [address] [place] [phone] Jan, [facility] [address] [id number] [address] [place] [phone] Oct, [facility] [address] [id number] [address] [place] [phone] Sep, [facility] [address] [id number] [address] [place] [address] Sep, [facility] [address] [id number] [address] [place] [phone] Aug, [facility] [address] [id number] [address] [place] [address], [place] [address] Aug, [facility] [address] [id number] [address] [place] [address], [place] [address] June, [facility] [address] [id number] [address] [place] [address], [place] [address] June, [facility] [address] [id number] [address] [place] [address], [place] [address] June, [facility] [address] [id number] [address] [place] [address], [place] [address] June, [facility] [address] [id number] [address] [place] [address], [place] [address] May, [facility] [address] [id number] [address] [place] [address], [place] [address] May, [facility] [address] [id number] [address] [place] [address], [place] [address] May, [facility] [address] [id number] [address] [place] [address], [place] [address] May, [facility] [address] [id number] [address] [place] [address], [place] [address] Apr, [facility] [address] [id number] [address] [place] [address], [place] [address] Apr, [facility] [address] [id number] [address] [place] [address], [place] [address] Mar, [facility] [address] [id number] [address] [place] [address], [place] [address] Mar, [facility] [address] [id number] [address] [place] [address], [place] [address] Feb, [facility] [address] [id number] [address] [place] [address], [place] [address] Feb, [facility] [address] [id number] [address] [place] [address] Feb, [facility] [address] [id number] [address] [place] [address], [place] [address] Feb, [facility] [address] [id number] [address] [place] [address], [place] [address] Jan, [facility] [address] [id number] [address] [place] [address], [place] [address] Jan, [facility] [address] [id number] [address] [place] [address], [place] [address] Jan, [facility] [address] [id number] [address] [place] [address], [place] [address] Jan, [facility] [address] [id number] [address] [place] [address], [place] [address] Jan, [facility] [address] [id number] [address] [place] [address], [place] [address] Jan, [facility] [address] [id number] [address] [place] [address], [place] [address] Jan, [facility] [address] [id number] [address] [place] [address], [place] [address] Jan, [facility] [address] [id number] [address] [place] [address], [place] [address] Dec, [facility] [address] [id number] [address] [place] [address], [place] [address] Dec, [facility] [address] [id number] [address] [place] [address], [place] [address] Dec, [facility] [address] [id number] [address] [place] [address], [place] [address] Dec, [facility] [address] [id number] [address] [place] [address], [place] [address] Dec, [facility] [address] [id number] [address] [place] [address], [place] [address] Dec, [facility] [address] [id number] [address] [place] [address], [place] [address] Dec, [facility] [address] [id number] [address] [place] [address], [place] [address] Dec, [facility] [address] [id number] [address] [place] [address], [place] [address] Dec, [facility] [address] [id number] [address] [place] [address], [place] [address] Nov, [facility] [address] [id number] [address] [place] [address], [place] [address] Nov, [facility] [address] [id number] [address] [place] [address], [place] [address] Nov, [facility] [address] [id number] [address] [place] [address], [place] [address] Nov, [facility] [address] [id number] [address] [place] [address], [place] [address] Nov, [facility] [address] [id number] [address] [place] [address], [place] [address] Nov, [facility] [address] [id number] [address] [place] [address], [place] [address] Nov, [facility] [address] [id number] [address] [place] [address], [place] [address] Oct, [facility] [address] [id number] [address] [place] [address], [place] [address] Oct, [facility] [address] [id number] [address] [place] [address], [place] [address] Oct, [facility] [address] [id number] [address] [place] [address], [place] [address] Sep, [facility] [address] [id number] [address] [place] [address], [place] [address] Sep, [facility] [address] [id number] [address] [place] [address], [place] [address] Sep, [facility] [address] [id number] [address] [place] [address], [place] [address] Sep, [facility] [address] [id number] [address] [place] [address], [place] [address] Sep, [facility] [address] [id number] [address] [place] [address], [place] [address] Sep, [facility] [address] [id number] [address] [place] [address], [place] [address] Sep, [facility] [address] [id number] [address] [place] [address], [place] [address] Sep, [facility] [address] [id number] [address] [place] [address], [place] [address] Sep, [facility] [address] [id number] [address] [place] [address], [place] [address] Sep, [facility] [address] [id number] [address] [place] [address], [place] [address] Aug, [facility] [address] [id number] [address] [place] [address], [place] [address] Aug, [facility] [address] [id number] [address] [place] [address], [place] [address] Aug, [facility] [address] [id number] [address] [place] [address], [place] [address] Jul, [facility] [address] [id number] [address] [place] [address], [place] [address] June, [facility] [address] [id number] [address] [place] [address], [place] [address] May, [facility] [address] [id number] [address] [place] [address], [place] [address] May, [facility] [address] [id number] [address] [place] [address], [place] [address] Apr, [facility] [address] [id number] [address] [place] [address] 07 Apr, 2012 [facility] [address] [facility] [place] [id number] [address] [place] [address] Apr, [facility] [address] [facility] [place] [id number] [address] [place] [address] Mar, [facility] [address] [facility] [place] [id number] [address] [place] [address] 14 Mar, 2012 [facility] [address] [facility] [place] [id number] [address] [place] [address] Mar, [facility] [address] [facility] [place] [id number] [address] [place] [id number] 05 Mar, 2012 [facility] [address] [facility] [place] [id number] [address] [place] [address] Mar, [facility] [address] [facility] [place] [id number] [address] [place] [address] Mar, IMMUNIZATIONS No Known Immunizations SOCIAL HISTORY Never Assessed REASON FOR VISIT PLAN OF CARE VITAL SIGNS Height 72 in 2012-12-21 Weight 228 lbs 2012-12-21 Temperature 98.1 degrees Fahrenheit 2012-12-21 Heart Rate 94 bpm 2012-12-21 Respiratory Rate 18 2012-12-21 Blood pressure systolic 138 mmHg 2012-12-21 Blood pressure diastolic 76 mmHg 2012-12-21 MEDICATIONS Unknown Medications RESULTS No Results PROCEDURES No Known procedures INSTRUCTIONS MEDICATIONS ADMINISTERED No Known Medications
--- OUTSIDE RECORDS SUMMARY | 2019-09-24 12:46 | XMS REPORT ---
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 Active 44573 006 Problem Altered mental status 780.97 Active 522218470 Problem Pain in joint, shoulder region 719.41 Active 689899225 Problem Complete rupture of rotator cuff 727.61 Active 061093459 Problem Acute upper respiratory infections of unspecified site 465.9 Active 48846638 Problem Other testicular hypofunction 257.2 Active 460265693 Problem Pain in joint, lower leg 719.46 Activ e 151485652 Problem Osteoarthritis of right knee 715.96 A ctive 310780430 Problem Unspecified myalgia and myositis 729.1 Active 680287566 Problem Acute sinusitis, unspecified 461.9 A ctive 86151114 Problem Essential hypertension, benign 401.1 Active 8233992 Problem Other and unspecified hyperlipidemia 272.4 Active 16329147 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 [address] [facility] [id number] [address] [place] [address] Aug, [facility] [address] [facility] [id number] [address] [place] [address] Jul, Osteoarthritis of right knee 715.96 [facility] [address] [facility] [id number] [address] [place] [address] Jul, [facility] [address] [facility] [id number] [address] [place] [address] June, Osteoarthritis of right knee 715.96 [facility] [address] [id number] [address] [place] [address] June, Osteoarthritis of right knee 715.96 [facility] [address] [id number] [address] [place] [address] May, [facility] [address] [id number] [address] [place] [address] May, [facility] [address] [id number] [address] [place] [address] Mar, [facility] [address] [id number] [address] [place] [address] Mar, [facility] [address] [id number] [address] [place] [address] Mar, [facility] [address] [id number] [address] [place] [address] Mar, [facility] [address] [id number] [address] [place] [address] Feb, [facility] [address] [id number] [address] [place] [address] Feb, [facility] [address] [id number] [address] [place] [address] Jan, [facility] [address] [id number] [address] [place] [address] Jan, [facility] [address] [id number] [address] [place] [address] Oct, [facility] [address] [id number] [address] [place] [address] Sep, [facility] [address] [id number] [address] [place] [address] Sep, [facility] [address] [id number] [address] [place] [address] Aug, [facility] [address] [id number] [address] [place] [address], [place] [address] Aug, [facility] [address] [id number] [address] [place] [address], [place] [address] June, [facility] [address] [id number] [address] [place] [address], [place] [address] June, [facility] [address] [id number] [address] [place] [address], [place] [address] June, [facility] [address] [id number] [address] [place] [address], [place] [address] June, [facility] [address] [id number] [address] [place] [address], [place] [address] May, [facility] [address] [id number] [address] [place] [address], [place] [address] May, [facility] [address] [id number] [address] [place] [address], [place] [address] May, [facility] [address] [id number] [address] [place] [address], [place] [address] May, [facility] [address] [id number] [address] [place] [address], [place] [address] Apr, [facility] [address] [id number] [address] [place] [address], [place] [address] Apr, [facility] [address] [id number] [address] [place] [address], [place] [address] Mar, [facility] [address] [id number] [address] [place] [address], [place] [address] Mar, [facility] [address] [id number] [address] [place] [address], [place] [address] Feb, [facility] [address] [id number] [address] [place] [address], [place] [address] Feb, [facility] [address] [id number] [address] [place] [address] Feb, [facility] [address] [id number] [address] [place] [address], [place] [address] Feb, [facility] [address] [id number] [address] [place] [address], [place] [address] Jan, [facility] [address] [id number] [address] [place] [address], [place] [address] Jan, [facility] [address] [id number] [address] [place] [address], [place] [address] Jan, [facility] [address] [id number] [address] [place] [address], [place] [address] Jan, [facility] [address] [id number] [address] [place] [address], [place] [address] Jan, [facility] [address] [id number] [address] [place] [address], [place] [address] Jan, [facility] [address] [id number] [address] [place] [address], [place] [address] Jan, [facility] [address] [id number] [address] [place] [address], [place] [address] Jan, [facility] [address] [id number] [address] [place] [address], [place] [address] Dec, [facility] [address] [id number] [address] [place] [address], [place] [address] Dec, [facility] [address] [id number] [address] [place] [address], [place] [address] Dec, [facility] [address] [id number] [address] [place] [address], [place] [address] Dec, [facility] [address] [id number] [address] [place] [address], [place] [address] Dec, [facility] [address] [id number] [address] [place] [address], [place] [address] Dec, [facility] [address] [id number] [address] [place] [address], [place] [address] Dec, [facility] [address] [id number] [address] [place] [address], [place] [address] Dec, [facility] [address] [id number] [address] [place] [address], [place] [address] Dec, [facility] [address] [id number] [address] [place] [address], [place] [address] Nov, [facility] [address] [id number] [address] [place] [address], [place] [address] Nov, [facility] [address] [id number] [address] [place] [address], [place] [address] Nov, [facility] [address] [id number] [address] [place] [address], [place] [address] Nov, [facility] [address] [id number] [address] [place] [address], [place] [address] Nov, [facility] [address] [id number] [address] [place] [address], [place] [address] Nov, [facility] [address] [id number] [address] [place] [address], [place] [address] Nov, [facility] [address] [id number] [address] [place] [address], [place] [address] Oct, [facility] [address] [id number] [address] [place] [address], [place] [address] Oct, [facility] [address] [id number] [address] [place] [address], [place] [address] Oct, [facility] [address] [id number] [address] [place] [address], [place] [address] Sep, [facility] [address] [id number] [address] [place] [address], [place] [address] Sep, [facility] [address] [id number] [address] [place] [address], [place] [address] Sep, [facility] [address] [id number] [address] [place] [address], [place] [address] Sep, [facility] [address] [id number] [address] [place] [address], [place] [address] Sep, [facility] [address] [id number] [address] [place] [address], [place] [address] Sep, [facility] [address] [id number] [address] [place] [address], [place] [address] Sep, [facility] [address] [id number] [address] [place] [address], [place] [address] Sep, [facility] [address] [id number] [address] [place] [address], [place] [address] Sep, [facility] [address] [id number] [address] [place] [address], [place] [address] Sep, [facility] [address] [id number] [address] [place] [address], [place] [address] Aug, [facility] [address] [id number] [address] [place] [address], [place] [address] Aug, [facility] [address] [id number] [address] [place] [address], [place] [address] Aug, [facility] [address] [id number] [address] [place] [address], [place] [address] Jul, [facility] [address] [id number] [address] [place] [address], [place] [address] June, [facility] [address] [id number] [address] [place] [address], [place] [address] May, [facility] [address] [id number] [address] [place] [address], [place] [address] May, [facility] [address] [id number] [address] [place] [address], [place] [address] Apr, [facility] [address] [id number] [address] [place] [address] Apr, [facility] [address] [facility] [id number] [address] [place] [address] Apr, [facility] [address] [facility] [id number] [address] [place] [address] Mar, [facility] [address] [facility] [id number] [address] [place] [address] Mar, [facility] [address] [facility] [id number] [address] [place] [address] Mar, [facility] [address] [facility] [id number] [address] [place] [address] 05 Mar, 2012 [facility] [address] [facility] [id number] [address] [place] [address] 04 Mar, 2012 [facility] [address] [facility] [id number] [address] [place] [address] Mar, IMMUNIZATIONS No Known Immunizations SOCIAL HISTORY Never Assessed REASON FOR VISIT PLAN OF CARE VITAL SIGNS MEDICATIONS Unknown Medications RESULTS No Results PROCEDURES No Known procedures INSTRUCTIONS MEDICATIONS ADMINISTERED No Known Medications
--- OUTSIDE RECORDS SUMMARY | 2019-09-24 12:46 | XMS REPORT ---
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 Active 71882 006 Problem Altered mental status 780.97 Active 449790208 Problem Pain in joint, shoulder region 719.41 Active 731179131 Problem Complete rupture of rotator cuff 727.61 Active 488123900 Problem Acute upper respiratory infections of unspecified site 465.9 Active 46689815 Problem Other testicular hypofunction 257.2 Active 992888772 Problem Pain in joint, lower leg 719.46 Activ e 939489111 Problem Osteoarthritis of right knee 715.96 A ctive 423536240 Problem Unspecified myalgia and myositis 729.1 Active 767441941 Problem Acute sinusitis, unspecified 461.9 A ctive 98447640 Problem Essential hypertension, benign 401.1 Active 2745505 Problem Other and unspecified hyperlipidemia 272.4 Active 26187436 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 96096990 ALLERGIES No Information ENCOUNTERS Encounter Location Date Diagnosis [facility] [address] [facility] [id number] [address] [place] [id number] Aug, [facility] [address] [facility] [id number] [address] [place] [phone] Jul, Osteoarthritis of right knee 715.96 [facility] [address] [facility] [id number] [address] [place] [id number] Jul, [facility] [address] [id number] [address] [place] [id number] June, Osteoarthritis of right knee 715.96 [facility] [address] [id number] [address] [place] [id number] June, Osteoarthritis of right knee 715.96 [facility] [address] [id number] [address] [place] [id number] May, [facility] [address] [id number] [address] [place] [phone] May, [facility] [address] [id number] [address] [place] [phone] Mar, [facility] [address] [id number] [address] [place] [phone] Mar, [facility] [address] [id number] [address] [place] [phone] Mar, [facility] [address] [id number] [address] [place] [phone] Mar, [facility] [address] [id number] [address] [place] [phone] Feb, [facility] [address] [id number] [address] [place] [phone] Feb, [facility] [address] [id number] [address] [place] [phone] Jan, [facility] [address] [id number] [address] [place] [phone] Jan, [facility] [address] [id number] [address] [place] [phone] Oct, [facility] [address] [id number] [address] [place] [phone] Sep, [facility] [address] [id number] [address] [place] [phone] Sep, [facility] [address] [id number] [address] [place] [address], [place] [address] Aug, [facility] [address] [id number] [address] [place] [address], [place] [id number] Aug, [facility] [address] [id number] [address] [place] [address], [place] [address] June, [facility] [address] [id number] [address] [place] [address], [place] [address] June, [facility] [address] [id number] [address] [place] [address], [place] [address] June, [facility] [address] [id number] [address] [place] [address], [place] [id number] June, [facility] [address] [id number] [address] [place] [address], [place] [address] May, [facility] [address] [id number] [address] [place] [address], [place] [address] May, [facility] [address] [id number] [address] [place] [address], [place] [address] May, [facility] [address] [id number] [address] [place] [address], [place] [address] May, [facility] [address] [id number] [address] [place] [address], [place] [address] Apr, [facility] [address] [id number] [address] [place] [address], [place] [address] Apr, [facility] [address] [id number] [address] [place] [address], [place] [id number] Mar, [facility] [address] [id number] [address] [place] [address], [place] [address] Mar, [facility] [address] [id number] [address] [place] [address], [place] [address] Feb, [facility] [address] [id number] [address] [place] [address], [place] [address] Feb, [facility] [address] [id number] [address] [place] [address], [place] [address] Feb, [facility] [address] [id number] [address] [place] [address], [place] [address] Feb, [facility] [address] [id number] [address] [place] [address], [place] [address] Jan, [facility] [address] [id number] [address] [place] [address], [place] [address] Jan, [facility] [address] [id number] [address] [place] [address], [place] [phone] Jan, [facility] [address] [id number] [address] [place] [address], [place] [address] Jan, [facility] [address] [id number] [address] [place] [address], [place] [address] Jan, [facility] [address] [id number] [address] [place] [address], [place] [address] Jan, [facility] [address] [id number] [address] [place] [address], [place] [address] Jan, [facility] [address] [id number] [address] [place] [address], [place] [address] Jan, [facility] [address] [id number] [address] [place] [phone] Dec, [facility] [address] [id number] [address] [place] [phone] Dec, [facility] [address] [id number] [address] [place] [address], [place] [address] Dec, [facility] [address] [id number] [address] [place] [address], [place] [address] Dec, [facility] [address] [id number] [address] [place] [address], [place] [address] Dec, [facility] [address] [id number] [address] [place] [phone] Dec, [facility] [address] [id number] [address] [place] [address], [place] [address] Dec, [facility] [address] [id number] [address] [place] [phone] Dec, [facility] [address] [id number] [address] [place] [address], [place] [address] Dec, [facility] [address] [id number] [address] [place] [address], [place] [address] Nov, [facility] [address] [id number] [address] [place] [address], [place] [address] Nov, [facility] [address] [id number] [address] [place] [address], [place] [address] Nov, [facility] [address] [id number] [address] [place] [phone] Nov, [facility] [address] [id number] [address] [place] [address], [place] [address] Nov, [facility] [address] [id number] [address] [place] [address], [place] [address] Nov, [facility] [address] [id number] [address] [place] [phone] Nov, [facility] [address] [id number] [address] [place] [address], [place] [address] Oct, [facility] [address] [id number] [address] [place] [phone] Oct, [facility] [address] [id number] [address] [place] [phone] Oct, [facility] [address] [id number] [address] [place] [phone] Sep, [facility] [address] [id number] [address] [place] [phone] Sep, [facility] [address] [id number] [address] [place] [address], [place] [id number] 18 Sep, 2012 [facility] [address] [id number] [address] [place] [address], [place] [address] Sep, [facility] [address] [id number] [address] [place] [address], [place] [address] Sep, [facility] [address] [id number] [address] [place] [address], [place] [address] Sep, [facility] [address] [id number] [address] [place] [address], [place] [address] Sep, [facility] [address] [id number] [address] [place] [address], [place] [address] Sep, [facility] [address] [id number] [address] [place] [address], [place] [address] Sep, [facility] [address] [id number] [address] [place] [address], [place] [address] Sep, [facility] [address] [id number] [address] [place] [address], [place] [address] Aug, [facility] [address] [id number] [address] [place] [address], [place] [address] Aug, [facility] [address] [id number] [address] [place] [address], [place] [address] Aug, [facility] [address] [id number] [address] [place] [address], [place] [address] Jul, [facility] [address] [id number] [address] [place] [address], [place] [address] June, [facility] [address] [id number] [address] [place] [address], [place] [address] 17 May, 2012 [facility] [address] [id number] [address] [place] [address], [place] [address] May, [facility] [address] [id number] [address] [place] [address] [address] Apr, [facility] [address] [facility] [id number] [address] [place] [place] [phone] Apr, [facility] [address] [facility] [id number] [address] [place] [phone] Apr, [facility] [address] [facility] [id number] [address] [place] [phone] Mar, [facility] [address] [facility] [id number] [address] [place] [id number] Mar, [facility] [address] [facility] [id number] [address] [place] [phone] Mar, [facility] [address] [facility] [id number] [address] [place] [phone] 05 Mar, 2012 [facility] [address] [facility] [id number] [address] [place] [id number] Mar, [facility] [address] [facility] [id number] [address] [place] [phone] Mar, IMMUNIZATIONS No Known Immunizations SOCIAL HISTORY Never Assessed REASON FOR VISIT PLAN OF CARE VITAL SIGNS MEDICATIONS Unknown Medications RESULTS No Results PROCEDURES Procedure Date Ordered Result Body Site X-RAY EXAM OF KNEE, 1 OR 2 Jan 20, 2013 INSTRUCTIONS MEDICATIONS ADMINISTERED No Known Medications
--- OUTSIDE RECORDS SUMMARY | 2019-09-24 12:47 | XMS REPORT ---
Author Author Omer ISAAC Organization 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 Active 92544 006 Problem Altered mental status 780.97 Active 074488078 Problem Pain in joint, shoulder region 719.41 Active 012155090 Problem Complete rupture of rotator cuff 727.61 Active 331790370 Problem Acute upper respiratory infections of unspecified site 465.9 Active 32481409 Problem Other testicular hypofunction 257.2 Active 750186642 Problem Pain in joint, lower leg 719.46 Activ e 309461199 Problem Osteoarthritis of right knee 715.96 A ctive 235596736 Problem Unspecified myalgia and myositis 729.1 Active 797292746 Problem Acute sinusitis, unspecified 461.9 A ctive 28043167 Problem Essential hypertension, benign 401.1 Active 5865438 Problem Other and unspecified hyperlipidemia 272.4 Active 68996583 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 [address] [facility] [id number] [address] [place] [phone] Aug, [facility] [address] [facility] [id number] [address] [place] [id number] Jul, Osteoarthritis of right knee 715.96 [facility] [address] [facility] [id number] [address] [place] [id number] Jul, [facility] [address] [id number] [address] [place] [phone] June, Osteoarthritis of right knee 715.96 [facility] [address] [id number] [address] [place] [phone] June, Osteoarthritis of right knee 715.96 [facility] [address] [id number] [address] [place] [phone] May, [facility] [address] [id number] [address] [place] [phone] May, [facility] [address] [id number] [address] [place] [phone] Mar, [facility] [address] [id number] [address] [place] [phone] Mar, [facility] [address] [id number] [address] [place] [phone] Mar, [facility] [address] [id number] [address] [place] [phone] Mar, [facility] [address] [id number] [address] [place] [phone] Feb, [facility] [address] [id number] [address] [place] [phone] Feb, [facility] [address] [id number] [address] [place] [phone] Jan, [facility] [address] [id number] [address] [place] [phone] Jan, [facility] [address] [id number] [address] [place] [phone] Oct, [facility] [address] [id number] [address] [place] [phone] Sep, [facility] [address] [id number] [address] [place] [phone] Sep, [facility] [address] [id number] [address] [place] [address], [place] [address] Aug, [facility] [address] [id number] [address] [place] [address], [place] [address] Aug, [facility] [address] [id number] [address] [place] [address], [place] [address] June, [facility] [address] [id number] [address] [place] [address], [place] [address] June, [facility] [address] [id number] [address] [place] [address], [place] [address] June, [facility] [address] [id number] [address] [place] [address], [place] [address] June, [facility] [address] [id number] [address] [place] [address], [place] [address] May, [facility] [address] [id number] [address] [place] [address], [place] [address] May, [facility] [address] [id number] [address] [place] [address], [place] [address] May, [facility] [address] [id number] [address] [place] [address], [place] [address] May, [facility] [address] [id number] [address] [place] [address], [place] [address] Apr, [facility] [address] [id number] [address] [place] [address], [place] [address] Apr, [facility] [address] [id number] [address] [place] [address], [place] [address] Mar, [facility] [address] [id number] [address] [place] [address], [place] [address] Mar, [facility] [address] [id number] [address] [place] [address], [place] [address] Feb, [facility] [address] [id number] [address] [place] [address], [place] [address] Feb, [facility] [address] [id number] [address] [place] [address], [place] [address] Feb, [facility] [address] [id number] [address] [place] [address], [place] [address] Feb, [facility] [address] [id number] [address] [place] [address], [place] [address] Jan, [facility] [address] [id number] [address] [place] [address], [place] [address] Jan, [facility] [address] [id number] [address] [place] [address], [place] [address] Jan, [facility] [address] [id number] [address] [place] [address], [place] [address] Jan, [facility] [address] [id number] [address] [place] [address], [place] [address] Jan, [facility] [address] [id number] [address] [place] [address], [place] [address] Jan, [facility] [address] [id number] [address] [place] [address], [place] [address] Jan, [facility] [address] [id number] [address] [place] [address], [place] [address] Jan, [facility] [address] [id number] [address] [place] [phone] Dec, [facility] [address] [id number] [address] [place] [id number] Dec, [facility] [address] [id number] [address] [place] [address], [place] [address] Dec, [facility] [address] [id number] [address] [place] [address], [place] [address] Dec, [facility] [address] [id number] [address] [place] [address], [place] [address] Dec, [facility] [address] [id number] [address] [place] [phone] Dec, [facility] [address] [id number] [address] [place] [address], [place] [address] Dec, [facility] [address] [id number] [address] [place] [phone] Dec, [facility] [address] [id number] [address] [place] [address], [place] [address] Dec, [facility] [address] [id number] [address] [place] [address], [place] [address] Nov, [facility] [address] [id number] [address] [place] [address], [place] [address] Nov, [facility] [address] [id number] [address] [place] [address], [place] [address] Nov, [facility] [address] [id number] [address] [place] [phone] Nov, [facility] [address] [id number] [address] [place] [address], [place] [address] Nov, [facility] [address] [id number] [address] [place] [address], [place] [address] Nov, [facility] [address] [id number] [address] [place] [phone] Nov, [facility] [address] [id number] [address] [place] [address], [place] [address] Oct, [facility] [address] [id number] [address] [place] [phone] Oct, [facility] [address] [id number] [address] [place] [phone] Oct, [facility] [address] [id number] [address] [place] [phone] Sep, [facility] [address] [id number] [address] [place] [phone] Sep, [facility] [address] [id number] [address] [place] [address], [place] [address] 18 Sep, 2012 [facility] [address] [id number] [address] [place] [address], [place] [address] Sep, [facility] [address] [id number] [address] [place] [address], [place] [address] Sep, [facility] [address] [id number] [address] [place] [address], [place] [address] Sep, [facility] [address] [id number] [address] [place] [address], [place] [address] Sep, [facility] [address] [id number] [address] [place] [address], [place] [address] Sep, [facility] [address] [id number] [address] [place] [address], [place] [address] Sep, [facility] [address] [id number] [address] [place] [address], [place] [address] Sep, [facility] [address] [id number] [address] [place] [address], [place] [address] Aug, [facility] [address] [id number] [address] [place] [address], [place] [address] Aug, [facility] [address] [id number] [address] [place] [address], [place] [address] Aug, [facility] [address] [id number] [address] [place] [address], [place] [address] Jul, [facility] [address] [id number] [address] [place] [address], [place] [address] June, [facility] [address] [id number] [address] [place] [address], [place] [address] 17 May, 2012 [facility] [address] [id number] [address] [place] [address], [place] [address] May, [facility] [address] [id number] [address] [place] [address] [address] Apr, [facility] [address] [facility] [id number] [address] [place] [phone] Apr, [facility] [address] [facility] [id number] [address] [place] [phone] Apr, [facility] [address] [facility] [id number] [address] [place] [phone] Mar, [facility] [address] [facility] [id number] [address] [place] [phone] Mar, [facility] [address] [facility] [id number] [address] [place] [id number] Mar, [facility] [address] [facility] [id number] [address] [place] [id number] [address], [address] [facility] [address] [facility] [id number] [address] [place] [phone] Mar, [facility] [address] [facility] [id number] [address] [place] [id number] Mar, IMMUNIZATIONS No Known Immunizations SOCIAL HISTORY Never Assessed REASON FOR VISIT PLAN OF CARE VITAL SIGNS MEDICATIONS Unknown Medications RESULTS No Results PROCEDURES No Known procedures INSTRUCTIONS MEDICATIONS ADMINISTERED No Known Medications
--- OUTSIDE RECORDS SUMMARY | 2019-09-24 12:47 | XMS REPORT ---
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 Active 98747 006 Problem Altered mental status 780.97 Active 377510166 Problem Pain in joint, shoulder region 719.41 Active 651022132 Problem Complete rupture of rotator cuff 727.61 Active 182926149 Problem Acute upper respiratory infections of unspecified site 465.9 Active 16451562 Problem Other testicular hypofunction 257.2 Active 225685697 Problem Pain in joint, lower leg 719.46 Activ e 777904411 Problem Osteoarthritis of right knee 715.96 A ctive 125002716 Problem Unspecified myalgia and myositis 729.1 Active 512954325 Problem Acute sinusitis, unspecified 461.9 A ctive 21373825 Problem Essential hypertension, benign 401.1 Active 9355019 Problem Other and unspecified hyperlipidemia 272.4 Active 17973634 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 [address] [id number] [address] [place] [id number] June, Osteoarthritis of right knee 715.96 [facility] [address] [id number] [address] [place] [phone] May, [facility] [address] [id number] [address] [place] [id number] May, [facility] [address] [id number] [address] [place] [id number] Mar, [facility] [address] [id number] [address] [place] [phone] Mar, [facility] [address] [id number] [address] [place] [phone] Mar, [facility] [address] [id number] [address] [place] [phone] Mar, [facility] [address] [id number] [address] [place] [id number] Feb, [facility] [address] [id number] [address] [place] [id number] Feb, [facility] [address] [id number] [address] [place] [id number] Jan, [facility] [address] [id number] [address] [place] [phone] Jan, [facility] [address] [id number] [address] [place] [id number] Oct, [facility] [address] [id number] [address] [place] [phone] Sep, [facility] [address] [id number] [address] [place] [id number] Sep, [facility] [address] [id number] [address] [place] [id number] Aug, [facility] [address] [id number] [address] [place] [address], [place] [id number] Aug, [facility] [address] [id number] [address] [place] [address], [place] [id number] June, [facility] [address] [id number] [address] [place] [address], [place] [id number] June, [facility] [address] [id number] [address] [place] [address], [place] [id number] June, [facility] [address] [id number] [address] [place] [address], [place] [id number] June, [facility] [address] [id number] [address] [place] [address], [place] [id number] May, [facility] [address] [id number] [address] [place] [address], [place] [id number] May, [facility] [address] [id number] [address] [place] [address], [place] [id number] May, [facility] [address] [id number] [address] [place] [address], [place] [id number] May, [facility] [address] [id number] [address] [place] [address], [place] [id number] Apr, [facility] [address] [id number] [address] [place] [address], [place] [id number] Apr, [facility] [address] [id number] [address] [place] [address], [place] [id number] Mar, [facility] [address] [id number] [address] [place] [address], [place] [id number] Mar, [facility] [address] [id number] [address] [place] [address], [place] [id number] Feb, [facility] [address] [id number] [address] [place] [address], [place] [id number] Feb, [facility] [address] [id number] [address] [place] [id number] Feb, [facility] [address] [id number] [address] [place] [address], [place] [id number] Feb, [facility] [address] [id number] [address] [place] [address], [place] [id number] Jan, [facility] [address] [id number] [address] [place] [address], [place] [id number] Jan, [facility] [address] [id number] [address] [place] [address], [place] [id number] Jan, [facility] [address] [id number] [address] [place] [address], [place] [id number] Jan, [facility] [address] [id number] [address] [place] [address], [place] [id number] Jan, [facility] [address] [id number] [address] [place] [address], [place] [id number] Jan, [facility] [address] [id number] [address] [place] [address], [place] [id number] Jan, [facility] [address] [id number] [address] [place] [address], [place] [id number] Jan, [facility] [address] [id number] [address] [place] [address], [place] [id number] Dec, [facility] [address] [id number] [address] [place] [address], [place] [id number] Dec, [facility] [address] [id number] [address] [place] [address], [place] [id number] Dec, [facility] [address] [id number] [address] [place] [address], [place] [id number] Dec, [facility] [address] [id number] [address] [place] [address], [place] [id number] Dec, [facility] [address] [id number] [address] [place] [address], [place] [id number] Dec, [facility] [address] [id number] [address] [place] [address], [place] [id number] Dec, [facility] [address] [id number] [address] [place] [address], [place] [id number] Dec, [facility] [address] [id number] [address] [place] [address], [place] [id number] Dec, [facility] [address] [id number] [address] [place] [address], [place] [id number] Nov, [facility] [address] [id number] [address] [place] [address], [place] [id number] Nov, [facility] [address] [id number] [address] [place] [address], [place] [id number] Nov, [facility] [address] [id number] [address] [place] [address], [place] [id number] Nov, [facility] [address] [id number] [address] [place] [address], [place] [id number] Nov, [facility] [address] [id number] [address] [place] [address], [place] [id number] Nov, [facility] [address] [id number] [address] [place] [address], [place] [id number] Nov, [facility] [address] [id number] [address] [place] [address], [place] [id number] Oct, [facility] [address] [id number] [address] [place] [address], [place] [id number] Oct, [facility] [address] [id number] [address] [place] [address], [place] [id number] Oct, [facility] [address] [id number] [address] [place] [address], [place] [id number] Sep, [facility] [address] [id number] [address] [place] [address], [place] [id number] Sep, [facility] [address] [id number] [address] [place] [address], [place] [id number] Sep, [facility] [address] [id number] [address] [place] [address], [place] [id number] Sep, [facility] [address] [id number] [address] [place] [address], [place] [id number] Sep, [facility] [address] [id number] [address] [place] [address], [place] [id number] Sep, [facility] [address] [id number] [address] [place] [address], [place] [id number] Sep, [facility] [address] [id number] [address] [place] [address], [place] [id number] Sep, [facility] [address] [id number] [address] [place] [address], [place] [id number] Sep, [facility] [address] [id number] [address] [place] [address], [place] [id number] Sep, [facility] [address] [id number] [address] [place] [address], [place] [id number] Aug, [facility] [address] [id number] [address] [place] [address], [place] [id number] Aug, [facility] [address] [id number] [address] [place] [address], [place] [id number] Aug, [facility] [address] [id number] [address] [place] [address], [place] [id number] Jul, [facility] [address] [id number] [address] [place] [address], [place] [id number] June, [facility] [address] [id number] [address] [place] [address], [place] [id number] May, [facility] [address] [id number] [address] [place] [address], [place] [id number] May, [facility] [address] [id number] [address] [place] [address], [place] [id number] Apr, [facility] [address] [id number] [address] [place] [phone] Apr, [facility] [address] [facility] [id number] [address] [place] [id number] Apr, [facility] [address] [facility] [id number] [address] [place] [id number] Mar, [facility] [address] [facility] [id number] [address] [place] [id number] Mar, [facility] [address] [facility] [id number] [address] [place] [id number] Mar, [facility] [address] [facility] [id number] [address] [place] [id number] 05 Mar, 2012 [facility] [address] [facility] [id number] [address] [place] [id number] 04 Mar, 2012 [facility] [address] [facility] [id number] [address] [place] [id number] Mar, IMMUNIZATIONS No Known Immunizations SOCIAL HISTORY Never Assessed REASON FOR VISIT PLAN OF CARE VITAL SIGNS MEDICATIONS Unknown Medications RESULTS No Results PROCEDURES No Known procedures INSTRUCTIONS MEDICATIONS ADMINISTERED No Known Medications
--- OUTSIDE RECORDS SUMMARY | 2019-09-24 12:47 | XMS REPORT ---
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 Active 93893 006 Problem Altered mental status 780.97 Active 186913707 Problem Pain in joint, shoulder region 719.41 Active 704205126 Problem Complete rupture of rotator cuff 727.61 Active 064596165 Problem Acute upper respiratory infections of unspecified site 465.9 Active 32469153 Problem Other testicular hypofunction 257.2 Active 136111075 Problem Pain in joint, lower leg 719.46 Activ e 643790712 Problem Osteoarthritis of right knee 715.96 A ctive 641461046 Problem Unspecified myalgia and myositis 729.1 Active 525714142 Problem Acute sinusitis, unspecified 461.9 A ctive 06766041 Problem Essential hypertension, benign 401.1 Active 7039726 Problem Other and unspecified hyperlipidemia 272.4 Active 36306044 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 71706640 ALLERGIES No Information ENCOUNTERS Encounter Location Date Diagnosis [facility] [address] [facility] [id number] [address] [place] [id number] Aug, [facility] [address] [facility] [id number] [address] [place] [address] Jul, Osteoarthritis of right knee 715.96 [facility] [address] [facility] [id number] [address] [place] [address] Jul, [facility] [address] [facility] [id number] [address] [place] [address] June, Osteoarthritis of right knee 715.96 [facility] [address] [id number] [address] [place] [address] June, Osteoarthritis of right knee 715.96 [facility] [address] [id number] [address] [place] [address] May, [facility] [address] [id number] [address] [place] [address] May, [facility] [address] [id number] [address] [place] [phone] Mar, [facility] [address] [id number] [address] [place] [address] Mar, [facility] [address] [id number] [address] [place] [phone] Mar, [facility] [address] [id number] [address] [place] [phone] Mar, [facility] [address] [id number] [address] [place] [address] Feb, [facility] [address] [id number] [address] [place] [address] Feb, [facility] [address] [id number] [address] [place] [address] Jan, [facility] [address] [id number] [address] [place] [phone] Jan, [facility] [address] [id number] [address] [place] [id number] Oct, [facility] [address] [id number] [address] [place] [id number] Sep, [facility] [address] [id number] [address] [place] [phone] Sep, [facility] [address] [id number] [address] [place] [phone] Aug, [facility] [address] [id number] [address] [place] [address], [place] [address] Aug, [facility] [address] [id number] [address] [place] [address], [place] [address] June, [facility] [address] [id number] [address] [place] [address], [place] [address] June, [facility] [address] [id number] [address] [place] [address], [place] [address] June, [facility] [address] [id number] [address] [place] [address], [place] [address] June, [facility] [address] [id number] [address] [place] [address], [place] [address] May, [facility] [address] [id number] [address] [place] [address], [place] [address] May, [facility] [address] [id number] [address] [place] [address], [place] [address] May, [facility] [address] [id number] [address] [place] [address], [place] [address] May, [facility] [address] [id number] [address] [place] [address], [place] [address] Apr, [facility] [address] [id number] [address] [place] [address], [place] [address] Apr, [facility] [address] [id number] [address] [place] [address], [place] [address] Mar, [facility] [address] [id number] [address] [place] [address], [place] [address] Mar, [facility] [address] [id number] [address] [place] [address], [place] [address] Feb, [facility] [address] [id number] [address] [place] [address], [place] [address] Feb, [facility] [address] [id number] [address] [place] [phone] Feb, [facility] [address] [id number] [address] [place] [address], [place] [address] Feb, [facility] [address] [id number] [address] [place] [address], [place] [address] Jan, [facility] [address] [id number] [address] [place] [address], [place] [address] Jan, [facility] [address] [id number] [address] [place] [address], [place] [address] Jan, [facility] [address] [id number] [address] [place] [address], [place] [address] Jan, [facility] [address] [id number] [address] [place] [address], [place] [address] Jan, [facility] [address] [id number] [address] [place] [address], [place] [address] Jan, [facility] [address] [id number] [address] [place] [address], [place] [address] Jan, [facility] [address] [id number] [address] [place] [address], [place] [address] Jan, [facility] [address] [id number] [address] [place] [address], [place] [address] Dec, [facility] [address] [id number] [address] [place] [address], [place] [address] Dec, [facility] [address] [id number] [address] [place] [address], [place] [address] Dec, [facility] [address] [id number] [address] [place] [address], [place] [address] Dec, [facility] [address] [id number] [address] [place] [address], [place] [address] Dec, [facility] [address] [id number] [address] [place] [address], [place] [address] Dec, [facility] [address] [id number] [address] [place] [address], [place] [address] Dec, [facility] [address] [id number] [address] [place] [address], [place] [address] Dec, [facility] [address] [id number] [address] [place] [address], [place] [address] Dec, [facility] [address] [id number] [address] [place] [address], [place] [address] Nov, [facility] [address] [id number] [address] [place] [address], [place] [address] Nov, [facility] [address] [id number] [address] [place] [address], [place] [address] Nov, [facility] [address] [id number] [address] [place] [address], [place] [address] Nov, [facility] [address] [id number] [address] [place] [address], [place] [address] Nov, [facility] [address] [id number] [address] [place] [address], [place] [address] Nov, [facility] [address] [id number] [address] [place] [address], [place] [address] Nov, [facility] [address] [id number] [address] [place] [address], [place] [address] Oct, [facility] [address] [id number] [address] [place] [address], [place] [address] Oct, [facility] [address] [id number] [address] [place] [address], [place] [address] Oct, [facility] [address] [id number] [address] [place] [address], [place] [address] Sep, [facility] [address] [id number] [address] [place] [address], [place] [address] Sep, [facility] [address] [id number] [address] [place] [address], [place] [address] Sep, [facility] [address] [id number] [address] [place] [address], [place] [address] Sep, [facility] [address] [id number] [address] [place] [address], [place] [address] Sep, [facility] [address] [id number] [address] [place] [address], [place] [address] Sep, [facility] [address] [id number] [address] [place] [address], [place] [address] Sep, [facility] [address] [id number] [address] [place] [address], [place] [address] Sep, [facility] [address] [id number] [address] [place] [address], [place] [address] Sep, [facility] [address] [id number] [address] [place] [address], [place] [address] Sep, [facility] [address] [id number] [address] [place] [address], [place] [address] Aug, [facility] [address] [id number] [address] [place] [address], [place] [address] Aug, [facility] [address] [id number] [address] [place] [address], [place] [address] Aug, [facility] [address] [id number] [address] [place] [address], [place] [address] Jul, [facility] [address] [id number] [address] [place] [address], [place] [address] June, [facility] [address] [id number] [address] [place] [address], [place] [address] May, [facility] [address] [id number] [address] [place] [address], [place] [address] May, [facility] [address] [id number] [address] [place] [address], [place] [address] Apr, [facility] [address] [id number] [address] [place] [address] Apr, [facility] [address] [facility] [id number] [address] [place] [address] Apr, [facility] [address] [facility] [id number] [address] [place] [address] Mar, [facility] [address] [facility] [id number] [address] [place] [address] Mar, [facility] [address] [facility] [id number] [address] [place] [address] Mar, [facility] [address] [facility] [id number] [address] [place] [id number] 05 Mar, 2012 [facility] [address] [facility] [id number] [address] [place] [id number] 04 Mar, 2012 [facility] [address] [facility] [id number] [address] [place] [address] Mar, IMMUNIZATIONS No Known Immunizations SOCIAL HISTORY Never Assessed REASON FOR VISIT PLAN OF CARE VITAL SIGNS MEDICATIONS Unknown Medications RESULTS No Results PROCEDURES No Known procedures INSTRUCTIONS MEDICATIONS ADMINISTERED No Known Medications
--- OUTSIDE RECORDS SUMMARY | 2019-09-24 12:47 | XMS REPORT ---
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 Active 60475 006 Problem Altered mental status 780.97 Active 580237723 Problem Pain in joint, shoulder region 719.41 Active 030944907 Problem Complete rupture of rotator cuff 727.61 Active 690348884 Problem Acute upper respiratory infections of unspecified site 465.9 Active 05410965 Problem Other testicular hypofunction 257.2 Active 770948250 Problem Pain in joint, lower leg 719.46 Activ e 730389568 Problem Osteoarthritis of right knee 715.96 A ctive 998803668 Problem Unspecified myalgia and myositis 729.1 Active 870506431 Problem Acute sinusitis, unspecified 461.9 A ctive 10126218 Problem Essential hypertension, benign 401.1 Active 5450715 Problem Other and unspecified hyperlipidemia 272.4 Active 47979091 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 37201460 ALLERGIES No Information ENCOUNTERS Encounter Location Date Diagnosis [facility] [address] [facility] [id number] [address] [place] [phone] Aug, [facility] [address] [facility] [id number] [address] [place] [address] Jul, Osteoarthritis of right knee 715.96 [facility] [address] [facility] [id number] [address] [place] [address] Jul, [facility] [address] [id number] [address] [place] [address] June, Osteoarthritis of right knee 715.96 [facility] [address] [id number] [address] [place] [address] June, Osteoarthritis of right knee 715.96 [facility] [address] [id number] [address] [place] [address] May, [facility] [address] [id number] [address] [place] [address] May, [facility] [address] [id number] [address] [place] [phone] Mar, [facility] [address] [id number] [address] [place] [address] Mar, [facility] [address] [id number] [address] [place] [phone] Mar, [facility] [address] [id number] [address] [place] [address] Mar, [facility] [address] [id number] [address] [place] [address] Feb, [facility] [address] [id number] [address] [place] [phone] Feb, [facility] [address] [id number] [address] [place] [address] Jan, [facility] [address] [id number] [address] [place] [address] Jan, [facility] [address] [id number] [address] [place] [address] Oct, [facility] [address] [id number] [address] [place] [address] Sep, [facility] [address] [id number] [address] [place] [phone] Sep, [facility] [address] [id number] [address] [place] [address], [place] [address] Aug, [facility] [address] [id number] [address] [place] [address], [place] [address] Aug, [facility] [address] [id number] [address] [place] [address], [place] [address] June, [facility] [address] [id number] [address] [place] [address], [place] [address] June, [facility] [address] [id number] [address] [place] [address], [place] [address] June, [facility] [address] [id number] [address] [place] [address], [place] [address] June, [facility] [address] [id number] [address] [place] [address], [place] [address] May, [facility] [address] [id number] [address] [place] [address], [place] [address] May, [facility] [address] [id number] [address] [place] [address], [place] [address] May, [facility] [address] [id number] [address] [place] [address], [place] [address] May, [facility] [address] [id number] [address] [place] [address], [place] [address] Apr, [facility] [address] [id number] [address] [place] [address], [place] [address] Apr, [facility] [address] [id number] [address] [place] [address], [place] [address] Mar, [facility] [address] [id number] [address] [place] [address], [place] [address] Mar, [facility] [address] [id number] [address] [place] [address], [place] [address] Feb, [facility] [address] [id number] [address] [place] [address], [place] [address] Feb, [facility] [address] [id number] [address] [place] [address], [place] [address] Feb, [facility] [address] [id number] [address] [place] [address], [place] [address] Feb, [facility] [address] [id number] [address] [place] [address], [place] [address] Jan, [facility] [address] [id number] [address] [place] [address], [place] [address] Jan, [facility] [address] [id number] [address] [place] [address], [place] [address] Jan, [facility] [address] [id number] [address] [place] [address], [place] [address] Jan, [facility] [address] [id number] [address] [place] [address], [place] [address] Jan, [facility] [address] [id number] [address] [place] [address], [place] [address] Jan, [facility] [address] [id number] [address] [place] [address], [place] [address] Jan, [facility] [address] [id number] [address] [place] [address], [place] [address] Jan, [facility] [address] [id number] [address] [place] [address] Dec, [facility] [address] [id number] [address] [place] [address] Dec, [facility] [address] [id number] [address] [place] [address], [place] [address] Dec, [facility] [address] [id number] [address] [place] [address], [place] [address] Dec, [facility] [address] [id number] [address] [place] [address], [place] [address] Dec, [facility] [address] [id number] [address] [place] [address] Dec, [facility] [address] [id number] [address] [place] [address], [place] [address] Dec, [facility] [address] [id number] [address] [place] [address] Dec, [facility] [address] [id number] [address] [place] [address], [place] [address] Dec, [facility] [address] [id number] [address] [place] [address], [place] [address] Nov, [facility] [address] [id number] [address] [place] [address], [place] [address] Nov, [facility] [address] [id number] [address] [place] [address], [place] [address] Nov, [facility] [address] [id number] [address] [place] [address] Nov, [facility] [address] [id number] [address] [place] [address], [place] [address] Nov, [facility] [address] [id number] [address] [place] [address], [place] [address] Nov, [facility] [address] [id number] [address] [place] [address] Nov, [facility] [address] [id number] [address] [place] [address], [place] [address] Oct, [facility] [address] [id number] [address] [place] [address] Oct, [facility] [address] [id number] [address] [place] [address] Oct, [facility] [address] [id number] [address] [place] [address] Sep, [facility] [address] [id number] [address] [place] [address] Sep, [facility] [address] [id number] [address] [place] [address], [place] [address] 18 Sep, 2012 [facility] [address] [id number] [address] [place] [address], [place] [address] Sep, [facility] [address] [id number] [address] [place] [address], [place] [address] Sep, [facility] [address] [id number] [address] [place] [address], [place] [address] Sep, [facility] [address] [id number] [address] [place] [address], [place] [address] Sep, [facility] [address] [id number] [address] [place] [address], [place] [address] Sep, [facility] [address] [id number] [address] [place] [address], [place] [address] Sep, [facility] [address] [id number] [address] [place] [address], [place] [address] Sep, [facility] [address] [id number] [address] [place] [address], [place] [address] Aug, [facility] [address] [id number] [address] [place] [address], [place] [address] Aug, [facility] [address] [id number] [address] [place] [address], [place] [address] Aug, [facility] [address] [id number] [address] [place] [address], [place] [address] Jul, [facility] [address] [id number] [address] [place] [address], [place] [address] June, [facility] [address] [id number] [address] [place] [address], [place] [address] 17 May, 2012 [facility] [address] [id number] [address] [place] [address], [place] [address] May, [facility] [address] [id number] [address] [place] [address] [address] Apr, [facility] [address] [facility] [id number] [address] [place] [address] Apr, [facility] [address] [facility] [id number] [address] [place] [address] Apr, [facility] [address] [facility] [id number] [address] [place] [address] Mar, [facility] [address] [facility] [id number] [address] [place] [address] Mar, [facility] [address] [facility] [id number] [address] [place] [address] Mar, [facility] [address] [facility] [id number] [address] [place] [id number] 05 Mar, 2012 [facility] [address] [facility] [id number] [address] [place] [address] Mar, [facility] [address] [facility] [id number] [address] [place] [address] Mar, IMMUNIZATIONS No Known Immunizations SOCIAL HISTORY Never Assessed REASON FOR VISIT PLAN OF CARE VITAL SIGNS MEDICATIONS Unknown Medications RESULTS No Results PROCEDURES No Known procedures INSTRUCTIONS MEDICATIONS ADMINISTERED No Known Medications
--- OUTSIDE RECORDS SUMMARY | 2019-09-24 12:47 | XMS REPORT ---
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 Active 97175 006 Problem Altered mental status 780.97 Active 620800981 Problem Pain in joint, shoulder region 719.41 Active 581943977 Problem Complete rupture of rotator cuff 727.61 Active 614918279 Problem Acute upper respiratory infections of unspecified site 465.9 Active 07621002 Problem Other testicular hypofunction 257.2 Active 558427513 Problem Pain in joint, lower leg 719.46 Activ e 689994593 Problem Osteoarthritis of right knee 715.96 A ctive 607255164 Problem Unspecified myalgia and myositis 729.1 Active 287669860 Problem Acute sinusitis, unspecified 461.9 A ctive 36783294 Problem Essential hypertension, benign 401.1 Active 7168429 Problem Other and unspecified hyperlipidemia 272.4 Active 67696605 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 77204761 ALLERGIES No Information ENCOUNTERS Encounter Location Date Diagnosis [facility] [address] [facility] [id number] [address] [place] [id number] Aug, [facility] [address] [facility] [id number] [address] [place] [id number] Jul, Osteoarthritis of right knee 715.96 [facility] [address] [facility] [id number] [address] [place] [id number] Jul, [facility] [address] [facility] [id number] [address] [place] [id number] June, Osteoarthritis of right knee 715.96 [facility] [address] [id number] [address] [place] [phone] June, Osteoarthritis of right knee 715.96 [facility] [address] [id number] [address] [place] [id number] May, [facility] [address] [id number] [address] [place] [id number] May, [facility] [address] [id number] [address] [place] [phone] Mar, [facility] [address] [id number] [address] [place] [phone] Mar, [facility] [address] [id number] [address] [place] [phone] Mar, [facility] [address] [id number] [address] [place] [phone] Mar, [facility] [address] [id number] [address] [place] [phone] Feb, [facility] [address] [id number] [address] [place] [phone] Feb, [facility] [address] [id number] [address] [place] [phone] Jan, [facility] [address] [id number] [address] [place] [phone] Jan, [facility] [address] [id number] [address] [place] [phone] Oct, [facility] [address] [id number] [address] [place] [id number] Sep, [facility] [address] [id number] [address] [place] [phone] Sep, [facility] [address] [id number] [address] [place] [id number] Aug, [facility] [address] [id number] [address] [place] [address], [place] [address] Aug, [facility] [address] [id number] [address] [place] [address], [place] [address] June, [facility] [address] [id number] [address] [place] [address], [place] [address] June, [facility] [address] [id number] [address] [place] [address], [place] [address] June, [facility] [address] [id number] [address] [place] [address], [place] [address] June, [facility] [address] [id number] [address] [place] [address], [place] [address] May, [facility] [address] [id number] [address] [place] [address], [place] [address] May, [facility] [address] [id number] [address] [place] [address], [place] [address] May, [facility] [address] [id number] [address] [place] [address], [place] [address] May, [facility] [address] [id number] [address] [place] [address], [place] [address] Apr, [facility] [address] [id number] [address] [place] [address], [place] [address] Apr, [facility] [address] [id number] [address] [place] [address], [place] [address] Mar, [facility] [address] [id number] [address] [place] [address], [place] [address] Mar, [facility] [address] [id number] [address] [place] [address], [place] [address] Feb, [facility] [address] [id number] [address] [place] [address], [place] [address] Feb, [facility] [address] [id number] [address] [place] [phone] Feb, [facility] [address] [id number] [address] [place] [address], [place] [address] Feb, [facility] [address] [id number] [address] [place] [address], [place] [address] Jan, [facility] [address] [id number] [address] [place] [address], [place] [address] Jan, [facility] [address] [id number] [address] [place] [address], [place] [address] Jan, [facility] [address] [id number] [address] [place] [address], [place] [address] Jan, [facility] [address] [id number] [address] [place] [address], [place] [address] Jan, [facility] [address] [id number] [address] [place] [address], [place] [address] Jan, [facility] [address] [id number] [address] [place] [address], [place] [address] Jan, [facility] [address] [id number] [address] [place] [address], [place] [address] Jan, [facility] [address] [id number] [address] [place] [address], [place] [address] Dec, [facility] [address] [id number] [address] [place] [address], [place] [address] Dec, [facility] [address] [id number] [address] [place] [address], [place] [address] Dec, [facility] [address] [id number] [address] [place] [address], [place] [address] Dec, [facility] [address] [id number] [address] [place] [address], [place] [address] Dec, [facility] [address] [id number] [address] [place] [address], [place] [address] Dec, [facility] [address] [id number] [address] [place] [address], [place] [address] Dec, [facility] [address] [id number] [address] [place] [address], [place] [address] Dec, [facility] [address] [id number] [address] [place] [address], [place] [address] Dec, [facility] [address] [id number] [address] [place] [address], [place] [address] Nov, [facility] [address] [id number] [address] [place] [address], [place] [address] Nov, [facility] [address] [id number] [address] [place] [address], [place] [address] Nov, [facility] [address] [id number] [address] [place] [address], [place] [address] Nov, [facility] [address] [id number] [address] [place] [address], [place] [address] Nov, [facility] [address] [id number] [address] [place] [address], [place] [address] Nov, [facility] [address] [id number] [address] [place] [address], [place] [address] Nov, [facility] [address] [id number] [address] [place] [address], [place] [address] Oct, [facility] [address] [id number] [address] [place] [address], [place] [address] Oct, [facility] [address] [id number] [address] [place] [address], [place] [address] Oct, [facility] [address] [id number] [address] [place] [address], [place] [address] Sep, [facility] [address] [id number] [address] [place] [address], [place] [address] Sep, [facility] [address] [id number] [address] [place] [address], [place] [address] Sep, [facility] [address] [id number] [address] [place] [address], [place] [address] Sep, [facility] [address] [id number] [address] [place] [address], [place] [address] Sep, [facility] [address] [id number] [address] [place] [address], [place] [address] Sep, [facility] [address] [id number] [address] [place] [address], [place] [address] Sep, [facility] [address] [id number] [address] [place] [address], [place] [address] Sep, [facility] [address] [id number] [address] [place] [address], [place] [address] Sep, [facility] [address] [id number] [address] [place] [address], [place] [address] Sep, [facility] [address] [id number] [address] [place] [address], [place] [address] Aug, [facility] [address] [id number] [address] [place] [address], [place] [address] Aug, [facility] [address] [id number] [address] [place] [address], [place] [address] Aug, [facility] [address] [id number] [address] [place] [address], [place] [address] Jul, [facility] [address] [id number] [address] [place] [address], [place] [address] June, [facility] [address] [id number] [address] [place] [address], [place] [address] May, [facility] [address] [id number] [address] [place] [address], [place] [address] May, [facility] [address] [id number] [address] [place] [address], [place] [address] Apr, [facility] [address] [id number] [address] [place] [address] Apr, [facility] [address] [facility] [id number] [address] [place] [address] Apr, [facility] [address] [facility] [id number] [address] [place] [address] Mar, [facility] [address] [facility] [id number] [address] [place] [address] Mar, [facility] [address] [facility] [id number] [address] [place] [id number] Mar, [facility] [address] [facility] [id number] [address] [place] [id number] 05 Mar, 2012 [facility] [address] [facility] [id number] [address] [place] [id number] 04 Mar, 2012 [facility] [address] [facility] [id number] [address] [place] [address] Mar, IMMUNIZATIONS No Known Immunizations SOCIAL HISTORY Never Assessed REASON FOR VISIT PLAN OF CARE VITAL SIGNS MEDICATIONS Unknown Medications RESULTS No Results PROCEDURES No Known procedures INSTRUCTIONS MEDICATIONS ADMINISTERED No Known Medications
--- OUTSIDE RECORDS SUMMARY | 2019-09-24 12:47 | XMS REPORT ---
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 Active 74075 006 Problem Altered mental status 780.97 Active 272614026 Problem Pain in joint, shoulder region 719.41 Active 647190121 Problem Complete rupture of rotator cuff 727.61 Active 502723385 Problem Acute upper respiratory infections of unspecified site 465.9 Active 18094421 Problem Other testicular hypofunction 257.2 Active 938895951 Problem Pain in joint, lower leg 719.46 Activ e 873638899 Problem Osteoarthritis of right knee 715.96 A ctive 162697621 Problem Unspecified myalgia and myositis 729.1 Active 788463520 Problem Acute sinusitis, unspecified 461.9 A ctive 36805181 Problem Essential hypertension, benign 401.1 Active 1863299 Problem Other and unspecified hyperlipidemia 272.4 Active 01723960 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 88024667 ALLERGIES No Information ENCOUNTERS Encounter Location Date Diagnosis [facility] [place] [address] [facility] [id number] [address] [place] [address] Aug, [facility] [place] [address] [facility] [id number] [address] [place] [address] Jul, Osteoarthritis of right knee 715.96 [facility] [place] [address] [facility] [id number] [address] [place] [id number] Jul, [facility] [place] [address] [facility] [id number] [address] [place] [address] June, Osteoarthritis of right knee 715.96 [facility] [address] [id number] [address] [place] [address] June, Osteoarthritis of right knee 715.96 [facility] [address] [id number] [address] [place] [address] May, [facility] [address] [id number] [address] [place] [address] May, [facility] [address] [id number] [address] [place] [address] Mar, [facility] [address] [id number] [address] [place] [address] Mar, [facility] [address] [id number] [address] [place] [address] Mar, [facility] [address] [id number] [address] [place] [address] Mar, [facility] [address] [id number] [address] [place] [address] Feb, [facility] [address] [id number] [address] [place] [address] Feb, [facility] [address] [id number] [address] [place] [address] Jan, [facility] [address] [id number] [address] [place] [address] Jan, [facility] [address] [id number] [address] [place] [address] Oct, [facility] [address] [id number] [address] [place] [address] Sep, [facility] [address] [id number] [address] [place] [address] Sep, [facility] [address] [id number] [address] [place] [address] Aug, [facility] [address] [id number] [address] [place] [address], [place] [address] Aug, [facility] [address] [id number] [address] [place] [address], [place] [address] June, [facility] [address] [id number] [address] [place] [address], [place] [address] June, [facility] [address] [id number] [address] [place] [address], [place] [address] June, [facility] [address] [id number] [address] [place] [address], [place] [address] June, [facility] [address] [id number] [address] [place] [address], [place] [address] May, [facility] [address] [id number] [address] [place] [address], [place] [address] May, [facility] [address] [id number] [address] [place] [address], [place] [address] May, [facility] [address] [id number] [address] [place] [address], [place] [address] May, [facility] [address] [id number] [address] [place] [address], [place] [address] Apr, [facility] [address] [id number] [address] [place] [address], [place] [address] Apr, [facility] [address] [id number] [address] [place] [address], [place] [address] Mar, [facility] [address] [id number] [address] [place] [address], [place] [address] Mar, [facility] [address] [id number] [address] [place] [address], [place] [address] Feb, [facility] [address] [id number] [address] [place] [address], [place] [address] Feb, [facility] [address] [id number] [address] [place] [address] Feb, [facility] [address] [id number] [address] [place] [address], [place] [address] Feb, [facility] [address] [id number] [address] [place] [address], [place] [address] Jan, [facility] [address] [id number] [address] [place] [address], [place] [address] Jan, [facility] [address] [id number] [address] [place] [address], [place] [address] Jan, [facility] [address] [id number] [address] [place] [address], [place] [address] Jan, [facility] [address] [id number] [address] [place] [address], [place] [address] Jan, [facility] [address] [id number] [address] [place] [address], [place] [address] Jan, [facility] [address] [id number] [address] [place] [address], [place] [address] Jan, [facility] [address] [id number] [address] [place] [address], [place] [address] Jan, [facility] [address] [id number] [address] [place] [address], [place] [address] Dec, [facility] [address] [id number] [address] [place] [address], [place] [address] Dec, [facility] [address] [id number] [address] [place] [address], [place] [address] Dec, [facility] [address] [id number] [address] [place] [address], [place] [address] Dec, [facility] [address] [id number] [address] [place] [address], [place] [address] Dec, [facility] [address] [id number] [address] [place] [address], [place] [address] Dec, [facility] [address] [id number] [address] [place] [address], [place] [address] Dec, [facility] [address] [id number] [address] [place] [address], [place] [address] Dec, [facility] [address] [id number] [address] [place] [address], [place] [address] Dec, [facility] [address] [id number] [address] [place] [address], [place] [address] Nov, [facility] [address] [id number] [address] [place] [address], [place] [address] Nov, [facility] [address] [id number] [address] [place] [address], [place] [address] Nov, [facility] [address] [id number] [address] [place] [address], [place] [address] Nov, [facility] [address] [id number] [address] [place] [address], [place] [address] Nov, [facility] [address] [id number] [address] [place] [address], [place] [address] Nov, [facility] [address] [id number] [address] [place] [address], [place] [address] Nov, [facility] [address] [id number] [address] [place] [address], [place] [address] Oct, [facility] [address] [id number] [address] [place] [address], [place] [address] Oct, [facility] [address] [id number] [address] [place] [address], [place] [address] Oct, [facility] [address] [id number] [address] [place] [address], [place] [address] Sep, [facility] [address] [id number] [address] [place] [address], [place] [address] Sep, [facility] [address] [id number] [address] [place] [address], [place] [address] Sep, [facility] [address] [id number] [address] [place] [address], [place] [address] Sep, [facility] [address] [id number] [address] [place] [address], [place] [address] Sep, [facility] [address] [id number] [address] [place] [address], [place] [address] Sep, [facility] [address] [id number] [address] [place] [address], [place] [address] Sep, [facility] [address] [id number] [address] [place] [address], [place] [address] Sep, [facility] [address] [id number] [address] [place] [address], [place] [address] Sep, [facility] [address] [id number] [address] [place] [address], [place] [address] Sep, [facility] [address] [id number] [address] [place] [address], [place] [address] Aug, [facility] [address] [id number] [address] [place] [address], [place] [address] Aug, [facility] [address] [id number] [address] [place] [address], [place] [address] Aug, [facility] [address] [id number] [address] [place] [address], [place] [address] Jul, [facility] [address] [id number] [address] [place] [address], [place] [address] June, [facility] [address] [id number] [address] [place] [address], [place] [address] May, [facility] [address] [id number] [address] [place] [address], [place] [address] May, [facility] [address] [id number] [address] [place] [address], [place] [address] Apr, [facility] [address] [id number] [address] [place] [address] 07 Apr, 2012 [facility] [place] [address] [facility] [id number] [address] [place] [address] Apr, [facility] [place] [address] [facility] [id number] [address] [place] [address] 28 Mar, 2012 [facility] [place] [address] [facility] [id number] [address] [place] [address] 14 Mar, 2012 [facility] [place] [address] [facility] [id number] [address] [place] [address] Mar, [facility] [place] [address] [facility] [id number] [address] [place] [address] 05 Mar, 2012 [facility] [place] [address] [facility] [id number] [address] [place] [address] 04 Mar, 2012 [facility] [place] [address] [facility] [id number] [address] [place] [address] Mar, IMMUNIZATIONS No Known Immunizations SOCIAL HISTORY Never Assessed REASON FOR VISIT PLAN OF CARE VITAL SIGNS Height 72 in 2012-11-01 Weight 232 lbs 2012-11-01 Temperature 98 degrees Fahrenheit 2012-11-01 Heart Rate 80 bpm 2012-11-01 Respiratory Rate 18 2012-11-01 Blood pressure systolic 138 mmHg 2012-11-01 Blood pressure diastolic 72 mmHg 2012-11-01 MEDICATIONS Unknown Medications RESULTS No Results PROCEDURES No Known procedures INSTRUCTIONS MEDICATIONS ADMINISTERED No Known Medications
--- OUTSIDE RECORDS SUMMARY | 2019-09-24 12:47 | XMS REPORT ---
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 Active 79867 006 Problem Altered mental status 780.97 Active 824147894 Problem Pain in joint, shoulder region 719.41 Active 845138615 Problem Complete rupture of rotator cuff 727.61 Active 803067634 Problem Acute upper respiratory infections of unspecified site 465.9 Active 67665024 Problem Other testicular hypofunction 257.2 Active 099486754 Problem Pain in joint, lower leg 719.46 Activ e 815692215 Problem Osteoarthritis of right knee 715.96 A ctive 337941145 Problem Unspecified myalgia and myositis 729.1 Active 713431607 Problem Acute sinusitis, unspecified 461.9 A ctive 58325959 Problem Essential hypertension, benign 401.1 Active 8591029 Problem Other and unspecified hyperlipidemia 272.4 Active 91628786 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 [id number] [address] [place] [id number] Aug, [facility] [place] [address] [facility] [id number] [address] [place] [id number] Jul, Osteoarthritis of right knee 715.96 [facility] [place] [address] [facility] [id number] [address] [place] [id number] Jul, [facility] [place] [address] [facility] [id number] [address] [place] [phone] June, Osteoarthritis of right knee 715.96 [facility] [address] [id number] [address] [place] [id number] June, Osteoarthritis of right knee 715.96 [facility] [address] [id number] [address] [place] [phone] May, [facility] [address] [id number] [address] [place] [phone] May, [facility] [address] [id number] [address] [place] [phone] Mar, [facility] [address] [id number] [address] [place] [phone] Mar, [facility] [address] [id number] [address] [place] [phone] Mar, [facility] [address] [id number] [address] [place] [phone] Mar, [facility] [address] [id number] [address] [place] [phone] Feb, [facility] [address] [id number] [address] [place] [phone] Feb, [facility] [address] [id number] [address] [place] [phone] Jan, [facility] [address] [id number] [address] [place] [phone] Jan, [facility] [address] [id number] [address] [place] [id number] Oct, [facility] [address] [id number] [address] [place] [phone] Sep, [facility] [address] [id number] [address] [place] [phone] Sep, [facility] [address] [id number] [address] [place] [id number] Aug, [facility] [address] [id number] [address] [place] [address], [place] [id number] Aug, [facility] [address] [id number] [address] [place] [address], [place] [id number] June, [facility] [address] [id number] [address] [place] [address], [place] [address] June, [facility] [address] [id number] [address] [place] [address], [place] [address] June, [facility] [address] [id number] [address] [place] [address], [place] [id number] June, [facility] [address] [id number] [address] [place] [address], [place] [id number] May, [facility] [address] [id number] [address] [place] [address], [place] [id number] May, [facility] [address] [id number] [address] [place] [address], [place] [id number] May, [facility] [address] [id number] [address] [place] [address], [place] [address] May, [facility] [address] [id number] [address] [place] [address], [place] [address] Apr, [facility] [address] [id number] [address] [place] [address], [place] [address] Apr, [facility] [address] [id number] [address] [place] [address], [place] [address] Mar, [facility] [address] [id number] [address] [place] [address], [place] [id number] Mar, [facility] [address] [id number] [address] [place] [address], [place] [id number] Feb, [facility] [address] [id number] [address] [place] [address], [place] [id number] Feb, [facility] [address] [id number] [address] [place] [phone] Feb, [facility] [address] [id number] [address] [place] [address], [place] [address] Feb, [facility] [address] [id number] [address] [place] [address], [place] [id number] Jan, [facility] [address] [id number] [address] [place] [address], [place] [address] Jan, [facility] [address] [id number] [address] [place] [address], [place] [id number] Jan, [facility] [address] [id number] [address] [place] [address], [place] [id number] Jan, [facility] [address] [id number] [address] [place] [address], [place] [address] Jan, [facility] [address] [id number] [address] [place] [address], [place] [address] Jan, [facility] [address] [id number] [address] [place] [address], [place] [address] Jan, [facility] [address] [id number] [address] [place] [address], [place] [address] Jan, [facility] [address] [id number] [address] [place] [address], [place] [address] Dec, [facility] [address] [id number] [address] [place] [address], [place] [address] Dec, [facility] [address] [id number] [address] [place] [address], [place] [address] Dec, [facility] [address] [id number] [address] [place] [address], [place] [address] Dec, [facility] [address] [id number] [address] [place] [address], [place] [address] Dec, [facility] [address] [id number] [address] [place] [address], [place] [address] Dec, [facility] [address] [id number] [address] [place] [address], [place] [address] Dec, [facility] [address] [id number] [address] [place] [address], [place] [address] Dec, [facility] [address] [id number] [address] [place] [address], [place] [address] Dec, [facility] [address] [id number] [address] [place] [address], [place] [address] Nov, [facility] [address] [id number] [address] [place] [address], [place] [address] Nov, [facility] [address] [id number] [address] [place] [address], [place] [address] Nov, [facility] [address] [id number] [address] [place] [address], [place] [address] Nov, [facility] [address] [id number] [address] [place] [address], [place] [address] Nov, [facility] [address] [id number] [address] [place] [address], [place] [address] Nov, [facility] [address] [id number] [address] [place] [address], [place] [address] Nov, [facility] [address] [id number] [address] [place] [address], [place] [address] Oct, [facility] [address] [id number] [address] [place] [address], [place] [address] Oct, [facility] [address] [id number] [address] [place] [address], [place] [address] Oct, [facility] [address] [id number] [address] [place] [address], [place] [address] Sep, [facility] [address] [id number] [address] [place] [address], [place] [address] Sep, [facility] [address] [id number] [address] [place] [address], [place] [address] Sep, [facility] [address] [id number] [address] [place] [address], [place] [address] Sep, [facility] [address] [id number] [address] [place] [address], [place] [address] Sep, [facility] [address] [id number] [address] [place] [address], [place] [address] Sep, [facility] [address] [id number] [address] [place] [address], [place] [address] Sep, [facility] [address] [id number] [address] [place] [address], [place] [address] Sep, [facility] [address] [id number] [address] [place] [address], [place] [address] Sep, [facility] [address] [id number] [address] [place] [address], [place] [address] Sep, [facility] [address] [id number] [address] [place] [address], [place] [address] Aug, [facility] [address] [id number] [address] [place] [address], [place] [address] Aug, [facility] [address] [id number] [address] [place] [address], [place] [address] Aug, [facility] [address] [id number] [address] [place] [address], [place] [address] Jul, [facility] [address] [id number] [address] [place] [address], [place] [address] June, [facility] [address] [id number] [address] [place] [address], [place] [address] May, [facility] [address] [id number] [address] [place] [address], [place] [address] May, [facility] [address] [id number] [address] [place] [address], [place] [address] Apr, [facility] [address] [id number] [address] [place] [id number] Apr, [facility] [place] [address] [facility] [id number] [address] [place] [id number] Apr, [facility] [place] [address] [facility] [id number] [address] [place] [id number] Mar, [facility] [place] [address] [facility] [id number] [address] [place] [id number] Mar, [facility] [place] [address] [facility] [id number] [address] [place] [id number] Mar, [facility] [place] [address] [facility] [id number] [address] [place] [id number] 05 Mar, 2012 [facility] [place] [address] [facility] [id number] [address] [place] [id number] 04 Mar, 2012 [facility] [place] [address] [facility] [id number] [address] [place] [id number] Mar, IMMUNIZATIONS No Known Immunizations SOCIAL HISTORY Never Assessed REASON FOR VISIT PLAN OF CARE VITAL SIGNS MEDICATIONS Unknown Medications RESULTS No Results PROCEDURES No Known procedures INSTRUCTIONS MEDICATIONS ADMINISTERED No Known Medications
--- OUTSIDE RECORDS SUMMARY | 2019-09-24 12:47 | XMS REPORT ---
Author Author Omer Hernández Doctor Organization 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 Active 26478 006 Problem Altered mental status 780.97 Active 176041376 Problem Pain in joint, shoulder region 719.41 Active 530582218 Problem Complete rupture of rotator cuff 727.61 Active 824205095 Problem Acute upper respiratory infections of unspecified site 465.9 Active 45900593 Problem Other testicular hypofunction 257.2 Active 691831175 Problem Pain in joint, lower leg 719.46 Activ e 966899049 Problem Osteoarthritis of right knee 715.96 A ctive 438053552 Problem Unspecified myalgia and myositis 729.1 Active 345182821 Problem Acute sinusitis, unspecified 461.9 A ctive 47608729 Problem Essential hypertension, benign 401.1 Active 6618225 Problem Other and unspecified hyperlipidemia 272.4 Active 37601595 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 55962674 ALLERGIES No Information ENCOUNTERS Encounter Location Date Diagnosis [facility] [address] [facility] [id number] [address] [place] [address] Aug, [facility] [address] [facility] [id number] [address] [place] [address] Jul, Osteoarthritis of right knee 715.96 [facility] [address] [facility] [id number] [address] [place] [address] Jul, [facility] [address] [facility] [id number] [address] [place] [address] June, Osteoarthritis of right knee 715.96 [facility] [address] [id number] [address] [place] [address] June, Osteoarthritis of right knee 715.96 [facility] [address] [id number] [address] [place] [address] May, [facility] [address] [id number] [address] [place] [address] May, [facility] [address] [id number] [address] [place] [address] Mar, [facility] [address] [id number] [address] [place] [address] Mar, [facility] [address] [id number] [address] [place] [address] Mar, [facility] [address] [id number] [address] [place] [address] Mar, [facility] [address] [id number] [address] [place] [address] Feb, [facility] [address] [id number] [address] [place] [address] Feb, [facility] [address] [id number] [address] [place] [address] Jan, [facility] [address] [id number] [address] [place] [address] Jan, [facility] [address] [id number] [address] [place] [address] Oct, [facility] [address] [id number] [address] [place] [address] Sep, [facility] [address] [id number] [address] [place] [address] Sep, [facility] [address] [id number] [address] [place] [address] Aug, [facility] [address] [id number] [address] [place] [address], [place] [address] Aug, [facility] [address] [id number] [address] [place] [address], [place] [address] June, [facility] [address] [id number] [address] [place] [address], [place] [address] June, [facility] [address] [id number] [address] [place] [address], [place] [address] June, [facility] [address] [id number] [address] [place] [address], [place] [address] June, [facility] [address] [id number] [address] [place] [address], [place] [address] May, [facility] [address] [id number] [address] [place] [address], [place] [address] May, [facility] [address] [id number] [address] [place] [address], [place] [address] May, [facility] [address] [id number] [address] [place] [address], [place] [address] May, [facility] [address] [id number] [address] [place] [address], [place] [address] Apr, [facility] [address] [id number] [address] [place] [address], [place] [address] Apr, [facility] [address] [id number] [address] [place] [address], [place] [address] Mar, [facility] [address] [id number] [address] [place] [address], [place] [address] Mar, [facility] [address] [id number] [address] [place] [address], [place] [address] Feb, [facility] [address] [id number] [address] [place] [address], [place] [address] Feb, [facility] [address] [id number] [address] [place] [address] Feb, [facility] [address] [id number] [address] [place] [address], [place] [address] Feb, [facility] [address] [id number] [address] [place] [address], [place] [address] Jan, [facility] [address] [id number] [address] [place] [address], [place] [address] Jan, [facility] [address] [id number] [address] [place] [address], [place] [address] Jan, [facility] [address] [id number] [address] [place] [address], [place] [address] Jan, [facility] [address] [id number] [address] [place] [address], [place] [address] Jan, [facility] [address] [id number] [address] [place] [address], [place] [address] Jan, [facility] [address] [id number] [address] [place] [address], [place] [address] Jan, [facility] [address] [id number] [address] [place] [address], [place] [address] Jan, [facility] [address] [id number] [address] [place] [address], [place] [address] Dec, [facility] [address] [id number] [address] [place] [address], [place] [address] Dec, [facility] [address] [id number] [address] [place] [address], [place] [address] Dec, [facility] [address] [id number] [address] [place] [address], [place] [address] Dec, [facility] [address] [id number] [address] [place] [address], [place] [address] Dec, [facility] [address] [id number] [address] [place] [address], [place] [address] Dec, [facility] [address] [id number] [address] [place] [address], [place] [address] Dec, [facility] [address] [id number] [address] [place] [address], [place] [address] Dec, [facility] [address] [id number] [address] [place] [address], [place] [address] Dec, [facility] [address] [id number] [address] [place] [address], [place] [address] Nov, [facility] [address] [id number] [address] [place] [address], [place] [address] Nov, [facility] [address] [id number] [address] [place] [address], [place] [address] Nov, [facility] [address] [id number] [address] [place] [address], [place] [address] Nov, [facility] [address] [id number] [address] [place] [address], [place] [address] Nov, [facility] [address] [id number] [address] [place] [address], [place] [address] Nov, [facility] [address] [id number] [address] [place] [address], [place] [address] Nov, [facility] [address] [id number] [address] [place] [address], [place] [address] Oct, [facility] [address] [id number] [address] [place] [address], [place] [address] Oct, [facility] [address] [id number] [address] [place] [address], [place] [address] Oct, [facility] [address] [id number] [address] [place] [address], [place] [address] Sep, [facility] [address] [id number] [address] [place] [address], [place] [address] Sep, [facility] [address] [id number] [address] [place] [address], [place] [address] Sep, [facility] [address] [id number] [address] [place] [address], [place] [address] Sep, [facility] [address] [id number] [address] [place] [address], [place] [address] Sep, [facility] [address] [id number] [address] [place] [address], [place] [address] Sep, [facility] [address] [id number] [address] [place] [address], [place] [address] Sep, [facility] [address] [id number] [address] [place] [address], [place] [address] Sep, [facility] [address] [id number] [address] [place] [address], [place] [address] Sep, [facility] [address] [id number] [address] [place] [address], [place] [address] Sep, [facility] [address] [id number] [address] [place] [address], [place] [address] Aug, [facility] [address] [id number] [address] [place] [address], [place] [address] Aug, [facility] [address] [id number] [address] [place] [address], [place] [address] Aug, [facility] [address] [id number] [address] [place] [address], [place] [address] Jul, [facility] [address] [id number] [address] [place] [address], [place] [address] June, [facility] [address] [id number] [address] [place] [address], [place] [address] May, [facility] [address] [id number] [address] [place] [address], [place] [address] May, [facility] [address] [id number] [address] [place] [address], [place] [address] Apr, [facility] [address] [id number] [address] [place] [address] Apr, [facility] [address] [facility] [id number] [address] [place] [address] Apr, [facility] [address] [facility] [id number] [address] [place] [address] Mar, [facility] [address] [facility] [id number] [address] [place] [address] Mar, [facility] [address] [facility] [id number] [address] [place] [address] Mar, [facility] [address] [facility] [id number] [address] [place] [address] 05 Mar, 2012 [facility] [address] [facility] [id number] [address] [place] [address] Mar, [facility] [address] [place] [place] [id number] [address] [place] [address] Mar, IMMUNIZATIONS No Known Immunizations SOCIAL HISTORY Never Assessed REASON FOR VISIT PLAN OF CARE VITAL SIGNS MEDICATIONS Unknown Medications RESULTS No Results PROCEDURES Procedure Date Ordered Result Body Site DRAIN/INJECT, JOINT/BURSA Mar 08, 2014 INSTRUCTIONS MEDICATIONS ADMINISTERED No Known Medications
--- OUTSIDE RECORDS SUMMARY | 2019-09-24 12:48 | XMS REPORT ---
Author Author Omer HOLLAND Organization [facility] Address [address] [place] [address] Care Team Providers Care Builder'S Labourer Name Role Phone GENEVA HOLLAND Unavailable PROBLEMS Type Condition ICD9-CM Code LFI48-YT Code Onset Dates Condition S tatus SNOMED Code Problem Need for prophylactic vaccination and inoculation, Influen za V04.81 Active 793626476 Problem Health examination of defined subpopulation V70.5 Active 438471100 Problem Chondromalacia 733.92 Active 02179 006 Problem Altered mental status 780.97 Active 709071668 Problem Pain in joint, shoulder region 719.41 Active 076186453 Problem Complete rupture of rotator cuff 727.61 Active 507616208 Problem Acute upper respiratory infections of unspecified site 465.9 Active 95747364 Problem Other testicular hypofunction 257.2 Active 325630288 Problem Pain in joint, lower leg 719.46 Activ e 521352468 Problem Osteoarthritis of right knee 715.96 A ctive 997251064 Problem Unspecified myalgia and myositis 729.1 Active 342971152 Problem Acute sinusitis, unspecified 461.9 A ctive 39343882 Problem Essential hypertension, benign 401.1 Active 0245579 Problem Other and unspecified hyperlipidemia 272.4 Active 88334574 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 47555863 ALLERGIES No Information ENCOUNTERS Encounter Location Date Diagnosis [facility] [address] [id number] [place] [address] Aug, [facility] [address] [id number] [place] [address] Jul, Osteoarthritis of right knee 715.96 [facility] [address] [id number] [place] [address] Jul, [facility] [id number] [place] [address] June, Osteoarthritis of right knee 715.96 [facility] [id number] [place] [address] June, Osteoarthritis of right knee 715.96 [facility] [address] [id number] [place] [address] May, [facility] [id number] [place] [address] May, [facility] [id number] [place] [address] Mar, [facility] [id number] [place] [address] Mar, [facility] [id number] [place] [address] Mar, [facility] [id number] [place] [address] Mar, [facility] [id number] [place] [address] Feb, [facility] [id number] [place] [address] Feb, [facility] [id number] [place] [address] Jan, [facility] [id number] [place] [address] Jan, [facility] [address] [id number] [place] [address] Oct, [facility] [id number] [place] [address] Sep, [facility] [id number] [place] [address] Sep, [facility] [address] [id number] [place] [address] Aug, [facility] [id number] [place] [address] Aug, [facility] [address] [id number] [place] [address] June, [facility] [address] [id number] [place] [address] June, [facility] [address] [id number] [place] [address] June, [facility] [address] [id number] [place] [address] June, [facility] [address] [id number] [place] [address] May, [facility] [address] [id number] [place] [address] May, [facility] [address] [id number] [place] [address] May, [facility] [address] [id number] [place] [address] May, [facility] [address] [id number] [place] [address] Apr, [facility] [address] [id number] [place] [address] Apr, [facility] [address] [id number] [place] [address] Mar, [facility] [address] [id number] [place] [address] Mar, [facility] [address] [id number] [place] [address] Feb, [facility] [address] [id number] [place] [address] Feb, [facility] [address] [id number] [place] [address] Feb, [facility] [address] [id number] [place] [address] Feb, [facility] [address] [id number] [place] [address] Jan, [facility] [address] [id number] [place] [address] Jan, [facility] [address] [id number] [place] [address] Jan, [facility] [address] [id number] [place] [address] Jan, [facility] [address] [id number] [place] [address] Jan, [facility] [address] [id number] [place] [address] Jan, [facility] [address] [id number] [place] [address] Jan, [facility] [address] [id number] [place] [address] Jan, [facility] [address] [id number] [place] [address] Dec, [facility] [address] [id number] [place] [address] Dec, [facility] [address] [id number] [place] [address] Dec, [facility] [address] [id number] [place] [address] Dec, [facility] [address] [id number] [place] [address] Dec, [facility] [address] [id number] [place] [address] Dec, [facility] [address] [id number] [place] [address] Dec, [facility] [address] [id number] [place] [address] Dec, [facility] [address] [id number] [place] [address] Dec, [facility] [address] [facility] [id number] [place] [address] Nov, [facility] [address] [facility] [id number] [facility] [place] [address] Nov, [facility] [address] [id number] [place] [address] Nov, [facility] [address] [facility] [id number] [facility] [place] [address] Nov, [facility] [address] [facility] [id number] [facility] [place] [address] Nov, [facility] [address] [facility] [id number] [place] [address] Nov, [facility] [address] [id number] [place] [address] Nov, [facility] [address] [id number] [place] [address] Oct, [facility] [address] [id number] [place] [address] Oct, [facility] [address] [id number] [place] [address] 09 Oct, 2012 [facility] [address] [id number] [place] [address] Sep, [facility] [address] [id number] [place] [address] Sep, [facility] [address] [facility] [id number] [place] [address] 18 Sep, 2012 [facility] [address] [facility] [id number] [place] [address] Sep, [facility] [address] [id number] [place] [address] Sep, [facility] [address] [id number] [place] [address] 14 Sep, 2012 [facility] [address] [id number] [place] [address] Sep, [facility] [address] [id number] [place] [address] Sep, [facility] [address] [id number] [place] [address] Sep, [facility] [address] [id number] [place] [address] Sep, [facility] [address] [id number] [place] [address] Aug, [facility] [address] [id number] [place] [address] Aug, [facility] [address] [id number] [place] [address] Aug, [facility] [address] [id number] [place] [address] Jul, [facility] [address] [id number] [place] [address] June, [facility] [address] [id number] [place] [address] May, [facility] [address] [id number] [place] [address] May, [facility] [address] [id number] [place] [address] Apr, [facility] [address] [id number] [place] [address] Apr, [facility] [address] [id number] [place] [address] Apr, [facility] [id number] [place] [address] 28 Mar, 2012 [facility] [address] [id number] [place] [address] 14 Mar, 2012 [facility] [address] [id number] [place] [address] Mar, [facility] [address] [id number] [place] [address] Mar, [facility] [address] [id number] [place] [address] Mar, [facility] [address] [id number] [place] [address] Mar, IMMUNIZATIONS No Known Immunizations SOCIAL HISTORY Never Assessed REASON FOR VISIT PLAN OF CARE VITAL SIGNS MEDICATIONS Unknown Medications RESULTS No Results PROCEDURES No Known procedures INSTRUCTIONS MEDICATIONS ADMINISTERED No Known Medications
--- OUTSIDE RECORDS SUMMARY | 2019-09-24 12:48 | XMS REPORT ---
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 Active 85769 006 Problem Altered mental status 780.97 Active 832771206 Problem Pain in joint, shoulder region 719.41 Active 961563988 Problem Complete rupture of rotator cuff 727.61 Active 251410059 Problem Acute upper respiratory infections of unspecified site 465.9 Active 76844367 Problem Other testicular hypofunction 257.2 Active 878315135 Problem Pain in joint, lower leg 719.46 Activ e 207703209 Problem Osteoarthritis of right knee 715.96 A ctive 533769296 Problem Unspecified myalgia and myositis 729.1 Active 392430485 Problem Acute sinusitis, unspecified 461.9 A ctive 77624255 Problem Essential hypertension, benign 401.1 Active 8943116 Problem Other and unspecified hyperlipidemia 272.4 Active 70893588 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 08895068 ALLERGIES No Information ENCOUNTERS Encounter Location Date Diagnosis [facility] [id number] [place] [address] Aug, [facility] [id number] [place] [address] Jul, Osteoarthritis of right knee 715.96 [facility] [id number] [place] [address] Jul, [facility] [address] [id number] [place] [address] June, Osteoarthritis of right knee 715.96 [facility] [address] [id number] [place] [address] June, Osteoarthritis of right knee 715.96 [facility] [address] [id number] [place] [address] 14 May, 2014 [facility] [place] [facility] [address] [id number] [place] [address] May, [facility] [place] [facility] [address] [id number] [place] [address] Mar, [facility] [place] [facility] [address] [id number] [place] [address] Mar, [facility] [place] [facility] [address] [id number] [place] [address] Mar, [facility] [place] [facility] [address] [id number] [place] [address] Mar, [facility] [id number] [place] [address] Feb, [facility] [place] [facility] [address] [id number] [place] [address] Feb, [facility] [place] [facility] [address] [id number] [place] [address] Jan, [facility] [place] [facility] [address] [id number] [place] [address] Jan, [facility] [place] [facility] [address] [id number] [place] [address] Oct, [facility] [place] [facility] [address] [id number] [place] [address] Sep, [facility] [place] [facility] [address] [id number] [place] [address] Sep, [facility] [place] [facility] [address] [id number] [place] [address] Aug, [facility] [place] [facility] [address] [id number] [place] [address] Aug, [facility] [place] [facility] [address] [id number] [place] [address] June, [facility] [place] [facility] [address] [id number] [place] [address] June, [facility] [place] [facility] [address] [id number] [place] [address] June, [facility] [place] [facility] [address] [id number] [place] [address] June, [facility] [place] [facility] [address] [id number] [place] [address] May, [facility] [place] [facility] [address] [id number] [place] [address] May, [facility] [place] [facility] [address] [id number] [place] [address] May, [facility] [place] [facility] [address] [id number] [place] [address] May, [facility] [place] [facility] [address] [id number] [place] [address] Apr, [facility] [place] [facility] [address] [id number] [place] [address] Apr, [facility] [place] [facility] [address] [id number] [place] [address] Mar, [facility] [place] [facility] [address] [id number] [place] [address] Mar, [facility] [place] [facility] [address] [id number] [place] [address] Feb, [facility] [place] [facility] [address] [id number] [place] [address] Feb, [facility] [place] [facility] [address] [id number] [place] [address] Feb, [facility] [place] [facility] [address] [id number] [place] [address] Feb, [facility] [place] [facility] [address] [id number] [place] [address] Jan, [facility] [address] [id number] [place] [address] Jan, 2012 [facility] [place] [facility] [address] [id number] [place] [address] Jan, [facility] [place] [facility] [address] [id number] [place] [address] Jan, [facility] [place] [facility] [address] [id number] [place] [address] Jan, [facility] [place] [facility] [address] [id number] [place] [address] Jan, [facility] [place] [facility] [address] [id number] [place] [address] Jan, [facility] [place] [facility] [address] [id number] [place] [address] Jan, [facility] [place] [facility] [id number] [place] [address] Dec, [facility] [place] [facility] [address] [id number] [place] [address] Dec, [facility] [place] [facility] [address] [id number] [place] [address] Dec, [facility] [place] [facility] [address] [id number] [place] [address] Dec, [facility] [place] [facility] [address] [id number] [place] [address] Dec, [facility] [place] [facility] [address] [id number] [place] [address] Dec, [facility] [place] [facility] [address] [id number] [place] [address] Dec, [facility] [place] [facility] [address] [id number] [place] [address] Dec, [facility] [place] [facility] [address] [id number] [place] [address] Dec, [facility] [place] [facility] [address] [id number] [place] [address] Nov, [facility] [place] [facility] [address] [facility] [id number] [place] [address] Nov, [facility] [place] [facility] [address] [facility] [id number] [place] [address] Nov, [facility] [place] [facility] [address] [id number] [place] [address] Nov, [facility] [place] [facility] [address] [facility]] [id number] [place] [address] Nov, [facility] [place] [facility] [address] [facility]] [id number] [place] [address] Nov, [facility] [place] [facility] [address] [facility]] [id number] [place] [address] Nov, [facility] [place] [facility] [address] [id number] [place] [address] Oct, [facility] [place] [facility] [address] [id number] [place] [address] Oct, [facility] [place] [facility] [address] [facility]] [id number] [place] [address] Oct, [facility] [place] [facility] [address] [id number] [place] [address] Sep, [facility] [place] [facility] [address] [id number] [place] [address] Sep, [facility] [place] [facility] [address] [id number] [place] [address] 18 Sep, 2012 [facility] [place] [facility] [address] [facility] [id number] [place] [address] Sep, [facility] [place] [facility] [address] [facility]] [id number] [place] [address] Sep, [facility] [place] [facility] [address] [facility]] [id number] [place] [address] 14 Sep, 2012 [facility] [place] [facility] [address] [id number] [place] [address] Sep, [facility] [place] [facility] [address] [id number] [place] [address] Sep, [facility] [place] [facility] [address] [id number] [place] [address] Sep, [facility] [place] [facility] [address] [id number] [place] [address] Sep, [facility] [place] [facility] [address] [id number] [place] [address] Aug, [facility] [place] [facility] [address] [id number] [place] [address] Aug, [facility] [place] [facility] [address] [id number] [place] [address] Aug, [facility] [place] [facility] [address] [id number] [place] [address] Jul, [facility] [place] [facility] [address] [id number] [place] [address] June, [facility] [place] [facility] [address] [id number] [place] [address] May, [facility] [place] [facility] [address] [id number] [place] [address] May, [facility] [place] [facility] [address] [id number] [place] [address] Apr, [facility] [place] [facility] [address] [id number] [place] [address] Apr, [facility] [place] [facility] [address] [id number] [place] [address] Apr, [facility] [place] [facility] [address] [id number] [place] [address] 28 Mar, 2012 [facility] [place] [facility] [address] [id number] [place] [address] 14 Mar, 2012 [facility] [place] [facility] [address] [id number] [place] [address] 11 Mar, 2012 [facility] [place] [facility] [address] [id number] [place] [address] Mar, [facility] [address] [facility]] [id number] [place] [address] Mar, [facility] [address] [id number] [place] [address] Mar, IMMUNIZATIONS No Known Immunizations SOCIAL HISTORY Never Assessed REASON FOR VISIT PLAN OF CARE VITAL SIGNS MEDICATIONS Unknown Medications RESULTS No Results PROCEDURES No Known procedures INSTRUCTIONS MEDICATIONS ADMINISTERED No Known Medications
--- OUTSIDE RECORDS SUMMARY | 2019-09-24 12:48 | XMS REPORT ---
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 Active 30820 006 Problem Altered mental status 780.97 Active 855880744 Problem Pain in joint, shoulder region 719.41 Active 866974234 Problem Complete rupture of rotator cuff 727.61 Active 798107376 Problem Acute upper respiratory infections of unspecified site 465.9 Active 53447640 Problem Other testicular hypofunction 257.2 Active 006633983 Problem Pain in joint, lower leg 719.46 Activ e 692268733 Problem Osteoarthritis of right knee 715.96 A ctive 698507335 Problem Unspecified myalgia and myositis 729.1 Active 715320343 Problem Acute sinusitis, unspecified 461.9 A ctive 81072193 Problem Essential hypertension, benign 401.1 Active 2496853 Problem Other and unspecified hyperlipidemia 272.4 Active 51648315 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 59708085 ALLERGIES No Information ENCOUNTERS Encounter Location Date Diagnosis [facility] [address] [id number] [place] [address] Aug, [facility] [address] [id number] [place] [address] Jul, Osteoarthritis of right knee 715.96 [facility] [address] [id number] [place] [address] Jul, [address] [id number] [place] [address] June, Osteoarthritis of right knee 715.96 [facility] [id number] [place] [address] June, Osteoarthritis of right knee 715.96 [facility] [id number] [place] [address] May, [facility] [id number] [place] [address] May, [facility] [id number] [place] [address] Mar, [facility] [id number] [place] [address] Mar, [facility] [id number] [place] [address] Mar, [facility] [id number] [place] [address] Mar, [facility] [id number] [place] [address] Feb, [facility] [id number] [place] [address] Feb, [facility] [id number] [place] [address] Jan, [facility] [place] [facility] [id number] [place] [address] Jan, [facility] [place] [facility] [address] [id number] [place] [address] Oct, [facility] [place] [facility] [id number] [place] [address] Sep, [facility] [place] [facility] [id number] [place] [address] Sep, [facility] [place] [facility] [id number] [place] [address] Aug, [facility] [place] [facility] [address] [id number] [place] [address] Aug, [facility] [place] [facility] [address] [id number] [place] [address] June, [facility] [place] [facility] [address] [id number] [place] [address] June, [facility] [place] [facility] [address] [id number] [place] [address] June, [facility] [place] [facility] [address] [id number] [place] [address] June, [facility] [place] [facility] [address] [id number] [place] [address] May, [facility] [place] [facility] [address] [id number] [place] [address] May, [facility] [place] [facility] [address] [id number] [place] [address] May, [facility] [place] [facility] [address] [id number] [place] [address] May, [facility] [place] [facility] [address] [id number] [place] [address] Apr, [facility] [place] [facility] [address] [id number] [place] [address] Apr, [facility] [place] [facility] [address] [id number] [place] [address] Mar, [facility] [place] [facility] [address] [id number] [place] [address] Mar, [facility] [place] [facility] [address] [id number] [place] [address] Feb, [facility] [place] [facility] [address] [id number] [place] [address] Feb, [facility] [place] [facility] [address] [id number] [place] [address] Feb, [facility] [place] [facility] [address] [id number] [place] [address] Feb, [facility] [address] [id number] [place] [address] Jan, [facility] [place] [facility] [address] [id number] [place] [address] Jan, [facility] [place] [facility] [address] [id number] [place] [address] Jan, [facility] [place] [facility] [address] [id number] [place] [address] Jan, [facility] [place] [facility] [address] [id number] [place] [address] Jan, [facility] [place] [facility] [address] [id number] [place] [address] Jan, [facility] [place] [facility] [address] [id number] [place] [address] Jan, [facility] [place] [facility] [address] [id number] [place] [address] Jan, [facility] [place] [facility] [address] [id number] [place] [address] Dec, [facility] [place] [facility] [address] [id number] [place] [address] Dec, [facility] [place] [facility] [address] [id number] [place] [address] Dec, [facility] [place] [facility] [address] [id number] [place] [address] Dec, [facility] [place] [facility] [address] [id number] [place] [address] Dec, [facility] [place] [facility] [address] [id number] [place] [address] Dec, [facility] [place] [facility] [address] [id number] [place] [address] Dec, [facility] [place] [facility] [address] [id number] [place] [address] Dec, [facility] [place] [facility] [address] [id number] [place] [address] Dec, [facility] [place] [facility] [address] [id number] [place] [address] Nov, [facility] [place] [facility] [address] [id number] [place] [address] Nov, [facility] [place] [facility] [address] [id number] [place] [address] Nov, [facility] [place] [facility] [address] [id number] [place] [address] Nov, [facility] [place] [facility] [address] [id number] [place] [address] Nov, [facility] [place] [facility] [address] [id number] [place] [address] Nov, [facility] [place] [facility] [address] [id number] [place] [address] Nov, [facility] [place] [facility] [address] [id number] [place] [address] Oct, [facility] [place] [facility] [address] [id number] [place] [address] Oct, [facility] [place] [facility] [address] [id number] [place] [address] 09 Oct, 2012 [facility] [place] [facility] [address] [id number] [place] [address] Sep, [facility] [place] [facility] [address] [id number] [place] [address] Sep, [facility] [place] [facility] [address] [id number] [place] [address] 18 Sep, 2012 [facility] [place] [facility] [address] [id number] [place] [address] Sep, [facility] [place] [facility] [address] [id number] [place] [address] Sep, [facility] [place] [facility] [address] [id number] [place] [address] 14 Sep, 2012 [facility] [place] [facility] [address] [id number] [place] [address] Sep, [facility] [place] [facility] [address] [id number] [place] [address] Sep, [facility] [place] [facility] [address] [id number] [place] [address] Sep, [facility] [place] [facility] [address] [id number] [place] [address] Sep, [facility] [place] [facility] [address] [id number] [place] [address] Aug, [facility] [place] [facility] [address] [id number] [place] [address] Aug, [facility] [place] [facility] [address] [id number] [place] [address] Aug, [facility] [place] [facility] [address] [id number] [place] [address] Jul, [facility] [address] [id number] [place] [address] June, [facility] [address] [id number] [place] [address] May, [facility] [address] [id number] [place] [address] May, [facility] [address] [id number] [place] [address] Apr, [facility] [address] [id number] [place] [address] Apr, [facility] [address] [id number] [place] [address] Apr, [facility] [address] [id number] [place] [address] 28 Mar, 2012 [facility] [address] [id number] [place] [address] 14 Mar, 2012 [facility] [address] [id number] [place] [address] Mar, [facility] [address] [id number] [place] [address] Mar, [facility] [address] [id number] [place] [address] Mar, [facility] [address] [id number] [place] [address] Mar, IMMUNIZATIONS No Known Immunizations SOCIAL HISTORY Never Assessed REASON FOR VISIT PLAN OF CARE VITAL SIGNS Height 72 in 2013-06-14 Weight 215.4 lbs 2013-06-14 Temperature 97.5 degrees Fahrenheit 2013-06-14 Heart Rate 84 bpm 2013-06-14 Respiratory Rate 18 2013-06-14 Blood pressure systolic 138 mmHg 2013-06-14 Blood pressure diastolic 78 mmHg 2013-06-14 MEDICATIONS Unknown Medications RESULTS No Results PROCEDURES Procedure Date Ordered Result Body Site URINALYSIS, AUTO, W/O SCOPE June 14, 2013 AUDIOMETRY-SCREEN June 14, 2013 INSTRUCTIONS MEDICATIONS ADMINISTERED No Known Medications
--- OUTSIDE RECORDS SUMMARY | 2019-09-24 12:48 | XMS REPORT ---
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 Active 44503 006 Problem Altered mental status 780.97 Active 464022597 Problem Pain in joint, shoulder region 719.41 Active 255265439 Problem Complete rupture of rotator cuff 727.61 Active 287457298 Problem Acute upper respiratory infections of unspecified site 465.9 Active 19311962 Problem Other testicular hypofunction 257.2 Active 950001163 Problem Pain in joint, lower leg 719.46 Activ e 907243436 Problem Osteoarthritis of right knee 715.96 A ctive 113797114 Problem Unspecified myalgia and myositis 729.1 Active 962672756 Problem Acute sinusitis, unspecified 461.9 A ctive 56845532 Problem Essential hypertension, benign 401.1 Active 9340278 Problem Other and unspecified hyperlipidemia 272.4 Active 70190692 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 [id number] [address] [place] [address] Aug, [facility] [address] [facility] [id number] [address] [place] [address] Jul, Osteoarthritis of right knee 715.96 [facility] [address] [facility] [id number] [address] [place] [address] Jul, [facility] [address] [facility] [id number] [address] [place] [address] June, Osteoarthritis of right knee 715.96 [facility] [address] [id number] [address] [place] [address] June, Osteoarthritis of right knee 715.96 [facility] [address] [id number] [address] [place] [address] May, [facility] [address] [id number] [address] [place] [address] May, [facility] [address] [id number] [address] [place] [address] Mar, [facility] [address] [id number] [address] [place] [address] Mar, [facility] [address] [id number] [address] [place] [address] Mar, [facility] [address] [id number] [address] [place] [address] Mar, [facility] [address] [id number] [address] [place] [address] Feb, [facility] [address] [id number] [address] [place] [address] Feb, [facility] [address] [id number] [address] [place] [address] Jan, [facility] [address] [id number] [address] [place] [address] Jan, [facility] [address] [id number] [address] [place] [address] Oct, [facility] [address] [id number] [address] [place] [address] Sep, [facility] [address] [id number] [address] [place] [address] Sep, [facility] [address] [id number] [address] [place] [address] Aug, [facility] [address] [id number] [address] [place] [address], [place] [address] Aug, [facility] [address] [id number] [address] [place] [address], [place] [address] June, [facility] [address] [id number] [address] [place] [address], [place] [address] June, [facility] [address] [id number] [address] [place] [address], [place] [address] June, [facility] [address] [id number] [address] [place] [address], [place] [address] June, [facility] [address] [id number] [address] [place] [address], [place] [address] May, [facility] [address] [id number] [address] [place] [address], [place] [address] May, [facility] [address] [id number] [address] [place] [address], [place] [address] May, [facility] [address] [id number] [address] [place] [address], [place] [address] May, [facility] [address] [id number] [address] [place] [address], [place] [address] Apr, [facility] [address] [id number] [address] [place] [address], [place] [address] Apr, [facility] [address] [id number] [address] [place] [address], [place] [address] Mar, [facility] [address] [id number] [address] [place] [address], [place] [address] Mar, [facility] [address] [id number] [address] [place] [address], [place] [address] Feb, [facility] [address] [id number] [address] [place] [address], [place] [address] Feb, [facility] [address] [id number] [address] [place] [address] Feb, [facility] [address] [id number] [address] [place] [address], [place] [address] Feb, [facility] [address] [id number] [address] [place] [address], [place] [address] Jan, [facility] [address] [id number] [address] [place] [address], [place] [address] Jan, [facility] [address] [id number] [address] [place] [address], [place] [address] Jan, [facility] [address] [id number] [address] [place] [address], [place] [address] Jan, [facility] [address] [id number] [address] [place] [address], [place] [address] Jan, [facility] [address] [id number] [address] [place] [address], [place] [address] Jan, [facility] [address] [id number] [address] [place] [address], [place] [address] Jan, [facility] [address] [id number] [address] [place] [address], [place] [address] Jan, [facility] [address] [id number] [address] [place] [address], [place] [address] Dec, [facility] [address] [id number] [address] [place] [address], [place] [address] Dec, [facility] [address] [id number] [address] [place] [address], [place] [address] Dec, [facility] [address] [id number] [address] [place] [address], [place] [address] Dec, [facility] [address] [id number] [address] [place] [address], [place] [address] Dec, [facility] [address] [id number] [address] [place] [address], [place] [address] Dec, [facility] [address] [id number] [address] [place] [address], [place] [address] Dec, [facility] [address] [id number] [address] [place] [address], [place] [address] Dec, [facility] [address] [id number] [address] [place] [address], [place] [address] Dec, [facility] [address] [id number] [address] [place] [address], [place] [address] Nov, [facility] [address] [id number] [address] [place] [address], [place] [address] Nov, [facility] [address] [id number] [address] [place] [address], [place] [address] Nov, [facility] [address] [id number] [address] [place] [address], [place] [address] Nov, [facility] [address] [id number] [address] [place] [address], [place] [address] Nov, [facility] [address] [id number] [address] [place] [address], [place] [address] Nov, [facility] [address] [id number] [address] [place] [address], [place] [address] Nov, [facility] [address] [id number] [address] [place] [address], [place] [address] Oct, [facility] [address] [id number] [address] [place] [address], [place] [address] Oct, [facility] [address] [id number] [address] [place] [address], [place] [address] Oct, [facility] [address] [id number] [address] [place] [address], [place] [address] Sep, [facility] [address] [id number] [address] [place] [address], [place] [address] Sep, [facility] [address] [id number] [address] [place] [address], [place] [address] Sep, [facility] [address] [id number] [address] [place] [address], [place] [address] Sep, [facility] [address] [id number] [address] [place] [address], [place] [address] Sep, [facility] [address] [id number] [address] [place] [address], [place] [address] Sep, [facility] [address] [id number] [address] [place] [address], [place] [address] Sep, [facility] [address] [id number] [address] [place] [address], [place] [address] Sep, [facility] [address] [id number] [address] [place] [address], [place] [address] Sep, [facility] [address] [id number] [address] [place] [address], [place] [address] Sep, [facility] [address] [id number] [address] [place] [address], [place] [address] Aug, [facility] [address] [id number] [address] [place] [address], [place] [address] Aug, [facility] [address] [id number] [address] [place] [address], [place] [address] Aug, [facility] [address] [id number] [address] [place] [address], [place] [address] Jul, [facility] [address] [id number] [address] [place] [address], [place] [address] June, [facility] [address] [id number] [address] [place] [address], [place] [address] May, [facility] [address] [id number] [address] [place] [address], [place] [address] May, [facility] [address] [id number] [address] [place] [address], [place] [address] Apr, [facility] [address] [id number] [address] [place] [address] Apr, [facility] [address] [facility] [id number] [address] [place] [address] Apr, [facility] [address] [facility] [id number] [address] [place] [address] Mar, [facility] [address] [facility] [id number] [address] [place] [address] Mar, [facility] [address] [facility] [id number] [address] [place] [address] Mar, [facility] [address] [facility] [id number] [address] [place] [address] 05 Mar, 2012 [facility] [address] [facility] [id number] [address] [place] [address] 04 Mar, 2012 [facility] [address] [facility] [id number] [address] [place] [address] Mar, IMMUNIZATIONS No Known Immunizations SOCIAL HISTORY Never Assessed REASON FOR VISIT PLAN OF CARE VITAL SIGNS MEDICATIONS Unknown Medications RESULTS No Results PROCEDURES No Known procedures INSTRUCTIONS MEDICATIONS ADMINISTERED No Known Medications
--- OUTSIDE RECORDS SUMMARY | 2019-09-24 12:48 | XMS REPORT ---
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 Active 67586 006 Problem Altered mental status 780.97 Active 531438144 Problem Pain in joint, shoulder region 719.41 Active 421143994 Problem Complete rupture of rotator cuff 727.61 Active 052636704 Problem Acute upper respiratory infections of unspecified site 465.9 Active 50914022 Problem Other testicular hypofunction 257.2 Active 543903555 Problem Pain in joint, lower leg 719.46 Activ e 151709981 Problem Osteoarthritis of right knee 715.96 A ctive 790078641 Problem Unspecified myalgia and myositis 729.1 Active 688517348 Problem Acute sinusitis, unspecified 461.9 A ctive 26842862 Problem Essential hypertension, benign 401.1 Active 8260177 Problem Other and unspecified hyperlipidemia 272.4 Active 59053358 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 92916748 ALLERGIES No Information ENCOUNTERS Encounter Location Date Diagnosis [facility] [id number] [place] [address] Aug, [facility] [id number] [place] [address] Jul, Osteoarthritis of right knee 715.96 [facility] [id number] [place] [address] Jul, [facility] [address] [id number] [place] [address] June, Osteoarthritis of right knee 715.96 [facility] [address] [id number] [place] [address] June, Osteoarthritis of right knee 715.96 [facility] [address] [id number] [place] [address] 14 May, 2014 [facility] [address] [id number] [place] [address] May, [facility] [address] [id number] [place] [address] Mar, [facility] [address] [id number] [place] [address] Mar, [facility] [address] [id number] [place] [address] Mar, [facility] [address] [id number] [place] [address] Mar, [facility] [id number] [place] [address] Feb, [facility] [address] [id number] [place] [address] Feb, [facility] [address] [id number] [place] [address] Jan, [facility] [address] [id number] [place] [address] Jan, [facility] [address] [id number] [place] [address] Oct, [facility] [address] [id number] [place] [address] Sep, [facility] [address] [id number] [place] [address] Sep, [facility] [address] [id number] [place] [address] Aug, [facility] [address] [id number] [place] [address] Aug, [facility] [address] [id number] [place] [address] June, [facility] [address] [id number] [place] [address] June, [facility] [address] [id number] [place] [address] June, [facility] [address] [id number] [place] [address] June, [facility] [address] [id number] [place] [address] May, [facility] [address] [id number] [place] [address] May, [facility] [address] [id number] [place] [address] May, [facility] [address] [id number] [place] [address] May, [facility] [address] [id number] [place] [address] Apr, [facility] [address] [id number] [place] [address] Apr, [facility] [address] [id number] [place] [address] Mar, [facility] [address] [id number] [place] [address] Mar, [facility] [address] [id number] [place] [address] Feb, [facility] [address] [id number] [place] [address] Feb, [facility] [address] [id number] [place] [address] Feb, [facility] [address] [id number] [place] [address] Feb, [facility] [address] [id number] [place] [address] Jan, [facility] [address] [id number] [place] [address] Jan, 2012 [facility] [address] [id number] [place] [address] Jan, [facility] [address] [id number] [place] [address] Jan, [facility] [address] [id number] [place] [address] Jan, [facility] [address] [id number] [place] [address] Jan, [facility] [address] [id number] [place] [address] Jan, [facility] [address] [id number] [place] [address] Jan, [facility] [id number] [place] [address] Dec, [facility] [address] [id number] [place] [address] Dec, [facility] [address] [id number] [place] [address] Dec, [facility] [address] [id number] [place] [address] Dec, [facility] [address] [id number] [place] [address] Dec, [facility] [address] [id number] [place] [address] Dec, [facility] [place] [facility] [address] [id number] [place] [address] Dec, [facility] [place] [facility] [address] [id number] [place] [address] Dec, [facility] [place] [facility] [address] [id number] [place] [address] Dec, [facility] [place] [facility] [address] [id number] [place] [address] Nov, [facility] [facility] [address] [facility] [id number] [facility] [place] [address] Nov, [facility] [facility] [address] [facility] [id number] [facility] [place] [address] Nov, [facility] [place] [facility] [address] [id number] [facility] [place] [address] Nov, [facility] [place] [facility] [address] [facility] [id number] [place] [address] Nov, [facility] [place] [facility] [address] [facility] [id number] [facility] [place] [address] Nov, [facility] [facility] [address] [facility] [id number] [facility] [place] [address] Nov, [facility] [place] [facility] [address] [id number] [place] [address] Oct, [facility] [place] [facility] [address] [id number] [place] [address] Oct, [facility] [place] [facility] [address] [facility] [id number] [facility] [place] [address] Oct, [facility] [facility] [address] [id number] [place] [address] Sep, [facility] [address] [id number] [place] [address] Sep, [facility] [facility] [address] [id number] [place] [address] 18 Sep, 2012 [facility] [address] [facility] [id number] [facility] [place] [address] Sep, [facility] [address] [facility] [id number] [place] [address] Sep, [facility] [facility] [address] [facility] [id number] [facility] [place] [address] 14 Sep, 2012 [facility] [address] [id number] [place] [address] Sep, [facility] [address] [id number] [place] [address] Sep, [facility] [address] [id number] [place] [address] Sep, [facility] [facility] [address] [id number] [place] [address] Sep, [facility] [address] [id number] [place] [address] Aug, [facility] [facility] [address] [id number] [place] [address] Aug, [facility] [address] [id number] [place] [address] Aug, [facility] [address] [id number] [place] [address] Jul, [facility] [address] [id number] [place] [address] June, [facility] [address] [id number] [place] [address] May, [facility] [address] [id number] [place] [address] May, [facility] [address] [id number] [place] [address] Apr, [facility] [address] [id number] [place] [address] Apr, [facility] [address] [id number] [place] [address] Apr, [facility] [address] [id number] [place] [address] 28 Mar, 2012 [facility] [address] [id number] [place] [address] 14 Mar, 2012 [facility] [address] [id number] [place] [address] 11 Mar, 2012 [facility] [address] [id number] [place] [address] Mar, [facility] [address] [facility] [id number] [place] [address] Mar, [facility] [address] [id number] [place] [address] Mar, IMMUNIZATIONS No Known Immunizations SOCIAL HISTORY Never Assessed REASON FOR VISIT PLAN OF CARE VITAL SIGNS MEDICATIONS Unknown Medications RESULTS No Results PROCEDURES No Known procedures INSTRUCTIONS MEDICATIONS ADMINISTERED No Known Medications
--- OUTSIDE RECORDS SUMMARY | 2019-09-24 12:48 | XMS REPORT ---
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 Active 34239 006 Problem Altered mental status 780.97 Active 014960314 Problem Pain in joint, shoulder region 719.41 Active 527183504 Problem Complete rupture of rotator cuff 727.61 Active 606138940 Problem Acute upper respiratory infections of unspecified site 465.9 Active 22616875 Problem Other testicular hypofunction 257.2 Active 323136261 Problem Pain in joint, lower leg 719.46 Activ e 790996803 Problem Osteoarthritis of right knee 715.96 A ctive 008085784 Problem Unspecified myalgia and myositis 729.1 Active 709715528 Problem Acute sinusitis, unspecified 461.9 A ctive 84460964 Problem Essential hypertension, benign 401.1 Active 4896563 Problem Other and unspecified hyperlipidemia 272.4 Active 82167670 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 18430900 ALLERGIES No Information ENCOUNTERS Encounter Location Date Diagnosis [facility] [id number] [place] [address] Aug, [facility] [id number] [place] [address] Jul, Osteoarthritis of right knee 715.96 [facility] [id number] [place] [address] Jul, [facility] [id number] [place] [address] June, Osteoarthritis of right knee 715.96 [facility] [id number] [place] [address] June, Osteoarthritis of right knee 715.96 [facility] [id number] [place] [address] May, [facility] [id number] [place] [address] May, [facility] [id number] [place] [address] Mar, [facility] [id number] [place] [address] Mar, [facility] [id number] [place] [address] Mar, [facility] [id number] [place] [address] Mar, [facility] [id number] [place] [address] Feb, [facility] [id number] [place] [address] Feb, [facility] [id number] [place] [address] Jan, [facility] [id number] [place] [address] Jan, [facility] [id number] [place] [address] Oct, [facility] [id number] [place] [address] Sep, [facility] [id number] [place] [address] Sep, [facility] [id number] [place] [address] Aug, [facility] [id number] [place] [address] Aug, [facility] [place] [facility] [id number] [place] [address] June, [facility] [place] [facility] [id number] [place] [address] June, [facility] [place] [facility] [id number] [place] [address] June, [facility] [place] [facility] [id number] [place] [address] June, [facility] [place] [facility] [id number] [place] [address] May, [facility] [place] [facility] [id number] [place] [address] May, [facility] [place] [facility] [id number] [place] [address] May, [facility] [place] [facility] [id number] [place] [address] May, [facility] [place] [facility] [id number] [place] [address] Apr, [facility] [place] [facility] [id number] [place] [address] Apr, [facility] [place] [facility] [id number] [place] [address] Mar, [facility] [place] [facility] [id number] [place] [address] Mar, [facility] [place] [facility] [id number] [place] [address] Feb, [facility] [place] [facility] [id number] [place] [address] Feb, [facility] [place] [facility] [id number] [place] [address] Feb, [facility] [place] [facility] [id number] [place] [address] Feb, [facility] [place] [facility] [id number] [place] [address] Jan, [facility] [place] [facility] [id number] [place] [address] Jan, [facility] [place] [facility] [id number] [place] [address] Jan, [facility] [place] [facility] [id number] [place] [address] Jan, [facility] [place] [facility] [id number] [place] [address] Jan, [facility] [place] [facility] [id number] [place] [address] Jan, [facility] [place] [facility] [id number] [place] [address] Jan, [facility] [place] [facility] [id number] [place] [address] Jan, [facility] [place] [facility] [id number] [place] [address] Dec, [facility] [place] [facility] [id number] [place] [address] Dec, [facility] [place] [facility] [id number] [place] [address] Dec, [facility] [place] [facility] [id number] [place] [address] Dec, [facility] [place] [facility] [id number] [place] [address] Dec, [facility] [place] [facility] [id number] [place] [address] Dec, [facility] [place] [facility] [id number] [place] [address] Dec, [facility] [place] [facility] [id number] [place] [address] Dec, [facility] [place] [facility] [id number] [place] [address] Dec, [facility] [place] [facility] [address] [facility] [id number] [place] [address] Nov, [facility] [place] [facility] [address] [facility] [id number] [place] [address] Nov, [facility] [place] [facility] [id number] [place] [address] Nov, [facility] [place] [facility] [id number] [place] [address] Nov, [facility] [place] [facility] [address] [facility] [id number] [place] [address] Nov, [facility] [place] [facility] [id number] [place] [address] Nov, [facility] [place] [facility] [id number] [place] [address] Nov, [facility] [place] [facility] [id number] [place] [address] Oct, [facility] [place] [facility] [id number] [place] [address] Oct, [facility] [place] [facility] [id number] [place] [address] 09 Oct, 2012 [facility] [place] [facility] [id number] [place] [address] Sep, [facility] [place] [facility] [id number] [place] [address] Sep, [facility] [place] [facility] [id number] [place] [address] 18 Sep, 2012 [facility] [place] [facility] [id number] [place] [address] Sep, [facility] [place] [facility] [id number] [place] [address] Sep, [facility] [place] [facility] [id number] [place] [address] 14 Sep, 2012 [facility] [place] [facility] [id number] [facility] [place] [address] Sep, [facility] [place] [facility] [address] [facility] [id number] [facility] [place] [address] Sep, [facility] [place] [facility] [id number] [place] [address] Sep, [facility] [place] [facility] [id number] [place] [address] Sep, [facility] [place] [facility] [id number] [place] [address] Aug, [facility] [place] [facility] [id number] [facility] [place] [address] Aug, [facility] [place] [facility] [id number] [place] [address] Aug, [facility] [place] [facility] [id number] [place] [address] Jul, [facility] [place] [facility] [id number] [place] [address] June, [facility] [place] [facility] [id number] [place] [address] May, [facility] [place] [facility] [id number] [place] [address] May, [facility] [place] [facility] [id number] [place] [address] Apr, [facility] [place] [facility] [id number] [place] [address] Apr, [facility] [place] [facility] [id number] [place] [address] Apr, [facility] [place] [facility] [id number] [place] [address] Mar, [facility] [place] [facility] [id number] [place] [address] 14 Mar, 2012 [facility] [place] [facility] [id number] [place] [address] Mar, [facility] [id number] [place] [address] Mar, [facility] [id number] [place] [address] Mar, [facility] [id number] [place] [address] Mar, IMMUNIZATIONS No Known Immunizations SOCIAL HISTORY Never Assessed REASON FOR VISIT PLAN OF CARE VITAL SIGNS MEDICATIONS Unknown Medications RESULTS No Results PROCEDURES No Known procedures INSTRUCTIONS MEDICATIONS ADMINISTERED No Known Medications
--- OUTSIDE RECORDS SUMMARY | 2019-09-24 12:48 | XMS REPORT ---
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 Active 50216 006 Problem Altered mental status 780.97 Active 952009915 Problem Pain in joint, shoulder region 719.41 Active 314280104 Problem Complete rupture of rotator cuff 727.61 Active 654909701 Problem Acute upper respiratory infections of unspecified site 465.9 Active 76958549 Problem Other testicular hypofunction 257.2 Active 448426203 Problem Pain in joint, lower leg 719.46 Activ e 479660136 Problem Osteoarthritis of right knee 715.96 A ctive 304383497 Problem Unspecified myalgia and myositis 729.1 Active 395919670 Problem Acute sinusitis, unspecified 461.9 A ctive 94687974 Problem Essential hypertension, benign 401.1 Active 9615014 Problem Other and unspecified hyperlipidemia 272.4 Active 86291709 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 44500596 ALLERGIES No Information ENCOUNTERS Encounter Location Date Diagnosis [facility] [id number] [place] [address] Aug, [facility] [id number] [place] [address] Jul, Osteoarthritis of right knee 715.96 [facility] [id number] [place] [address] Jul, [facility] [id number] [place] [address] June, Osteoarthritis of right knee 715.96 [facility] [id number] [place] [address] June, Osteoarthritis of right knee 715.96 [facility] [id number] [place] [address] 14 May, 2014 [facility] [place] [facility] [id number] [place] [address] May, [facility] [place] [facility] [id number] [place] [address] Mar, [facility] [place] [facility] [id number] [place] [address] Mar, [facility] [place] [facility] [id number] [place] [address] Mar, [facility] [place] [facility] [id number] [place] [address] Mar, [facility] [id number] [place] [address] Feb, [facility] [place] [facility] [id number] [place] [address] Feb, [facility] [place] [facility] [id number] [place] [address] Jan, [facility] [place] [facility] [id number] [place] [address] Jan, [facility] [place] [facility] [address] [id number] [place] [address] Oct, [facility] [place] [facility] [address] [id number] [place] [address] Sep, [facility] [place] [facility] [address] [facility] [id number] [place] [address] Sep, [facility] [place] [facility] [address] [id number] [place] [address] Aug, [facility] [place] [facility] [address] [id number] [place] [address] Aug, [facility] [place] [facility] [address] [id number] [place] [address] June, [facility] [place] [facility] [address] [facility] [id number] [place] [address] June, [facility] [place] [facility] [address] [id number] [place] [address] June, [facility] [place] [facility] [address] [id number] [place] [address] June, [facility] [place] [facility] [address] [id number] [place] [address] May, [facility] [place] [facility] [address] [facility] [id number] [place] [address] May, [facility] [place] [facility] [address] [id number] [place] [address] May, [facility] [place] [facility] [address] [id number] [place] [address] May, [facility] [place] [facility] [address] [id number] [place] [address] Apr, [facility] [place] [facility] [address] [id number] [place] [address] Apr, [facility] [place] [facility] [address] [id number] [place] [address] Mar, [facility] [place] [facility] [address] [id number] [place] [address] Mar, [facility] [place] [facility] [address] [id number] [place] [address] Feb, [facility] [place] [facility] [address] [id number] [place] [address] Feb, [facility] [place] [facility] [address] [id number] [place] [address] Feb, [facility] [place] [facility] [address] [id number] [place] [address] Feb, [facility] [place] [facility] [address] [id number] [place] [address] Jan, [facility] [address] [id number] [place] [address] Jan, 2012 [facility] [place] [facility] [address] [id number] [place] [address] Jan, [facility] [place] [facility] [address] [facility] [id number] [place] [address] Jan, [facility] [place] [facility] [address] [facility] [id number] [place] [address] Jan, [facility] [place] [facility] [address] [facility] [id number] [place] [address] Jan, [facility] [place] [facility] [address] [id number] [place] [address] Jan, [facility] [place] [facility] [address] [facility] [id number] [place] [address] Jan, [facility] [place] [facility] [id number] [place] [address] Dec, [facility] [place] [facility] [address] [facility] [id number] [place] [address] Dec, [facility] [place] [facility] [address] [facility] [id number] [place] [address] Dec, [facility] [place] [facility] [address] [id number] [place] [address] Dec, [facility] [place] [facility] [address] [id number] [place] [address] Dec, [facility] [place] [facility] [address] [facility] [id number] [place] [address] Dec, [facility] [place] [facility] [address] [id number] [place] [address] Dec, [facility] [place] [facility] [address] [id number] [place] [address] Dec, [facility] [place] [facility] [address] [id number] [place] [address] Dec, [facility] [place] [facility] [address] [facility] [id number] [place] [address] Nov, [facility] [place] [facility] [address] [facility] [id number] [facility] [place] [address] Nov, [facility] [place] [facility] [address] [facility] [id number] [facility] [place] [address] Nov, [facility] [place] [facility] [address] [id number] [facility] [place] [address] Nov, [facility] [place] [facility] [address] [facility] [id number] [place] [address] Nov, [facility] [place] [facility] [address] [facility] [id number] [facility] [place] [address] Nov, [facility] [place] [facility] [address] [facility] [id number] [facility] [place] [address] Nov, [facility] [place] [facility] [address] [id number] [place] [address] Oct, [facility] [place] [facility] [address] [id number] [place] [address] Oct, [facility] [place] [facility] [address] [facility] [id number] [facility] [place] [address] Oct, [facility] [place] [facility] [address] [id number] [place] [address] Sep, [facility] [place] [facility] [address] [id number] [place] [address] Sep, [facility] [place] [facility] [address] [id number] [place] [address] 18 Sep, 2012 [facility] [place] [facility] [address] [facility] [id number] [facility] [place] [address] Sep, [facility] [place] [facility] [address] [facility] [id number] [place] [address] Sep, [facility] [place] [facility] [address] [facility] [id number] [facility] [place] [address] 14 Sep, 2012 [facility] [place] [facility] [address] [id number] [place] [address] Sep, [facility] [place] [facility] [address] [id number] [place] [address] Sep, [facility] [place] [facility] [address] [id number] [place] [address] Sep, [facility] [place] [facility] [address] [id number] [place] [address] Sep, [facility] [place] [facility] [address] [id number] [place] [address] Aug, [facility] [place] [facility] [address] [id number] [place] [address] Aug, [facility] [place] [facility] [address] [id number] [place] [address] Aug, [facility] [place] [facility] [address] [id number] [place] [address] Jul, [facility] [place] [facility] [address] [id number] [place] [address] June, [facility] [place] [facility] [address] [id number] [place] [address] May, [facility] [place] [facility] [address] [id number] [place] [address] May, [facility] [place] [facility] [address] [id number] [place] [address] Apr, [facility] [place] [facility] [address] [id number] [place] [address] Apr, [facility] [place] [facility] [address] [id number] [place] [address] Apr, [facility] [place] [facility] [address] [id number] [place] [address] 28 Mar, 2012 [facility] [place] [facility] [address] [id number] [place] [address] 14 Mar, 2012 [facility] [place] [facility] [address] [id number] [place] [address] 11 Mar, 2012 [facility] [place] [facility] [address] [id number] [place] [address] Mar, [facility] [address] [facility] [id number] [place] [address] Mar, [facility] [address] [facility] [id number] [place] [address] Mar, IMMUNIZATIONS No Known Immunizations SOCIAL HISTORY Never Assessed REASON FOR VISIT PLAN OF CARE VITAL SIGNS Height 72 in 2013-07-10 Weight 212.8 lbs 2013-07-10 Temperature 97.5 degrees Fahrenheit 2013-07-10 Heart Rate 92 bpm 2013-07-10 Respiratory Rate 18 2013-07-10 Blood pressure systolic 120 mmHg 2013-07-10 Blood pressure diastolic 78 mmHg 2013-07-10 MEDICATIONS Unknown Medications RESULTS No Results PROCEDURES Procedure Date Ordered Result Body Site DRAIN/INJECT, JOINT/BURSA July 10, 2013 INSTRUCTIONS MEDICATIONS ADMINISTERED No Known Medications
--- OUTSIDE RECORDS SUMMARY | 2019-09-24 12:48 | XMS REPORT ---
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 Active 90789 006 Problem Altered mental status 780.97 Active 240903433 Problem Pain in joint, shoulder region 719.41 Active 252274949 Problem Complete rupture of rotator cuff 727.61 Active 620698257 Problem Acute upper respiratory infections of unspecified site 465.9 Active 16018929 Problem Other testicular hypofunction 257.2 Active 488449727 Problem Pain in joint, lower leg 719.46 Activ e 980547940 Problem Osteoarthritis of right knee 715.96 A ctive 038452561 Problem Unspecified myalgia and myositis 729.1 Active 515884052 Problem Acute sinusitis, unspecified 461.9 A ctive 32351491 Problem Essential hypertension, benign 401.1 Active 2329432 Problem Other and unspecified hyperlipidemia 272.4 Active 29259000 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 76996039 ALLERGIES No Information ENCOUNTERS Encounter Location Date Diagnosis [facility] [id number] [place] [address] Aug, [facility] [id number] [place] [address] Jul, Osteoarthritis of right knee 715.96 [facility] [id number] [place] [address] Jul, [facility] [address] [id number] [place] [address] June, Osteoarthritis of right knee 715.96 [facility] [address] [id number] [place] [address] June, Osteoarthritis of right knee 715.96 [facility] [address] [id number] [place] [address] 14 May, 2014 [facility] [place] [facility] [address] [id number] [place] [address] May, [facility] [place] [facility] [address] [id number] [place] [address] Mar, [facility] [place] [facility] [address] [id number] [place] [address] Mar, [facility] [place] [facility] [address] [id number] [place] [address] Mar[facility] [place] [facility] [address] [id number] [place] [address] Mar, [facility] [id number] [place] [address] Feb, [facility] [place] [facility] [address] [id number] [place] [address] Feb, [facility] [place] [facility] [address] [id number] [place] [address] Jan, [facility] [place] [facility] [address] [id number] [place] [address] Jan, [facility] [place] [facility] [address] [id number] [place] [address] Oct, [facility] [place] [facility] [address] [id number] [place] [address] Sep, [facility] [place] [facility] [address] [id number] [place] [address] Sep, [facility] [place] [facility] [address] [id number] [place] [address] Aug, [facility] [place] [facility] [address] [id number] [place] [address] Aug, [facility] [place] [facility] [address] [id number] [place] [address] June, [facility] [place] [facility] [address] [id number] [place] [address] June, [facility] [place] [facility] [address] [id number] [place] [address] June, [facility] [place] [facility] [address] [id number] [place] [address] June, [facility] [place] [facility] [address] [id number] [place] [address] May, [facility] [place] [facility] [address] [id number] [place] [address] May, [facility] [place] [facility] [address] [id number] [place] [address] May, [facility] [place] [facility] [address] [id number] [place] [address] May, [facility] [place] [facility] [address] [id number] [place] [address] Apr, [facility] [place] [facility] [address] [id number] [place] [address] Apr, [facility] [place] [facility] [address] [id number] [place] [address] Mar, [facility] [place] [facility] [address] [id number] [place] [address] Mar, [facility] [place] [facility] [address] [id number] [place] [address] Feb, [facility] [place] [facility] [address] [id number] [place] [address] Feb, [facility] [place] [facility] [address] [id number] [place] [address] Feb, [facility] [place] [facility] [address] [id number] [place] [address] Feb, [facility] [place] [facility] [address] [id number] [place] [address] Jan, [facility] [address] [id number] [place] [address] Jan, 2012 [facility] [place] [facility] [address] [id number] [place] [address] Jan, [facility] [place] [facility] [address] [id number] [place] [address] Jan, [facility] [place] [facility] [address] [id number] [place] [address] Jan, [facility] [place] [facility] [address] [id number] [place] [address] Jan, [facility] [place] [facility] [address] [id number] [place] [address] Jan, [facility] [place] [facility] [address] [id number] [place] [address] Jan, [facility] [place] [facility] [id number] [place] [address] Dec, [facility] [place] [facility] [address] [id number] [place] [address] Dec, [facility] [place] [facility] [address] [id number] [place] [address] Dec, [facility] [place] [facility] [address] [id number] [place] [address] Dec, [facility] [place] [facility] [address] [id number] [place] [address] Dec, [facility] [place] [facility] [address] [id number] [place] [address] Dec, [facility] [place] [facility] [address] [id number] [place] [address] Dec, [facility] [place] [facility] [address] [id number] [place] [address] Dec, [facility] [place] [facility] [address] [id number] [place] [address] Dec, [facility] [place] [facility] [address] [id number] [place] [address] Nov, [facility] [place] [facility] [address] [facility] [id number] [facility] [place] [address] Nov, [facility] [place] [facility] [address] [facility] [id number] [facility] [place] [address] Nov, [facility] [place] [facility] [address] [id number] [facility] [place] [address] Nov, [facility] [place] [facility] [address] [facility] [id number] [place] [address] Nov, [facility] [place] [facility] [address] [facility] [id number] [facility] [place] [address] Nov, [facility] [place] [facility] [address] [facility] [id number] [facility] [place] [address] Nov, [facility] [place] [facility] [address] [id number] [place] [address] Oct, [facility] [place] [facility] [address] [id number] [place] [address] Oct, [facility] [place] [facility] [address] [facility] [id number] [facility] [place] [address] Oct, [facility] [place] [facility] [address] [id number] [place] [address] Sep, [facility] [place] [facility] [address] [id number] [place] [address] Sep, [facility] [place] [facility] [address] [id number] [place] [address] 18 Sep, 2012 [facility] [place] [facility] [address] [facility] [id number] [facility] [place] [address] Sep, [facility] [place] [facility] [address] [facility] [id number] [place] [address] Sep, [facility] [place] [facility] [address] [facility] [id number] [facility] [place] [address] 14 Sep, 2012 [facility] [place] [facility] [address] [id number] [place] [address] Sep, [facility] [place] [facility] [address] [id number] [place] [address] Sep, [facility] [place] [facility] [address] [id number] [place] [address] Sep, [facility] [place] [facility] [address] [id number] [place] [address] Sep, [facility] [place] [facility] [address] [id number] [place] [address] Aug, [facility] [place] [facility] [address] [id number] [place] [address] Aug, [facility] [place] [facility] [address] [id number] [place] [address] Aug, [facility] [place] [facility] [address] [id number] [place] [address] Jul, [facility] [place] [facility] [address] [id number] [place] [address] June, [facility] [place] [facility] [address] [id number] [place] [address] May, [facility] [place] [facility] [address] [id number] [place] [address] May, [facility] [place] [facility] [address] [id number] [place] [address] Apr, [facility] [place] [facility] [address] [id number] [place] [address] Apr, [facility] [place] [facility] [address] [id number] [place] [address] Apr, [facility] [place] [facility] [address] [id number] [place] [address] 28 Mar, 2012 [facility] [place] [facility] [address] [id number] [place] [address] 14 Mar, 2012 [facility] [place] [facility] [address] [id number] [place] [address] 11 Mar, 2012 [facility] [place] [facility] [address] [id number] [place] [address] Mar, [facility] [address] [facility] [id number] [place] [address] Mar, [facility] [address] [id number] [place] [address] Mar, IMMUNIZATIONS No Known Immunizations SOCIAL HISTORY Never Assessed REASON FOR VISIT PLAN OF CARE VITAL SIGNS Blood pressure systolic 140 mmHg 2013-03-02 Blood pressure diastolic 80 mmHg 2013-03-02 MEDICATIONS Unknown Medications RESULTS No Results PROCEDURES Procedure Date Ordered Result Body Site DRAIN/INJECT, JOINT/BURSA Mar 02, 2013 INSTRUCTIONS MEDICATIONS ADMINISTERED No Known Medications
--- OUTSIDE RECORDS SUMMARY | 2019-09-24 12:49 | XMS REPORT ---
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 Active 68521 006 Problem Altered mental status 780.97 Active 858193167 Problem Pain in joint, shoulder region 719.41 Active 873523410 Problem Complete rupture of rotator cuff 727.61 Active 046766388 Problem Acute upper respiratory infections of unspecified site 465.9 Active 90139975 Problem Other testicular hypofunction 257.2 Active 668950945 Problem Pain in joint, lower leg 719.46 Activ e 243239995 Problem Osteoarthritis of right knee 715.96 A ctive 241720341 Problem Unspecified myalgia and myositis 729.1 Active 683409860 Problem Acute sinusitis, unspecified 461.9 A ctive 73547423 Problem Essential hypertension, benign 401.1 Active 2687523 Problem Other and unspecified hyperlipidemia 272.4 Active 26066061 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 59651437 ALLERGIES No Information ENCOUNTERS Encounter Location Date Diagnosis [facility] [id number] [place] [address] Aug, [facility] [id number] [place] [address] Jul, Osteoarthritis of right knee 715.96 [facility] [id number] [place] [address] Jul, [facility] [address] [id number] [place] [address] June, Osteoarthritis of right knee 715.96 [facility] [address] [id number] [place] [address] June, Osteoarthritis of right knee 715.96 [facility] [address] [id number] [place] [address] 14 May, 2014 [facility] [place] [facility] [address] [id number] [place] [address] May, [facility] [place] [facility] [address] [id number] [place] [address] Mar, [facility] [place] [facility] [address] [id number] [place] [address] Mar, [facility] [place] [facility] [address] [id number] [place] [address] Mar, [facility] [place] [facility] [address] [id number] [place] [address] Mar, [facility] [id number] [place] [address] Feb, [facility] [place] [facility] [address] [id number] [place] [address] Feb, [facility] [place] [facility] [address] [id number] [place] [address] Jan, [facility] [place] [facility] [address] [id number] [place] [address] Jan, [facility] [place] [facility] [address] [id number] [place] [address] Oct, [facility] [place] [facility] [address] [id number] [place] [address] Sep, [facility] [place] [facility] [address] [id number] [place] [address] Sep, [facility] [place] [facility] [address] [id number] [place] [address] Aug, [facility] [place] [facility] [address] [id number] [place] [address] Aug, [facility] [place] [facility] [address] [id number] [place] [address] June, [facility] [place] [facility] [address] [id number] [place] [address] June, [facility] [place] [facility] [address] [id number] [place] [address] June, [facility] [place] [facility] [address] [id number] [place] [address] June, [facility] [place] [facility] [address] [id number] [place] [address] May, [facility] [place] [facility] [address] [id number] [place] [address] May, [facility] [place] [facility] [address] [id number] [place] [address] May, [facility] [place] [facility] [address] [id number] [place] [address] May, [facility] [place] [facility] [address] [id number] [place] [address] Apr, [facility] [place] [facility] [address] [id number] [place] [address] Apr, [facility] [place] [facility] [address] [id number] [place] [address] Mar, [facility] [place] [facility] [address] [id number] [place] [address] Mar, [facility] [place] [facility] [address] [id number] [place] [address] Feb, [facility] [place] [facility] [address] [id number] [place] [address] Feb, [facility] [place] [facility] [address] [id number] [place] [address] Feb, [facility] [place] [facility] [address] [id number] [place] [address] Feb, [facility] [place] [facility] [address] [id number] [place] [address] Jan, [facility] [address] [id number] [place] [address] Jan, 2012 [facility] [place] [facility] [address] [id number] [place] [address] Jan, [facility] [place] [facility] [address] [id number] [place] [address] Jan, [facility] [place] [facility] [address] [id number] [place] [address] Jan, [facility] [place] [facility] [address] [id number] [place] [address] Jan, [facility] [place] [facility] [address] [id number] [place] [address] Jan, [facility] [place] [facility] [address] [id number] [place] [address] Jan, [facility] [place] [facility] [id number] [place] [address] Dec, [facility] [place] [facility] [address] [id number] [place] [address] Dec, [facility] [place] [facility] [address] [id number] [place] [address] Dec, [facility] [place] [facility] [address] [id number] [place] [address] Dec, [facility] [place] [facility] [address] [id number] [place] [address] Dec, [facility] [place] [facility] [address] [id number] [place] [address] Dec, [facility] [place] [facility] [address] [id number] [place] [address] Dec, [facility] [place] [facility] [address] [id number] [place] [address] Dec, [facility] [place] [facility] [address] [id number] [place] [address] Dec, [facility] [place] [facility] [address] [id number] [place] [address] Nov, [facility] [place] [facility] [address] [facility] [id number] [facility] [place] [address] Nov, [facility] [place] [facility] [address] [facility] [id number] [facility] [place] [address] Nov, [facility] [place] [facility] [address] [id number] [facility] [place] [address] Nov, [facility] [place] [facility] [address] [facility] [id number] [place] [address] Nov, [facility] [place] [facility] [address] [facility] [id number] [facility] [place] [address] Nov, [facility] [place] [facility] [address] [facility] [id number] [facility] [place] [address] Nov, [facility] [place] [facility] [address] [id number] [place] [address] Oct, [facility] [place] [facility] [address] [id number] [place] [address] Oct, [facility] [place] [facility] [address] [facility] [id number] [facility] [place] [address] Oct, [facility] [place] [facility] [address] [id number] [place] [address] Sep, [facility] [place] [facility] [address] [id number] [place] [address] Sep, [facility] [address] [id number] [place] [address] 18 Sep, 2012 [facility] [address] [facility] [id number] [facility] [place] [address] Sep, [facility] [address] [facility] [id number] [place] [address] Sep, [facility] [address] [facility] [id number] [facility] [place] [address] 14 Sep, 2012 [facility] [address] [id number] [place] [address] Sep, [facility] [address] [id number] [place] [address] Sep, [facility] [address] [id number] [place] [address] Sep, [facility] [address] [id number] [place] [address] Sep, [facility] [address] [id number] [place] [address] Aug, [facility] [address] [id number] [place] [address] Aug, [facility] [address] [id number] [place] [address] Aug, [facility] [address] [id number] [place] [address] Jul, [facility] [address] [id number] [place] [address] June, [facility] [address] [id number] [place] [address] May, [facility] [address] [id number] [place] [address] May, [facility] [address] [id number] [place] [address] Apr, [facility] [address] [id number] [place] [address] Apr, [facility] [address] [id number] [place] [address] Apr, [facility] [address] [id number] [place] [address] 28 Mar, 2012 [facility] [address] [id number] [place] [address] 14 Mar, 2012 [facility] [address] [id number] [place] [address] 11 Mar, 2012 [facility] [address] [id number] [place] [address] Mar, [facility] [address] [facility] [id number] [place] [address] Mar, [facility] [address] [id number] [place] [address] Mar, IMMUNIZATIONS No Known Immunizations SOCIAL HISTORY Never Assessed REASON FOR VISIT PLAN OF CARE VITAL SIGNS MEDICATIONS Unknown Medications RESULTS No Results PROCEDURES No Known procedures INSTRUCTIONS MEDICATIONS ADMINISTERED No Known Medications
--- OUTSIDE RECORDS SUMMARY | 2019-09-24 12:50 | XMS REPORT | Continuity of Care Document ---
Author Organization Unknown Address Unknown Phone Unavailable Allergies Active Description Code Type Severity Reaction Onset Reported/Identified Relationship to Patient Clinical Status Yes Penicillins [id number] Drug Aller gy Mild N/A 11/01/2006 Yes ciprofloxacin [id number] Leroy g Allergy Mild N/A 12/20/2017 Yes Penicillins [id number] Drug Aller gy Mild UNCOORDINATED 12/20/2017 Medications There is no data. Problems Date Dx Coded Attending Type Code Diagnosis Diagnosed By 10/06/2012 SKYLER NEWBERRY, GENEVA Sammie Ot 272 .4 10/06/2012 SKYLER NEWBERRY, GENEVA Sammie Ot 311 10/06/2012 SKYLER NEWBERRY, GENEVA Cochran Ot 401 .9 10/06/2012 SKYLER NEWBERRY, GENEVA Cochran Ot 530.81 10/06/2012 SKYLER NEWBERRY, GENEVA Cochran Ot 584 .9 10/06/2012 SKYLER NEWBERRY, GENEVA Cochran Ot 728.87 [...] SIMS Ot M51.16 05/07/2015 CHYNA NEWBERRY, GLEN Breen Ot K57.32 05/07/2015 CHYNA NEWBERRY, GLEN T Ot N32.3 05/08/2015 CHYNA NEWBERRY, GLEN T Ot K57.32 05/08/2015 CHYNA NEWBERRY, GLEN T Ot N32.3 05/12/2015 TRISTAN NEWBERRY, MARTA Gama Ot E78.0 05/12/2015 TRISTAN NEWBERRY, MARTA M Ot I1 0 05/12/2015 TRISTAN NEWBERRY, MARTA M Ot K21.9 05/12/2015 TRISTAN NEWBERRY, MARTA M Ot K57.32 05/12/2015 TRISTAN NEWBERRY, MARTA M Ot N31.9 05/12/2015 TRISTAN NEWBERRY, MARTA M Ot Z2 3 05/17/2015 TRISTAN NEWBERRY, MARTA M Ot K57.30 05/17/2015 TRISTAN NEWBERRY, MARTA M Ot Z01.818 05/17/2015 TRISTAN NEWBERRY, MARTA M Ot Z12.11 05/17/2015 TRISTAN NEWBERRY, MARTA M Ot K57.30 05/17/2015 TRISTAN NEWBERRY, MARTA M Ot Z01.818 05/17/2015 TRISTAN NEWBERRY, MARTA M Ot Z12.11 05/20/2015 TRISTAN NEWBERRY, MARTA Gama Ot K57.90 DVRTCLOS OF INTEST, PART UNSP, W/O PERF 05/20/2015 TRISTAN NEWBERRY, MARTA Gama Ot Z0 9 ENCNTR FOR F/U EXAM AFT TRTMT FOR COND O 05/20/2015 TRISTAN NEWBERRY, MARTA Gama Ot Z12.11 ENCOUNTER FOR SCREENING FOR MALIGNANT NE 05/21/2015 TRISTAN NEWBERRY, MARTA Gama Ot K57.90 05/21/2015 TRISTAN NEWBERRY, MARTA Gama Ot Z0 9 05/21/2015 TRISTAN NEWBERRY, MARTA Gama Ot Z12.11 10/04/2015 REAL DO BRONWYN Ot E78.5 HYPERLIPIDEMIA, UNSPECIFIED 10/04/2015 REAL ALVAREZ BRONWYN Ot E87.6 HYPOKALEMIA 10/04/2015 REAL ALVAREZ BRONWYN [...] Ot E78.00 PURE HYPERCHOLESTEROLEMIA, UNSPECIFIED 03/03/2017 VENUS ALVAREZ, CORIN K Ot F15.10 OTHER STIMULANT ABUSE, UNCOMPLICATED 03/03/2017 VENUS ALVAREZ CORIN K Ot H57.8 OTHER SPECIFIED DISORDERS OF EYE AND ADN 03/03/2017 VENUS ALVAREZ CORIN K Ot I10 ESSENTIAL (PRIMARY) HYPERTENSION 03/03/2017 VENUS AVLAREZ CORIN K Ot K21.9 GASTRO-ESOPHAGEAL REFLUX DISEASE WITHOUT 03/03/2017 VENUS DO CORIN K Ot N40.0 BENIGN PROSTATIC HYPERPLASIA WITHOUT LOW 03/03/2017 VENUS ALVAREZ CORIN K Ot R41.82 ALTERED MENTAL STATUS, UNSPECIFIED 03/03/2017 VENUS DO CORIN K Ot R53.1 WEAKNESS 03/03/2017 VENUS ALVAREZ CORIN K Ot Z79.82 INSURANCE RISK MANAGER (CURRENT) USE OF ASPIRIN 03/03/2017 LIBERTY DONOVAN DOA Dameon Ot Z86.010 PERSONAL HISTORY OF COLONIC POLYPS 03/03/2017 LIBERTY DONOVAN DOA K Ot Z87.01 PERSONAL HISTORY OF PNEUMONIA (RECURRENT 03/03/2017 LIBERTY DONOVAN DOA Dameon Ot Z87.19 PERSONAL HISTORY OF OTHER DISEASES OF TH 03/03/2017 CORIN DONOVAN DO Ot Z98.890 OTHER SPECIFIED POSTPROCEDURAL STATES 03/05/2017 CORIN DONOVAN DO Ot E78.00 PURE HYPERCHOLESTEROLEMIA, UNSPECIFIED 03/05/2017 CORIN DONOVAN DO K Ot F15.10 OTHER STIMULANT ABUSE, UNCOMPLICATED 03/05/2017 CORIN DONOVAN DO Ot H57.8 OTHER SPECIFIED DISORDERS OF EYE AND ADN 03/05/2017 LIBERTY DONOVAN DOA K Ot I10 ESSENTIAL (PRIMARY) HYPERTENSION 03/05/2017 VENUS LIBERTY ALVAREZA K Ot K21.9 GASTRO-ESOPHAGEAL REFLUX DISEASE WITHOUT 03/05/2017 VENUS LIBERTY ALVAREZA K Ot N40.0 BENIGN PROSTATIC HYPERPLASIA WITHOUT LOW 03/05/2017 VENUS LIBERTY ALVAREZA K Ot R41.82 ALTERED MENTAL STATUS, UNSPECIFIED 03/05/2017 LIBERTY DONOVAN DOA K Ot R53.1 WEAKNESS 03/05/2017 LIBERTY DONOVAN DOA K Ot Z79.82 INSURANCE RISK MANAGER (CURRENT) USE OF ASPIRIN 03/05/2017 LIBERTY DONOVAN DOA K Ot Z86.010 PERSONAL HISTORY OF COLONIC POLYPS 03/05/2017 LIBERTY DONOVAN DOA K Ot Z87.01 PERSONAL HISTORY OF PNEUMONIA (RECURRENT 03/05/2017 LIBERTY DONOVAN DOA K Ot Z87.19 PERSONAL HISTORY OF OTHER DISEASES OF TH 03/05/2017 CORIN DONOVAN DO Ot Z98.890 OTHER SPECIFIED POSTPROCEDURAL STATES 03/23/2017 GEOVANNY SILVERIO APRN Ot E78.00 PURE HYPERCHOLESTEROLEMIA, UNSPECIFIED 03/23/2017 GEOVANNY SILVERIO APRN Ot F41 .0 PANIC DISORDER [EPISODIC PAROXYSMAL ANXI 03/23/2017 GEOVANNY SILVERIO BARREL LEVELER Ot I10 ESSENTIAL (PRIMARY) HYPERTENSION 03/23/2017 GEOVANNY SILVERIO APRN Ot K21 .9 GASTRO-ESOPHAGEAL REFLUX DISEASE WITHOUT 03/23/2017 GEOVANNY SILVERIO APRN Ot N40 .0 BENIGN PROSTATIC HYPERPLASIA WITHOUT LOW 03/23/2017 GEOVANNY SILVERIO APRN Ot R55 SYNCOPE AND COLLAPSE 03/23/2017 GEOVANNY SILVERIO APRN Ot Z79.82 ASSISTED (CURRENT) USE OF ASPIRIN 03/23/2017 GEOVANNY SILVERIO APRN Ot Z86.010 PERSONAL HISTORY OF COLONIC POLYPS 03/23/2017 SILVERIO, PETER J BARREL LEVELER Ot Z87.01 PERSONAL HISTORY OF PNEUMONIA (RECURRENT 03/23/2017 GEOVANNY SILVERIO BARREL LEVELER Ot Z87.19 PERSONAL HISTORY OF OTHER DISEASES OF TH 03/23/2017 GEOVANNY SILVERIO BARREL LEVELER Ot Z87.448 PERSONAL HISTORY OF OTHER DISEASES OF UR 03/23/2017 GEOVANNY SILVERIO BARREL LEVELER Ot Z88 .0 ALLERGY STATUS TO PENICILLIN 03/23/2017 GEOVANNY SILVERIO BARREL LEVELER Ot Z88 .1 ALLERGY STATUS TO OTHER ANTIBIOTIC AGENT 04/12/2017 [...] LUMP, HEAD 04/16/2017 SUZY RAJPUT MD Ot F32 .9 MAJOR DEPRESSIVE DISORDER, SINGLE EPISOD 04/16/2017 SUZY RAJPUT MD Ot H26 .9 UNSPECIFIED CATARACT 04/16/2017 SUZY RAJPUT MD Ot I10 ESSENTIAL (PRIMARY) HYPERTENSION 04/16/2017 SUZY RAJPUT MD Ot Z79.82 ASSISTED (CURRENT) USE OF ASPIRIN 04/16/2017 SUZY RAJPUT MD Ot Z79.899 OTHER INSURANCE RISK MANAGER (CURRENT) DRUG THERAPY 04/20/2017 SUZY RAJPUT MD Ot F32 .9 MAJOR DEPRESSIVE DISORDER, SINGLE EPISOD 04/20/2017 SUZY RAJPUT MD Ot H26 .9 UNSPECIFIED CATARACT 04/20/2017 SUZY RAJPUT MD Ot I10 ESSENTIAL (PRIMARY) HYPERTENSION 04/20/2017 SUZY RAJPUT MD Ot Z79.82 INSURANCE RISK MANAGER (CURRENT) USE OF ASPIRIN 04/20/2017 SUZY RAJPUT MD Ot Z79.899 OTHER ASSISTED (CURRENT) DRUG THERAPY 04/26/2017 SUZY RAJPUT MD Ot 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 04/26/2017 SUZY RAJPUT MD Ot Z01.818 ENCOUNTER FOR OTHER PREPROCEDURAL EXAMIN 04/30/2017 SUZY RAJPUT MD Ot F32 .9 MAJOR DEPRESSIVE DISORDER, SINGLE EPISOD 04/30/2017 SUZY RAJPUT MD Ot H25 .9 UNSPECIFIED AGE-RELATED CATARACT 04/30/2017 SUZY RAJPUT MD Ot I10 ESSENTIAL (PRIMARY) HYPERTENSION 04/30/2017 SUZY RAJPUT MD Ot M19.91 PRIMARY OSTEOARTHRITIS, UNSPECIFIED SITE 04/30/2017 SUZY RAJPUT MD Ot Z72.89 OTHER PROBLEMS RELATED TO LIFESTYLE 04/30/2017 SUZY RAJPUT MD Ot Z79.899 OTHER ASSISTED (CURRENT) DRUG THERAPY 05/18/2017 SUZY RAJPUT MD Ot F32 .9 MAJOR DEPRESSIVE DISORDER, SINGLE EPISOD 05/18/2017 SUZY RAJPUT MD Ot H25 .9 UNSPECIFIED AGE-RELATED CATARACT 05/18/2017 SUZY RAJPUT MD Ot I10 ESSENTIAL (PRIMARY) HYPERTENSION 05/18/2017 SUZY RAJPUT MD Ot M19.91 PRIMARY OSTEOARTHRITIS, UNSPECIFIED SITE 05/18/2017 SUZY RAJPUT MD Ot Z72.89 OTHER PROBLEMS RELATED TO LIFESTYLE 05/18/2017 SUZY RAJPUT MD Ot Z79.899 OTHER INSURANCE RISK MANAGER (CURRENT) DRUG THERAPY 05/20/2017 SUZY RAJPUT MD Ot F32 .9 MAJOR DEPRESSIVE DISORDER, SINGLE EPISOD 05/20/2017 SUZY RAJPUT MD Ot H25 .9 UNSPECIFIED AGE-RELATED CATARACT 05/20/2017 SUZY RAJPUT MD Ot I10 ESSENTIAL (PRIMARY) HYPERTENSION 05/20/2017 SUZY RAJPUT MD Ot M19.91 PRIMARY OSTEOARTHRITIS, UNSPECIFIED SITE 05/20/2017 SUZY RAJPUT MD Ot Z72.89 OTHER PROBLEMS RELATED TO LIFESTYLE 05/20/2017 SUZY RAJPUT MD L Ot Z79.899 OTHER INSURANCE RISK MANAGER (CURRENT) DRUG THERAPY 12/24/2017 KATHRINE NEWBERRY, POONAM Ramos Ot E78.00 PURE HYPERCHOLESTEROLEMIA, UNSPECIFIED 12/24/2017 POONAM CHISHOLM MD, Ot F32.9 MAJOR DEPRESSIVE DISORDER, SINGLE EPISOD 12/24/2017 POONAM CHISHOLM MD, Ot F41.9 ANXIETY DISORDER, UNSPECIFIED 12/24/2017 POONAM CHISHOLM MD, Ot I1 0 ESSENTIAL (PRIMARY) HYPERTENSION 12/24/2017 POONAM CHISHOLM MD, Ot J30.2 OTHER SEASONAL ALLERGIC RHINITIS 12/24/2017 POONAM CHISHOLM MD, Ot K21.9 GASTRO-ESOPHAGEAL REFLUX DISEASE WITHOUT 12/24/2017 POONAM CHISHOLM MD, Ot K57.90 DVRTCLOS OF INTEST, PART UNSP, W/O PERF 12/24/2017 POONAM CHISHOLM MD, Ot M17.12 UNILATERAL PRIMARY OSTEOARTHRITIS, LEFT 12/24/2017 POONAM CHISHOLM MD, Ot N31.9 NEUROMUSCULAR DYSFUNCTION OF BLADDER, UN 12/24/2017 POONAM CHISHOLM MD, Ot N40.0 BENIGN PROSTATIC HYPERPLASIA WITHOUT LOW 12/24/2017 POONAM CHISHOLM MD, Ot Z2 3 ENCOUNTER FOR IMMUNIZATION 12/24/2017 POONAM CHISHOLM MD, Ot Z86.010 PERSONAL HISTORY OF COLONIC POLYPS 12/28/2017 POONAM CHISHOLM MD Ot Z01.810 ENCOUNTER FOR PREPROCEDURAL CARDIOVASCUL 12/28/2017 POONAM CHISHOLM MD, Ot Z01.811 ENCOUNTER FOR PREPROCEDURAL RESPIRATORY 12/28/2017 POONAM CHISHOLM MD, Ot Z01.812 ENCOUNTER FOR PREPROCEDURAL LABORATORY E 12/28/2017 POONAM CHISHOLM MD Ot Z11.2 ENCOUNTER FOR SCREENING FOR OTHER BACTER 2018 POONAM CHISHOLM MD, Ot M54.42 LUMBAGO WITH SCIATICA, LEFT SIDE 2018 POONAM CHISHOLM MD, Ot Z47.1 AFTERCARE FOLLOWING JOINT REPLACEMENT CONWAY 2018 POONAM CHISHOLM MD, Ot Z96.652 PRESENCE OF LEFT ARTIFICIAL KNEE JOINT 02/25/2018 DREA ZAMARRIPA DO, Ot M19.041 PRIMARY OSTEOARTHRITIS, RIGHT HAND 02/25/2018 DREA ZAMARRIPA DO, Ot M19.042 PRIMARY OSTEOARTHRITIS, LEFT HAND 02/25/2018 DREA ZAMARRIPA DO, Ot M79.9 SOFT TISSUE DISORDER, UNSPECIFIED 03/02/2018 GAVINO ARAGON Ot M43. 16 SPONDYLOLISTHESIS, LUMBAR REGION 03/02/2018 GAVINO ARAGON Ot M47.816 SPONDYLOSIS W/O MYELOPATHY OR RADICULOPA 03/02/2018 GAVINO ARAGON Ot M48.061 SPINAL STENOSIS, LUMBAR REGION WITHOUT N 03/02/2018 GAVINO ARAGON Ot M51. 26 OTHER INTERVERTEBRAL DISC DISPLACEMENT, 03/02/2018 GAVINO ARAGON Ot M99. 73 CONN TISS AND DISC STENOS OF INTVRT FORA 03/10/2018 POONAM CHISHOLM MD Ot M54.42 LUMBAGO WITH SCIATICA, LEFT SIDE 03/10/2018 POONAM CHISHOLM MD Ot Z47.1 AFTERCARE FOLLOWING JOINT REPLACEMENT CONWAY 03/10/2018 POONAM CHISHOLM MD Ot Z96.652 PRESENCE OF LEFT ARTIFICIAL KNEE JOINT 03/20/2018 POONAM CHISHOLM MD Ot M17.12 UNILATERAL PRIMARY OSTEOARTHRITIS, LEFT 03/20/2018 POONAM CHISHOLM MD Ot R53.83 OTHER FATIGUE 03/20/2018 POONAM CHISHOLM MD Ot Z01.810 ENCOUNTER FOR PREPROCEDURAL CARDIOVASCUL 03/20/2018 POONAM CHISHOLM MD Ot Z01.811 ENCOUNTER FOR PREPROCEDURAL RESPIRATORY 03/20/2018 POONAM CHISHOLM MD Ot Z01.812 ENCOUNTER FOR PREPROCEDURAL LABORATORY E 03/20/2018 POONAM CHISHOLM MD Ot Z11.2 ENCOUNTER FOR SCREENING FOR OTHER BACTER 04/06/2018 DREA ZAMARRIPA DO Ot M19.041 PRIMARY OSTEOARTHRITIS, RIGHT HAND 04/06/2018 DREA ZAMARRIPA DO Ot M19.042 PRIMARY OSTEOARTHRITIS, LEFT HAND 04/06/2018 DREA ZAMARRIPA DO Ot M79.9 SOFT TISSUE DISORDER, UNSPECIFIED 12/18/2018 MAYNOR FORDE MD Ot E78.00 PURE HYPERCHOLESTEROLEMIA, UNSPECIFIED 12/18/2018 MAYNOR FORDE MD Ot F32.9 MAJOR DEPRESSIVE DISORDER, SINGLE EPISOD 12/18/2018 MAYNOR FORDE MD, Ot F41.9 ANXIETY DISORDER, UNSPECIFIED 12/18/2018 MAYNOR FORDE MD Ot I10 ESSENTIAL (PRIMARY) HYPERTENSION 12/18/2018 MAYNOR FORDE MD Ot K21.9 GASTRO-ESOPHAGEAL REFLUX DISEASE WITHOUT 12/18/2018 MAYNOR FORDE MD Ot R42 DIZZINESS AND GIDDINESS 12/18/2018 MAYNOR FORDE MD Ot R51 HEADACHE 12/18/2018 MAYNOR FORDE MD Ot Z79.82 INSURANCE RISK MANAGER (CURRENT) USE OF ASPIRIN 12/18/2018 MAYNOR FORDE MD Ot Z88.0 ALLERGY STATUS TO PENICILLIN 12/18/2018 MAYNOR FORDE MD Ot Z88.1 ALLERGY STATUS TO OTHER ANTIBIOTIC AGENT 12/21/2018 MAYNOR FORDE MD Ot E78.00 PURE HYPERCHOLESTEROLEMIA, UNSPECIFIED 12/21/2018 MAYNOR FORDE MD Ot F32.9 MAJOR DEPRESSIVE DISORDER, SINGLE EPISOD 12/21/2018 MAYNOR FORDE MD Ot F41.9 ANXIETY DISORDER, UNSPECIFIED 12/21/2018 MAYNOR FORDE MD Ot I10 ESSENTIAL (PRIMARY) HYPERTENSION 12/21/2018 MAYNOR FORDE MD Ot K21.9 GASTRO-ESOPHAGEAL REFLUX DISEASE WITHOUT 12/21/2018 MAYNOR FORDE MD Ot R42 DIZZINESS AND GIDDINESS 12/21/2018 MAYNOR FORDE MD Ot R51 HEADACHE 12/21/2018 MAYNOR FORDE MD, Ot Z79.82 ASSISTED (CURRENT) USE OF ASPIRIN 12/21/2018 MAYNOR FORDE MD Ot Z88.0 ALLERGY STATUS TO PENICILLIN 12/21/2018 MAYNOR FORDE MD Ot Z88.1 ALLERGY STATUS TO OTHER ANTIBIOTIC AGENT 03/17/2019 SHILPI GALE MD Ot Z01.818 ENCOUNTER FOR OTHER PREPROCEDURAL EXAMIN 03/17/2019 SHILPI GALE MD Ot E66. 9 OBESITY, UNSPECIFIED 03/17/2019 SHILPI GALE MD Ot G89. 29 OTHER CHRONIC PAIN 03/17/2019 SHILPI GALE MD Ot I10 ESSENTIAL (PRIMARY) HYPERTENSION 03/17/2019 SHILPI GALE MD Ot K20. 9 ESOPHAGITIS, UNSPECIFIED 03/17/2019 SHILPI GALE MD Ot K29. 50 UNSPECIFIED CHRONIC GASTRITIS WITHOUT BL 03/17/2019 SHILPI GALE MD Ot K31. 89 OTHER DISEASES OF STOMACH AND DUODENUM 03/17/2019 SHILPI GALE MD Ot K44. 9 DIAPHRAGMATIC HERNIA WITHOUT OBSTRUCTION 03/17/2019 SHILPI GALE MD Ot M54. 5 LOW BACK PAIN 03/17/2019 SHILPI GALE MD Ot R13. 10 DYSPHAGIA, UNSPECIFIED 03/17/2019 SHILPI GALE MD Ot Z79.899 OTHER ASSISTED (CURRENT) DRUG THERAPY 03/17/2019 SHILPI GALE MD Ot Z82. 49 FAMILY HX OF ISCHEM HEART DIS AND OTH DI 03/17/2019 SHILPI GALE MD Ot Z83. 3 FAMILY HISTORY OF DIABETES MELLITUS 03/17/2019 SHILPI GALE MD Ot Z88. 0 ALLERGY STATUS TO PENICILLIN 03/17/2019 SHILPI GALE MD Ot Z88. 1 ALLERGY STATUS TO OTHER ANTIBIOTIC AGENT 03/17/2019 SHILPI GALE MD Ot Z96.652 PRESENCE OF LEFT ARTIFICIAL KNEE JOINT 03/24/2019 SHILPI GALE MD Ot E66. 9 OBESITY, UNSPECIFIED 03/24/2019 SHILPI GALE MD Ot G89. 29 OTHER CHRONIC PAIN 03/24/2019 SHILPI GALE MD Ot I10 ESSENTIAL (PRIMARY) HYPERTENSION 03/24/2019 SHILPI GALE MD Ot K20. 9 ESOPHAGITIS, UNSPECIFIED 03/24/2019 SHILPI GALE MD Ot K29. 50 UNSPECIFIED CHRONIC GASTRITIS WITHOUT BL 03/24/2019 SHILPI GALE MD Ot K31. 89 OTHER DISEASES OF STOMACH AND DUODENUM 03/24/2019 SHILPI GALE MD Ot K44. 9 DIAPHRAGMATIC HERNIA WITHOUT OBSTRUCTION 03/24/2019 SHILPI GALE MD Ot M54. 5 LOW BACK PAIN 03/24/2019 SHILPI GALE MD Ot R13. 10 DYSPHAGIA, UNSPECIFIED 03/24/2019 SHILPI GALE MD Ot Z79.899 OTHER INSURANCE RISK MANAGER (CURRENT) DRUG THERAPY 03/24/2019 SHILPI GALE MD Ot Z82. 49 FAMILY HX OF ISCHEM HEART DIS AND OTH DI 03/24/2019 SHILPI GALE MD Ot Z83. 3 FAMILY HISTORY OF DIABETES MELLITUS 03/24/2019 SHILPI GALE MD Ot Z88. 0 ALLERGY STATUS TO PENICILLIN 03/24/2019 SHILPI GALE MD Ot Z88. 1 ALLERGY STATUS TO OTHER ANTIBIOTIC AGENT 03/24/2019 BALJINDER NEWBERRY, SHILPI Butcher Ot Z96.652 PRESENCE OF LEFT ARTIFICIAL KNEE JOINT 04/24/2019 ZAMARRIPA DO, DREA Carmona Ot K21.9 GASTRO-ESOPHAGEAL REFLUX DISEASE WITHOUT 04/24/2019 ZAMARRIPA DO, DREA Carmona Ot R16.0 HEPATOMEGALY, NOT ELSEWHERE CLASSIFIED 05/08/2019 ZAMARRIPA DO, DREA Carmona Ot K21.9 GASTRO-ESOPHAGEAL REFLUX DISEASE WITHOUT 05/08/2019 ZAMARRIPA DO, DREA Carmona Ot R16.0 HEPATOMEGALY, NOT ELSEWHERE CLASSIFIED 05/09/2019 ZAMARRIPA DO, DERA Carmona Ot K21.9 GASTRO-ESOPHAGEAL REFLUX DISEASE WITHOUT 05/17/2019 ZAMARRIPA DO, DREA Carmona Ot K21.9 GASTRO-ESOPHAGEAL REFLUX DISEASE WITHOUT 08/01/2019 GEOVANNY SILVERIO APRN Ot E78.00 PURE HYPERCHOLESTEROLEMIA, UNSPECIFIED 08/01/2019 GEOVANNY SILVERIO APRN Ot F32 .9 MAJOR DEPRESSIVE DISORDER, SINGLE EPISOD 08/01/2019 GEOVANNY SILVERIO APRN Ot F41 .9 ANXIETY DISORDER, UNSPECIFIED 08/01/2019 GEOVANNY SILVERIO APRN Ot I10 ESSENTIAL (PRIMARY) HYPERTENSION 08/01/2019 GEOVANNY SILVERIO APRN Ot K21 .9 GASTRO-ESOPHAGEAL REFLUX DISEASE WITHOUT 08/01/2019 GEOVANNY SILVERIO APRN Ot R06.02 SHORTNESS OF BREATH 08/01/2019 GEOVANNY SILVERIO APRN Ot R06.09 OTHER FORMS OF DYSPNEA 08/01/2019 GEOVANNY SILVERIO APRN Ot Z20.828 CONTACT W AND EXPOSURE TO OTH VIRAL COMM 08/01/2019 GEOVANNY SILVERIO APRN Ot Z88 .0 ALLERGY STATUS TO PENICILLIN 08/01/2019 GEOVANNY SILVERIO APRN Ot Z88 .1 ALLERGY STATUS TO OTHER ANTIBIOTIC AGENT 08/03/2019 GEOVANNY SILVERIO APRN Ot E78.00 PURE HYPERCHOLESTEROLEMIA, UNSPECIFIED 08/03/2019 GEOVANNY SILVERIO APRN Ot F32 .9 MAJOR DEPRESSIVE DISORDER, SINGLE EPISOD 08/03/2019 GEOVANNY SILVERIO APRN Ot F41 .9 ANXIETY DISORDER, UNSPECIFIED 08/03/2019 GEOVANNY SILVERIO APRN Ot I10 ESSENTIAL (PRIMARY) HYPERTENSION 08/03/2019 GEOVANNY SILVERIO APRN Ot K21 .9 GASTRO-ESOPHAGEAL REFLUX DISEASE WITHOUT 08/03/2019 GEOVANNY SILVERIO APRN Ot R06.02 SHORTNESS OF BREATH 08/03/2019 GEOVANNY SILVERIO APRN Ot R06.09 OTHER FORMS OF DYSPNEA 08/03/2019 GEOVANNY SILVERIO APRN Ot Z20.828 CONTACT W AND EXPOSURE TO OTH VIRAL COMM 08/03/2019 GEOVANNY SILVERIO APRN Ot Z88 .0 ALLERGY STATUS TO PENICILLIN 08/03/2019 GEOVANNY SILVERIO APRN Ot Z88 .1 ALLERGY STATUS TO OTHER ANTIBIOTIC AGENT 08/10/2019 ZAMARRIPA DO, DREA Carmona Ot R06.00 DYSPNEA, UNSPECIFIED 08/13/2019 ZAMARRIPA DO, DREA Carmona Ot R06.00 DYSPNEA, UNSPECIFIED 08/29/2019 ZAMARRIPA DO, DREA Carmona Ot R06.00 DYSPNEA, UNSPECIFIED 08/29/2019 ZAMARRIPA DO, DREA Carmona Ot I35.1 NONRHEUMATIC AORTIC (VALVE) INSUFFICIENC 08/29/2019 ZAMARRIPA DO, DREA Carmona Ot I51.7 CARDIOMEGALY 09/14/2019 ZAMARRIPA DO, DREA Carmona Ot I35.1 NONRHEUMATIC AORTIC (VALVE) INSUFFICIENC 09/14/2019 ZAMARRIPA DO, DREA Carmona Ot I51.7 CARDIOMEGALY Procedures Code Description Performed By Per sage On [id number] IN SPECTION OF BLADDER, ENDO 10/04/[id number] OF L KNEE JT WITH SYNTH SUB, DONNA 12/22/2017 Results Test Result Range Complete blood count (CBC) with automate d white blood cell (WBC) differential - 10/02/15 16:00 Blood leukocytes automated count (number/volume) 6.3 10*3/uL 4.3-11.0 Blood erythrocytes automated count (number/volume) 4.34 10*6/uL 4.35-5.85 Venous blood hemoglobin measurement (mass/volume) 14.9 g/dL 13.3-17.7 Blood hematocrit (volume fraction) 43 % 40-54 Automated erythrocyte mean corpuscular volume 98 [ foz_us] 80-99 Automated erythrocyte mean corpuscular h emoglobin (mass per erythrocyte) 34 pg 25-34 Automated erythrocyte mean corpuscular h emoglobin concentration measurement (mass/volume) 35 g/dL 32-36 Automated erythrocyte distribution width ratio 12. 9 % 10.0- 14.5 Automated blood platelet count (count/volume) 255 10*3/uL [...] 10*3 1.0-4.0 Blood monocytes automated count (number/volume) 0. 7 10*3 0.0-1.0 Automated eosinophil count 0.5 10*3/uL 0 .0-0.3 Automated blood basophil count (count/volume) 0.1 10*3/uL 0.0-0.1 Erythrocyte sedimentation rate by stefano gren method - 10/02/15 16:00 Erythrocyte sedimentation rate by westergren method 18 mm 0- 30 Comprehensive metabolic panel - 10/02/15 16:00 Serum or plasma sodium measurement (moles/volume) 139 mmol/L 135-145 Serum or plasma potassium measurement (moles/volume) 3.6 mmol/L 3.6-5.0 Serum or plasma chloride measurement (moles/volume) 104 mmol/L 98-107 Carbon dioxide 25 mmol/L 21-32 Serum or plasma anion gap determination (moles/volume) 10 mmol/L 5-14 Serum or plasma urea nitrogen measurement (mass/volume ) 20 mg/dL 7-18 Serum or plasma creatinine measurement (mass/volume) 1.11 mg/dL 0.60-1.30 Serum or plasma urea nitrogen/creatinine mass ratio 18 NRG Serum or plasma creatinine measurement w ith calculation of estimated glomerular filtration rate > NRG Serum or plasma glucose measurement (mass/volume) 101 mg/dL 70-105 Serum or plasma calcium measurement (mass/volume) 9.2 mg/dL 8.5-10.1 Serum or plasma total bilirubin measurement (mass/volu me) 0.6 mg/dL 0.1-1.0 Serum or plasma alkaline phosphatase layo surement (enzymatic activity/volume) 52 U/L 40-136 Serum or plasma aspartate aminotransfera se measurement (enzymatic activity/volume) 15 U/L 5-34 Serum or plasma alanine aminotransferase measurement (enzymatic activity/volume) 21 U/L 0-55 Serum or plasma protein measurement (mass/volume) 7.3 g/dL 6.4-8.2 Serum or plasma albumin measurement (mass/volume) 4.3 g/dL 3.2-4.5 Bacterial blood culture - 10/02/15 20:40 Bacterial blood culture NG NR Complete blood count (CBC) with automate d white blood cell (WBC) differential - 10/02/15 20:50 Blood leukocytes automated count (number/volume) 5.9 10*3/uL 4.3-11.0 Blood erythrocytes automated count (number/volume) 4.11 10*6/uL 4.35-5.85 Venous blood hemoglobin measurement (mass/volume) 14.1 g/dL 13.3-17.7 Blood hematocrit (volume fraction) 40 % 40-54 Automated erythrocyte mean corpuscular volume 97 [ foz_us] 80-99 Automated erythrocyte mean corpuscular h emoglobin (mass per erythrocyte) 34 pg 25-34 Automated erythrocyte mean corpuscular h emoglobin concentration measurement (mass/volume) 35 g/dL 32-36 Automated erythrocyte distribution width ratio 12. 7 % 10.0- 14.5 Automated blood platelet count (count/volume) 252 10*3/uL [...] 10*3 1.0-4.0 Blood monocytes automated count (number/volume) 0. 7 10*3 0.0-1.0 Automated eosinophil count 0.4 10*3/uL 0 .0-0.3 Automated blood basophil count (count/volume) 0.1 10*3/uL 0.0-0.1 Blood lactic acid measurement (moles/vol ume) - 10/02/15 20:50 Blood lactic acid measurement (moles/volume) 2.0 m mol/L 0.5- 2.0 Comprehensive metabolic panel - 10/02/15 20:50 Serum or plasma sodium measurement (moles/volume) 137 mmol/L 135-145 Serum or plasma potassium measurement (moles/volume) 3.5 mmol/L 3.6-5.0 Serum or plasma chloride measurement (moles/volume) 103 mmol/L 98-107 Carbon dioxide 20 mmol/L 21-32 Serum or plasma anion gap determination (moles/volume) 14 mmol/L 5-14 Serum or plasma urea nitrogen measurement (mass/volume ) 19 mg/dL 7-18 Serum or plasma creatinine measurement (mass/volume) 1.09 mg/dL 0.60-1.30 Serum or plasma urea nitrogen/creatinine mass ratio 17 NRG Serum or plasma creatinine measurement w ith calculation of estimated glomerular filtration rate > NRG Serum or plasma glucose measurement (mass/volume) 94 mg/dL 70-105 Serum or plasma calcium measurement (mass/volume) 8.9 mg/dL 8.5-10.1 Serum or plasma total bilirubin measurement (mass/volu me) 0.6 mg/dL 0.1-1.0 Serum or plasma alkaline phosphatase layo surement (enzymatic activity/volume) 46 U/L 40-136 Serum or plasma aspartate aminotransfera se measurement (enzymatic activity/volume) 18 U/L 5-34 Serum or plasma alanine aminotransferase measurement (enzymatic activity/volume) 23 U/L 0-55 Serum or plasma protein measurement (mass/volume) 6.8 g/dL 6.4-8.2 Serum or plasma albumin measurement (mass/volume) 4.1 g/dL 3.2-4.5 Bacterial blood culture - 10/02/15 20:50 Bacterial blood culture NG NRG Complete urinalysis with reflex to cultu re - 10/02/15 21:00 Urine color determination YELLOW NRG Urine clarity determination CLEAR NR G Urine pH measurement by test strip 5 5-9 Specific gravity of urine by test strip 1.020 1.016-1.022 Urine protein assay by test strip, semi-quantitative NEGATIVE NEGATIVE Urine glucose detection by automated test strip NE GATIVE NEGATIVE Erythrocytes detection in urine sediment by light micr oscopy NEGATIVE NEGATIVE Urine ketones detection by automated test strip NE GATIVE NEGATIVE Urine nitrite detection by test strip NEGATIVE NEGATIVE Urine total bilirubin detection by test strip NEGA TIVE NEGATIVE Urine urobilinogen measurement by automated test strip (mass/volume) NORMAL NORMAL Urine leukocyte esterase detection by dipstick NEG ATIVE NEGATIVE Automated urine sediment erythrocyte cou nt by microscopy (number/high power field) NONE NRG Automated urine sediment leukocyte count by microscopy (number/high power field) RARE NRG Bacteria detection in urine sediment by light microsco py NONE NRG Crystals detection in urine sediment by light microsco py NONE NRG Casts detection in urine sediment by light microscopy NONE NRG Mucus detection in urine sediment by light microscopy NEGATIVE NRG Complete urinalysis with reflex to culture NO NRG Complete blood count (CBC) with automate d white blood cell (WBC) differential - 10/03/15 06:11 Blood leukocytes automated count (number/volume) 5.8 10*3/uL 4.3-11.0 Blood erythrocytes automated count (number/volume) 3.93 10*6/uL 4.35-5.85 Venous blood hemoglobin measurement (mass/volume) 13.4 g/dL 13.3-17.7 Blood hematocrit (volume fraction) 39 % 40-54 Automated erythrocyte mean corpuscular volume 99 [ foz_us] 80-99 Automated erythrocyte mean corpuscular h emoglobin (mass per erythrocyte) 34 pg 25-34 Automated erythrocyte mean corpuscular h emoglobin concentration measurement (mass/volume) 35 g/dL 32-36 Automated erythrocyte distribution width ratio 12. 9 % 10.0- 14.5 Automated blood platelet count (count/volume) 232 10*3/uL [...] 10*3 1.0-4.0 Blood monocytes automated count (number/volume) 0. 7 10*3 0.0-1.0 Automated eosinophil count 0.4 10*3/uL 0 .0-0.3 Automated blood basophil count (count/volume) 0.1 10*3/uL 0.0-0.1 Whole blood basic metabolic panel - 09/22 03/09 06:11 Serum or plasma sodium measurement (moles/volume) 137 mmol/L 135-145 Serum or plasma potassium measurement (moles/volume) 3.6 mmol/L 3.6-5.0 Serum or plasma chloride measurement (moles/volume) 103 mmol/L 98-107 Carbon dioxide 25 mmol/L 21-32 Serum or plasma anion gap determination (moles/volume) 9 mmol/L 5-14 Serum or plasma urea nitrogen measurement (mass/volume ) 24 mg/dL 7-18 Serum or plasma creatinine measurement (mass/volume) 1.01 mg/dL 0.60-1.30 Serum or plasma urea nitrogen/creatinine mass ratio 24 NRG Serum or plasma creatinine measurement w ith calculation of estimated glomerular filtration rate > NRG Serum or plasma glucose measurement (mass/volume) 94 mg/dL 70-105 Serum or plasma calcium measurement (mass/volume) 8.8 mg/dL 8.5-10.1 Complete blood count (CBC) with automate d white blood cell (WBC) differential - 10/05/15 05:36 Blood leukocytes automated count (number/volume) 8.4 10*3/uL 4.3-11.0 Blood erythrocytes automated count (number/volume) 3.77 10*6/uL 4.35-5.85 Venous blood hemoglobin measurement (mass/volume) 12.9 g/dL 13.3-17.7 Blood hematocrit (volume fraction) 37 % 40-54 Automated erythrocyte mean corpuscular volume 99 [ foz_us] 80-99 Automated erythrocyte mean corpuscular h emoglobin (mass per erythrocyte) 34 pg 25-34 Automated erythrocyte mean corpuscular h emoglobin concentration measurement (mass/volume) 35 g/dL 32-36 Automated erythrocyte distribution width ratio 12. 5 % 10.0- 14.5 Automated blood platelet count (count/volume) 215 10*3/uL [...] 10*3 1.0-4.0 Blood monocytes automated count (number/volume) 0. 7 10*3 0.0-1.0 Automated eosinophil count 0.4 10*3/uL 0 .0-0.3 Automated blood basophil count (count/volume) 0.1 10*3/uL 0.0-0.1 Comprehensive metabolic panel - 10/05/15 05:36 Serum or plasma sodium measurement (moles/volume) 139 mmol/L 135-145 Serum or plasma potassium measurement (moles/volume) 3.9 mmol/L 3.6-5.0 Serum or plasma chloride measurement (moles/volume) 105 mmol/L 98-107 Carbon dioxide 24 mmol/L 21-32 Serum or plasma anion gap determination (moles/volume) 10 mmol/L 5-14 Serum or plasma urea nitrogen measurement (mass/volume ) 17 mg/dL 7-18 Serum or plasma creatinine measurement (mass/volume) 0.96 mg/dL 0.60-1.30 Serum or plasma urea nitrogen/creatinine mass ratio 18 NRG Serum or plasma creatinine measurement w ith calculation of estimated glomerular filtration rate > NRG Serum or plasma glucose measurement (mass/volume) 100 mg/dL 70-105 Serum or plasma calcium measurement (mass/volume) 8.5 mg/dL 8.5-10.1 Serum or plasma total bilirubin measurement (mass/volu me) 0.8 mg/dL 0.1-1.0 Serum or plasma alkaline phosphatase layo surement (enzymatic activity/volume) 43 U/L 40-136 Serum or plasma aspartate aminotransfera se measurement (enzymatic activity/volume) 16 U/L 5-34 Serum or plasma alanine aminotransferase measurement (enzymatic activity/volume) 18 U/L 0-55 Serum or plasma protein measurement (mass/volume) 5.9 g/dL 6.4-8.2 Serum or plasma albumin measurement (mass/volume) 3.6 g/dL 3.2-4.5 Gram stain microscopy - 04/10/16 12:50 Gram stain microscopy TNP NRG Bacteria identified - 04/10/16 12:50 Complete blood count (CBC) with automate d white blood cell (WBC) differential - 03/03/17 10:20 Blood leukocytes automated count (number/volume) 6.0 10*3/uL 4.3-11.0 Blood erythrocytes automated count (number/volume) 4.15 10*6/uL 4.35-5.85 Venous blood hemoglobin measurement (mass/volume) 14.3 g/dL 13.3-17.7 Blood hematocrit (volume fraction) 40 % 40-54 Automated erythrocyte mean corpuscular volume 97 [ foz_us] 80-99 Automated erythrocyte mean corpuscular h emoglobin (mass per erythrocyte) 35 pg 25-34 Automated erythrocyte mean corpuscular h emoglobin concentration measurement (mass/volume) 36 g/dL 32-36 Automated erythrocyte distribution width ratio 12. 9 % 10.0- 14.5 Automated blood platelet count (count/volume) 235 10*3/uL [...] 10*3 1.0-4.0 Blood monocytes automated count (number/volume) 0. 6 10*3 0.0-1.0 Automated eosinophil count 0.3 10*3/uL 0 .0-0.3 Automated blood basophil count (count/volume) 0.1 10*3/uL 0.0-0.1 PT panel in platelet poor plasma by coag ulation assay - 03/03/17 10:20 Prothrombin time (PT) in platelet poor plasma by coagu lation assay 12.5 s 12.2-14.7 INR in platelet poor plasma or blood by coagulation as say 0.9 0.8-1.4 Activated partial thromboplastin time (a PTT) in platelet poor plasma bycoagulation assay - 03/03/17 10:20 Activated partial thromboplastin time (a PTT) in platelet poor plasma bycoagulation assay 26 s 24-35 Comprehensive metabolic panel - 03/03/17 10:20 Serum or plasma sodium measurement (moles/volume) 139 mmol/L 135-145 Serum or plasma potassium measurement (moles/volume) 3.4 mmol/L 3.6-5.0 Serum or plasma chloride measurement (moles/volume) 103 mmol/L 98-107 Carbon dioxide 23 mmol/L 21-32 Serum or plasma anion gap determination (moles/volume) 13 mmol/L 5-14 Serum or plasma urea nitrogen measurement (mass/volume ) 19 mg/dL 7-18 Serum or plasma creatinine measurement (mass/volume) 1.10 mg/dL 0.60-1.30 Serum or plasma urea nitrogen/creatinine mass ratio 17 NRG Serum or plasma creatinine measurement w ith calculation of estimated glomerular filtration rate > NRG Serum or plasma glucose measurement (mass/volume) 111 mg/dL 70-105 Serum or plasma calcium measurement (mass/volume) 8.8 mg/dL 8.5-10.1 Serum or plasma total bilirubin measurement (mass/volu me) 0.9 mg/dL 0.1-1.0 Serum or plasma alkaline phosphatase layo surement (enzymatic activity/volume) 47 U/L 40-136 Serum or plasma aspartate aminotransfera se measurement (enzymatic activity/volume) 17 U/L 5-34 Serum or plasma alanine aminotransferase measurement (enzymatic activity/volume) 18 U/L 0-55 Serum or plasma protein measurement (mass/volume) 7.0 g/dL 6.4-8.2 Serum or plasma albumin measurement (mass/volume) 4.0 g/dL 3.2-4.5 Magnesium - 03/03/17 10:20 Magnesium 1.9 mg/dL 1.8-2.4 Influenza virus A and B antigen detectio n - 03/03/17 10:20 FLU RESULT NEGATIVE FOR INFLUENZA A AND B ANTIGENS BY IA NRG Serum or plasma troponin i.cardiac measu rement (mass/volume) - 03/03/17 10:20 Serum or plasma troponin i.cardiac measurement (mass/v olume) < ng/mL <0.30 Serum or plasma thyrotropin measurement by detection limit <=0.05 miu/l (units/volume) - 03/03/17 10:20 Serum or plasma thyrotropin measurement by detection limit <=0.05 miu/l (units/volume) 0.93 u[iU]/mL 0.35-4.94 Serum or plasma ethanol measurement (mas s/volume) - 03/03/17 10:20 Serum or plasma ethanol measurement (mass/volume) < mg/dL <10 Blood lactic acid measurement (moles/vol ume) - 03/03/17 10:50 Blood lactic acid measurement (moles/volume) 1.79 mmol/L 0.50-2.00 Bacterial blood culture - 03/03/17 10:50 FREE TEXT EXTERNAL SEE COMMENT NRG QUANTITY OF GROWTH Isolated NRG Bacterial blood culture [id number] NRG Bacterial blood culture - 03/03/17 11:01 Bacterial blood culture NG NRG Urine drug screening test - 03/03/17 12: 00 Urine phencyclidine detection by screening method NEGATIVE NEGATIVE Urine benzodiazepines detection by screening method NEGATIVE NEGATIVE Urine cocaine detection NEGATIVE NEGATI VE Urine amphetamines detection by screening method N EGATIVE NEGATIVE Urine methamphetamine detection by screening method POSITIVE NEGATIVE Urine cannabinoids detection by screening method N EGATIVE NEGATIVE Urine opiates detection by screening method NEGATI VE NEGATIVE Urine barbiturates detection NEGATIVE N EGATIVE Screening urine tricyclic antidepressants detection NEGATIVE NEGATIVE Urine methadone detection by screening method NEGA TIVE NEGATIVE Urine oxycodone detection NEGATIVE NEGA TIVE Urine propoxyphene detection NEGATIVE N EGATIVE Complete urinalysis with reflex to cultu re - 03/03/17 12:00 Urine color determination YELLOW NRG Urine clarity determination CLEAR NR G Urine pH measurement by test strip 5 5-9 Specific gravity of urine by test strip 1.010 1.016-1.022 Urine protein assay by test strip, semi-quantitative NEGATIVE NEGATIVE Urine glucose detection by automated test strip NE GATIVE NEGATIVE Erythrocytes detection in urine sediment by light micr oscopy NEGATIVE NEGATIVE Urine ketones detection by automated test strip NE GATIVE NEGATIVE Urine nitrite detection by test strip NEGATIVE NEGATIVE Urine total bilirubin detection by test strip NEGA TIVE NEGATIVE Urine urobilinogen measurement by automated test strip (mass/volume) NORMAL NORMAL Urine leukocyte esterase detection by dipstick NEG ATIVE NEGATIVE Automated urine sediment erythrocyte cou nt by microscopy (number/high power field) RARE NRG Automated urine sediment leukocyte count by microscopy (number/high power field) RARE NRG Bacteria detection in urine sediment by light microsco py NEGATIVE NRG Squamous epithelial cells detection in u rine sediment by light microscopy 5-10 NRG Crystals detection in urine sediment by light microsco py NONE NRG Casts detection in urine sediment by light microscopy NONE NRG Mucus detection in urine sediment by light microscopy SMALL NRG Complete urinalysis with reflex to culture NO NRG Complete blood count (CBC) with automate d white blood cell (WBC) differential - 03/23/17 13:25 Blood leukocytes automated count (number/volume) 6.1 10*3/uL 4.3-11.0 Blood erythrocytes automated count (number/volume) 4.75 10*6/uL 4.35-5.85 Venous blood hemoglobin measurement (mass/volume) 16.1 g/dL 13.3-17.7 Blood hematocrit (volume fraction) 45 % 40-54 Automated erythrocyte mean corpuscular volume 95 [ foz_us] 80-99 Automated erythrocyte mean corpuscular h emoglobin (mass per erythrocyte) 34 pg 25-34 Automated erythrocyte mean corpuscular h emoglobin concentration measurement (mass/volume) 36 g/dL 32-36 Automated erythrocyte distribution width ratio 12. 8 % 10.0- 14.5 Automated blood platelet count (count/volume) 233 10*3/uL [...] 10*3 1.0-4.0 Blood monocytes automated count (number/volume) 0. 5 10*3 0.0-1.0 Automated eosinophil count 0.3 10*3/uL 0 .0-0.3 Automated blood basophil count (count/volume) 0.0 10*3/uL 0.0-0.1 Comprehensive metabolic panel - 03/23/17 13:25 Serum or plasma sodium measurement (moles/volume) 138 mmol/L 135-145 Serum or plasma potassium measurement (moles/volume) 3.6 mmol/L 3.6-5.0 Serum or plasma chloride measurement (moles/volume) 103 mmol/L 98-107 Carbon dioxide 21 mmol/L 21-32 Serum or plasma anion gap determination (moles/volume) 14 mmol/L 5-14 Serum or plasma urea nitrogen measurement (mass/volume ) 19 mg/dL 7-18 Serum or plasma creatinine measurement (mass/volume) 0.99 mg/dL 0.60-1.30 Serum or plasma urea nitrogen/creatinine mass ratio 19 NRG Serum or plasma creatinine measurement w ith calculation of estimated glomerular filtration rate > NRG Serum or plasma glucose measurement (mass/volume) 103 mg/dL 70-105 Serum or plasma calcium measurement (mass/volume) 9.6 mg/dL 8.5-10.1 Serum or plasma total bilirubin measurement (mass/volu me) 1.3 mg/dL 0.1-1.0 Serum or plasma alkaline phosphatase layo surement (enzymatic activity/volume) 57 U/L 40-136 Serum or plasma aspartate aminotransfera se measurement (enzymatic activity/volume) 16 U/L 5-34 Serum or plasma alanine aminotransferase measurement (enzymatic activity/volume) 19 U/L 0-55 Serum or plasma protein measurement (mass/volume) 7.7 g/dL 6.4-8.2 Serum or plasma albumin measurement (mass/volume) 4.4 g/dL 3.2-4.5 Serum or plasma troponin i.cardiac measu rement (mass/volume) - 03/23/17 13:25 Serum or plasma troponin i.cardiac measurement (mass/v olume) < ng/mL <0.30 Serum or plasma ethanol measurement (mas s/volume) - 03/23/17 13:25 Serum or plasma ethanol measurement (mass/volume) < mg/dL <10 Complete urinalysis with reflex to cultu re - 03/23/17 14:25 Urine color determination YELLOW NRG Urine clarity determination CLEAR NR G Urine pH measurement by test strip 6 5-9 Specific gravity of urine by test strip 1.010 1.016-1.022 Urine protein assay by test strip, semi-quantitative NEGATIVE NEGATIVE Urine glucose detection by automated test strip NE GATIVE NEGATIVE Erythrocytes detection in urine sediment by light micr oscopy NEGATIVE NEGATIVE Urine ketones detection by automated test strip NE GATIVE NEGATIVE Urine nitrite detection by test strip NEGATIVE NEGATIVE Urine total bilirubin detection by test strip NEGA TIVE NEGATIVE Urine urobilinogen measurement by automated test strip (mass/volume) NORMAL NORMAL Urine leukocyte esterase detection by dipstick NEG ATIVE NEGATIVE Automated urine sediment erythrocyte cou nt by microscopy (number/high power field) NONE NRG Automated urine sediment leukocyte count by microscopy (number/high power field) [HPF] NRG Bacteria detection in urine sediment by light microsco py NEGATIVE NRG Squamous epithelial cells detection in u rine sediment by light microscopy 2-5 NRG Crystals detection in urine sediment by light microsco py NONE NRG Casts detection in urine sediment by light microscopy NONE NRG Mucus detection in urine sediment by light microscopy NEGATIVE NRG Complete urinalysis with reflex to culture NO NRG Urine drug screening test - 03/23/17 14: 25 Urine phencyclidine detection by screening method NEGATIVE NEGATIVE Urine benzodiazepines detection by screening method NEGATIVE NEGATIVE Urine cocaine detection NEGATIVE NEGATI VE Urine amphetamines detection by screening method N EGATIVE NEGATIVE Urine methamphetamine detection by screening method NEGATIVE NEGATIVE Urine cannabinoids detection by screening method N EGATIVE NEGATIVE Urine opiates detection by screening method NEGATI VE NEGATIVE Urine barbiturates detection NEGATIVE N EGATIVE Screening urine tricyclic antidepressants detection NEGATIVE NEGATIVE Urine methadone detection by screening method NEGA TIVE NEGATIVE Urine oxycodone detection NEGATIVE NEGA TIVE Urine propoxyphene detection NEGATIVE N EGATIVE Complete blood count (CBC) with automate d white blood cell (WBC) differential - 12/20/17 14:15 Blood leukocytes automated count (number/volume) 6.2 10*3/uL 4.3-11.0 Blood erythrocytes automated count (number/volume) 4.52 10*6/uL 4.35-5.85 Venous blood hemoglobin measurement (mass/volume) 15.2 g/dL 13.3-17.7 Blood hematocrit (volume fraction) 44 % 40-54 Automated erythrocyte mean corpuscular volume 97 [ foz_us] 80-99 Automated erythrocyte mean corpuscular h emoglobin (mass per erythrocyte) 34 pg 25-34 Automated erythrocyte mean corpuscular h emoglobin concentration measurement (mass/volume) 35 g/dL 32-36 Automated erythrocyte distribution width ratio 12. 5 % 10.0- 14.5 Automated blood platelet count (count/volume) 237 10*3/uL [...] 10*3 1.0-4.0 Blood monocytes automated count (number/volume) 0. 6 10*3 0.0-1.0 Automated eosinophil count 0.4 10*3/uL 0 .0-0.3 Automated blood basophil count (count/volume) 0.1 10*3/uL 0.0-0.1 PT panel in platelet poor plasma by coag ulation assay - 12/20/17 14:15 Prothrombin time (PT) in platelet poor plasma by coagu lation assay 12.1 s 12.2-14.7 INR in platelet poor plasma or blood by coagulation as say 0.9 0.8-1.4 Comprehensive metabolic panel - 12/20/17 14:15 Serum or plasma sodium measurement (moles/volume) 137 mmol/L 135-145 Serum or plasma potassium measurement (moles/volume) 4.1 mmol/L 3.6-5.0 Serum or plasma chloride measurement (moles/volume) 104 mmol/L 98-107 Carbon dioxide 21 mmol/L 21-32 Serum or plasma anion gap determination (moles/volume) 12 mmol/L 5-14 Serum or plasma urea nitrogen measurement (mass/volume ) 20 mg/dL 7-18 Serum or plasma creatinine measurement (mass/volume) 1.11 mg/dL 0.60-1.30 Serum or plasma urea nitrogen/creatinine mass ratio 18 NRG Serum or plasma creatinine measurement w ith calculation of estimated glomerular filtration rate > NRG Serum or plasma glucose measurement (mass/volume) 103 mg/dL 70-105 Serum or plasma calcium measurement (mass/volume) 9.2 mg/dL 8.5-10.1 Serum or plasma total bilirubin measurement (mass/volu me) 0.8 mg/dL 0.1-1.0 Serum or plasma alkaline phosphatase layo surement (enzymatic activity/volume) 47 U/L 40-136 Serum or plasma aspartate aminotransfera se measurement (enzymatic activity/volume) 19 U/L 5-34 Serum or plasma alanine aminotransferase measurement (enzymatic activity/volume) 22 U/L 0-55 Serum or plasma protein measurement (mass/volume) 7.7 g/dL 6.4-8.2 Serum or plasma albumin measurement (mass/volume) 4.2 g/dL 3.2-4.5 CALCIUM CORRECTED 9.0 mg/dL 8.5-10.1 Erythrocyte sedimentation rate by stefano gren method - 12/20/17 14:15 Erythrocyte sedimentation rate by westergren method 6 mm 0- 30 Blood type T Indirect antibody screen [facility] - 12/20/17 14:15 ABO+Rh group ON NRG Transfusion band number TNP NRG Blood group antibody screen NEGATIVE NR G Methicillin resistant Staphylococcus aur eus (MRSA) screening culture - 12/20/17 14:15 Methicillin resistant Staphylococcus aureus (MRSA) scr eening culture NEG NRG Complete urinalysis with reflex to cultu re - 12/21/17 08:30 Urine color determination YELLOW NRG Urine clarity determination CLEAR NR G Urine pH measurement by test strip 6 5-9 Specific gravity of urine by test strip 1.020 1.016-1.022 Urine protein assay by test strip, semi-quantitative NEGATIVE NEGATIVE Urine glucose detection by automated test strip NE GATIVE NEGATIVE Erythrocytes detection in urine sediment by light micr oscopy NEGATIVE NEGATIVE Urine ketones detection by automated test strip NE GATIVE NEGATIVE Urine nitrite detection by test strip NEGATIVE NEGATIVE Urine total bilirubin detection by test strip NEGA TIVE NEGATIVE Urine urobilinogen measurement by automated test strip (mass/volume) NORMAL NORMAL Urine leukocyte esterase detection by dipstick 1+ NEGATIVE Automated urine sediment erythrocyte cou nt by microscopy (number/high power field) NONE NRG Automated urine sediment leukocyte count by microscopy (number/high power field) [HPF] NRG Bacteria detection in urine sediment by light microsco py FEW NRG Squamous epithelial cells detection in u rine sediment by light microscopy 5-10 NRG Crystals detection in urine sediment by light microsco py NONE NRG Casts detection in urine sediment by light microscopy NONE NRG Mucus detection in urine sediment by light microscopy NEGATIVE NRG Complete urinalysis with reflex to culture NO NRG Blood type T Indirect antibody screen [facility] - 12/22/17 06:25 ABO+Rh group ON NRG Transfusion band number [id number] NRG Blood group antibody screen NEGATIVE NR G Complete blood count (CBC) with automate d white blood cell (WBC) differential - 12/23/17 05:45 Blood leukocytes automated count (number/volume) 10.9 10*3/uL 4.3-11.0 Blood erythrocytes automated count (number/volume) 3.78 10*6/uL 4.35-5.85 Venous blood hemoglobin measurement (mass/volume) 12.9 g/dL 13.3-17.7 Blood hematocrit (volume fraction) 38 % 40-54 Automated erythrocyte mean corpuscular volume 100 [foz_us] 80-99 Automated erythrocyte mean corpuscular h emoglobin (mass per erythrocyte) 34 pg 25-34 Automated erythrocyte mean corpuscular h emoglobin concentration measurement (mass/volume) 34 g/dL 32-36 Automated erythrocyte distribution width ratio 12. 7 % 10.0- 14.5 Automated blood platelet count (count/volume) 224 10*3/uL 130-400 Automated blood platelet mean volume measurement 9.1 [foz_us] 7.4-10.4 Automated blood neutrophils/100 leukocytes 82 % 42-75 Automated blood lymphocytes/100 leukocytes 8 % 12-44 Blood monocytes/100 leukocytes 10 % 0-12 Automated blood eosinophils/100 leukocytes 0 % 0-10 Automated blood basophils/100 leukocytes 0 % 0-10 Blood neutrophils automated count (number/volume) 8.9 10*3 1.8-7.8 Blood lymphocytes automated count (number/volume) 0.8 10*3 1.0-4.0 Blood monocytes automated count (number/volume) 1. 1 10*3 0.0-1.0 Automated eosinophil count 0.0 10*3/uL 0 .0-0.3 Automated blood basophil count (count/volume) 0.0 10*3/uL 0.0-0.1 Comprehensive metabolic panel - 12/23/17 05:45 Serum or plasma sodium measurement (moles/volume) 137 mmol/L 135-145 Serum or plasma potassium measurement (moles/volume) 4.0 mmol/L 3.6-5.0 Serum or plasma chloride measurement (moles/volume) 104 mmol/L 98-107 Carbon dioxide 23 mmol/L 21-32 Serum or plasma anion gap determination (moles/volume) 10 mmol/L 5-14 Serum or plasma urea nitrogen measurement (mass/volume ) 20 mg/dL 7-18 Serum or plasma creatinine measurement (mass/volume) 1.08 mg/dL 0.60-1.30 Serum or plasma urea nitrogen/creatinine mass ratio 19 NRG Serum or plasma creatinine measurement w ith calculation of estimated glomerular filtration rate > NRG Serum or plasma glucose measurement (mass/volume) 122 mg/dL 70-105 Serum or plasma calcium measurement (mass/volume) 8.1 mg/dL 8.5-10.1 Serum or plasma total bilirubin measurement (mass/volu me) 0.8 mg/dL 0.1-1.0 Serum or plasma alkaline phosphatase layo surement (enzymatic activity/volume) 43 U/L 40-136 Serum or plasma aspartate aminotransfera se measurement (enzymatic activity/volume) 13 U/L 5-34 Serum or plasma alanine aminotransferase measurement (enzymatic activity/volume) 19 U/L 0-55 Serum or plasma protein measurement (mass/volume) 6.2 g/dL 6.4-8.2 Serum or plasma albumin measurement (mass/volume) 3.7 g/dL 3.2-4.5 CALCIUM CORRECTED 8.3 mg/dL 8.5-10.1 Complete blood count (CBC) with automate d white blood cell (WBC) differential - 12/24/17 06:10 Blood leukocytes automated count (number/volume) 7.0 10*3/uL 4.3-11.0 Blood erythrocytes automated count (number/volume) 3.62 10*6/uL 4.35-5.85 Venous blood hemoglobin measurement (mass/volume) 12.1 g/dL 13.3-17.7 Blood hematocrit (volume fraction) 36 % 40-54 Automated erythrocyte mean corpuscular volume 101 [foz_us] 80-99 Automated erythrocyte mean corpuscular h emoglobin (mass per erythrocyte) 33 pg 25-34 Automated erythrocyte mean corpuscular h emoglobin concentration measurement (mass/volume) 33 g/dL 32-36 Automated erythrocyte distribution width ratio 12. 8 % 10.0- 14.5 Automated blood platelet count (count/volume) 176 10*3/uL 130-400 Automated blood platelet mean volume measurement 9.5 [foz_us] 7.4-10.4 Automated blood neutrophils/100 leukocytes 72 % 42-75 Automated blood lymphocytes/100 leukocytes 15 % 12-44 Blood monocytes/100 leukocytes 12 % 0-12 Automated blood eosinophils/100 leukocytes 2 % 0-10 Automated blood basophils/100 leukocytes 0 % 0-10 Blood neutrophils automated count (number/volume) 5.0 10*3 1.8-7.8 Blood lymphocytes automated count (number/volume) 1.0 10*3 1.0-4.0 Blood monocytes automated count (number/volume) 0. 8 10*3 0.0-1.0 Automated eosinophil count 0.1 10*3/uL 0 .0-0.3 Automated blood basophil count (count/volume) 0.0 10*3/uL 0.0-0.1 Comprehensive metabolic panel - 12/24/17 06:10 Serum or plasma sodium measurement (moles/volume) 137 mmol/L 135-145 Serum or plasma potassium measurement (moles/volume) 3.7 mmol/L 3.6-5.0 Serum or plasma chloride measurement (moles/volume) 104 mmol/L 98-107 Carbon dioxide 21 mmol/L 21-32 Serum or plasma anion gap determination (moles/volume) 12 mmol/L 5-14 Serum or plasma urea nitrogen measurement (mass/volume ) 13 mg/dL 7-18 Serum or plasma creatinine measurement (mass/volume) 0.88 mg/dL 0.60-1.30 Serum or plasma urea nitrogen/creatinine mass ratio 15 NRG Serum or plasma creatinine measurement w ith calculation of estimated glomerular filtration rate > NRG Serum or plasma glucose measurement (mass/volume) 104 mg/dL 70-105 Serum or plasma calcium measurement (mass/volume) 8.3 mg/dL 8.5-10.1 Serum or plasma total bilirubin measurement (mass/volu me) 1.1 mg/dL 0.1-1.0 Serum or plasma alkaline phosphatase layo surement (enzymatic activity/volume) 45 U/L 40-136 Serum or plasma aspartate aminotransfera se measurement (enzymatic activity/volume) 14 U/L 5-34 Serum or plasma alanine aminotransferase measurement (enzymatic activity/volume) 14 U/L 0-55 Serum or plasma protein measurement (mass/volume) 6.2 g/dL 6.4-8.2 Serum or plasma albumin measurement (mass/volume) 3.7 g/dL 3.2-4.5 CALCIUM CORRECTED 8.5 mg/dL 8.5-10.1 Capillary blood glucose measurement by g lucometer (mass/volume) - 12/18/18 10:11 Capillary blood glucose measurement by glucometer (mas s/volume) 128 mg/dL 70-110 Complete blood count (CBC) with automate d white blood cell (WBC) differential - 12/18/18 10:18 Blood leukocytes automated count (number/volume) 4.4 10*3/uL 4.3-11.0 Blood erythrocytes automated count (number/volume) 4.14 10*6/uL 4.35-5.85 Venous blood hemoglobin measurement (mass/volume) 14.1 g/dL 13.3-17.7 Blood hematocrit (volume fraction) 41 % 40-54 Automated erythrocyte mean corpuscular volume 98 [ foz_us] 80-99 Automated erythrocyte mean corpuscular h emoglobin (mass per erythrocyte) 34 pg 25-34 Automated erythrocyte mean corpuscular h emoglobin concentration measurement (mass/volume) 35 g/dL 32-36 Automated erythrocyte distribution width ratio 12. 8 % 10.0- 14.5 Automated blood platelet count (count/volume) 260 10*3/uL 130-400 Automated blood platelet mean volume measurement 10.0 [foz_us] 7.4-10.4 Automated blood neutrophils/100 leukocytes 48 % 42-75 Automated blood lymphocytes/100 leukocytes 32 % 12-44 Blood monocytes/100 leukocytes 12 % 0-12 Automated blood eosinophils/100 leukocytes 7 % 0-10 Automated blood basophils/100 leukocytes 2 % 0-10 Blood neutrophils automated count (number/volume) 2.1 10*3 1.8-7.8 Blood lymphocytes automated count (number/volume) 1.4 10*3 1.0-4.0 Blood monocytes automated count (number/volume) 0. 5 10*3 0.0-1.0 Automated eosinophil count 0.3 10*3/uL 0 .0-0.3 Automated blood basophil count (count/volume) 0.1 10*3/uL 0.0-0.1 Comprehensive metabolic panel - 12/18/18 10:30 Serum or plasma sodium measurement (moles/volume) 137 mmol/L 135-145 Serum or plasma potassium measurement (moles/volume) 3.6 mmol/L 3.6-5.0 Serum or plasma chloride measurement (moles/volume) 103 mmol/L 98-107 Carbon dioxide 21 mmol/L 21-32 Serum or plasma anion gap determination (moles/volume) 13 mmol/L 5-14 Serum or plasma urea nitrogen measurement (mass/volume ) 12 mg/dL 7-18 Serum or plasma creatinine measurement (mass/volume) 0.97 mg/dL 0.60-1.30 Serum or plasma urea nitrogen/creatinine mass ratio 12 NRG Serum or plasma creatinine measurement w ith calculation of estimated glomerular filtration rate > NRG Serum or plasma glucose measurement (mass/volume) 132 mg/dL 70-105 Serum or plasma calcium measurement (mass/volume) 8.7 mg/dL 8.5-10.1 Serum or plasma total bilirubin measurement (mass/volu me) 0.7 mg/dL 0.1-1.0 Serum or plasma alkaline phosphatase layo surement (enzymatic activity/volume) 47 U/L 40-136 Serum or plasma aspartate aminotransfera se measurement (enzymatic activity/volume) 28 U/L 5-34 Serum or plasma alanine aminotransferase measurement (enzymatic activity/volume) 40 U/L 0-55 Serum or plasma protein measurement (mass/volume) 6.5 g/dL 6.4-8.2 Serum or plasma albumin measurement (mass/volume) 3.8 g/dL 3.2-4.5 CALCIUM CORRECTED 8.9 mg/dL 8.5-10.1 PT panel in platelet poor plasma by coag ulation assay - 12/18/18 10:30 Prothrombin time (PT) in platelet poor plasma by coagu lation assay 12.8 s 12.2-14.7 INR in platelet poor plasma or blood by coagulation as say 0.9 0.8-1.4 Activated partial thromboplastin time (a PTT) in platelet poor plasma bycoagulation assay - 12/18/18 10:30 Activated partial thromboplastin time (a PTT) in platelet poor plasma bycoagulation assay 26 s 24-35 Fibrin D-dimer FEU measurement in platel et poor plasma (mass/volume) - 12/18/18 10:30 Fibrin D-dimer FEU measurement in platelet poor plasma (mass/volume) 0.50 ug/mL 0.00-0.49 Serum or plasma troponin i.cardiac measu rement (mass/volume) - 12/18/18 10:30 Serum or plasma troponin i.cardiac measurement (mass/v olume) < ng/mL <0.028 Complete urinalysis with reflex to cultu re - 12/18/18 11:14 Urine color determination YELLOW NRG Urine clarity determination CLEAR NR G Urine pH measurement by test strip 5 5-9 Specific gravity of urine by test strip 1.015 1.016-1.022 Urine protein assay by test strip, semi-quantitative NEGATIVE NEGATIVE Urine glucose detection by automated test strip NE GATIVE NEGATIVE Erythrocytes detection in urine sediment by light micr oscopy NEGATIVE NEGATIVE Urine ketones detection by automated test strip NE GATIVE NEGATIVE Urine nitrite detection by test strip NEGATIVE NEGATIVE Urine total bilirubin detection by test strip NEGA TIVE NEGATIVE Urine urobilinogen measurement by automated test strip (mass/volume) NORMAL NORMAL Urine leukocyte esterase detection by dipstick NEG ATIVE NEGATIVE Automated urine sediment erythrocyte cou nt by microscopy (number/high power field) NONE NRG Automated urine sediment leukocyte count by microscopy (number/high power field) RARE NRG Bacteria detection in urine sediment by light microsco py TRACE NRG Squamous epithelial cells detection in u rine sediment by light microscopy RARE NRG Crystals detection in urine sediment by light microsco py NONE NRG Casts detection in urine sediment by light microscopy NONE NRG Mucus detection in urine sediment by light microscopy NEGATIVE NRG Complete urinalysis with reflex to culture NO NRG Complete blood count (CBC) with automate d white blood cell (WBC) differential - 08/01/19 10:26 Blood leukocytes automated count (number/volume) 5.7 10*3/uL 4.3-11.0 Blood erythrocytes automated count (number/volume) 4.40 10*6/uL 4.35-5.85 Venous blood hemoglobin measurement (mass/volume) 15.0 g/dL 13.3-17.7 Blood hematocrit (volume fraction) 44 % 40-54 Automated erythrocyte mean corpuscular volume 99 [ foz_us] 80-99 Automated erythrocyte mean corpuscular h emoglobin (mass per erythrocyte) 34 pg 25-34 Automated erythrocyte mean corpuscular h emoglobin concentration measurement (mass/volume) 34 g/dL 32-36 Automated erythrocyte distribution width ratio 13. 2 % 10.0- 14.5 Automated blood platelet count (count/volume) 216 10*3/uL 130-400 Automated blood platelet mean volume measurement 9.9 [foz_us] 7.4-10.4 Automated blood neutrophils/100 leukocytes 50 % 42-75 Automated blood lymphocytes/100 leukocytes 35 % 12-44 Blood monocytes/100 leukocytes 9 % 0-12 Automated blood eosinophils/100 leukocytes 5 % 0-10 Automated blood basophils/100 leukocytes 1 % 0-10 Blood neutrophils automated count (number/volume) 2.9 10*3 1.8-7.8 Blood lymphocytes automated count (number/volume) 2.0 10*3 1.0-4.0 Blood monocytes automated count (number/volume) 0. 5 10*3 0.0-1.0 Automated eosinophil count 0.3 10*3/uL 0 .0-0.3 Automated blood basophil count (count/volume) 0.0 10*3/uL 0.0-0.1 Comprehensive metabolic panel - 08/01/19 10:26 Serum or plasma sodium measurement (moles/volume) 137 mmol/L 135-145 Serum or plasma potassium measurement (moles/volume) 4.2 mmol/L 3.6-5.0 Serum or plasma chloride measurement (moles/volume) 103 mmol/L 98-107 Carbon dioxide 22 mmol/L 21-32 Serum or plasma anion gap determination (moles/volume) 12 mmol/L 5-14 Serum or plasma urea nitrogen measurement (mass/volume ) 18 mg/dL 7-18 Serum or plasma creatinine measurement (mass/volume) 1.07 mg/dL 0.60-1.30 Serum or plasma urea nitrogen/creatinine mass ratio 17 NRG Serum or plasma creatinine measurement w ith calculation of estimated glomerular filtration rate > NRG Serum or plasma glucose measurement (mass/volume) 117 mg/dL 70-105 Serum or plasma calcium measurement (mass/volume) 8.9 mg/dL 8.5-10.1 Serum or plasma total bilirubin measurement (mass/volu me) 0.8 mg/dL 0.1-1.0 Serum or plasma alkaline phosphatase layo surement (enzymatic activity/volume) 48 U/L 40-136 Serum or plasma aspartate aminotransfera se measurement (enzymatic activity/volume) 28 U/L 5-34 Serum or plasma alanine aminotransferase measurement (enzymatic activity/volume) 38 U/L 0-55 Serum or plasma protein measurement (mass/volume) 7.3 g/dL 6.4-8.2 Serum or plasma albumin measurement (mass/volume) 4.2 g/dL 3.2-4.5 CALCIUM CORRECTED 8.7 mg/dL 8.5-10.1 PROCALCITONIN (PCT) - 08/01/19 10:26 PROCALCITONIN (PCT) 0.09 ng/mL <0.10 Magnesium - 08/01/19 10:26 Magnesium 1.7 mg/dL 1.6-2.4 Serum or plasma lithium measurement (mol es/volume) - 08/01/19 10:26 BNP PT 62.9 pg/mL <100.0 Serum or plasma troponin i.cardiac measu rement (mass/volume) - 08/01/19 10:26 Serum or plasma troponin i.cardiac measurement (mass/v olume) < ng/mL <0.028 Myoglobin, serum - 08/01/19 10:26 Myoglobin, serum 27.2 ng/mL 10.0-92.0 PT panel in platelet poor plasma by coag ulation assay - 08/01/19 10:26 Prothrombin time (PT) in platelet poor plasma by coagu lation assay 12.6 s 12.2-14.7 INR in platelet poor plasma or blood by coagulation as say 0.9 0.8-1.4 Activated partial thromboplastin time (a PTT) in platelet poor plasma bycoagulation assay - 08/01/19 10:26 Activated partial thromboplastin time (a PTT) in platelet poor plasma bycoagulation assay 28 s 24-35 Fibrin D-dimer FEU measurement in platel et poor plasma (mass/volume) - 08/01/19 10:26 Fibrin D-dimer FEU measurement in platelet poor plasma (mass/volume) 0.27 ug/mL 0.00-0.49 Serum or plasma C reactive protein measu rement (mass/volume) - 08/01/19 10:26 Serum or plasma C reactive protein measurement (mass/v olume) 0.22 mg/dL 0.00-0.50 VITAMIN B 12 - 08/01/19 10:26 VITAMIN B 12 >1999 190-1100 Coronavirus SARS-CoV-2 SO 2019 - 0 10:53 Coronavirus Ab [Units/volume] in Serum Negative Negative Encounters ACCT No. Visit Date/Time Discharge Status Pt. Type Provider Facility Loc./Unit Complaint [id number] 07/18/2014 07:00:01 ACT Document Registration [id number] 08/28/2019 12:51:00 23:59:59 CLS Outpatient DREA ZAMARRIPA DO Via [facility] CARD DYSPNEA [id number] 08/07/2019 06:52:00 23:59:59 CLS Outpatient DREA ZAMARRIPA DO Via [facility] CARD DYSPNEA [id number] 08/01/2019 09:59:00 12:06:00 DIS Emergency GEOVANNY SILVERIO APRN Via [facility] ER SOA;COUGH;CHEST TIGHTNE SS;DIARRHEA [id number] 05/04/2019 09:45:00 23:59:59 CLS Outpatient DREA ZAMARRIPA DO Via [facility] CARD GERD [id number] 04/21/2019 08:00:00 23:59:59 CLS Outpatient DREA ZAMARRIPA DO Via [facility] RAD GERD [id number] 03/17/2019 09:15:00 11:48:00 DIS Outpatient SHILPI GALE MD Via [facility] ENDO HX OF THRUSH TREATED X2 [id number] 03/16/2019 05:40:00 11:01:00 DIS Outpatient SHILPI GALE MD Via [facility] PREOP EGD [id number] 12/18/2018 09:47:00 14:25:00 DIS Emergency MAYNOR FORDE MD Via [facility] ER WEAK/DIZZY [id number] 02/16/2018 08:36:00 13:29:00 DIS Outpatient POONAM CHISHOLM MD Via [facility] REHAB S/P L TKR [id number] 03/21/2018 14:00:00 23:59:59 CLS Preadmit POONAM CHISHOLM MD Via [facility] PREOP OSTEOARTHRITIS LEFT KNE E [id number] 12/20/2017 13:44:00 019 00:01:00 DIS Outpatient POONAM CHISHOLM MD Via [facility] PREOP OSTEOARTHRITIS LEFT KN EE [id number] 02/24/2018 12:46:00 23:59:59 CLS Outpatient DREA ZAMARRIPA DO Via [facility] RAD ARTHRITIS [id number] 01/31/2018 09:58:00 23:59:59 CLS Outpatient GAVINO ARAGON Via [facility] RAD RADICULOPATHY [id number] 12/22/2017 06:03:00 018 17:38:00 DIS Inpatient POONAM CHISHOLM MD Via [facility] 4TH OSTEOARTHRITIS LEFT KNE E [id number] 04/30/2017 06:35:00 018 08:25:00 DIS Outpatient SUZY RAJPUT MD [facility] CATARACT LEFT EYE [id number] 04/23/2017 13:00:00 018 14:59:00 DIS Outpatient SUZY RAJPUT MD Via [facility] PREOP CATARACT LEFT EYE [id number] 04/16/2017 06:38:00 018 08:15:00 DIS Outpatient SUZY RAJPUT MD [facility] CATARACT RIGHT EYE [id number] 04/12/2017 05:34:00 018 13:24:00 DIS Outpatient SUZY RAJPUT MD Via [facility] PREOP CATARACT RIGHT EYE [id number] 03/23/2017 13:18:00 018 17:40:00 DIS Emergency GEOVANNY SILVERIO APRN Via [facility] ER MULTIPLE SYNCOPAL EPISO KRISHNA [id number] 03/03/2017 10:21:00 018 14:34:00 DIS Emergency CORIN DONOVAN DO [facility] ER LETHARGIC [id number] 04/10/2016 12:38:00 017 23:59:59 CLS Outpatient EULA NEWBERRY, MAYNOR Butcher [facility] LAB SALIVARY GLAND SWELLING [id number] 10/03/2015 00:40:00 016 14:22:00 DIS Inpatient BRONWYN NOBLE DO, V [facility] 4TH INTRACTABLE BLADDER EMERSON N;BLADDER DIVERTICULUM [id number] 10/02/2015 15:45:00 016 23:59:59 CLS Outpatient DREA ZAMARRIPA DO Via [facility] RAD ABD PAIN,HEMATU RORY,FEVER [id number] 05/20/2015 08:54:00 016 12:10:00 DIS Out[facility] [id number] 05/16/2015 06:06:00 016 15:12:00 DIS Outpatient MARTA HUDSON MD Via [facility] PREOP [id number] 05/09/2015 05:30:00 016 12:12:00 DIS Inpatient MARTA HUDSON MD Via [address] [id number] 05/07/2015 08:47:00 016 11:28:00 DIS Emergency GLEN CLEMENTE MD Via [facility] ER [id number] 12/19/2014 14:43:00 015 17:09:00 DIS Emergency NEW SIMS Via [facility] ER [id number] 07/17/2014 22:33:00 015 01:36:00 DIS Emergency DREA DINERO DO Via [facility] ER [id number] 10/24/2012 21:30:00 013 15:35:00 DIS Inpatient JIMMIE GORDON MD Via [address] [id number] 10/04/2012 22:21:00 013 12:45:00 DIS Inpatient GENEVA HOLLAND MD Via [facility] [id number] 07/18/2014 01:37:00 Document Registration
--- NOTE | 2019-09-24 13:08 | ED Lower Extremity ---
General Chief Complaint: Laceration Stated Complaint: LACERATION Nursing Triage Note: Pt arrives via [facility] em[facility] cart from home with c/o laceration. Pt reports prior to dispatching ems, a piece of tin cut his medial L ankle. Ems report approx 100ml blood loss. Upon arrival approx 8cm laceration noted. Pt reports he is not current on tetanus vaccine. Nursing Sepsis Screen: No Definite Risk Source: patient Exam Limitations: no limitations History of Present Illness Date Seen by Provider: Sep 24, 2019 Time Seen by Provider: 13:02 Initial Comments To ER by EMS from home with laceration to the medial aspect of the left lower leg. Tetanus is not up-to-date. EMS was called due to the degree of bleeding. He was outside moving some 10 which he had just removed his house with when a piece of a laceration to leg. Onset: just prior to arrival Severity: moderate Pain/Injury Location: left leg Method of Injury: unknown Modifying Factors: Worse With Movement Allergies and Home Medications Allergies Coded Allergies: ciprofloxacin (Unverified Allergy, Mild, 12/20/17) Penicillins (Verified Adverse Reaction, Mild, UNCOORDINATED, 12/20/17) Home Medications Alprazolam 0.25 Mg Tablet, 0.25 MG PO PRN, (Reported) Atorvastatin Calcium 20 Mg Tablet, 20 MG PO HS, (Reported) Citalopram Hydrobromide 20 Mg Tablet, 20 MG PO DAILY, (Reported) Finasteride 5 Mg Tablet, 5 MG PO DAILY@1900, (Reported) Hydrochlorothiazide 25 Mg Tablet, 25 MG PO DAILY, (Reported) Losartan Potassium 50 Mg Tablet, 50 MG PO BID, (Reported) Omeprazole 20 Mg Tablet.dr, 20 MG PO DAILY PRN for HEARTBURN, (Reported) Sildenafil Citrate 20 Mg Tablet, 20 MG PO PRN, (Reported) Tamsulosin HCl 0.4 Mg Cap, 0.4 MG PO HS, (Reported) Patient Home Medication List Home Medication List Reviewed: Yes Review of Systems Constitutional: see HPI EENTM: see HPI Respiratory: no symptoms reported Cardiovascular: no symptoms reported Genitourinary: no symptoms reported Musculoskeletal: no symptoms reported Skin: no symptoms reported Psychiatric/Neurological: No Symptoms Reported Past Xbpcofa-Mzbxve-Vzxqpu Hx Patient Social History Alcohol Use: Denies Use Number of Drinks Today: GG Alcohol Beverage of Choice: Whiskey Recreational Drug Use: No Smoking Status: Never a Smoker 2nd Hand Smoke Exposure: No Recent Foreign Travel: No Contact w/Someone Who Travel: No Recent Infectious Disease Expo: No Recent Hopitalizations: No Immunizations Up To Date Tetanus Booster (TDap): More than 5yrs PED Vaccines UTD: No Date of Pneumonia Vaccine: Oct 06, 2012 Date of Influenza Vaccine: Nov 28, 2018 Seasonal Allergies Seasonal Allergies: Yes Past Medical History Surgeries: Yes (BICEP SURGERY;MEATOTAMY;L KNEE;L SHOULDER;R SHOULDER X3, TURP) Abdominal, Eye Surgery, Gallbladder, Orthopedic, Transurethral Resection Respiratory: No Pneumonia Currently Using CPAP: No Currently Using BIPAP: No Cardiac: Yes High Cholesterol, Hypertension Neurological: Yes (SPINAL STIMULATOR PLACE 10/2018) Reproductive Disorders: No Sexually Transmitted Disease: No HIV/AIDS: No Genitourinary: Yes Benign Prostatic Hyperpl Gastrointestinal: Yes Gastroesophageal Reflux, Diverticulosis, Polyps Musculoskeletal: Yes (MULTIPLE ORTHOPEDIC SURGERGIES) Degenerate Disk Disease, Arthritis Endocrine: No HEENT: Yes (READING GLASSES) Cataract Loss of Vision: Denies Hearing Impairment: Denies Cancer: No Psychosocial: Yes Anxiety, Depression Integumentary: No Blood Disorders: No Adverse Reaction/Blood Tranf: No (N/A) Family Medical History Patient reports no known family medical history. Physical Exam Vital Signs Vital Signs - First Documented 09/24/19 12:41 Temp 36.6 Pulse 93 Resp 18 B/P (MAP) 152/87 (108) Pulse Ox 98 O2 Delivery Room Air Capillary Refill : Less Than 3 Seconds Height, Weight, BMI Height: 6'0.00" Weight: 219lbs. 5.0oz. 99.268830ri; 33.00 BMI Method:Stated General Appearance: WD/WN, no apparent distress Respiratory: no respiratory distress, no accessory muscle use Hips: bilateral hip non-tender, bilateral hip normal inspection, bilateral hip normal range of motion Legs: left leg other (3 cm laceration to the medial aspect of the left lower leg. This to the subcutaneous tissue. There is some brisk bleeding from a lacerated venule. Area was anesthetized with 4 mL of 1% lidocaine without epinephrine. One single suture size 4-0 Vicryl was placed to tie off the bleeding venule, then the wound edges were brought together with a continuous suture size 4-0 Ethilon. No foreign bodies seen. Dorsalis pedis pulse is +1 and equal bilateral lower extremities.) Knees: bilateral knee non-tender, bilateral knee normal inspection, bilateral knee normal range of motion Ankles: bilateral ankle non-tender, bilateral ankle normal inspection, b ilateral ankle normal range of motion Feet: bilateral foot non-tender, bilateral foot normal inspection, bilateral foot normal range of motion Neurologic/Psychiatric: alert, normal mood/affect, oriented x 3 Skin: normal color, warm/dry Progress/Results/Core Measures Results/Orders My Orders Orders - GEOVANNY SILVERIO APRN Dipht,Pertuss(Acell),Tet Adult (Boostrix (09/24/19 13:00) Medications Given in ED Current Medications Medications Dose Ordered Sig/Mikey Route Start Time Stop Time Status Last Admin Dose Admin Diphtheria/ Tetanus/Acell Pertussis 0.5 ml ONCE ONCE IM 09/24/19 13:00 09/24/19 13:01 09/24/19 12:50 0.5 ML Vital Signs/I&O 09/24/19 12:41 Temp 36.6 Pulse 93 Resp 18 B/P (MAP) 152/87 (108) Pulse Ox 98 O2 Delivery Room Air Blood Pressure Mean: 108 Departure Impression Primary Impression: Leg laceration Qualified Codes: S81.812A - Laceration without foreign body, left lower leg, initial encounter Disposition: HOME, SELF-CARE Condition: Critical Departure-Patient Inst. Decision time for Depature: 13:05 Referrals: DREA ZAMARRIPA DO (PCP/Family) Primary Care Physician Patient Instructions: Laceration Repair With Stitches (DC) Add. Discharge Instructions: 1. Return to ER for any concerns such as pain, sinus infection like redness or swelling. You can shower letting water run over this starting this evening, do not soak it in water such as a hot tub bath tub or swimming pool. Stitches milagro uld be removed in about 10 days here in the emergency room. All discharge instructions reviewed with patient and/or family. Voiced understanding. Images Extremities-Lower 1 - Laceration GEOVANNY SILVERIO APRN Sep 24, 2019 13:07
[2019-09-24 13:16] VITALS: BP 0/0
--- NOTE | 2019-09-24 13:16 | NUR ---
TRIPLE BIOTIC W/ BANDAID TO LACERATION. NO SWELLING OR BLEEDING NOTED. THIS RN DISCUSSED DISCHARGE INSTR W/ PT. UNDERSTANDING VOICED, NO QUESTIONS. PT TO RETURN IN 10 DAYS FOR SUTURE REMOVAL, SOONER IF ANY SIGNS OF INFECTIONS ARE NOTED OR FOR ANY OTHER COMPLAINTS.
== END 2019-09-24 13:16 | disposition home or self-care (01) ==
LOC: EDUNIT# 12:38 → ER 12:40
DX: S81.812A Laceration without foreign body, left lower leg, initial encounter (principal); F41.9 Anxiety disorder, unspecified; F32.9 Major depressive disorder, single episode, unspecified; M19.90 Unspecified osteoarthritis, unspecified site; K21.9 Gastro-esophageal reflux disease without esophagitis; E78.00 Pure hypercholesterolemia, unspecified; I10 Essential (primary) hypertension; W26.8XXA Contact with other sharp object(s), not elsewhere classified, initial encounter; Z88.1 Allergy status to other antibiotic agents; Z87.01 Personal history of pneumonia (recurrent); Z87.19 Personal history of other diseases of the digestive system; Z86.010 Personal history of colon polyps; Z79.899 Other long term (current) drug therapy; Z88.0 Allergy status to penicillin; Z23 Encounter for immunization
CPT/HCPCS: 12002; 90715

== ENCOUNTER → 2020-01-31 | Outpatient (CLI) | payer OTHER ==
[~2020-01-31] MED LIST changes: +ALPR.25T PO; -ALPR0.254 PO; +CATHETER FLUSH 10 ML SYR IV PRN; +HOLD METFORMIN - RECEIVED CONTRAST 20 ML VIAL IV SCH; +IOHEXOL 350 MG/ML 100 ML (OMNIPAQUE 350) VIAL IV ONE; +NS 100 ML (IVPB) BAG IV ONE
[2020-01-31 09:18] LABS: BUN/CREATININE RATIO 15; CREATININE SERUM 1.01 MG/DL (0.60-1.30); GFR ESTIMATED > 60
--- NOTE | 2020-01-31 10:04 | Diagnostic Imaging Report ---
CLINICAL INDICATION: Patient with knot behind left ear with swelling and pain on the left side of throat. Patient has difficulty swallowing. EXAM: An axial CT scan of the neck soft tissues was performed with 75 cc of Omnipaque 350 IV contrast. Sagittal and coronal reformatted images were created. COMPARISON: CT angiogram of head/neck dated 12/18/2018. FINDINGS: There is no significant change in the appearance of the nasopharynx, oropharynx, hypopharynx, and laryngeal soft tissue structures compared to the prior CT scan. There is no evidence of measurable mass, fluid collection, or inflammatory process seen. Again noted is slight fatty replacement of the bilateral parotid glands and submandibular glands. Otherwise, the salivary glands are unremarkable and stable. The thyroid gland is unremarkable. There is no lymphadenopathy. There is no significant abnormality seen adjacent to the ear near the BB marker. The upper aspect of the left sternocleidomastoid muscle is seen in the region. There is no significant adjacent inflammation or fluid collection seen. Limited visualization of the intracranial structures and orbits is unremarkable. There is mild mucosal thickening involving the ethmoid sinus and both maxillary sinuses. The mastoid air cells are clear. The visualized upper lung cuadra are clear. There is cervical spine degenerative disease with vertebral body spurs and facet arthropathy again seen. IMPRESSION: 1, There is no evidence of neck soft tissue mass, fluid collection, inflammatory process, or lymphadenopathy. There is no significant abnormality seen near the left neck BB-marker. The sternocleidomastoid muscle is seen in this area but it appears stable and similar to the prior CT scan. 2. The remainder of this exam is stable with no interval acute abnormality. The nasopharynx, oropharynx, hypopharynx, and laryngeal structures show no significant abnormality and are stable compared to the prior study. Dictated by: Dictated on workstation # [id number]
== END ==
LOC: RAD 08:27
PROVIDERS: ATTEND Nurse Practitioner Family
DX: J39.2 Other diseases of pharynx (principal); R59.0 Localized enlarged lymph nodes
CPT/HCPCS: 36415; 70491; 82565; 84520

== ENCOUNTER 2020-02-13 05:43 | Outpatient (RCR) | payer OTHER ==
[~2020-02-13] VITALS: Ht 182.9 cm; Wt 113.6 kg
[~2020-02-13 05:43] MED LIST changes: -CATHETER FLUSH 10 ML SYR IV PRN; -HOLD METFORMIN - RECEIVED CONTRAST 20 ML VIAL IV SCH; -IOHEXOL 350 MG/ML 100 ML (OMNIPAQUE 350) VIAL IV ONE; -NS 100 ML (IVPB) BAG IV ONE
[2020-02-13 09:56] LABS: BASOPHILS # (AUTO) 0.1 10^3/uL (0.0-0.1); BASOPHILS % (AUTO) 1 % (0-10); EOSINOPHILS # (AUTO) 0.4 10^3/uL (0.0-0.3); EOSINOPHILS % (AUTO) 6 % (0-10); HEMATOCRIT 45 % (40-54); LYMPHOCYTES # (AUTO) 1.7 10^3/uL (1.0-4.0); LYMPHOCYTES % (AUTO) 27 % (12-44); MEAN CORPUSCULAR HEMOGLOBIN 33 pg (25-34); MEAN CORPUSCULAR HGB CONC 34 g/dL (32-36); MEAN CORPUSCULAR VOLUME 99 fL (80-99); MEAN PLATELET VOLUME 9.5 fL (9.0-12.2); MONOCYTES # (AUTO) 0.7 10^3/uL (0.0-1.0); MONOCYTES % (AUTO) 11 % (0-12); NEUTROPHILS # (AUTO) 3.6 10^3/uL (1.8-7.8); NEUTROPHILS % (AUTO) 55 % (42-75); PLATELET COUNT 250 10^3/uL (130-400); WHITE BLOOD COUNT 6.5 10^3/uL (4.3-11.0)
[2020-02-13 10:18] LABS: BUN/CREATININE RATIO 17; CARBON DIOXIDE 24 MMOL/L (21-32); CHLORIDE 105 MMOL/L (98-107); CREATININE SERUM 1.03 MG/DL (0.60-1.30); GFR ESTIMATED > 60; GLUCOSE 110 MG/DL (70-105); POTASSIUM 4.4 MMOL/L (3.6-5.0); SODIUM 137 MMOL/L (135-145)
[2020-02-13 11:44] VITALS: BP 108/63
[2020-02-13] MEDS ORDERED: ASPI-999 PO (12:02)
== END 2020-02-13 12:51 | disposition home or self-care (01) ==
LOC: PREOP 05:43
PROVIDERS: ATTEND Otolaryngology Otolaryngology/Facial Plastic Surgery
DX: Z01.812 Encounter for preprocedural laboratory examination (principal); R22.0 Localized swelling, mass and lump, head; Z20.828 Contact with and (suspected) exposure to other viral communicable diseases
CPT/HCPCS: 80048; 85025; 87081; U0002; 36415; 87635

== ENCOUNTER 2020-02-15 06:04 | Day surgery (SDC) | payer OTHER ==
[~2020-02-15] VITALS: Ht 182.9 cm; Wt 113.6 kg
[2020-02-15] VITALS (10 sets, daily range): BP systolic 96–143; BP diastolic 60–87
[2020-02-15] MEDS ORDERED: LACTATED RINGERS 1,000 ML IV PRN (06:15)
[2020-02-15] MEDS ORDERED: LIDOCAINE/EPI 1%-1:100,000 (XYLOCAINE) 50 ML ONE (07:02)
[2020-02-15] MEDS ORDERED: fentaNYL INJECTION 100 MCG/2 ML AMP ONE (07:09)
[2020-02-15] MEDS ORDERED: ROCURONIUM 10 MG/ML 5 ML SYRINGE IV ONE (07:09)
[2020-02-15] MEDS ORDERED: MIDAZOLAM 2 MG/2 ML (VERSED) VIAL ONE (07:09)
[2020-02-15] MEDS ORDERED: SUCCINYLCHOLINE INJ 100 MG/5 ML SYR/VIAL ONE (07:09)
[2020-02-15] MEDS ORDERED: LIDOCAINE PF 2% 5 ML (XYLOCAINE) VIAL ONE (07:09)
[2020-02-15] MEDS ORDERED: ONDANSETRON 4 MG/2 ML (SDV) Z0FRAN ONE (07:09)
[2020-02-15] MEDS ORDERED: SEVOFLURANE (ULTANE) 15 ML INHAL SOLN ONE ×2 (07:09→08:03)
[2020-02-15] MEDS ORDERED: proPOfol 200 MG/20 ML (DIPRIVAN) VIAL IV ONE ×2 (07:09→08:03)
--- NOTE | 2020-02-15 07:57 | Progress Note-Pre Operative ---
Pre-Operative Progress Note H&P Reviewed The H&P was reviewed, patient examined and no changes noted. Date Seen by Provider: Feb 15, 2020 Time Seen by Provider: 06:30 Date H&P Reviewed: Feb 15, 2020 Time H&P Reviewed: 06:30 Pre-Operative Diagnosis: Right Base of Tongue Swelling/Maa/Globus Sensation POONAM DUNNE MD Feb 15, 2020 07:57
--- NOTE | 2020-02-15 08:14 | Progress Note-Post Operative ---
Post-Operative Progess Note Surgeon (s)/Retail Marketing Coordinator (s) Surgeon POONAM DUNNE MD Retail Marketing Coordinator n/a Pre-Operative Diagnosis Right Base of Tongue Swelling/Maa/Globus Sensation Post-Operative Diagnosis same Post-Op Procedure Note Date of Procedure: Feb 15, 2020 Name of Procedure Performed: Direct Laryngosocpy with Biopsy of Right Base of Tongue Description & Findings Description and Findings: n/a Anesthesia Type get Estimated Blood Loss minimal Packing none. Specimen(s) collected/removed right base of tongue biopsies to path for frozen section POONAM DUNNE MD Feb 15, 2020 08:14
[2020-02-15] MEDS ORDERED: HYDROcodone/APAP 5 MG/325 MG (LORTAB) TAB PO PRN (08:15)
[2020-02-15] MEDS ORDERED: ACETAMINOPHEN 325 MG TABLET PO PRN (08:15)
[2020-02-15] MEDS ORDERED: PROMETHAZINE INJ 25 MG/ML (PHENERGAN) AMP IV PRN (08:15)
[2020-02-15] MEDS ORDERED: ACHD5005 PO (09:40)
[2020-02-15] MEDS ORDERED: 2% VISCOUS XYLOCAINE PO (09:40)
--- NOTE | 2020-02-15 11:37 | Anesthesia-General Post-Op ---
General Patient Condition Mental Status/LOC: Same as Preop Cardiovascular: Satisfactory Nausea/Vomiting: Absent Respiratory: Satisfactory Pain: Controlled Complications: Absent Post Op Complications Complications None Follow Up Care/Instructions Patient Instructions None needed. Anesthesia/Patient Condition Patient Condition Patient is doing well, no complaints, stable vital signs, no apparent adverse anesthesia problems. No complications reported per nursing. MELECIO MCGREGOR CRNA Feb 15, 2020 11:37
== END 2020-02-15 10:10 | disposition home or self-care (01) ==
LOC: SDC 06:04
PROVIDERS: ATTEND Otolaryngology Otolaryngology/Facial Plastic Surgery
DX: J38.7 Other diseases of larynx (principal); K14.8 Other diseases of tongue; I10 Essential (primary) hypertension; G47.33 Obstructive sleep apnea (adult) (pediatric); K21.9 Gastro-esophageal reflux disease without esophagitis; Z79.899 Other long term (current) drug therapy; Z79.82 Long term (current) use of aspirin; Z88.0 Allergy status to penicillin; Z88.1 Allergy status to other antibiotic agents

== ENCOUNTER → 2020-03-01 | Outpatient (CLI) | payer OTHER ==
[~2020-03-01] MED LIST changes: +2% VISCOUS XYLOCAINE PO
--- NOTE | 2020-03-01 09:01 | Diagnostic Imaging Report ---
EXAM: Left hand radiographs, three views. EXAM DATE: 03/01/2020 COMPARISON: Bilateral hand radiographs 02/24/2018. HISTORY: Chronic left hand pain. FINDINGS: No acute fracture, dislocation, or destructive osseous process is seen. There are stable degenerative changes throughout the left hand involving the first carpometacarpal joint and second through fourth metacarpophalangeal joints as well as the interphalangeal joints. There is a stable radiopacity within the palmar tissues of the wrist compared to 02/24/2018. IMPRESSION: Stable degenerative changes throughout the left hand, greatest within the first carpometacarpal joint. Overall findings not significantly changed from 02/24/2018. No acute osseous abnormality. Dictated by: Dictated on workstation # [id number]
== END ==
LOC: RAD 08:17
PROVIDERS: ATTEND Nurse Practitioner Family
DX: M18.12 Unilateral primary osteoarthritis of first carpometacarpal joint, left hand (principal); M19.042 Primary osteoarthritis, left hand
CPT/HCPCS: 73130

== ENCOUNTER → 2021-02-28 | Outpatient (CLI) | payer MEDICARE, OTHER ==
[~2021-02-28] MED LIST changes: +CYCL10TA25 PO; -CYCL10TA9 PO; -LEVO500T80 PO; +LEVO500T81 PO; -OXYC-471 PO; +OXYC1TAB11 PO
--- NOTE | 2021-02-28 13:54 | Diagnostic Imaging Report ---
EXAMINATION: Chest 2 view HISTORY: Chest pain. COMPARISON: 12/20/2017. FINDINGS: The lung volumes are normal. No focal consolidation is seen. No large pleural effusion or pneumothorax is seen. The cardiomediastinal silhouette is normal in size and contour. There is calcified aortic atherosclerotic plaque. No acute osseous abnormality is seen. Spinal cord stimulator is seen in the lower thoracic spine. IMPRESSION: 1. No acute pleuroparenchymal process. Dictated by: Dictated on workstation # [id number]
--- NOTE | 2021-02-28 14:02 | Diagnostic Imaging Report ---
INDICATION: Possible hernia, abdominal pain, shortness of breath. TECHNIQUE: Supine and upright view of the abdomen 1:42 PM CORRELATION STUDY: None FINDINGS: Imaging of the abdomen demonstrates the bowel gas pattern to be unremarkable and without evidence for obstruction. A few air-fluid levels are present. No significant differential air-fluid levels. No evidence for free air. No pathologic intraabdominal calcifications. A thoracic spine stimulator lead is present. Generator pack over the right gluteal region. IMPRESSION: 1. Likely mild ileus bowel gas pattern. No findings to suggest high degree bowel obstruction. Dictated by: Dictated on workstation # [id number]
== END ==
LOC: RAD 13:12
PROVIDERS: ATTEND Nurse Practitioner Family
DX: K43.9 Ventral hernia without obstruction or gangrene (principal); I10 Essential (primary) hypertension; E78.00 Pure hypercholesterolemia, unspecified
CPT/HCPCS: 71046; 74019

== ENCOUNTER 2021-06-08 17:55 | Observation (INO) | payer MEDICARE, OTHER ==
[~2021-06-08] VITALS: Ht 182.9 cm; Wt 118.0 kg
[~2021-06-08 17:55] MED LIST changes: +OMEP20TA56 PO; -OMEP20TA7 PO
[2021-06-08] MEDS ORDERED: ASPIRIN 81 MG CHEW (CHILDREN'S ASA) PO ONE (18:15)
[2021-06-08] MEDS ORDERED: NITROGLYCERIN 0.4 MG SL TABS BTL 25'S SL PRN (18:15)
[2021-06-08 18:19] LABS: BASOPHILS # (AUTO) 0.1 10^3/uL (0.0-0.1); BASOPHILS % (AUTO) 1 % (0-10); EOSINOPHILS # (AUTO) 0.3 10^3/uL (0.0-0.3); EOSINOPHILS % (AUTO) 5 % (0-10); HEMATOCRIT 43 % (40-54); HEMOGLOBIN 15.1 g/dL (13.3-17.7); LYMPHOCYTES # (AUTO) 2.5 10^3/uL (1.0-4.0); LYMPHOCYTES % (AUTO) 37 % (12-44); MEAN CORPUSCULAR HEMOGLOBIN 35 pg (25-34); MEAN CORPUSCULAR HGB CONC 35 g/dL (32-36); MEAN CORPUSCULAR VOLUME 99 fL (80-99); MEAN PLATELET VOLUME 9.4 fL (9.0-12.2); MONOCYTES # (AUTO) 0.7 10^3/uL (0.0-1.0); MONOCYTES % (AUTO) 10 % (0-12); NEUTROPHILS # (AUTO) 3.2 10^3/uL (1.8-7.8); NEUTROPHILS % (AUTO) 47 % (42-75); PLATELET COUNT 229 10^3/uL (130-400); WHITE BLOOD COUNT 6.8 10^3/uL (4.3-11.0)
[2021-06-08 18:26] LABS: ALBUMIN 4.2 GM/DL (3.2-4.5)
[2021-06-08 18:27] LABS: POTASSIUM 3.4 MMOL/L (3.6-5.0)
[2021-06-08 18:28] LABS: INR 0.9 (0.8-1.4); PROTHROMBIN TIME PATIENT 12.7 SEC (12.2-14.7)
--- NOTE | 2021-06-08 18:28 | ED Chest Pain ---
General Chief Complaint: Chest Pain Stated Complaint: CP/LOW BP/DIZZY Source: patient History of Present Illness Date Seen by Provider: Jun 08, 2021 Time Seen by Provider: 18:12 Initial Comments PT ARRIVES VIA POV FROM HOME C/O CHEST PAIN SINCE WAKING AT 0800 THIS AM PAIN IS ALL ACROSS CHEST AND DOWN UPPER PART OF RIGHT ARM RATES PAIN 8/10 PAIN WAXES AND WANES, NOTHING WORSENS OR IMPROVES PAIN HAS NOT TAKEN ANYTHING FOR PAIN HAS BEEN MORE SHORT OF BREATH THAN NORMAL TODAY HAS BEEN DIZZY TODAY NO SWEATS NO NAUSEA NO SWELLING IN LEGS/FEET OR PAIN IN CALVES NO COUGH, FEVER OR RECENT ILLNESS PT DID HAVE HERNIA SURGERY 04/08/[address] 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 NO PAIN WHILE DOING THOSE ACTIVITIES NO HISTORY OF SIMILAR DID HAVE A STRESS TEST A COUPLE OF YEARS AGO FOR PALPITATIONS--WAS NORMAL, PER PT. HAS HISTORY OF HTN, HYPERLIPIDEMIA TOOK 2 BABY ASPIRIN JUST PRIOR TO ARRIVAL PCP: DR. ZAMARRIPA Allergies and Home Medications Allergies Coded Allergies: ciprofloxacin (Unverified Allergy, Mild, 12/20/17) Penicillins (Verified Adverse Reaction, Mild, UNCOORDINATED, 12/20/17) Patient Home Medication List Home Medication List Reviewed: Yes ALPRAZolam (Xanax Tablet) 0.25 Mg Tablet, 0.25 MG PO PRN, (Reported) Entered as Reported by: CINTIA SAMSON on 12/20/17 1402 Aspirin (Aspirin) 81 Mg Tab.chew, 81 MG PO DAILY, (Reported) Entered as Reported by: LINDA MATA on 02/13/20 1202 Atorvastatin Calcium (Atorvastatin Calcium) 20 Mg Tablet, 20 MG PO HS, (Reported) Entered as Reported by: BONY FERNANDEZ on 05/09/15 0333 Citalopram Hydrobromide (Citalopram HBr) 20 Mg Tablet, 20 MG PO DAILY, (Reported) Entered as Reported by: MARCOS NIELSON on 10/03/15 1018 Finasteride (Finasteride) 5 Mg Tablet, 5 MG PO DAILY@1900, (Reported) Entered as Reported by: LINDA MATA on 04/12/17 1321 Hydrochlorothiazide (Hydrochlorothiazide) 25 Mg Tablet, 25 MG PO DAILY, (Reported) Entered as Reported by: TEODORO MONCADA on 05/09/15 0918 Hydrocodone/Acetaminophen (Hydrocodone-Acetamin 5-325 mg) 1 Each Tablet, 1-2 EACH PO Q4H PRN for PAIN-MILD (1-4) OR TEMPATURE Prescribed by: ODALYS CONSTANTINO on 02/15/20 0940 Losartan Potassium (Losartan Potassium) 50 Mg Tablet, 50 MG PO BID, (Reported) Entered as Reported by: TEODORO MONCADA on 05/09/15 0918 Omeprazole (Omeprazole) 20 Mg Tablet.dr, 20 MG PO DAILY, (Reported) Entered as Reported by: LINDA MATA on 04/12/17 1321 Sildenafil Citrate (Sildenafil) 20 Mg Tablet, 20 MG PO PRN, (Reported) Entered as Reported by: CINTIA SAMSON on 12/20/17 1402 Tamsulosin HCl (Flomax) 0.4 Mg Cap, 0.4 MG PO HS, (Reported) Entered as Reported by: CINTIA SAMSON on 03/16/19 1057 [2% Viscous Xylocaine] , 1 TSP PO PRN PRN for PAIN-MILD (1-4) Prescribed by: ODALYS CONSTANTINO on 02/15/20 0940 Review of Systems Review of Systems Constitutional: no symptoms reported EENTM: No Symptoms Reported Respiratory: See HPI Cardiovascular: See HPI Gastrointestinal: Denies Abdominal Pain; Diarrhea; Denies Nausea Genitourinary: No Symptoms Reported Musculoskeletal: see HPI Skin: no symptoms reported Psychiatric/Neurological: No Symptoms Reported Endocrine: No Symptoms Reported Hematologic/Lymphatic: No Symptoms Reported Past Mkmqctt-Trkmwx-Bgbwri Hx Patient Social History Tobacco Use?: No Substance use?: No Alcohol Use?: No Immunizations Up To Date Tetanus Booster (TDap): More than 5yrs PED Vaccines UTD: No Seasonal Allergies Seasonal Allergies: Yes Past Medical History Surgeries: Yes (BICEP SURGERY;MEATOTAMY;L KNEE;L SHOULDER;R SHOULDER X3, TURP) Abdominal, Eye Surgery, Gallbladder, Orthopedic, Transurethral Resection Respiratory: Yes Pneumonia, Sleep Apnea Currently Using CPAP: Yes Currently Using BIPAP: No Cardiac: Yes High Cholesterol, Hypertension Neurological: Yes (SPINAL STIMULATOR PLACE 10/2018) Reproductive Disorders: No Sexually Transmitted Disease: No HIV/AIDS: No Genitourinary: Yes (ED) Benign Prostatic Hyperpl Gastrointestinal: Yes Abdominal Hernia, Gastroesophageal Reflux, Diverticulosis, Polyps Musculoskeletal: Yes (MULTIPLE ORTHOPEDIC SURGERGIES) Degenerate Disk Disease, Arthritis, Chronic Back Pain Endocrine: No HEENT: Yes (READING GLASSES, right base of tongue swelling) Cataract Loss of Vision: Denies Hearing Impairment: Denies Cancer: No Psychosocial: Yes Anxiety, Depression Integumentary: No Blood Disorders: No Adverse Reaction/Blood Tranf: No (N/A) Family Medical History Patient reports no known family medical history. PAST SURGICAL HISTORY: 09/22/00--RIGHT BICEP SURGERY BY DR. CHISHOLM 02/25/07--URETHRAL DILATION BY DR. SHAHID 02/18/10--LEFT SHOUDER RECONSTRUCTION BY DR. CHISHOLM 05/28/10--LEFT KNEE/MENISCUS SURGERY BY DR. CHISHOLM 06/27/11--RIGHT SHOULDER RECONSTRUCTION BY DR. LIMA 10/02/11--RIGHT SHOULDER RECONSTRUCTION BY DR. LIMA 01/08/12--RIGHT SHOULDER RECONSTRUCTION BY DR. ELLSWORTH IN [place] 05/19/16--RIGHT KNEE/MENISCUS SURGERY BY DR. CHISHOLM 05/19/16--LEFT KNEE CORTIZONE INJECTION 03/2017--LEFT CATARACT SURGERY 04/2017--RIGHT CATARACT SURGERY 12/22/17--LEFT KNEE REPLACEMENT BY DR. CHISHOLM 03/2018-08/2018--STEROID SHOTS IN BACK 10/27/18--SPINAL CORD STIMULATOR PLACEMENT BY DR. GAONA 01/18/19--STEROID SHOT IN SI JOINT 06/06/19--CHOLECYSTECTOMY BY DR. WEINBERG/IAN 04/08/21--VENTRAL HERNIA REPAIR BY DR. WEINBERG/IAN STRESS TEST 08/09/[address] MILLIGAN: Conclusion: Normal LV function with no wall motion abnormalities. Normal myocardial perfusion imaging during rest and stress. Physical Exam Vital Signs Vital Signs - First Documented 06/08/21 18:24 Temp 36.2 Pulse 72 Resp 22 B/P (MAP) 129/92 (104) Pulse Ox 99 O2 Delivery Room Air Capillary Refill : Height, Weight, BMI Height: 6'0.00" Weight: 219lbs. 5.0oz. 99.009755un; 33.95 BMI Method:Stated General Appearance: No Apparent Distress, WD/WN Neck: Full Range of Motion, Normal Inspection, Non Tender, Supple Respiratory: Normal Breath Sounds, No Accessory Muscle Use, No Respiratory Distress, Other (DIFFUSE CHEST ANTERIOR CHEST WALL TENDERNESS) Cardiovascular: Regular Rate, Rhythm, No Edema, No JVD, No Murmur, Normal Peripheral Pulses Gastrointestinal: Soft, Tenderness (EPIGASTRIC TENDERNESS OVER RECENT SURGICAL SITE. 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 Norm as Tested Skin: Normal Color, Warm/Dry Progress/Results/Core Measures Results/Orders Lab Results Laboratory Tests Test 06/08/21 18:09 Range/Units White Blood Count 6.8 4.3-11.0 10^3/uL Red Blood Count 4.35 4.30-5.52 10^6/uL Hemoglobin 15.1 13.3-17.7 g/dL Hematocrit 43 40-54 % Mean Corpuscular Volume 99 80-99 fL Mean Corpuscular Hemoglobin 35 H 25-34 pg Mean Corpuscular Hemoglobin Concent 35 32-36 g/dL Red Cell Distribution Width 13.5 10.0-14.5 % Platelet Count 229 130-400 10^3/uL Mean Platelet Volume 9.4 9.0-12.2 fL Immature Granulocyte % (Auto) 0 % Neutrophils (%) (Auto) 47 42-75 % Lymphocytes (%) (Auto) 37 12-44 % Monocytes (%) (Auto) 10 0-12 % Eosinophils (%) (Auto) 5 0-10 % Basophils (%) (Auto) 1 0-10 % Neutrophils # (Auto) 3.2 1.8-7.8 10^3/uL Lymphocytes # (Auto) 2.5 1.0-4.0 10^3/uL Monocytes # (Auto) 0.7 0.0-1.0 10^3/uL Eosinophils # (Auto) 0.3 0.0-0.3 10^3/uL Basophils # (Auto) 0.1 0.0-0.1 10^3/uL Immature Granulocyte # (Auto) 0.0 0.0-0.1 10^3/uL Prothrombin Time 12.7 12.2-14.7 SEC INR Comment 0.9 0.8-1.4 Activated Partial Thromboplast Time 28 24-35 SEC D-Dimer 0.36 0.00-0.49 UG/ML Sodium Level 135 135-145 MMOL/L Potassium Level 3.4 L 3.6-5.0 MMOL/L Chloride Level 101 98-107 MMOL/L Carbon Dioxide Level 20 L 21-32 MMOL/L Anion Gap 14 5-14 MMOL/L Blood Urea Nitrogen 17 7-18 MG/DL Creatinine 1.30 0.60-1.30 MG/DL Estimat Glomerular Filtration Rate 61 BUN/Creatinine Ratio 13 Glucose Level 119 H 70-105 MG/DL Calcium Level 9.0 8.5-10.1 MG/DL Corrected Calcium 8.8 8.5-10.1 MG/DL Magnesium Level 2.0 1.6-2.4 MG/DL Total Bilirubin 0.8 0.1-1.0 MG/DL Aspartate Amino Transf (AST/SGOT) 22 5-34 U/L Alanine Aminotransferase (ALT/SGPT) 28 0-55 U/L Alkaline Phosphatase 46 40-136 U/L Total Creatine Kinase 86 30-200 U/L Creatine Kinase MB 1.1 <6.6 NG/ML Myoglobin 45.6 10.0-92.0 NG/ML Troponin I < 0.028 <0.028 NG/ML B-Type Natriuretic Peptide 14.2 <100.0 PG/ML Total Protein 7.1 6.4-8.2 GM/DL Albumin 4.2 3.2-4.5 GM/DL Amylase Level 56 25-125 U/L Lipase 34 8-78 U/L My Orders Orders - CORIN DONOVAN DO Cbc With Automated Diff (06/08/21 18:12) Magnesium (06/08/21 18:12) Chest 1 View, Ap/Pa Only (06/08/21 18:12) Ekg Tracing (06/08/21 18:12) Comprehensive Metabolic Panel (06/08/21 18:12) Myoglobin Serum (06/08/21 18:12) Protime With Inr (06/08/21 18:12) Partial Thromboplastin Time (06/08/21 18:12) O2 (06/08/21 18:12) Monitor-Rhythm Ecg Trace Only (06/08/21 18:12) Ed Iv/Invasive Line Start (06/08/21 18:12) Creatine Kinase (06/08/21 18:12) Creatine Kinase Mb (06/08/21 18:12) Lipase (06/08/21 18:12) Amylase (06/08/21 18:12) Bnp Marce (06/08/21 18:12) Fibrin Degradation Products (06/08/21 18:12) Troponin I Marce (06/08/21 18:12) Nitroglycerin 0.4 Mg Btl 25's (Nitrostat (06/08/21 18:15) Aspirin Chewable Tablet (Baby Aspirin Ch (06/08/21 18:15) Ed Iv/Invasive Line Start (06/08/21 18:35) Ns Iv 1000 Ml (Sodium Chloride 0.9%) (06/08/21 18:45) Ns Iv 1000 Ml (Sodium Chloride 0.9%) (06/08/21 18:36) Ekg Tracing (06/08/21 19:01) Morphine Injection (Morphine Injection (06/08/21 19:15) Medications Given in ED Current Medications Medications Dose Ordered Sig/Mikey Route Start Time Stop Time Status Last Admin Dose Admin Aspirin 324 mg ONCE ONCE PO 06/08/21 18:15 06/08/21 18:16 DC 06/08/21 18:21 162 MG Morphine Sulfate 4 mg ONCE ONCE IVP 06/08/21 19:15 06/08/21 19:16 DC 06/08/21 19:09 4 MG Nitroglycerin 0.4 mg UD PRN SL 06/08/21 18:15 06/08/21 20:47 DC 06/08/21 18:21 0.4 MG Vital Signs/I&O 06/08/21 18:24 Temp 36.2 Pulse 72 Resp 22 B/P (MAP) 129/92 (104) Pulse Ox 99 O2 Delivery Room Air 06/09/21 00:00 Intake Total 1000 ml Balance 1000 ml Progress Progress Note : Progress Note GIVEN ASPIRIN X 2 GIVEN NTG X 2--PAIN DOWN TO 5/10 , BUT BP DROPPED INTO 80'S--GIVEN IV FLUIDS AND BP UP TO > 100 SYSTOLIC. PT ASYMPTOMATIC WITH HYPOTENSION 1900--SHARP PAINS--RATES PAIN 8/10 AGAIN, REPEAT EKG DONE AND IS UNCHANGED. MORPHINE GIVEN --PAIN DOWN TO 6/10 CONTINUES TO COMPLAIN OF INTERMITTENT SHARP PAINS, ADDITIONAL MORPHINE GIVEN PAIN DOWN TO 4/10 Initial ECG Impression Date: Jun 08, 2021 Initial ECG Impression Time: 17:59 Initial ECG Rate: 69 Initial ECG Rhythm: Normal Sinus Initial ECG Impression: Nonspecific Changes EKG : EKG Time: 19:07 Rate: 63 Rhythm: Normal Sinus ECG Comparisson: Unchanged Diagnostic Imaging Comments CXR--PER RADIOLOGIST REPORT AT 1945 FINDINGS: The lungs are clear without edema or pneumonia. No pleural effusion or pneumothorax. Heart size is normal. Spinal stimulator is present. IMPRESSION: Clear lungs. Reviewed: Reviewed by Me Departure Communication (Admissions) 1930--SPOKE WITH DR. SARAVIA, HOSPITALIST, ACCEPTS PT FOR ADMIT 1936--SPOKE WITH DR. BLANCA, [employer], FOR CONSULT Impression Primary Impression: Chest pain Disposition: ADMITTED INPATIENT Condition: Stable Admissions Decision to Admit Reason: Admit from ER (General) Decision to Admit/Date: Jun 08, 2021 Time/Decision to Admit Time: 19:35 Departure-Patient Inst. Referrals: DREA ZAMARRIPA DO (PCP/Family) Primary Care Physician CORIN DONOVAN DO Jun 08, 2021 18:28
[2021-06-08 18:29] LABS: TOTAL PROTEIN 7.1 GM/DL (6.4-8.2)
[2021-06-08 18:31] LABS: BILIRUBIN,TOTAL 0.8 MG/DL (0.1-1.0)
[2021-06-08 18:33] LABS: CREATININE SERUM 1.3 MG/DL (0.60-1.30)
[2021-06-08] MEDS ORDERED: NS IV 1000 ML 1,000 ML ONE (18:36)
[2021-06-08 18:43] LABS: CREATINE KINASE MB 1.1 NG/ML (<6.6)
[2021-06-08] MEDS ORDERED: NS IV 1000 ML 1,000 ML IV SCH (18:45)
[2021-06-08] MEDS ORDERED: morphine INJ 10 MG/ML 1ML (SYR OR VIAL) IVP ONE ×2 (19:15→19:45)
--- NOTE | 2021-06-08 19:43 | Diagnostic Imaging Report ---
EXAMINATION: Chest, 1 view. HISTORY: Chest pain. COMPARISON: 08/01/2019. FINDINGS: The lungs are clear without edema or pneumonia. No pleural effusion or pneumothorax. Heart size is normal. Spinal stimulator is present. IMPRESSION: Clear lungs. Dictated by: Dictated on workstation # [id number]
[2021-06-08 20:13] VITALS: BP 136/113
[2021-06-08 20:19] VITALS: BP 149/84
[2021-06-08] MEDS ORDERED: ONDANSETRON 4 MG/2 ML (SDV) Z0FRAN IV PRN (21:00)
[2021-06-08] MEDS: NS IV 1000 ML 1,000 ML IV SCH (21:09)
[2021-06-08] MEDS: NITROGLYCERIN 0.4 MG SL TABS BTL 25'S SL PRN (23:31)
[2021-06-08] MEDS: morphine INJ 4 MG/ML 1 ML (VIAL/SYRINGE) IV PRN (23:54)
[2021-06-09] VITALS (7 sets, daily range): BP systolic 134–156; BP diastolic 82–99
[2021-06-09] MEDS: NITROGLYCERIN 0.4 MG SL TABS BTL 25'S SL PRN (00:29)
[2021-06-09] MEDS: morphine INJ 4 MG/ML 1 ML (VIAL/SYRINGE) IV PRN (04:23)
[2021-06-09 06:40] LABS: BASOPHILS # (AUTO) 0.1 10^3/uL (0.0-0.1); BASOPHILS % (AUTO) 1 % (0-10); EOSINOPHILS # (AUTO) 0.4 10^3/uL (0.0-0.3); EOSINOPHILS % (AUTO) 7 % (0-10); HEMATOCRIT 41 % (40-54); HEMOGLOBIN 13.8 g/dL (13.3-17.7); LYMPHOCYTES # (AUTO) 1.9 10^3/uL (1.0-4.0); LYMPHOCYTES % (AUTO) 35 % (12-44); MEAN CORPUSCULAR HEMOGLOBIN 34 pg (25-34); MEAN CORPUSCULAR HGB CONC 34 g/dL (32-36); MEAN CORPUSCULAR VOLUME 101 fL (80-99); MEAN PLATELET VOLUME 9.8 fL (9.0-12.2); MONOCYTES # (AUTO) 0.6 10^3/uL (0.0-1.0); MONOCYTES % (AUTO) 11 % (0-12); NEUTROPHILS # (AUTO) 2.6 10^3/uL (1.8-7.8); NEUTROPHILS % (AUTO) 46 % (42-75); PLATELET COUNT 197 10^3/uL (130-400); WHITE BLOOD COUNT 5.5 10^3/uL (4.3-11.0)
[2021-06-09 06:47] LABS: POTASSIUM 3.6 MMOL/L (3.6-5.0)
[2021-06-09 06:49] LABS: CALCIUM 8.5 MG/DL (8.5-10.1)
[2021-06-09 06:53] LABS: CREATININE SERUM 1.06 MG/DL (0.60-1.30)
[2021-06-09] MEDS ORDERED: ASPIRIN E.C. 81 MG (ECOTRIN) TAB PO SCH (09:00)
[2021-06-09] MEDS ORDERED: RT-ALBUINH IH (09:37)
[2021-06-09] MEDS ORDERED: ASPI-1238 PO (09:37)
[2021-06-09] MEDS ORDERED: PANTOPRAZOLE 40 MG (PROTONIX) TAB PO NR (09:45)
[2021-06-09] MEDS ORDERED: LIDOCAINE 2% VISCOUS 15 ML UDC PO NR (09:45)
[2021-06-09] MEDS ORDERED: ANTACID SUSP 30 ML UDC (MYLANTA) PO NR (09:45)
--- NOTE | 2021-06-09 09:57 | Consultation-Cardiology ---
HPI-Cardiology Cardiology Consultation: Date of Consultation 06/09/21 Date of Admission 06/08/21 Attending Physician Jas Ying DO Admitting Physician Jas Ying DO Consulting Physician GENEVA BLANCA JR, MD HPI: Time Seen by a Provider: 09:52 Chief Complaint: Reason for consultation: Chest pain. I had the pleasure of seeing Orval on the cardiac stepdown unit at [facility] in [place], [place] today. He has no known history of coronary artery disease. He does have cardiac risk factors of hypertension and hyperlipidemia. For about the past 2 months he has been having dyspnea on exertion. He saw his primary provider and told him about the dyspnea on exertion but no testing was performed. Yesterday, a short while after waking up he developed substernal chest tightness. He denies radiation. He does not recall experiencing this sort of symptom in the past. He did not seek immediate medical attention. Later in the day he was developing intermittent lightheaded spells. He checked his blood pressure and got a systolic reading of 90 mmHg. His chest discomfort persisted throughout the day and he finally came to the hospital in the mid afternoon. He was given a sublingual nitroglycerin in the emergency room that seemed to take the edge off the pain but this did not completely resolve the discomfort. Overnight, he has had ongoing, moderate chest tightness. He describes this as 5/10. He still has some intermittent dizzy and lightheaded spells but denies syncope. He denies paroxysmal nocturnal dyspnea or orthopnea. In the past he has had some irregular heartbeats which he has noted when he checks his pulse but he denies any palpitations. He denies any lower extremity edema. He is disabled due to chronic back pain with previous back surgeries now with an implanted spinal stimulator. Certain portions of this document may have been dictated utilizing voice recognition technology. Inherent to this technology, typographical and gramma tical errors may exist. As much as I am diligent to identify and correct these mistakes, some errors may remain in the document. Review of Systems-Cardiology Review of Systems Other comments Review of 10 organ systems is as per the history of present illness, otherwise negative. OAI-Pyiapy-Vuywvi Hx Patient Social History 2nd Hand Smoke Exposure: No Have you traveled recently?: No Alcohol Use?: Yes Pt feels they are or have been: No Immunizations Up To Date Tetanus Booster (TDap): More than 5yrs Date of Pneumonia Vaccine: Oct 06, 2012 Date of Influenza Vaccine: Nov 29, 2019 Past Medical History PMH As described under Assessment. Family Medical History Family Medical History: His father of an aneurysm. Family History: Patient reports no known family medical history. Allergies and Home Medications Allergies Coded Allergies: ciprofloxacin (Unverified Allergy, Mild, 12/20/17) Penicillins (Verified Adverse Reaction, Mild, UNCOORDINATED, 12/20/17) Patient Home Medication List Home Medication List Reviewed: Yes Albuterol Sulfate (Proair Hfa) 1 Puff Puff, 2 PUFF IH Q4H PRN for SHORTNESS OF BREATH, (Reported) Entered as Reported by: SARAH BETH GANDARA on 06/09/21936 Last Action: Held Aspirin (Aspirin EC) 81 Mg Tablet.dr, 81 MG PO DAILY, (Reported) Entered as Reported by: SARAH BETH GANDARA on 06/09/21936 Last Action: Continued Atorvastatin Calcium (Atorvastatin Calcium) 20 Mg Tablet, 20 MG PO HS, (Reported) Entered as Reported by: BONY FERNANDEZ on 05/09/15 0333 Last Action: Continued Citalopram Hydrobromide (Citalopram HBr) 20 Mg Tablet, 20 MG PO DAILY, (Reported) Entered as Reported by: MARCOS NIELSON on 10/03/15 1018 Last Action: Continued Finasteride (Finasteride) 5 Mg Tablet, 5 MG PO HS, (Reported) Entered as Reported by: LINDA MATA on 04/12/17 132 Last Action: Continued Hydrochlorothiazide (Hydrochlorothiazide) 25 Mg Tablet, 25 MG PO DAILY, (Reported) Entered as Reported by: TEODORO MONCADA on 05/09/15917 Last Action: Reviewed Losartan Potassium (Losartan Potassium) 50 Mg Tablet, 50 MG PO BID, (Reported) Entered as Reported by: TEODORO MONCADA on 05/09/15917 Last Action: Continued Omeprazole (Omeprazole) 20 Mg Tablet.dr, 20 MG PO DAILY, (Reported) Entered as Reported by: LINDA MATA on 04/12/17 1321 Last Action: Converted Sildenafil Citrate (Sildenafil) 20 Mg Tablet, 100 MG PO UD PRN for ED, (Reported) Entered as Reported by: CINTIA SAMSON on 12/20/17 140 Last Action: Held Tamsulosin HCl (Flomax) 0.4 Mg Cap, 0.4 MG PO HS, (Reported) Entered as Reported by: CINTIA SAMSON on 03/16/19 1057 Last Action: Continued Discontinued Medications ALPRAZolam (Xanax Tablet) 0.25 Mg Tablet, 0.25 MG PO PRN, (Reported) Discontinued Reason: No Longer Taking Entered as Reported by: CINTIA SAMSON on 12/20/17 140 Last Action: Discontinued Hydrocodone/Acetaminophen (Hydrocodone-Acetamin 5-325 mg) 1 Each Tablet, 1-2 EACH PO Q4H PRN for PAIN-MILD (1-4) OR TEMPATURE Discontinued Reason: No Longer Taking Prescribed by: ODALYS CONSTANTINO on 02/15/20 0940 Last Action: Discontinued [2% Viscous Xylocaine] , 1 TSP PO PRN PRN for PAIN-MILD (1-4) Discontinued Reason: No Longer Taking Prescribed by: ODALYS CONSTANTINO on 02/15/20 0940 Last Action: Discontinued Exam Vital Signs Vital Signs Date Time Temp Pulse Resp B/P (MAP) Pulse Ox O2 Delivery O2 Flow Rate FiO2 06/09/21 16:00 64 13 97 Room Air 06/09/21 15:52 36.6 151/99 (116) Physical Exam General: Alert. No acute distress. Well nourished and appears stated age. He is obese. Eye: Extraocular movements are intact. Conjunctivae are clear. There are no xanthelasma. HENT: Normocephalic. Atraumatic. Carotid pulsations 2/2 without bruits. Neck: Jugular venous pressure does not appear elevated. No thyromegaly appreciated. Respiratory: Lungs are clear to auscultation. Respirations are non-labored. Breath sounds are equal. Symmetrical chest wall expansion. Cardiovascular: Normal rate. Regular rhythm. No murmur. No gallop. Point of maximal impulse is not appear displaced. Good pulses equal in all extremities. No edema. Gastrointestinal: Soft. Normal bowel sounds. Skin: Skin turgor is normal. There is no pallor. Musculoskeletal: No kyphosis or scoliosis appreciated. Neurologic: Alert and oriented to person, place, time. Cranial nerves 3-12 tereza ear grossly intact. The patient has good motor tone strength in the upper and lower extremities bilaterally. Psychiatric: Cooperative. Appropriate mood & affect. Labs Laboratory Tests Test 06/08/21 18:09 06/08/21 20:46 06/08/21 23:36 06/09/21 05:51 Range/Units White Blood Count 6.8 5.5 4.3-11.0 10^3/uL Red Blood Count 4.35 4.03 L 4.30-5.52 10^6/uL Hemoglobin 15.1 13.8 13.3-17.7 g/dL Hematocrit 43 41 40-54 % Mean Corpuscular Volume 99 101 H 80-99 fL Mean Corpuscular Hemoglobin 35 H 34 25-34 pg Mean Corpuscular Hemoglobin Concent 35 34 32-36 g/dL Red Cell Distribution Width 13.5 13.4 10.0-14.5 % Platelet Count 229 197 130-400 10^3/uL Mean Platelet Volume 9.4 9.8 9.0-12.2 fL Immature Granulocyte % (Auto) 0 0 % Neutrophils (%) (Auto) 47 46 42-75 % Lymphocytes (%) (Auto) 37 35 12-44 % Monocytes (%) (Auto) 10 11 0-12 % Eosinophils (%) (Auto) 5 7 0-10 % Basophils (%) (Auto) 1 1 0-10 % Neutrophils # (Auto) 3.2 2.6 1.8-7.8 10^3/uL Lymphocytes # (Auto) 2.5 1.9 1.0-4.0 10^3/uL Monocytes # (Auto) 0.7 0.6 0.0-1.0 10^3/uL Eosinophils # (Auto) 0.3 0.4 H 0.0-0.3 10^3/uL Basophils # (Auto) 0.1 0.1 0.0-0.1 10^3/uL Immature Granulocyte # (Auto) 0.0 0.0 0.0-0.1 10^3/uL Prothrombin Time 12.7 12.2-14.7 SEC INR Comment 0.9 0.8-1.4 Activated Partial Thromboplast Time 28 24-35 SEC D-Dimer 0.36 0.00-0.49 UG/ML Sodium Level 135 140 135-145 MMOL/L Potassium Level 3.4 L 3.6 3.6-5.0 MMOL/L Chloride Level 101 106 98-107 MMOL/L Carbon Dioxide Level 20 L 21 21-32 MMOL/L Anion Gap 14 13 5-14 MMOL/L Blood Urea Nitrogen 17 14 7-18 MG/DL Creatinine 1.30 1.06 0.60-1.30 MG/DL Estimat Glomerular Filtration Rate 61 78 BUN/Creatinine Ratio 13 13 Glucose Level 119 H 110 H 70-105 MG/DL Calcium Level 9.0 8.5 8.5-10.1 MG/DL Corrected Calcium 8.8 8.5-10.1 MG/DL Magnesium Level 2.0 1.6-2.4 MG/DL Total Bilirubin 0.8 0.1-1.0 MG/DL Aspartate Amino Transf (AST/SGOT) 22 5-34 U/L Alanine Aminotransferase (ALT/SGPT) 28 0-55 U/L Alkaline Phosphatase 46 40-136 U/L Total Creatine Kinase 86 30-200 U/L Creatine Kinase MB 1.1 <6.6 NG/ML Myoglobin 45.6 10.0-92.0 NG/ML Troponin I < 0.028 < 0.028 < 0.028 <0.028 NG/ML B-Type Natriuretic Peptide 14.2 <100.0 PG/ML Total Protein 7.1 6.4-8.2 GM/DL Albumin 4.2 3.2-4.5 GM/DL Amylase Level 56 25-125 U/L Lipase 34 8-78 U/L Triglycerides Level 288 H <150 MG/DL Cholesterol Level 150 < 200 MG/DL LDL Cholesterol Direct 73 1-129 MG/DL VLDL Cholesterol 58 H 5-40 MG/DL HDL Cholesterol 38 L 40-60 MG/DL Radiology ECHOCARDIOGRAM 1. This is a technically difficult study due to poor image quality secondary to patient's body habitus. Intravenous contrast was administered to enhance image quality. 2. Left ventricle: The cavity size is normal. There is moderate concentric hypertrophy. Systolic function is normal. The estimated ejection fraction is 60- 65%. Regional wall motion abnormalities cannot be excluded due to poor endocardial definition. 3. Pulmonary arteries: The pulmonary artery pressure cannot be estimated on this study due to inadequate tricuspid regurgitant envelope. REGADENOSON NUCLEAR STRESS TEST 1. Normal heart rate and blood pressure response to regadenoson. 2. There was no chest discomfort, arrhythmias, or electrocardiogram changes during the test. 3. There was normal myocardial perfusion in all segments without evidence of infarction or ischemia. 4. There was normal wall motion in all segments with a calculated ejection fraction of 56%. ECG Impression ECG Comment Sinus rhythm, unremarkable tracing. Diagnosis/Problems Diagnosis/Problems (1) Chest pain Status: Acute Assessment & Plan: His chest discomfort resolved after he received a GI cocktail and pantoprazole. He had 3 negative cardiac enzyme levels and his echocardiogram and nuclear stress test were essentially unremarkable. I suspect he was having noncardiac chest pain, possibly due to gastroesophageal reflux disease. I recommend he be discharged on prescription strength proton pump inhibitor. I have placed an order to have the staff get him a follow-up appointment to see me in the office in 1 month. From a cardiac standpoint, he can be discharged home. (2) Dyspnea on exertion Assessment & Plan: Etiology unclear. However, based upon his echocardiogram and nuclear stress test, there do not appear to be any cardiac causes for dyspnea. His D-dimer was in a normal range which makes pulmonary embolism unlikely. (3) Gastroesophageal reflux disease without esophagitis Assessment & Plan: As above, I suspect this may be causing his chest discomfort. He should be discharged on full-strength proton pump inhibitor. (4) Primary hypertension Assessment & Plan: Resume outpatient antihypertensive medication. (5) Mixed hyperlipidemia Assessment & Plan: Continue atorvastatin. (6) Obesity Assessment & Plan: He needs to work on weight loss. GENEVA BLANCA JR, MD Jun 09, 2021 09:57
[2021-06-09] MEDS ORDERED: REGADENOSON 0.4 MG/5 ML SYR (LEXISCAN) IV ONE ×2 (10:00→13:30)
[2021-06-09] MEDS: NS IV 1000 ML 1,000 ML IV SCH (10:24)
--- NOTE | 2021-06-09 11:51 | History & Physical-Hospitalist ---
History of Present Illness HPI/Chief Complaint Patient is 66-year-old male past medical history of hypertension who presented to the emergency department due to chest pain. He states that he worked in the garden on the and did okay but then yesterday developed chest pain around 8:00 in the morning. He went out in a straight cup with his granddaughter which worsened his chest pain and he became short of breath. He states the pain has persisted and it most was 8 out of 10. With nitro and morphine it improved to a 5 out of 10 but has been consistently there. His pain did radiate to his right arm. He did check his blood pressure at home and found that it was 100/50. He states he then got a little lightheaded when he got up to walk with his blood pressure low. He has never had similar symptoms. He has had a stress test in the past that he was told was normal. Source: patient Date Seen 06/09/21 Time Seen by a Provider: 11:45 Attending Physician Jas Ying DO PCP Jas Ying DO Referring Physician Date of Admission Jun 08, 2021 at 19:31 Home Medications & Allergies Home Medications Reviewed patient Home Medication Reconciliation performed by pharmacy medication reconciliations diesel service technician and/or nursing. Patients Allergies have been reviewed. Allergies Allergies Coded Allergies ciprofloxacin (Unverified Allergy, Mild, 12/20/17) Penicillins (Verified Adverse Reaction, Mild, UNCOORDINATED, 12/20/17) Past Yjyrzjh-Lqbqgl-Hlvyki Hx Patient Social History Tobacco Use?: No Use of E-Cig and/or Vaping dev: No Substance use?: No Alcohol Use?: Yes Alcohol type: Beer, Hard Liquor, Wine Alcohol Frequency: Daily Additional Alcohol Comments: AT NIGHT Pt feels they are or have been: No Immunizations Up To Date Date of Influenza Vaccine: Nov 29, 2019 First/Initial COVID19 Vaccinat: 05/07/2020 Second COVID19 Vaccination David: 06/04/2020 Hepatitis A: No Hepatitis B: No PED Vaccines UTD: No Date of Pneumonia Vaccine: Oct 06, 2012 Seasonal Allergies Seasonal Allergies: Yes Current Status Advance Directives: Yes Advance Directive Location: Unable to obtain copy Primary Language: Comoran Preferred Spoken Language: Comoran Sensory deficits: Hearing impairment Implanted or Applied Medical D: Other Past Medical History Surgeries: Abdominal, Eye Surgery, Gallbladder, Orthopedic, Transurethral Resection Pneumonia, Sleep Apnea Currently Using CPAP: Yes Currently Using BIPAP: No High Cholesterol, Hypertension Sexually Transmitted Disease: No HIV/AIDS: No Benign Prostatic Hyperpl Abdominal Hernia, Gastroesophageal Reflux, Diverticulosis, Polyps Degenerate Disk Disease, Arthritis, Chronic Back Pain Cataract Loss of Vision: Denies Hearing Impairment: Denies Anxiety, Depression Blood Disorders: No Adverse Reaction/Blood Tranf: No (N/A) 1. Acute renal insufficiency secondary to dehydration- admission 10-04-12 2. Syncope related to acute renal insufficiency 10-04-12 3. Hypertension with hypotensive episode on 10-04-12 4. HLP- on statin medication 5. Testosterone insufficiency 6. Depression 7. Recreational alcohol use 8. Chronic cough- possibly related to GANGA-I 9. Erectile dysfunction- using Levitra PRN 10. GERD 11. RT. Bicep tendon attachment 10-21-00 Dr. Santos 12. Urethral Dilitation 02-25-07 Dr. Shahid 13. Lt shoulder Arthroscopy- 02-08-10 14. LT. Knee arthrosopy with meniscal repair 08-15-10 Dr. Santos 15. Rt shoulder rotator cuff repair 07-07-11 Dr. Lima 16. Rt. shoulder rotator cuff repair 10-02-11 Dr. Lima 17. Rt. shoulder rotator cuff reattachment- Dr. Juarez Ellsworth Family Medical History Patient reports no known family medical history. PAST SURGICAL HISTORY: 09/22/00--RIGHT BICEP SURGERY BY DR. SANTOS 02/25/07--URETHRAL DILATION BY DR. SHAHID 02/18/10--LEFT SHOUDER RECONSTRUCTION BY DR. SANTOS 05/28/10--LEFT KNEE/MENISCUS SURGERY BY DR. SANTOS 06/27/11--RIGHT SHOULDER RECONSTRUCTION BY DR. LIMA 10/02/11--RIGHT SHOULDER RECONSTRUCTION BY DR. LIMA 01/08/12--RIGHT SHOULDER RECONSTRUCTION BY DR. ELLSWORTH IN [place] 05/19/16--RIGHT KNEE/MENISCUS SURGERY BY DR. SANTOS 05/19/16--LEFT KNEE CORTIZONE INJECTION 03/2017--LEFT CATARACT SURGERY 04/2017--RIGHT CATARACT SURGERY 12/22/17--LEFT KNEE REPLACEMENT BY DR. SANTOS 03/2018-08/2018--STEROID SHOTS IN BACK 10/27/18--SPINAL CORD STIMULATOR PLACEMENT BY DR. GAONA 01/18/19--STEROID SHOT IN SI JOINT 06/06/19--CHOLECYSTECTOMY BY DR. WEINBERG/IAN 04/08/21--VENTRAL HERNIA REPAIR BY DR. WEINBERG/IAN STRESS TEST 08/09/[address] MILLIGAN: Conclusion: Normal LV function with no wall motion abnormalities. Normal myocardial perfusion imaging during rest and stress. Review of Systems Constitutional: No chills, No fever EENTM: no symptoms reported Respiratory: see HPI, dyspnea on exertion, short of breath Cardiovascular: chest pain; No edema; palpitations; No syncope Gastrointestinal: diarrhea; No nausea, No vomiting Genitourinary: no symptoms reported Musculoskeletal: no symptoms reported Skin: no symptoms reported Psychiatric/Neurological: No Symptoms Reported Physical Exam Physical Exam Vital Signs Vital Signs - First Documented 06/08/21 18:24 Temp 36.2 Pulse 72 Resp 22 B/P (MAP) 129/92 (104) Pulse Ox 99 O2 Delivery Room Air Capillary Refill : Less Than 3 Seconds Height, Weight, BMI Height: 6'0.00" Weight: 219lbs. 5.0oz. 99.868685zs; 35.00 BMI Method:Stated General Appearance: No Apparent Distress, WD/WN HEENT: PERRL/EOMI, Moist Mucous Membranes Neck: Normal Inspection, Supple Respiratory: Chest Non Tender, Lungs Clear, No Accessory Muscle Use, No Respiratory Distress Cardiovascular: Regular Rate, Rhythm, No JVD, No Murmur Gastrointestinal: Normal Bowel Sounds, Non Tender, Soft Extremity: Normal Capillary Refill, No Calf Tenderness Neurologic/Psychiatric: Alert, Oriented x3, Normal Mood/Affect Results Results/Procedures Labs Patient resulted labs reviewed. Imaging: Reviewed Imaging Report Imaging [facility] [place], [place] NAME: KAREY NIÑO [facility] REC#: [id number] PT STATUS: ADM Altagracia : 1955 PHYSICIAN: CORIN DONOVAN DO ADMIT DATE: 06/08/21/[facility] Signed Date of Exam:06/08/21 CHEST 1 VIEW, AP/PA ONLY EXAMINATION: Chest, 1 view. HISTORY: Chest pain. COMPARISON: 08/01/2019. FINDINGS: The lungs are clear without edema or pneumonia. No pleural effusion or pneumothorax. Heart size is normal. Spinal stimulator is present. IMPRESSION: Clear lungs. Dictated by: Dictated on workstation # [id number] Dict: 06/08/211941 Trans: 06/08/212023 PJE [id number] Interpreted by: ANA LIMA MD Electronically signed by: ANA LIMA MD 06/08/212023 Assessment/Plan Admission Diagnosis Chest pain Admission Status: Observation Assessment and Plan Chest pain Troponin negative x3 Cardiology consulted, appreciate recs Some aspects concerning for cardiac etiology Monitor on telemetry Continue ASA Stress test done and negative, will DC home for outpatient follow up HTN HLD Continue home meds as able but will hold some BP meds due to reported low BP and adequate control here GERD Continue home PPI DVT ppx: Lovenox Clinical Quality Measures AMI/AHF: ASA po Prior to arrival: Yes (TWO ASA TAKEN AT HOME) ELVIS SALAZAR MD Jun 09, 2021 11:51
[2021-06-09] MEDS ORDERED: ENOXAPARIN 40 MG/0.4 ML (LOVENOX) SYR SQ SCH (12:00)
--- NOTE | 2021-06-09 16:11 | NUCLEAR STRESS TEST ---
REGADENOSON NUCLEAR STRESS Date of procedure: 06/09/2021. Primary care provider: Jas Ying DO Admitting physician: Lily Barajas MD. INDICATION: Chest pain. BASELINE ELECTROCARDIOGRAM: Sinus rhythm, unremarkable tracing. STRESS TEST PROCEDURE: The patient was administered 0.4 mg of intravenous Regadenoson. The resting heart rate was 62 bpm and the peak heart rate was 86 bpm. The resting blood pressure was 153/83 mmHg and the minimum blood pressure was 150/90 mmHg. This represents a normal heart rate and a normal blood pressure response to Regadenoson. The test was stopped due to the protocol. There was no chest discomfort during the test. There were no arrhythmias during the test. There were no significant stress induced electrocardiogram changes. NUCLEAR PROCEDURE: The patient was administered 11 mCi of intravenous technetium 99m Tetrofosmin at rest for the rest images. The patient was subsequently administered 32.7 mCi of intravenous technetium 99m Tetrofosmin at peak stress for the stress images. Following an appropriate wait after each injection, imaging was obtained. The images were subsequently processed and reformatted in the usual views. Gated imaging was obtained. The image quality was adequate with a mild degree of gastrointestinal as well and is motion artifact. CT attenuation correction was used as a adjunct to standard imaging. Both the corrected and uncorrected images were reviewed for interpretation. NUCLEAR RESULTS: There was normal myocardial perfusion in all segments without evidence of infarction or ischemia. There was normal left ventricular chamber size with an end-diastolic volume of 90 mL and an end-systolic volume of 39 mL. There was no evidence of transient ischemic dilatation. The TID ratio was 1.07. There was normal wall motion in all segments with a calculated ejection fraction of 56%. IMPRESSION: 1. Normal heart rate and blood pressure response to regadenoson. 2. There was no chest discomfort, arrhythmias, or electrocardiogram changes during the test. 3. There was normal myocardial perfusion in all segments without evidence of infarction or ischemia. 4. There was normal wall motion in all segments with a calculated ejection fraction of 56%. Certain portions of this document may have been dictated utilizing voice recognition technology. Inherent to this technology, typographical and grammatical errors may exist. As much as I am diligent to identify and correct these mistakes, some errors may remain in the document. GENEVA BLANCA JR, MD Jun 09, 2021 16:11
[2021-06-09] MEDS ORDERED: TAMSULOSIN 0.4 MG (FLOMAX) CAP PO SCH (21:00)
[2021-06-09] MEDS ORDERED: FINASTERIDE (PROSCAR) 5 MG TAB PO SCH (21:00)
[2021-06-09] MEDS ORDERED: LOSARTAN 50 MG (COZAAR) TAB PO SCH (21:00)
[2021-06-10] MEDS ORDERED: PANTOPRAZOLE 40 MG (PROTONIX) TAB PO SCH (09:00)
[2021-06-10] MEDS ORDERED: ASPIRIN E.C. 81 MG (ECOTRIN) TAB PO SCH (09:00)
== END 2021-06-09 18:04 | disposition home or self-care (01) ==
LOC: EDUNIT# 17:55 → ER 17:56 → CSD 19:31
PROVIDERS: ADMIT Internal Medicine; ATTEND Internal Medicine
DX: R07.9 Chest pain, unspecified (principal); I10 Essential (primary) hypertension; E78.5 Hyperlipidemia, unspecified; K21.9 Gastro-esophageal reflux disease without esophagitis; G89.29 Other chronic pain; M54.9 Dorsalgia, unspecified; Z79.82 Long term (current) use of aspirin; Z79.899 Other long term (current) drug therapy
CPT/HCPCS: 71045; 78452; 80048; 80053; 80061; 82150; 82550; 82553; 83690; 83735; 83874; 83880; 84484; 85025 ×2; 85379; 85610; 85730; 93005 ×2; 93017; 93041; 93306; 96361; 96372; 96374 ×2; 96375; 96376 ×2; 99284; A9502; G0378; 36415

== ENCOUNTER → 2021-12-23 | Outpatient (CLI) | payer MEDICARE, OTHER ==
[~2021-12-23] MED LIST changes: +ALBU8.5H6 IH; +ASPI-1238 PO; +LEVO-55 PO; -LEVO500T81 PO; +RT-ALBUTEROL SULF 2.5 MG/3 ML PRE-MIX VIAL INH ONE
== END ==
LOC: RT 08:00
PROVIDERS: ATTEND Nurse Practitioner
DX: R06.02 Shortness of breath (principal); I10 Essential (primary) hypertension; E78.1 Pure hyperglyceridemia
CPT/HCPCS: 94060; 94726; 94729

== ENCOUNTER → 2022-03-26 | Outpatient (CLI) | payer MEDICARE, OTHER ==
[~2022-03-26] MED LIST changes: -RT-ALBUTEROL SULF 2.5 MG/3 ML PRE-MIX VIAL INH ONE
== END ==
LOC: CARD 12:00
PROVIDERS: ATTEND Nurse Practitioner
DX: I35.8 Other nonrheumatic aortic valve disorders (principal); I51.7 Cardiomegaly; I27.20 Pulmonary hypertension, unspecified; R19.8 Other specified symptoms and signs involving the digestive system and abdomen
CPT/HCPCS: 93306

== ENCOUNTER 2022-09-30 08:42 | Outpatient (CLI) | payer MEDICARE, OTHER ==
[~2022-09-30] VITALS: Ht 182.9 cm; Wt 117.6 kg
[2022-09-30 08:53] VITALS: BP 128/72
[2022-09-30] MEDS ORDERED: CNC1KV IM (09:22)
[2022-09-30] MEDS ORDERED: ALPR0.254 PO (09:22)
[2022-09-30] MEDS ORDERED: PANT40TA52 PO (09:22)
[2022-09-30] MEDS ORDERED: GABA300C PO (09:22)
== END 2022-09-30 15:06 | disposition home or self-care (01) ==
LOC: PREOP 08:42
PROVIDERS: ATTEND Orthopaedic Surgery
DX: Z01.818 Encounter for other preprocedural examination (principal)

== ENCOUNTER 2022-10-07 05:59 | Inpatient (IN) | payer MEDICARE, OTHER ==
--- NOTE | 2022-09-30 08:52 | HISTORY AND PHYSICAL ---
ADMISSION HISTORY AND PHYSICAL This will be for inpatient admission on 10/07/2022 for right total knee arthroplasty. The patient will require regular inpatient admission due to history of lumbar spine disease with surgery, need for physical therapy, need for pain management. HISTORY OF PRESENT ILLNESS: The patient is a 67-year-old gentleman, with complaints of progressively worsening right knee pain. He has undergone treatment with injections, anti-inflammatories and rest. Radiographs reveal severe medial and patellofemoral arthrosis. He reports functional impairment because of the knee. He reports left-sided back pain, but denies paresthesias. Due to functional impairment and failure to improve with conservative measures, the patient elected to proceed with surgical intervention. REVIEW OF SYSTEMS: No chest pain. No shortness of breath. No dysuria. PAST MEDICAL HISTORY: Hypertension, osteoarthritis, depression, hyperlipidemia, anxiety, benign prostatic hypertrophy, reflux, diverticulosis, colon polyps, neurogenic bladder, seasonal rhinitis, hiatal hernia. PAST SURGICAL HISTORY: Left hand, right biceps, left rotator cuff, left knee arthroscopy and subsequent total knee arthroplasty, right rotator cuff, arthrotomy bilateral cataracts, spinal cord stimulator, cholecystectomy. SOCIAL HISTORY: The patient reports occasional alcohol consumption. Denies tobacco use. FAMILY HISTORY: Congestive heart failure, diabetes. MEDICATIONS: Alprazolam, tamsulosin, finasteride, pantoprazole, Carafate, sildenafil, Dodex, aspirin, atorvastatin, losartan, gabapentin, hydrochlorothiazide, citalopram. ALLERGIES: PENICILLINS. PHYSICAL EXAMINATION: GENERAL: The patient is well developed, well nourished, in no acute distress. HEENT: Normocephalic, atraumatic. Pupils equal, round, reactive. Oropharynx is clear. NECK: Supple, with no lymphadenopathy. LUNGS: Clear to auscultation bilaterally. HEART: Regular rate and rhythm. ABDOMEN: Soft, nontender, nondistended. EXTREMITIES: The right knee demonstrates varus alignment. He ambulates with an antalgic gait. Range of motion actively 0/4/120 with no varus or valgus laxity. Negative anterior and posterior drawer. He is tender along his medial femoral condyle and has pain medially with Sofy's. He also has pain with patellar loading with crepitus noted. IMPRESSION: Severe right knee osteoarthritis, unresponsive to conservative measures. PLAN: Right total knee arthroplasty. The risks, benefits, options, ramifications and recovery have been discussed at length with the patient. He understands and wishes to proceed. This will be for 10/07/2022. Job ID: [id number] DocumentID: [id number] Dictated Date: 09/24/2022 16:05:28 Policeman Date: 09/24/2022 18:12:00 Dictated By: POONAM CHISHOLM MD
[2022-09-30 10:24] LABS: BASOPHILS # (AUTO) 0.1 10^3/uL (0.0-0.1); BASOPHILS % (AUTO) 1 % (0-10); EOSINOPHILS # (AUTO) 0.3 10^3/uL (0.0-0.3); EOSINOPHILS % (AUTO) 5 % (0-10); HEMATOCRIT 46 % (40-54); HEMOGLOBIN 15.5 g/dL (13.3-17.7); LYMPHOCYTES # (AUTO) 1.7 10^3/uL (1.0-4.0); LYMPHOCYTES % (AUTO) 25 % (12-44); MEAN CORPUSCULAR HEMOGLOBIN 34 pg (25-34); MEAN CORPUSCULAR HGB CONC 34 g/dL (32-36); MEAN CORPUSCULAR VOLUME 102 fL (80-99); MEAN PLATELET VOLUME 9.3 fL (9.0-12.2); MONOCYTES # (AUTO) 0.6 10^3/uL (0.0-1.0); MONOCYTES % (AUTO) 9 % (0-12); NEUTROPHILS % (AUTO) 60 % (42-75); PLATELET COUNT 217 10^3/uL (130-400); WHITE BLOOD COUNT 6.7 10^3/uL (4.3-11.0)
[2022-09-30 10:32] LABS: ALBUMIN 4.3 GM/DL (3.2-4.5); POTASSIUM 4.1 MMOL/L (3.6-5.0)
[2022-09-30 10:33] LABS: CALCIUM 9.1 MG/DL (8.5-10.1)
[2022-09-30 10:35] LABS: TOTAL PROTEIN 7.8 GM/DL (6.4-8.2)
[2022-09-30 10:37] LABS: BILIRUBIN,TOTAL 0.7 MG/DL (0.1-1.0)
[2022-09-30 10:38] LABS: CREATININE SERUM 1.06 MG/DL (0.60-1.30)
[2022-09-30 10:46] LABS: BACTERIA,URINE NEGATIVE /HPF; BILIRUBIN,URINE NEGATIVE (NEGATIVE); CLARITY,URINE CLEAR; COLOR,URINE YELLOW; GLUCOSE, URINE (UA) NEGATIVE (NEGATIVE); KETONES,URINE NEGATIVE (NEGATIVE); LEUKOCYTE ESTERASE ,URINE NEGATIVE (NEGATIVE); NITRITE,URINE NEGATIVE (NEGATIVE); PH,URINE 5.5 (5-9); PROTEIN,URINE NEGATIVE (NEGATIVE)
--- NOTE | 2022-09-30 15:06 | Diagnostic Imaging Report ---
INDICATION: Preop evaluation prior to knee surgery. COMPARISON: 06/08/2021. FINDINGS: Frontal and lateral radiographic views of the chest were obtained and show low inspiratory volumes crowding the central hilar structures. Patchy airspace opacities are also noted within both lung bases, left greater than right. There is no large effusion or pneumothorax. The cardiac silhouette and pulmonary vasculature are within normal limits. Osseous structures show no gross acute abnormalities. Indwelling neurostimulator device is noted. IMPRESSION: Patchy bibasilar opacities, left greater than right. This may be related to atelectasis given the low lung volumes. Dictated by: Dictated on workstation # [id number]
[2022-10-07] VITALS (12 sets, daily range): BP systolic 99–143; BP diastolic 58–80
[~2022-10-07] VITALS: Ht 182.9 cm; Wt 117.6 kg
[~2022-10-07 05:59] MED LIST changes: +ALPR0.254 PO; +CNC1KV IM; +GABA300C PO; +PANT40TA52 PO
--- OUTSIDE RECORDS SUMMARY | 2022-10-07 06:02 | XMS REPORT | Clinical Summary ---
Author Author [facility] Organization [facility] Address Unknown Phone Unavailable Care Team Providers Care Business Operations Manager Name Role Phone Stepan MICHAEL MD, Jas Carmona PCP [phone] Matthew Davey MD Unavailable Source Comments Some departments are not documenting in the electronic medical record. If you d o not see the information that you expected, contact Release of Information in [facility] Information Management department at [phone] for further assistan ce in locating additional records.[facility] Allergies Comments Active Allergy Reactions Criticality Noted Date Penicillins UNKNOWN Low 06/05/2014 Medications End Date Status Medication Sig Dispensed Refills Start Date Active citalopram hydrobromide take 1 tablet 0 (CITALOPRAM PO) (20 mg) by 4 oral route once daily Active aspirin 81 mg chewable Daily 0 tablet Active tamsulosin HCl Daily@1900 0 (TAMSULOSIN PO) Active atorvastatin (LIPITOR) 20 Bedtime 0 04/22 mg tablet 6 Active cyanocobalamin (RUBRAMIN) 0 1,000 mcg/mL injection [address] (PRILOSEC) 0 20 mg capsule 1 Active sildenafil (REVATIO) 20 As Needed 0 mg tablet Active tamsulosin (FLOMAX) 0.4 Daily@1900 0 mg capsule Active vitamin B complex (B 1000 mg every 0 COMPLEX-VITAMIN B12 PO) morning 3 Active Problems Problem Noted Date Diagnosed Date Dry eyes 03/25/2020 Dry mouth 03/25/2020 Sore throat 03/25/2020 Surgical History Surgery Date Site/Laterality Comments SINUS SURGERY Medical History Medical History Date Comments Anxiety disorder Arthritis Asthma Generalized headaches Hearing loss High cholesterol Hypertension Seasonal allergic reaction Family History Medical History Relation Name Comments Hypertension Father Diabetes Mother Hypertension Mother Relation Name Status Comments Father Mother Social History Date Tobacco Use Types Packs/Day Years Used Smoking Tobacco: Never Smokeless Tobacco: Never Comments Alcohol Use Standard Drinks/Week Never 0 (1 standard drink = 0.6 o z pure alcohol) Date Recorded Alcohol Use Answer Alcohol Use No Male: 9+ ounces (15+ Standard Drinks) per week 0 Threshold Female: 4.8+ ounces (8+ Standard Drinks) per week No t on file Threshold Date Recorded Sex and Gender Information Value 03/22/2020 1:36 PM OUTSOLE CASER Sex Assigned at Male 03/22/2020 1:36 PM OUTSOLE CASER Gender Identity Male Sexual Orientation Not on file Obstetrics History Last Filed Vital Signs Reading Time Taken Comments Vital Sign 132/83 03/25/2020 10:14 AM OUTSOLE CASER Blood Pressure 91 03/25/2020 10:14 AM OUTSOLE CASER Pulse - - Temperature - - Respiratory Rate - - Oxygen Saturation - - Inhaled Oxygen Concentration 113.4 kg (250 lb) 03/25/2020 10:14 AM OUTSOLE CASER Weight 182.9 cm (6') 03/25/2020 10:14 AM OUTSOLE CASER Height 33.91 03/25/2020 10:14 AM OUTSOLE CASER Body Mass Index Plan of Treatment Health Maintenance Due Date Last Done Comments COVID-19 VACCINE (#1) 1957 HIV SCREENING 01/29/1972 HEPATITIS C SCREENING 1975 PHYSICAL (COMPREHENSIVE) 1975 EXAM COLORECTAL CANCER 2002 SCREENING SHINGLES RECOMBINANT 2007 VACCINE (1 of 2) PNEUMOCOCCAL VACCINE 65+ 2022 YRS (1 - PCV) DEPRESSION SCREENING 02/22/2022 INFLUENZA VACCINE (#1) 2022 11/07/2019, 12/22/2017 DTAP/TDAP VACCINES (2 - 09/23/2029 09/24/2019 Td or Tdap) Results Not on filefrom Last 3 Months Insurance Type Payer Benefit Subscriber ID Effective Phone Address Plan / Dates Group Indemnity [facility] [id number] 2019-P [phone] [address]CHO resent [id number] [place] [address] Care Teams Start Date End Date Business Operations Manager Relationship Specialty 03/18/20 Jas Ying III, PCP - General Internal MD Medicine [address], [place] [address] 03/18/20 Matthew Davey MD Otolaryngolo gy [address] [address]
[2022-10-07] MEDS ORDERED: fentaNYL INJECTION 100 MCG/2 ML VIAL ONE (06:50)
[2022-10-07] MEDS ORDERED: proPOfol 200 MG/20 ML (DIPRIVAN) VIAL IV ONE (06:50)
[2022-10-07] MEDS ORDERED: SEVOFLURANE (ULTANE) 15 ML INHAL SOLN ONE ×2 (06:50→08:57)
[2022-10-07] MEDS ORDERED: LIDOCAINE PF 2% 5 ML VIAL ONE (06:50)
[2022-10-07] MEDS ORDERED: dexAMETHasone INJ 10 MG/ML 1 ML VIAL ONE (06:50)
[2022-10-07] MEDS ORDERED: MIDAZOLAM INJ 2 MG/2 ML VIAL ONE (06:50)
[2022-10-07] MEDS ORDERED: ONDANSETRON 4 MG/2 ML (SDV) Z0FRAN ONE (06:50)
[2022-10-07] MEDS ORDERED: CLINDAMYCIN 600 MG/50 ML IVPB 50 ML IV ONE ×2 (06:52→07:00)
[2022-10-07] MEDS ORDERED: TRANEXAMIC ACID 100 MG/ML 10 ML INJECTION ONE (06:57)
[2022-10-07] MEDS: LACTATED RINGERS 1,000 ML IV PRN ×2 (07:15→08:05)
[2022-10-07] MEDS ORDERED: NS IV 1000 ML 1,000 ML IV SCH (07:30)
[2022-10-07] MEDS ORDERED: INTRA-ARTICULAR IU ONE ×5 (07:30)
[2022-10-07] MEDS ORDERED: ONDANSETRON 4 MG/2 ML (SDV) Z0FRAN IV PRN (07:30)
[2022-10-07] MEDS ORDERED: TEMAZEPAM 15 MG (RESTORIL) CAP PO PRN (07:30)
[2022-10-07] MEDS ORDERED: diphenhydrAMINE INJ 50 MG/ML VIAL IVP PRN (07:30)
--- NOTE | 2022-10-07 07:31 | Progress Note-Pre Operative ---
Pre-Operative Progress Note Date of Available H&P: Sep 30, 2022 Date H&P Reviewed: Oct 07, 2022 Time H&P Reviewed: 07:11 Changes from last HP none Pre-Operative Diagnosis: right knee primary osteoarthritis POONAM CHISHOLM MD Oct 07, 2022 07:31
--- NOTE | 2022-10-07 07:32 | Progress Note-Post Operative ---
Post-Operative Progess Note Surgeon (s)/Visiting Professor (s) Surgeon POONAM CHISHOLM MD Visiting Professor: Mamadou Son Pre-Operative Diagnosis right knee primary osteoarthritis Post-Operative Diagnosis right knee primary osteoarthritis Procedure & Operative Findings Date of Procedure 10/07/22 Procedure Performed/Findings right total knee arthroplasty Anesthesia Type GETA Estimated Blood Loss Estimated blood loss (mL): minimal Specimens/Packing Specimens Removed none Packing: none POONAM CHISHOLM MD Oct 07, 2022 07:32
--- NOTE | 2022-10-07 07:34 | D/C HH Face to Face Order ---
D/C Face to Face Orders Reconcile Patient Problems Problems Reviewed?: Yes Instructions for Patient Via Farheen Pheed, Patient Instructions/FollowUp: three weeks Physician to follow Patient: three weeks Discharge Diet for Home: Regular Diet Patient Data-Allergies,Ht & Wt Patient Allergies: Coded Allergies: ciprofloxacin (Unverified Allergy, Mild, 12/20/17) Penicillins (Verified Adverse Reaction, Mild, UNCOORDINATED, 12/20/17) Height (Feet): 6 Height (Inches): 0.00 Weight (Pounds): 219 Weight (Ounces): 5.0 Home Health Need/Face to Face Date of Face to Face: Oct 07, 2022 Clinical Findings: Muscle weakness, Pain with ambulation I have seen Pt [id number]: Yes Discharged To: Home Diagnosis/Conditions: right total knee arthroplasty Patient is Homebound due to: Muscle weakness, Pain w/ambulation Homebound Status Due to the above stated illness, injury or surgical procedure (medical condition or diagnosis) and associated clinical findings, the patient is homebound because of his/her inability to leave home except with aid of a supportive device and/or person AND leaving the home requires a considerable and taxing effort or is medically contraindicated. Pt req the following assistanc: Walker Home Health Nursing Orders Home Health Services Order: Physical Therapy-Evaluate & Treat DC right knee romero and apply steri strips 10/21/22 Home Health Infusion Therapy Line Start Date: Oct 07, 2022 Therapy Orders Therapy Orders: Physical Therapy, PT to assess for OT Therapy Specific Orders: Eval assistive deivces, Teach enviro modificat ions/safety, Gait training, Increase strength/endurance, Provider maintenance therapy, Restore ROM Certify Stmt I certify that this patient is under my care and that I, a nurse practitioner or a physician; a assistant department manager working with me, had a face to face encounter that - meets the physician face to face encounter requirements with this patient as dated. POONAM CHISHOLM MD Oct 07, 2022 07:34
[2022-10-07] MEDS ORDERED: HYDROmorphone INJECTION 2 MG/ML VIAL ONE ×2 (07:59→09:27)
[2022-10-07] MEDS ORDERED: GLYCOPYRROLATE INJ 0.2 MG/ML 2 ML VIAL ONE (08:18)
[2022-10-07] MEDS ORDERED: KETOROLAC INJ 30 MG/ML VIAL ONE (08:55)
[2022-10-07] MEDS ORDERED: PHENYLEPHRINE 100 MCG/ML 10 ML (ANESTHESIA) SYR ONE (09:01)
[2022-10-07] MEDS ORDERED: ONDANSETRON 4 MG/2 ML (SDV) Z0FRAN IVP PRN (09:30)
[2022-10-07] MEDS ORDERED: HYDROmorphone INJECTION 2 MG/ML VIAL IV ONE (09:30)
--- NOTE | 2022-10-07 10:06 | Progress Note ---
Standard Progress Note Progress Notes/Assess & Plan Date Seen by a Provider: Oct 07, 2022 Time Seen by a Provider: 10:05 Progress/Assessment & Plan post op check no complaints radiographs--HW well positioned without fracture RLE--2 plus DP pulse with brisk cap refill intact DF and PF of toes and ankle sensation intact to light touch throughout s/p RTKA mobilize as able POONAM CHISHOLM MD Oct 07, 2022 10:06
--- NOTE | 2022-10-07 10:55 | Diagnostic Imaging Report ---
EXAMINATION: Right knee two views. HISTORY: Postop. COMPARISON: None available. FINDINGS: There is right total knee arthroplasty. There are skin romero and soft tissue and joint space gas. Alignment is near-anatomic. No fracture. IMPRESSION: 1. Expected postsurgical changes of right total knee arthroplasty. Dictated by: Dictated on workstation # [id number]
[2022-10-07] MEDS: SENNA W/DOCUSATE (SENOKOT S) TABLET PO SCH ×2 (11:44→20:06)
[2022-10-07] MEDS: CELECOXIB 100 MG CAPSULE PO SCH (11:45)
[2022-10-07] MEDS: ASPIRIN 325 MG TABLET PO SCH (11:45)
[2022-10-07] MEDS: morphine INJ 4 MG/ML 1 ML (VIAL/SYRINGE) IVP PRN ×2 (11:45→14:11)
[2022-10-07] MEDS ORDERED: CEFUROXIME INJECTION 750 MG in NS (IVPB) 50 ML 50 ML IV SCH (13:00)
--- NOTE | 2022-10-07 14:38 | Physical Therapy Evaluation ---
PT Evaluation-General Medical Diagnosis Admission Date Oct 07, 2022 at 05:59 Medical Diagnosis: RTKA Onset Date: Oct 07, 2022 Therapy Diagnosis Therapy Diagnosis: Gait deficit, strength deficit Height/Weight Height (Feet): 6 Height (Inches): 0.00 Weight (Pounds): 219 Weight (Ounces): 5.0 Precautions Precautions/Isolations: Fall Prevention, Standard Precautions Weight Bear Status Right Lower Extremity: Right Weight Bearing/Tolerated Left Lower Extremity: Left Full Weight Bearing Referral Physician: Dr. Santos Reason for Referral: Evaluation/Treatment Medical History Pertinent Medical History: Arthritis, GERD, HTN Social History Home: Single Level Current Living Status: Spouse Entry Into Home: Stairs With Railing PT Steps Into Home: 4 Prior Prior Level of Function SCALE: Activities may be completed with or without assistive devices. 7-Gkerfdgkbl-sgdcbhz completes the activity by him/herself with no assistance from a helper. 5-Set-up or Clean-up Assistance-helper sets up or cleans up; patient completes activity. Union assists only prior to or following the activity. 4-Supervision or Touching Assistance-helper provides verbal cues and/or touching/steadying and/or contact guard assistance as patient completes activity. Assistance may be provided throughout the activity or intermittently. 3-Partial/Moderate Assistance-helper does LESS THAN HALF the effort. Union lifts, holds or supports trunk or limbs, but provides less than half the effort. 2-Substantial/Maximal Assistance-helper does MORE THAN HALF the effort. Union lifts or holds trunk or limbs and provides more than half the effort. 5-Kecucqpsh-dnfyij does ALL the effort. Patient does none of the effort to complete the activity. Or, the assistance of 2 or more helpers is required for the patient to complete the activity. If activity was not attempted, code reason: 7-Patient Refused. 9-Not Applicable-not attempted and the patient did not perform the activity before the current illness, exacerbation or injury. 10-Not Attempted due to Environmental Limitations-(lack of equipment, weather restraints, etc.). 88-Not Attempted due to Medical Conditions or Safety Concerns. Bed Mobility: 6 Transfers (B,C,W/C): 6 Gait: 6 Stairs: 6 Indoor Mobility (Ambulation): Independent Stairs: Independent Has FWW at home. PT Evaluation-Current Subjective Patient lying supine in bed upon PT arrival, agreeable to treatment. Patient rates pain in right knee at 4/10. Objective Patient Orientation: Person, Place, Time, Situation Attachments: SCD's, Polar Pack, IV ROM/Strength ROM Lower Extremities Right knee flexion 75 degrees, extension 10 degrees from neutral. All other ROMs BLEs WFLs. Strength Lower Extremities 5/5 BLEs except right knee flexion and extension 3/5. Sensory Vision: Functional Hearing: Functional Sensation Right Lower Extremit: Impaired Sensation Left Lower Extremity: Impaired Sensation Lower Extremities Patient reports neuropathy in feet. Transfers Roll Left to Right (QC): 4 Sit to Lying (QC): 4 Lying to Sitting/Side of Bed(Q: 4 Sit to Stand (QC): 4 Chair/Zbo-en-Verda Xfer(QC): 4 Gait Does the Patient Walk?: Yes Mode of Locomotion: Walk Anticipated Mode of Locomotion: Walk Walk 10 feet (QC): 4 Walk 50 ft with 2 Turns(QC): 4 Distance: 50' Gait Assistive Device: FWW Balance Sitting Static: Good Sitting Dynamic: Good Standing Static: Fair Standing Dynamic: Fair Assessment/Needs Patient tolerated treatment well. He performs all bed mobility with SBA and all transfers with CGA. Patient ambulates 50 feet with FWW, with CGA and verbal cues for safety, progression, posture and use of FWW. Patient in chair post treatment with all needs met, nursing notified, call light in reach and in the room. Rehab Potential: Good PT Classification Control Clerk Goals Classification Control Clerk Goals PT Classification Control Clerk Goals Time Frame: Nov 21, 2022 Roll Left & Right (QC): 6 Sit to Lying (QC): 6 Lying-Sitting on Side/Bed(QC): 6 Sit to Stand (QC): 6 Chair/Lzu-gu-Byvoy Xfer(QC): 6 Toilet Transfer (QC): 6 Does the Patient Walk: Yes Walk 10 feet (QC): 6 Walk 50ft with 2 Turns (QC): 6 Walk 150 ft (QC): 6 1 Step (curb) (QC): 4 4 Steps (QC): 4 12 Steps (QC): 4 PT Plan Problem List Problem List: Activity Tolerance, Functional Strength, Safety, Balance, Gait, Transfer, Bed Mobility, ROM Treatment/Plan Treatment Plan: Continue Plan of Care Treatment Plan: Bed Mobility, Education, Functional Activity Marin, Functional Strength, Group Therapy, Gait, Safety, Therapeutic Exercise, Transfers Treatment Duration: Nov 21, 2022 Frequency: 11 times per week Estimated Hrs Per Day: .25 hour per day Patient and/or Family Agrees t: Yes Safety Risks/Education Patient Education: Gait Training, Transfer Techniques Teaching Recipient: Patient Teaching Methods: Demonstration, Discussion Response to Teaching: Verbalize Understanding, Return Demonstration Time Time In: 1328 Time Out: 1346 DATE: Oct 07, 2022 Total Billed Treatment Time: 18 Total Billed Treatment Visit, ANA ANTUNEZ PT Oct 07, 2022 14:38
--- NOTE | 2022-10-07 15:08 | Consultation - Hospitalist ---
HPI History of Present Illness: HPI/Chief Complaint Omer Ward is a 67 year old male with PMH HTN, HLD, BPH, GERD, OA, obesity, who was admitted for a scheduled total knee arthroplasty. He was seen post-operatively. He reports no complaints or concerns. He says he has been through this before with his other knee, shoulder, elbow, back, etc. He denies pain. He has not been out of bed yet. He has been tolerating sips of clear liquids with issues. Source: patient Exam Limitations: no limitations Date Seen 10/07/22 Attending Physician Wilfrid Veliz MD PCP Admitting Physician: Matthew Santos MD Attending Physician: Matthew Santos MD Referring Physician Date of Admission Oct 07, 2022 at 05:59 Home Medications & Allergies Home Medications Reviewed patient Home Medication Reconciliation performed by pharmacy medication reconciliations hearing health technician and/or nursing. Patients Allergies have been reviewed. Allergies Allergies Coded Allergies ciprofloxacin (Unverified Allergy, Mild, 12/20/17) Penicillins (Verified Adverse Reaction, Mild, UNCOORDINATED, 12/20/17) Past Bswqord-Ujmbzz-Rdpdbw Hx Immunizations Up To Date Date of Influenza Vaccine: Dec 09, 2021 First/Initial COVID19 Vaccinat: 05/07/20 Second COVID19 Vaccination David: 06/04/20 Hepatitis A: No Hepatitis B: No PED Vaccines UTD: No Date of Pneumonia Vaccine: Feb 10, 2022 Seasonal Allergies Seasonal Allergies: Yes Current Status Primary Language: Salvadorean Past Medical History Surgeries: Abdominal, Eye Surgery, Gallbladder, Orthopedic, Transurethral Resection Pneumonia, Sleep Apnea Currently Using CPAP: Yes Currently Using BIPAP: No High Cholesterol, Hypertension Neuropathy Sexually Transmitted Disease: No HIV/AIDS: No Benign Prostatic Hyperpl Abdominal Hernia, Gastroesophageal Reflux, Liver Disease/Jaundice, Diverticulosis, Polyps, Gall Bladder Disease Degenerate Disk Disease, Arthritis, Back Injury, Chronic Back Pain Cataract Loss of Vision: Denies Hearing Impairment: Denies Anxiety, Depression Blood Disorders: No Adverse Reaction/Blood Tranf: No (N/A) 1. Acute renal insufficiency secondary to dehydration- admission 10-04-12 2. Syncope related to acute renal insufficiency 10-04-12 3. Hypertension with hypotensive episode on 10-04-12 4. HLP- on statin medication 5. Testosterone insufficiency 6. Depression 7. Recreational alcohol use 8. Chronic cough- possibly related to GANGA-I 9. Erectile dysfunction- using Levitra PRN 10. GERD 11. RT. Bicep tendon attachment 10-21-00 Dr. Santos 12. Urethral Dilitation 02-25-07 Dr. Shahid 13. Lt shoulder Arthroscopy- 02-08-10 14. LT. Knee arthrosopy with meniscal repair 08-15-10 Dr. Santos 15. Rt shoulder rotator cuff repair 07-07-11 Dr. Lima 16. Rt. shoulder rotator cuff repair 10-02-11 Dr. Lima 17. Rt. shoulder rotator cuff reattachment- Dr. Juarez Ellsworth DANYELL Family Medical History Patient reports no known family medical history. PAST SURGICAL HISTORY: 09/22/00--RIGHT BICEP SURGERY BY DR. SANTOS 02/25/07--URETHRAL DILATION BY DR. SHAHID 02/18/10--LEFT SHOUDER RECONSTRUCTION BY DR. SANTOS 05/28/10--LEFT KNEE/MENISCUS SURGERY BY DR. SANTOS 06/27/11--RIGHT SHOULDER RECONSTRUCTION BY DR. LIMA 10/02/11--RIGHT SHOULDER RECONSTRUCTION BY DR. LIMA 01/08/12--RIGHT SHOULDER RECONSTRUCTION BY DR. ELLSWORTH IN [place] 05/19/16--RIGHT KNEE/MENISCUS SURGERY BY DR. SANTOS 05/19/16--LEFT KNEE CORTIZONE INJECTION 03/2017--LEFT CATARACT SURGERY 04/2017--RIGHT CATARACT SURGERY 12/22/17--LEFT KNEE REPLACEMENT BY DR. SANTOS 03/2018-08/2018--STEROID SHOTS IN BACK 10/27/18--SPINAL CORD STIMULATOR PLACEMENT BY DR. GAONA 01/18/19--STEROID SHOT IN SI JOINT 06/06/19--CHOLECYSTECTOMY BY DR. WEINBERG/IAN 04/08/21--VENTRAL HERNIA REPAIR BY DR. WEINBERG/IAN STRESS TEST 08/09/[address] MILLIGAN: Conclusion: Normal LV function with no wall motion abnormalities. Normal myocardial perfusion imaging during rest and stress. Review of Systems Constitutional: no symptoms reported Respiratory: no symptoms reported Cardiovascular: no symptoms reported Gastrointestinal: no symptoms reported Physical Exam Physical Exam Vital Signs Vital Signs - First Documented 10/07/22 07:03 Temp 36.2 Pulse 65 Resp 20 B/P (MAP) 123/79 (94) Pulse Ox 97 O2 Delivery Room Air Capillary Refill : Less Than 3 Seconds Height, Weight, BMI Height: 6'0.00" Weight: 219lbs. 5.0oz. 99.906726ze; 35.15 BMI Method:Stated General Appearance: No Apparent Distress, Obese HEENT: PERRL/EOMI, Pharynx Normal Neck: Normal Inspection, Supple Respiratory: Lungs Clear, Normal Breath Sounds, No Respiratory Distress Cardiovascular: Regular Rate, Rhythm, No Edema, No Murmur Gastrointestinal: Normal Bowel Sounds, Non Tender, Soft Extremity: Normal Inspection, No Pedal Edema Neurologic/Psychiatric: Alert, Normal Mood/Affect Skin: Normal Color, Warm/Dry Results Results/Procedures Labs Patient resulted labs reviewed. Imaging: Reviewed Imaging Report Assessment/Plan Assessment and Plan Assess & Plan/Chief Complaint s/p TKA OA Ortho primary, Dr. Santos Pain regimen Bowel regimen Incentive spirometry PT/OT Ambulation HTN HLD GERD BPH Obesity Continue home meds as able DVT prophylaxis: Lovenox Diagnosis/Problems Diagnosis/Problems (1) S/P total knee arthroplasty Status: Acute Qualifiers: Laterality: right Qualified Codes: Z96.651 - Presence of right artificial knee joint (2) Osteoarthritis of right knee Status: Acute Qualifiers: Osteoarthritis type: primary Qualified Codes: M17.11 - Unilateral primary osteoarthritis, right knee (3) HTN (hypertension) Status: Chronic (4) HLD (hyperlipidemia) Status: Chronic (5) Obesity Status: Chronic (6) GERD (gastroesophageal reflux disease) Status: Chronic (7) BPH (benign prostatic hyperplasia) Status: Chronic PANCHO SARAVIA MD Oct 07, 2022 15:08
--- NOTE | 2022-10-07 17:16 | OPERATIVE REPORT ---
DATE OF SERVICE: 10/07/2022 PREOPERATIVE DIAGNOSIS: Right knee primary osteoarthritis. POSTOPERATIVE DIAGNOSIS: Right knee primary osteoarthritis. PROCEDURE: Right total knee arthroplasty. SURGEON: Matthew Chisholm MD ELECTRICAL MACHINIST: Mamadou Son, who assisted throughout the procedure and closed the incision. ANESTHESIA: General endotracheal by Shlomo Marks CRNA. TOURNIQUET TIME: Approximately 70 minutes at 300 mmHg. ESTIMATED BLOOD LOSS: Minimal. DRAINS: None. COMPLICATIONS: None. POSTOPERATIVE PLAN: Routine total knee arthroplasty protocol. MATERIALS: MicroPort cemented size 6 femur, cemented size 6+ tibia with a 10 mm insert and cemented size 35 patellar button. STATEMENT OF MEDICAL NECESSITY: The patient is a 67-year-old gentleman with longstanding right knee pain. Radiographs revealed severe medial and patellofemoral arthrosis. He has undergone treatment with injections, arthroscopy and anti-inflammatories without relief. Due to functional impairment and failure to improve with conservative measures, the patient elected to proceed with surgical intervention. DESCRIPTION OF PROCEDURE: After risks and benefits of the procedure were discussed and questions were answered and informed consent was signed and placed on the chart, the operative site was confirmed in the preoperative holding area initialed by surgeon. The patient was then transferred to the operating room. After adequate levels of general endotracheal anesthetic were obtained, a timeout was called, confirming the operative site. The right lower extremity was prepped and draped in the usual sterile fashion with the leg elevated and the knee flexed and tourniquet was inflated to 300 mmHg. A standard anterior approach was utilized. Hemostasis was obtained with cautery. A medial parapatellar arthrotomy was performed, leaving 1 cm cuff on the patella for later reattachment. Portion of the fat pad was resected. The ACL was resected. A subperiosteal release was performed on the proximal medial tibia with a curved osteotome, being careful to stay on the bony surface. Intramedullary guide was passed into the femoral canal. The distal cutting block was placed. Distal cut was made. The femur sized to a size 6. The 6 cutting block was placed parallel to the epicondylar axis and cuts were made from posterior to anterior. Subperiosteal release was then carefully performed on the posterior distal femur, being careful to stay on the bony surface. Intramedullary guide was then passed into the tibial canal. The cutting block was placed. The drop damien transected the intermalleolar axis and the cut was made. The baseplate was placed using a 6+. This provided excellent coverage and the drop damien transected the intermalleolar axis. This was then prepared with the drill and keel punch. The trials were inserted with 10 mm insert. The femoral trial was placed and trochlear cut was made. The patellar cut was made using the freehand technique and resecting 10 mm off the undersurface. The peg guide was placed. Peg holes were drilled. The trials were inserted. Full extension was easily obtained under 20 degrees of flexion with gravity was easily obtained. There was no anterior/posterior or medial/lateral laxity in flexion or extension. The patella tracked well. The trials were removed. The joint was irrigated with pulse lavage. The periarticular block was placed in the posterior capsule, medial and lateral retinaculum extensor mechanism and subcutaneous tissues. The bone ends were irrigated and dried. The tibial baseplate was cemented into position. Excessive cement was removed. The superior surface was irrigated and dried and the polyethylene insert was placed. The distal femur was irrigated and dried and the femoral prosthesis was cemented into position. Excessive cement was removed. The knee was brought out into full extension until cement had cured. The undersurface of the patella was irrigated and dried and the patellar button was cemented into position. Excessive cement was removed. Once the cement had cured, the knee was taken through range of motion. Full extension was easily obtained under 20 degrees of flexion with gravity was easily obtained. The patella tracked well. There was no anterior/posterior or medial/lateral laxity in flexion or extension. The joint was further irrigated with pulse lavage and IrriSept was used throughout the procedure using a total of 1 liter of this. After copiously irrigating the joint, the arthrotomy was closed with #2 Tevdek in qwmwns-wq-haqeb interrupted fashion. The knee was flexed. Repair was stable. The patella tracked well. Subcutaneous tissues were irrigated using a total of 6 liters throughout the procedure. 0 Vicryl was used for the deep subcutaneous tissue, 2-0 Vicryl for the superficial subcutaneous tissue, romero used on the skin. A soft dressing was applied. The tourniquet was deflated. The patient was transferred to recovery room awake and stable condition. Job ID: [id number] DocumentID: [id number] Dictated Date: 10/07/2022 09:22:24 Supply Chain Buyer Date: 10/07/2022 17:14:00 Dictated By: MATTHEW CHISHOLM MD
[2022-10-07] MEDS: oxyCODONE/ACETAMINOPHEN 5/325MG TABLET PO PRN ×2 (17:50→22:32)
[2022-10-07] MEDS ORDERED: TAMSULOSIN 0.4 MG (FLOMAX) CAP PO SCH (18:00)
[2022-10-07] MEDS: LOSARTAN 50 MG TABLET PO SCH (20:06)
[2022-10-07] MEDS: CEFUROXIME INJECTION 750 MG in NS (IVPB) 50 ML 50 ML IV SCH (20:06)
[2022-10-07] MEDS ORDERED: GABAPENTIN 300 MG CAPSULE PO SCH (21:00)
[2022-10-08 03:03] VITALS: BP 129/79
[2022-10-08] MEDS: CEFUROXIME INJECTION 750 MG in NS (IVPB) 50 ML 50 ML IV SCH (05:07)
[2022-10-08 05:32] LABS: HEMOGLOBIN 13.4 g/dL (13.3-17.7)
[2022-10-08 07:10] VITALS: BP 145/69
--- NOTE | 2022-10-08 07:49 | Progress Note ---
Standard Progress Note Progress Notes/Assess & Plan Date Seen by a Provider: Oct 08, 2022 Time Seen by a Provider: 07:39 Progress/Assessment & Plan post op check no complaints radiographs--HW well positioned without fracture RLE--2 plus DP pulse with brisk cap refill intact DF and PF of toes and ankle sensation intact to light touch throughout s/p RTKA mobilize as able Final Diagnosis no complaints Laboratory Tests Test 10/08/22 05:05 Range/Units Hemoglobin 13.4 13.3-17.7 g/dL Hematocrit 41 40-54 % Vital Signs Date Time Temp Pulse Resp B/P (MAP) Pulse Ox O2 Delivery O2 Flow Rate FiO2 10/08/22 07:10 36.6 66 18 145/69 (94) 95 Room Air 10/08/22 03:03 36.5 78 18 129/79 (96) 95 Room Air 10/07/22 23:04 36.5 77 20 131/65 (87) 95 Room Air 10/07/22 20:10 Room Air 10/07/22 19:23 36.7 81 20 143/71 (95) 94 Room Air 10/07/22 15:07 36.6 88 20 134/76 (95) 95 Room Air 10/07/22 11:37 36.5 75 18 129/80 (96) 93 Room Air 10/07/22 10:35 95 Room Air 10/07/22 10:11 36.3 85 20 129/79 (96) 95 Room Air 10/07/22 10:00 Room Air 10/07/22 10:00 36.5 20 122/69 (86) 96 Room Air 10/07/22 09:50 20 131/76 (94) 98 OxyMask 3.00 10/07/22 09:45 OxyMask 3.00 10/07/22 09:40 20 120/75 (90) 98 OxyMask 3.00 10/07/22 09:30 16 122/69 (86) 99 OxyMask 8 10/07/22 09:30 OxyMask 8 10/07/22 09:20 20 104/59 (74) 99 OxyMask 8 10/07/22 09:16 36.1 14 99/58 (72) 96 OxyMask 8 10/07/22 09:16 OxyMask 8 I & O 10/08/22 06:59 Intake Total 3240 ml Output Total 2225 ml Balance 1015 ml RLE--dressing intact no calf tendeness neg Shannan's able to perform SLR and flex to 90 s/p RTKA doing very well possible DC later today--if so will need home PT tomorrow POONAM CHISHOLM MD Oct 08, 2022 07:49
[2022-10-08] MEDS ORDERED: ENOXAPARIN 30 MG/0.3 ML SYRINGE SC SCH (08:00)
[2022-10-08] MEDS: LOSARTAN 50 MG TABLET PO SCH (08:01)
[2022-10-08] MEDS: CELECOXIB 100 MG CAPSULE PO SCH (08:01)
[2022-10-08] MEDS: ASPIRIN 325 MG TABLET PO SCH (08:01)
[2022-10-08] MEDS: oxyCODONE/ACETAMINOPHEN 5/325MG TABLET PO PRN ×2 (08:02→12:20)
[2022-10-08] MEDS: SENNA W/DOCUSATE (SENOKOT S) TABLET PO SCH (08:02)
--- NOTE | 2022-10-08 08:19 | Physical Therapy Daily Note ---
PT Daily Note-Current Subjective Patient agrees to PT. Pain Numeric Pain Scale: 5-Moderate Pain Location: Right Location Body Site: Knee Pain Description: Acute Section J - Health Conditions 1. Rarely or not at all 2. Occasionally 3. Frequently 4. Almost constantly 8. Unable to answer Pain Effect on Sleep: 1 Pain Interference with Therapy: 1 Pain Interference w/Day-to-Day: 1 Mental Status Patient Orientation: Normal For Age Transfers SCALE: Activities may be completed with or without assistive devices. 0-Nmqtisfqyn-jafkrxf completes the activity by him/herself with no assistance from a helper. 5-Set-up or Clean-up Assistance-helper sets up or cleans up; patient completes activity. Central assists only prior to or following the activity. 4-Supervision or Touching Assistance-helper provides verbal cues and/or touching/steadying and/or contact guard assistance as patient completes activity. Assistance may be provided throughout the activity or intermittently. 3-Partial/Moderate Assistance-helper does LESS THAN HALF the effort. Central lifts, holds or supports trunk or limbs, but provides less than half the effort. 2-Substantial/Maximal Assistance-helper does MORE THAN HALF the effort. Central lifts or holds trunk or limbs and provides more than half the effort. 2-Mynouuqcn-awasmg does ALL the effort. Patient does none of the effort to complete the activity. Or, the assistance of 2 or more helpers is required for the patient to complete the activity. If activity was not attempted, code reason: 7-Patient Refused. 9-Not Applicable-not attempted and the patient did not perform the activity befo re the current illness, exacerbation or injury. 10-Not Attempted due to Environmental Limitations-(lack of equipment, weather re straints, etc.). 88-Not Attempted due to Medical Conditions or Safety Concerns. Lying to Sitting/Side of Bed(Q: 6 Sit to Stand (QC): 6 Chair/Pqj-qw-Kkxwc Xfer(QC): 6 Weight Bearing Right Lower Extremity: Right Weight Bearing/Tolerated Left Lower Extremity: Left Full Weight Bearing Gait Training Distance: 275' Walk 10 feet (QC): 5 Walk 50 ft with 2 Turns(QC): 5 Walk 150 ft (QC): 5 Gait Assistive Device: FWW steady, step to gait sequence Exercises Supine Ex: Ankle pumps, Quad Set, Heel Slides, Straight leg raise Supine Reps: 15 (right knee AROM 5-95 degrees) Seated Therapy Exercises: Sit to stand, Long arc quads Seated Reps: 15 Assessment Patient performed all functional activity without difficulty. Physician in to assess patient and it will be determined this p.m. on POC (dismiss on this date or tomorrow). PT Long-Term Goals Long-Term Goals PT Long-Term Goals Time Frame: Nov 21, 2022 Roll Left & Right (QC): 6 Sit to Lying (QC): 6 Lying-Sitting on Side/Bed(QC): 6 Sit to Stand (QC): 6 Chair/Nme-sg-Qiqot Xfer(QC): 6 Toilet Transfer (QC): 6 Does the Patient Walk: Yes Walk 10 feet (QC): 6 Walk 50ft with 2 Turns (QC): 6 Walk 150 ft (QC): 6 1 Step (curb) (QC): 4 4 Steps (QC): 4 12 Steps (QC): 4 PT Plan Treatment/Plan Treatment Plan: Continue Plan of Care Treatment Plan: Bed Mobility, Education, Functional Activity [place], Functional Strength, Group Therapy, Gait, Safety, Therapeutic Exercise, Transfers Treatment Duration: Nov 21, 2022 Frequency: 11 times per week Estimated Hrs Per Day: .25 hour per day Patient and/or Family Agrees t: Yes Time Time In: 720 Time Out: 744 DATE: Oct 08, 2022 Total Billed Treatment Time: 24 Total Billed Treatment 1 visit EX 13 min GT 11 min ELVIA NAJERA PT Oct 08, 2022 08:18
[2022-10-08] MEDS ORDERED: FINASTERIDE 5 MG TABLET PO SCH ×2 (09:00→21:00)
[2022-10-08] MEDS ORDERED: CITALOPRAM 20 MG TABLET PO SCH (09:00)
[2022-10-08] MEDS ORDERED: PANTOPRAZOLE 40 MG (PROTONIX) TAB PO SCH (09:00)
--- NOTE | 2022-10-08 10:03 | Anesthesia-General Post-Op ---
General Patient Condition Mental Status/LOC: Same as Preop Cardiovascular: Satisfactory Nausea/Vomiting: Absent Respiratory: Satisfactory Pain: Controlled Complications: Absent Post Op Complications Complications None Follow Up Care/Instructions Patient Instructions None needed. Anesthesia/Patient Condition Patient Condition Patient is doing well, no complaints, stable vital signs, no apparent adverse anesthesia problems. No complications reported per nursing. NEEMA BALTAZAR CRNA Oct 08, 2022 10:02
[2022-10-08 11:24] VITALS: BP 163/77
--- NOTE | 2022-10-08 13:26 | Physical Therapy Progress Note ---
Therapy Progress Note Patient is compliant with HEP and demonstrated good technique with all. Patient is independent with all mobility and reports he is ready to be dismissed to home. Surgeon and RN notified. PT to dismiss patient from services at this time. ELVIA NAJERA PT Oct 08, 2022 13:26
[2022-10-08 13:57] VITALS: BP 163/77
== END 2022-10-08 14:00 | disposition home health service (06) | DRG 470 ==
LOC: 4TH 05:59 → SURG 06:00 → 4TH 10:10
PROVIDERS: ADMIT Orthopaedic Surgery; ATTEND Orthopaedic Surgery
PROC: 0SRC0J9 Replacement of Right Knee Joint with Synthetic Substitute, Cemented, Open Approach (ICD-10-PCS; principal; 2022-10-07 07:31)
DX: M17.11 Unilateral primary osteoarthritis, right knee (principal); I10 Essential (primary) hypertension; F32.A Depression, unspecified; F41.9 Anxiety disorder, unspecified; N40.0 Benign prostatic hyperplasia without lower urinary tract symptoms; K21.9 Gastro-esophageal reflux disease without esophagitis; N31.9 Neuromuscular dysfunction of bladder, unspecified; E78.00 Pure hypercholesterolemia, unspecified; G62.9 Polyneuropathy, unspecified; E66.9 Obesity, unspecified; Z68.35 Body mass index [BMI] 35.0-35.9, adult; Z88.1 Allergy status to other antibiotic agents; Z88.0 Allergy status to penicillin
CPT/HCPCS: 36415; 71046; 73560; 80053; 81000; 85014; 85018; 85025; 85610; 86850; 86900; 86901; 87081; 93005; 94664